=== PATIENT | male | born 1935 | race Caucasian/White ===

== ENCOUNTER 2017-05-03 18:26 | Inpatient (IN) | payer MEDICARE ==
[~2017-05-03] VITALS: Ht 182.9 cm; Wt 109.8 kg
[2017-05-03] MEDS ORDERED: CYAN10002 IJ (18:44)
[2017-05-03] MEDS ORDERED: RISP1TAB3 PO (18:44)
[2017-05-03] MEDS ORDERED: ESCITALOPRAM OX10 MG PO (18:44)
[2017-05-03] MEDS ORDERED: MIRT15TA3 PO (18:44)
[2017-05-03] MEDS ORDERED: DONE10TA7 PO (18:44)
[2017-05-03] MEDS ORDERED: MEMA28CA PO (18:44)
[2017-05-03] MEDS ORDERED: TRAZ50TA15 PO ×2 (18:44)
--- NOTE | 2017-05-03 19:11 | EKG ---
[address] [address] Test Date: 2017-05-03 Test Time: 18:52:23 Pat Name: BRIANNA LOVE Department: Room: Gender: M Ell Teacher: SETH : 1935 Requested By: CYRUS REYNOLDS Order Number: [id number] Reading MD: Daniel Diamond Measurements Intervals [place] Rate: 83 P: 40 NH: 224 QRS: -29 QRSD: 98 T: 62 QT: 394 QTc: 464 Interpretive Statements SINUS RHYTHM COMPLEX(ES) WITH ABERRANT INTRAVENTRICULAR CONDUCTION VENTRICULAR PREMATURE COMPLEX(ES) PROLONGED NH INTERVAL LEFTWARD AXIS ABNORMAL ECG RI6.01 No previous ECG available for comparison Electronically Signed On 05-22-2017 17:09:22 CDT by Daniel Diamond
[2017-05-03] MEDS ORDERED: LORazepam 1 MG TABLET PO ONE (19:15)
[2017-05-03 19:40] LABS: BASO % 1 % (0-3); EOS # 0.2 x10^3/uL (0.0-0.7); EOS % 3 % (0-3); HEMATOCRIT 45.5 % (39.0-53.0); HEMOGLOBIN 15.2 g/dL (13.0-17.5); LYMPH # 1.6 x10^3/uL (1.0-4.8); LYMPH % 23 % (24-48); MEAN CORPUSCULAR HEMOGLOBIN 31 pg (25-35); MEAN CORPUSCULAR HGB CONC 33 g/dL (31-37); MEAN CORPUSCULAR VOLUME 92 fL (79-100); MONO # 0.4 x10^3/uL (0.0-1.1); MONO % 7 % (0-9); NEUT # 4.6 x10^3uL (1.8-7.7); NEUT % 67 % (31-73); PLATELET COUNT 147 x10^3/uL (140-400); RED BLOOD COUNT 4.97 x10^6/uL (4.30-5.70); RED CELL DISTRIBUTION WIDTH 14.3 % (11.5-14.5); WHITE BLOOD COUNT 6.8 x10^3/uL (4.0-11.0)
[2017-05-03 19:48] LABS: ALBUMIN 3.6 g/dL (3.4-5.0); ALBUMIN/GLOBULIN RATIO 0.9 (1.0-1.7); CALCIUM 8.7 mg/dL (8.5-10.1); CREATININE 0.9 mg/dL (0.7-1.3); GFR 81.2; MAGNESIUM 2.2 mg/dL (1.8-2.4); POTASSIUM 3.6 mmol/L (3.5-5.1); TOTAL BILIRUBIN 0.7 mg/dL (0.2-1.0); TOTAL PROTEIN 7.7 g/dL (6.4-8.2)
--- NOTE | 2017-05-03 20:11 | PHYS DOC ---
Past History Past Medical History: Dementia, Depression, Other Past Surgical History: Other Alcohol Use: None Drug Use: None Adult General Chief Complaint Chief Complaint: PSYCH EVALUATION HPI HPI Patient is a male year old male who presents for medical clearance for psychiatric evaluation. The patient is sent from care home in [place] where he has had increased anxiety and depression, attempted to stab himself with a ballpoint pen in the wrist and chest today. He expresses suicidal ideation to staff. Denies any medical concerns at this time. Is on multiple psychiatric medications as noted in his chart. History of Alzheimer's dementia. Review of Systems Review of Systems Constitutional: Denies fever or chills Eyes: Denies change in visual acuity HENT: Denies nasal congestion or sore throat Respiratory: Denies cough or shortness of breath Cardiovascular: Denies chest pain or edema GI: Denies abdominal pain, nausea, vomiting : Denies dysuria or hematuria Musculoskeletal: Denies back pain or joint pain Integument: Denies rash or skin lesions Neurologic: Denies headache, focal weakness or sensory changes Psychiatric: Reports anxiety and depression Current Medications Current Medications Current Medications Medications (Trade) Dose Ordered Sig/Wes Start Time Stop Time Status Last Admin Dose Admin Lorazepam (Ativan) 0.5 mg 1X ONCE 05/03/17 19:15 05/03/17 19:16 DC 05/03/17 19:48 0.5 MG Allergies Allergies Allergies Coded Allergies Type Severity Reaction Last Updated Verified No Known Drug Allergies 05/03/17 No Physical Exam Physical Exam Constitutional: Well developed, well nourished, no acute distress, non-toxic appearance. HENT: Normocephalic, atraumatic, bilateral external ears normal, oropharynx moist, nose normal. Eyes: PERRLA, EOMI, conjunctiva normal, no discharge. Neck: supple, no stridor. No meningismus Cardiovascular: RRR, no murmurs, no edema. Lungs & Thorax: LCTAB, no wheezing, no respiratory distress. Abdomen: soft, nontender, nondistended. Skin: Warm, dry, no erythema, no rash. Back: No tenderness. Extremities: No tenderness, no edema. Neurologic: Alert and oriented to person and date, states he is at a filling station, cranial nerves II through XII grossly intact, symmetric strength and sensation to upper and lower extremities, no focal deficits noted. Psychologic: Flat affect, anxious Current Patient Data Vital Signs Vital Signs Date Time Temp Pulse Resp B/P (MAP) Pulse Ox O2 Delivery O2 Flow Rate FiO2 05/03/17 18:30 97.8 84 20 97 Room Air Lab Results Laboratory Tests Test 05/03/17 19:00 White Blood Count 6.8 x10^3/uL (4.0-11.0) Red Blood Count 4.97 x10^6/uL (4.30-5.70) Hemoglobin 15.2 g/dL (13.0-17.5) Hematocrit 45.5 % (39.0-53.0) Mean Corpuscular Volume 92 fL (79-100) Mean Corpuscular Hemoglobin 31 pg (25-35) Mean Corpuscular Hemoglobin Concent 33 g/dL (31-37) Red Cell Distribution Width 14.3 % (11.5-14.5) Platelet Count 147 x10^3/uL (140-400) Neutrophils (%) (Auto) 67 % (31-73) Lymphocytes (%) (Auto) 23 % (24-48) L Monocytes (%) (Auto) 7 % (0-9) Eosinophils (%) (Auto) 3 % (0-3) Basophils (%) (Auto) 1 % (0-3) Neutrophils # (Auto) 4.6 x10^3uL (1.8-7.7) Lymphocytes # (Auto) 1.6 x10^3/uL (1.0-4.8) Monocytes # (Auto) 0.4 x10^3/uL (0.0-1.1) Eosinophils # (Auto) 0.2 x10^3/uL (0.0-0.7) Basophils # (Auto) 0.0 x10^3/uL (0.0-0.2) Sodium Level 140 mmol/L (136-145) Potassium Level 3.6 mmol/L (3.5-5.1) Chloride Level 104 mmol/L (98-107) Carbon Dioxide Level 31 mmol/L (21-32) Anion Gap 5 (6-14) L Blood Urea Nitrogen 20 mg/dL (8-26) Creatinine 0.9 mg/dL (0.7-1.3) Estimated GFR (Cockcroft-Gault) 81.2 BUN/Creatinine Ratio 22 (6-20) H Glucose Level 96 mg/dL (70-99) Calcium Level 8.7 mg/dL (8.5-10.1) Magnesium Level 2.2 mg/dL (1.8-2.4) Total Bilirubin 0.7 mg/dL (0.2-1.0) Aspartate Amino Transferase (AST) 38 U/L (15-37) H Alanine Aminotransferase (ALT) 34 U/L (16-63) Alkaline Phosphatase 83 U/L (46-116) Total Protein 7.7 g/dL (6.4-8.2) Albumin 3.6 g/dL (3.4-5.0) Albumin/Globulin Ratio 0.9 (1.0-1.7) L EKG EKG Interpreted by me: Normal sinus rhythm rate 83, no acute ST or T wave changes, WI interval prolonged 224 ms, PVCs[] Radiology/Procedures Radiology/Procedures [] Course & Med Decision Making Course & Med Decision Making Pertinent Labs and Imaging studies reviewed. (See chart for details) The patient presents for medical clearance for psychiatric admission. No complaints at this time. Gave Ativan for anxiety. Labs as documented above. Patient medically clear for admission. To be transferred to psychiatric unit by EMS. The patient remains in stable condition. [] Dragon Disclaimer Dragon Disclaimer This chart was dictated in whole or in part using Voice Recognition software in a busy, high-work load, and often noisy Emergency Department environment. It may contain unintended and wholly unrecognized errors or omissions. Departure Departure: Impression: Primary Impression: Anxiety associated with depression Disposition: 65 XFER TO PSYCH HOSP/UNIT Condition: STABLE Referrals: YONAS CREWS MD (PCP) CYRUS REYNOLDS MD May 03, 2017 20:11
[2017-05-03] MEDS: MIRTAZAPINE 15 MG TABLET PO SCH (21:00)
[2017-05-03] MEDS: DONEPEZIL HCL 10 MG TABLET PO SCH (21:00)
[2017-05-03] MEDS: risperiDONE 1 MG TABLET. PO SCH (21:00)
[2017-05-03] MEDS: MEMANTINE 10 MG TABLET. PO SCH (21:00)
[2017-05-03] MEDS ORDERED: MAGNESIUM HYDROXIDE 2,400 MG/30 ML ORAL.SUSP. PO PRN (21:45)
[2017-05-03] MEDS ORDERED: METHYL SALICYLATE/MENTHOL TOPICAL OINTMENT 29GM TUBE. TP PRN (21:45)
[2017-05-03] MEDS ORDERED: MAG HYDROX/AL HYDROX/SIMETH 30 ML ORAL.SUSP PO PRN (21:45)
[2017-05-03] MEDS ORDERED: ACETAMINOPHEN 325 MG TABLET PO PRN (21:45)
[2017-05-03 22:39] VITALS: BP 92/59
--- NOTE | 2017-05-03 22:56 | PDOC ---
Exam Jayy Demential Exam: Jayy Note: Please also refer to the separate dictated note~for this date of service dictated separately.~Patient seen individually. Discussed the patient with Nursing staff reviewed the chart.~Reviewed interim history and current functioning. Reviewed vital signs,~Labs/ Radiology~and current medications noted below. Continue current treatment with the changes noted in the dictated addendum note Assessment: Vital Signs: Vital Signs Date Time Temp Pulse Resp B/P (MAP) Pulse Ox O2 Delivery O2 Flow Rate FiO2 05/03/17 22:39 97.5 83 22 92/59 (70) 93 Room Air Labs: Laboratory Tests Test 05/03/17 19:00 White Blood Count 6.8 x10^3/uL (4.0-11.0) Red Blood Count 4.97 x10^6/uL (4.30-5.70) Hemoglobin 15.2 g/dL (13.0-17.5) Hematocrit 45.5 % (39.0-53.0) Mean Corpuscular Volume 92 fL (79-100) Mean Corpuscular Hemoglobin 31 pg (25-35) Mean Corpuscular Hemoglobin Concent 33 g/dL (31-37) Red Cell Distribution Width 14.3 % (11.5-14.5) Platelet Count 147 x10^3/uL (140-400) Neutrophils (%) (Auto) 67 % (31-73) Lymphocytes (%) (Auto) 23 % (24-48) L Monocytes (%) (Auto) 7 % (0-9) Eosinophils (%) (Auto) 3 % (0-3) Basophils (%) (Auto) 1 % (0-3) Neutrophils # (Auto) 4.6 x10^3uL (1.8-7.7) Lymphocytes # (Auto) 1.6 x10^3/uL (1.0-4.8) Monocytes # (Auto) 0.4 x10^3/uL (0.0-1.1) Eosinophils # (Auto) 0.2 x10^3/uL (0.0-0.7) Basophils # (Auto) 0.0 x10^3/uL (0.0-0.2) Sodium Level 140 mmol/L (136-145) Potassium Level 3.6 mmol/L (3.5-5.1) Chloride Level 104 mmol/L (98-107) Carbon Dioxide Level 31 mmol/L (21-32) Anion Gap 5 (6-14) L Blood Urea Nitrogen 20 mg/dL (8-26) Creatinine 0.9 mg/dL (0.7-1.3) Estimated GFR (Cockcroft-Gault) 81.2 BUN/Creatinine Ratio 22 (6-20) H Glucose Level 96 mg/dL (70-99) Calcium Level 8.7 mg/dL (8.5-10.1) Magnesium Level 2.2 mg/dL (1.8-2.4) Total Bilirubin 0.7 mg/dL (0.2-1.0) Aspartate Amino Transferase (AST) 38 U/L (15-37) H Alanine Aminotransferase (ALT) 34 U/L (16-63) Alkaline Phosphatase 83 U/L (46-116) Total Protein 7.7 g/dL (6.4-8.2) Albumin 3.6 g/dL (3.4-5.0) Albumin/Globulin Ratio 0.9 (1.0-1.7) L Current Medications: Meds: Current Medications Lorazepam (Ativan) 0.5 mg 1X ONCE PO Last administered on 05/03/17t 19:48; Start 05/03/17 at 19:15; Stop 05/03/17 at 19:16; Status DC Cyanocobalamin (Vitamin B-12) 1,000 mcg QMONTH SQ ; Start 05/23/17 at 09:00 Donepezil HCl (Aricept) 10 mg QHS PO ; Start 05/03/17 at 21:00 Mirtazapine (Remeron) 15 mg QHS PO ; Start 05/03/17 at 21:00 Risperidone (RisperDAL) 1 mg BID PO ; Start 05/03/17 at 21:00 Trazodone HCl (Desyrel) 25 mg PRN Q6HRS PRN PO AA; Start 05/03/17 at 20:45 Trazodone HCl (Desyrel) 50 mg PRN QHS PRN PO INSOMNIA; Start 05/03/17 at 20:45 Citalopram Hydrobromide (CeleXA) 30 mg DAILY PO ; Start 05/04/17 at 09:00 Memantine (Namenda) 10 mg BID PO ; Start 05/03/17 at 21:00 Acetaminophen (Tylenol) 650 mg PRN Q6HRS PRN PO PAIN / TEMP; Start 05/03/17 at 21:45; Status UNV Multi-Ingredient Ointment (Analgesic [place]) 1 farrukh PRN QID PRN TP MUSCLE PAIN; Start 05/03/17 at 21:45; Status UNV Al Hydroxide/Mg Hydroxide (Mylanta Plus Xs) 15 ml PRN AFTMEALHC PRN PO DYSPEPSIA; Start 05/03/17 at 21:45; Status UNV Magnesium Hydroxide (Milk Of Magnesia) 2,400 mg PRN QHS PRN PO CONSTIPATION; Start 05/03/17 at 21:45; Status UNV Active Scripts Active Reported Donepezil Hcl 10 Mg Tablet 10 Mg PO QHS Trazodone Hcl 50 Mg Tablet 25 Mg PO PRN Q6HRS PRN Trazodone Hcl 50 Mg Tablet 50 Mg PO PRN QHS PRN Risperidone 1 Mg Tablet 1 Mg PO BID Mirtazapine 15 Mg Tablet 15 Mg PO QHS Namenda Xr (Memantine Hcl) 28 Mg Cap.spr.24 28 Mg PO DAILY Escitalopram Oxalate 10 Mg Tablet 15 Mg PO DAILY Cyanocobalamin Injection (Cyanocobalamin (Vitamin B-12)) 1,000 Mcg/1 Ml Vial 1, 000 Mcg IJ QMONTH Diagnosis: Problems: (1) Anxiety associated with depression MARICARMEN GONCALVES MD May 03, 2017 22:56
[2017-05-04 05:54] VITALS: BP 103/66
[2017-05-04] MEDS: MEMANTINE 10 MG TABLET. PO SCH ×2 (08:01→20:27)
[2017-05-04] MEDS: traZODone 50 MG TABLET. PO PRN ×2 (08:01→14:23)
[2017-05-04] MEDS: CITALOPRAM 20 MG TABLET. PO SCH (08:01)
[2017-05-04] MEDS: risperiDONE 1 MG TABLET. PO SCH ×2 (08:01→20:27)
[2017-05-04 11:58] LABS: THYROID STIM HORMONE (TSH) 1.995 uIU/mL (0.358-3.740)
[2017-05-04 13:07] LABS: T3 TOTAL 81 ng/dL (71-180); THYROXINE 6.2 ug/dL (4.5-12.0)
--- NOTE | 2017-05-04 14:13 | PDOC1 ---
History of Present Illness Reason for Visit: Suicidal History of Present Illness Pt was hospitalized in [place] for 2 months, recently released to [facility] in [place]. Pt sent to [facility] for [facility] evaluation, as he has been making suicidal statements, trying to stab himself with a pen. He has a hx of depression and Alzheimer's. When I spoke to him, he did not answer questions, would only tell me that he wants a private room, that he "worked too long and hard to have to put up with a roommate." He is a poor historian. 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 Allergies: Coded Allergies: No Known Drug Allergies (Unverified , 05/03/17) Medications Current Medications Lorazepam (Ativan) 0.5 mg 1X ONCE PO Last administered on 05/03/17 19:48; Start 05/03/17 at 19:15; Stop 05/03/17 at 19:16; Status DC Cyanocobalamin (Vitamin B-12) 1,000 mcg QMONTH SQ ; Start 05/23/17 at 09:00 Donepezil HCl (Aricept) 10 mg QHS PO ; Start 05/03/17 at 21:00 Mirtazapine (Remeron) 15 mg QHS PO ; Start 05/03/17 at 21:00 Risperidone (RisperDAL) 1 mg BID PO Last administered on 05/04/17 08:01; Start 05/03/17 at 21:00 Trazodone HCl (Desyrel) 25 mg PRN Q6HRS PRN PO AA Last administered on 08:01; Start 05/03/17 at 20:45 Trazodone HCl (Desyrel) 50 mg PRN QHS PRN PO INSOMNIA; Start 05/03/17 at 20:45 Citalopram Hydrobromide (CeleXA) 30 mg DAILY PO Last administered on 05/04/17 08:01; Start 05/04/17 at 09:00 Memantine (Namenda) 10 mg BID PO Last administered on 05/04/17t 08:01; Start 05/03/17 at 21:00 Acetaminophen (Tylenol) 650 mg PRN Q6HRS PRN PO PAIN / TEMP; Start 05/03/17 at 21:45 Multi-Ingredient Ointment (Analgesic [place]) 1 farrukh PRN QID PRN TP MUSCLE PAIN; Start 05/03/17 at 21:45 Al Hydroxide/Mg Hydroxide (Mylanta Plus Xs) 15 ml PRN AFTMEALHC PRN PO DYSPEPSIA; Start 05/03/17 at 21:45 Magnesium Hydroxide (Milk Of Magnesia) 2,400 mg PRN QHS PRN PO CONSTIPATION; Start 05/03/17 at 21:45 Active Scripts Active Reported Donepezil Hcl 10 Mg Tablet 10 Mg PO QHS Trazodone Hcl 50 Mg Tablet 25 Mg PO PRN Q6HRS PRN Trazodone Hcl 50 Mg Tablet 50 Mg PO PRN QHS PRN Risperidone 1 Mg Tablet 1 Mg PO BID Mirtazapine 15 Mg Tablet 15 Mg PO QHS Namenda Xr (Memantine Hcl) 28 Mg Cap.spr.24 28 Mg PO DAILY Escitalopram Oxalate 10 Mg Tablet 15 Mg PO DAILY Cyanocobalamin Injection (Cyanocobalamin (Vitamin B-12)) 1,000 Mcg/1 Ml Vial 1, 000 Mcg IJ QMONTH Exam Vital Signs Vital Signs Date Time Temp Pulse Resp B/P (MAP) Pulse Ox O2 Delivery O2 Flow Rate FiO2 05/04/17 05:54 97.4 70 20 103/66 (78) 90 05/03/17 22:39 Room Air General Appearance: Alert, Cooperative, No acute distress HEENT: Atraumatic, PERRLA, EOMI, Mucous membr. moist/pink, Other (Neck without JVD or LAD) Heart: Regular rate, Normal S1, Normal S2, No murmurs Abdominal: Normal bowel sounds, Soft, No tenderness, No hepatospenomegaly Extremities: No edema, Normal pulses Skin: No rashes Neuro: Other (No focal neuro abnormalities) Psych/Mental Status: Other (Perservates on wanting a private room) Assessment/Plan Assessment/Plan 1. Depression w/ SI: Per Dr. Rodrigez. 2. Alzheimer's Dementia: Per Dr. Rodrigez 3. VIt D deficiency: Treat w/ PO VIt D (level was 14.8) 4. HPL: No indication for statin in asymptomatic person over 80, especially w/ dementia. 5. DVT proph: Pt fully ambulatory, low risk. COURSE Allergies Coded Allergies Type Severity Reaction Last Updated Verified No Known Drug Allergies 05/03/17 No Laboratory Tests Test 05/03/17 19:00 White Blood Count 6.8 x10^3/uL (4.0-11.0) Red Blood Count 4.97 x10^6/uL (4.30-5.70) Hemoglobin 15.2 g/dL (13.0-17.5) Hematocrit 45.5 % (39.0-53.0) Mean Corpuscular Volume 92 fL (79-100) Mean Corpuscular Hemoglobin 31 pg (25-35) Mean Corpuscular Hemoglobin Concent 33 g/dL (31-37) Red Cell Distribution Width 14.3 % (11.5-14.5) Platelet Count 147 x10^3/uL (140-400) Neutrophils (%) (Auto) 67 % (31-73) Lymphocytes (%) (Auto) 23 % (24-48) Monocytes (%) (Auto) 7 % (0-9) Eosinophils (%) (Auto) 3 % (0-3) Basophils (%) (Auto) 1 % (0-3) Neutrophils # (Auto) 4.6 x10^3uL (1.8-7.7) Lymphocytes # (Auto) 1.6 x10^3/uL (1.0-4.8) Monocytes # (Auto) 0.4 x10^3/uL (0.0-1.1) Eosinophils # (Auto) 0.2 x10^3/uL (0.0-0.7) Basophils # (Auto) 0.0 x10^3/uL (0.0-0.2) Sodium Level 140 mmol/L (136-145) Potassium Level 3.6 mmol/L (3.5-5.1) Chloride Level 104 mmol/L (98-107) Carbon Dioxide Level 31 mmol/L (21-32) Anion Gap 5 (6-14) Blood Urea Nitrogen 20 mg/dL (8-26) Creatinine 0.9 mg/dL (0.7-1.3) Estimated GFR (Cockcroft-Gault) 81.2 BUN/Creatinine Ratio 22 (6-20) Glucose Level 96 mg/dL (70-99) Calcium Level 8.7 mg/dL (8.5-10.1) Magnesium Level 2.2 mg/dL (1.8-2.4) Total Bilirubin 0.7 mg/dL (0.2-1.0) Aspartate Amino Transf (AST/SGOT) 38 U/L (15-37) Alanine Aminotransferase (ALT/SGPT) 34 U/L (16-63) Alkaline Phosphatase 83 U/L (46-116) Total Protein 7.7 g/dL (6.4-8.2) Albumin 3.6 g/dL (3.4-5.0) Albumin/Globulin Ratio 0.9 (1.0-1.7) Triglycerides Level 113 mg/dL (0-150) Cholesterol Level 207 mg/dL (0-200) LDL Cholesterol, Calculated 148 mg/dL (0-100) VLDL Cholesterol, Calculated 22 mg/dL (0-40) Non-HDL Cholesterol Calculated 170 mg/dL (0-129) HDL Cholesterol 37 mg/dL (40-60) Cholesterol/HDL Ratio 5.0 Thyroid Stimulating Hormone (TSH) 1.995 uIU/mL (0.358-3.740) Thyroxine (T4) 6.2 ug/dL (4.5-12.0) Total Triiodothyronine 81 ng/dL (71-180) Current Medications Medications (Trade) Dose Ordered Sig/Wes Route PRN Reason Start Time Stop Time Status Last Admin Dose Admin Lorazepam (Ativan) 0.5 mg 1X ONCE PO 05/03/17 19:15 05/03/17 19:16 DC 05/03/17 19:48 Cyanocobalamin (Vitamin B-12) 1,000 mcg QMONTH SQ 05/23/17 09:00 Donepezil HCl (Aricept) 10 mg QHS PO 05/03/17 21:00 Mirtazapine (Remeron) 15 mg QHS PO 05/03/17 21:00 Risperidone (RisperDAL) 1 mg BID PO 05/03/17 21:00 05/04/17 08:01 Trazodone HCl (Desyrel) 25 mg PRN Q6HRS PRN PO AA 05/03/17 20:45 05/04/17 08:01 Trazodone HCl (Desyrel) 50 mg PRN QHS PRN PO INSOMNIA 05/03/17 20:45 Citalopram Hydrobromide (CeleXA) 30 mg DAILY PO 05/04/17 09:00 05/04/17 08:01 Memantine (Namenda) 10 mg BID PO 05/03/17 21:00 05/04/17 08:01 Acetaminophen (Tylenol) 650 mg PRN Q6HRS PRN PO PAIN / TEMP 05/03/17 21:45 Multi-Ingredient Ointment (Analgesic [place]) 1 farrukh PRN QID PRN TP MUSCLE PAIN 05/03/17 21:45 Al Hydroxide/Mg Hydroxide (Mylanta Plus Xs) 15 ml PRN AFTMEALHC PRN PO DYSPEPSIA 05/03/17 21:45 Magnesium Hydroxide (Milk Of Magnesia) 2,400 mg PRN QHS PRN PO CONSTIPATION 05/03/17 21:45 I & O 05/05/17 00:00 Intake Total 600 ml Balance 600 ml Vital Signs Date Time Temp Pulse Resp B/P (MAP) Pulse Ox O2 Delivery O2 Flow Rate FiO2 05/04/17 05:54 97.4 70 20 103/66 (78) 90 05/03/17 22:39 Room Air ANGELINA WALKER MD May 04, 2017 14:13
[2017-05-04 15:50] VITALS: BP 119/83
[2017-05-04 18:11] LABS: HEMOGLOBIN A1C 5.2 % (4.8-5.6)
[2017-05-04] MEDS: MIRTAZAPINE 15 MG TABLET PO SCH (20:27)
[2017-05-04] MEDS: DONEPEZIL HCL 10 MG TABLET PO SCH (20:27)
--- NOTE | 2017-05-04 20:39 | PDOC ---
Exam Jayy Demential Exam: Jayy Note: Please also refer to the separate dictated note~for this date of service dictated separately.~Patient seen individually. Discussed the patient with Nursing staff reviewed the chart.~Reviewed interim history and current functioning. Reviewed vital signs,~Labs/ Radiology~and current medications noted below. Continue current treatment with the changes noted in the dictated addendum note Assessment: Vital Signs: Vital Signs Date Time Temp Pulse Resp B/P (MAP) Pulse Ox O2 Delivery O2 Flow Rate FiO2 05/04/17 15:50 97.9 91 22 119/83 (95) 93 05/03/17 22:39 Room Air I&O Intake and Output 05/05/17 07:00 Intake Total 1080 ml Balance 1080 ml Intake Oral 1080 ml Current Medications: Meds: Current Medications Lorazepam (Ativan) 0.5 mg 1X ONCE PO Last administered on 05/03/17 19:48; Start 05/03/17 at 19:15; Stop 05/03/17 at 19:16; Status DC Cyanocobalamin (Vitamin B-12) 1,000 mcg QMONTH SQ ; Start 05/23/17 at 09:00 Donepezil HCl (Aricept) 10 mg QHS PO Last administered on 05/04/17 20:27; Start 05/03/17 at 21:00 Mirtazapine (Remeron) 15 mg QHS PO Last administered on 05/04/17 20:27; Start 05/03/17 at 21:00 Risperidone (RisperDAL) 1 mg BID PO Last administered on 05/04/17 20:27; Start 05/03/17 at 21:00 Trazodone HCl (Desyrel) 25 mg PRN Q6HRS PRN PO AA Last administered on 14:23; Start 05/03/17 at 20:45 Trazodone HCl (Desyrel) 50 mg PRN QHS PRN PO INSOMNIA; Start 05/03/17 at 20:45 Citalopram Hydrobromide (CeleXA) 30 mg DAILY PO Last administered on 05/04/17 08:01; Start 05/04/17 at 09:00 Memantine (Namenda) 10 mg BID PO Last administered on 05/04/17 20:27; Start 05/03/17 at 21:00 Acetaminophen (Tylenol) 650 mg PRN Q6HRS PRN PO PAIN / TEMP; Start 05/03/17 at 21:45 Multi-Ingredient Ointment (Analgesic [place]) 1 farrukh PRN QID PRN TP MUSCLE PAIN; Start 05/03/17 at 21:45 Al Hydroxide/Mg Hydroxide (Mylanta Plus Xs) 15 ml PRN AFTMEALHC PRN PO DYSPEPSIA; Start 05/03/17 at 21:45 Magnesium Hydroxide (Milk Of Magnesia) 2,400 mg PRN QHS PRN PO CONSTIPATION; Start 05/03/17 at 21:45 Vitamin D (Vitamin D3) 50,000 unit WEEKLY PO ; Start 05/05/17 at 09:00 Lorazepam (Ativan) 0.25 mg PRN Q2HR PRN PO ANXIETY / AGITATION; Start 05/04/17 at 19:30 Active Scripts Active Reported Donepezil Hcl 10 Mg Tablet 10 Mg PO QHS Trazodone Hcl 50 Mg Tablet 25 Mg PO PRN Q6HRS PRN Trazodone Hcl 50 Mg Tablet 50 Mg PO PRN QHS PRN Risperidone 1 Mg Tablet 1 Mg PO BID Mirtazapine 15 Mg Tablet 15 Mg PO QHS Namenda Xr (Memantine Hcl) 28 Mg Cap.spr.24 28 Mg PO DAILY Escitalopram Oxalate 10 Mg Tablet 15 Mg PO DAILY Cyanocobalamin Injection (Cyanocobalamin (Vitamin B-12)) 1,000 Mcg/1 Ml Vial 1, 000 Mcg IJ QMONTH Diagnosis: Problems: (1) Anxiety associated with depression MARICARMEN GONCALVES MD May 04, 2017 20:39
[2017-05-05 06:23] VITALS: BP 115/74
[2017-05-05] MEDS: CITALOPRAM 20 MG TABLET. PO SCH (08:01)
[2017-05-05] MEDS: MEMANTINE 10 MG TABLET. PO SCH ×2 (08:01→19:43)
[2017-05-05] MEDS: risperiDONE 1 MG TABLET. PO SCH ×2 (08:02→19:43)
[2017-05-05] MEDS: CHOLECALCIFEROL (VITAMIN D3) 50,000 UNIT CAPSULE PO SCH (08:03)
--- NOTE | 2017-05-05 09:54 | HP ---
ADMIT DATE: 05/04/2017 This is a late entry for date of service 05/04/2017 covers the elements not covered in my initial note of 05/04/2017. I met with the patient the evening of 05/04/2017. IDENTIFYING DATA: The patient is an 81-year-old male referred to us from [facility] where he was admitted just 2 days previously after about 2 months' inpatient psychiatric stay at [facility] in [place] for depression and suicidal ideation. Shortly after arriving at the detention, the patient was again voicing suicidal ideation with plan of stabbing himself in the chest and the wrist. The patient's behaviors were deemed dangerous, had failed the short stay at the nursing facility, referred back for inpatient psychiatric hospitalization at this time to our unit here. 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 Nothing is working out. I said I would stab myself." HISTORY OF PRESENT ILLNESS: The patient has a history of progressive short term memory deficits, confusion, worsening symptoms of depression. He has had sleep and appetite changes, increased anxiety, voiced suicidal ideation as above. No clear history of bipolar disorder or homicidal ideation. PAST PSYCHIATRIC HISTORY: Positive for progressive dementia and depression. PAST MEDICAL HISTORY: Positive for vitamin B deficiency, dehydration, dyspnea. DRUG ALLERGIES: Negative. Primary care physician is Dr. Luna who referred the patient to us. Code status is full. DRUG ALLERGIES: Negative. DIET: Regular. Takes his medications whole. CURRENT PSYCHOTROPICS: Lexapro 15 mg a day, Namenda XR 28 mg a day, Remeron 15 mg at bedtime, Risperdal 1 mg b.i.d., trazodone 50 mg at bedtime p.r.n. insomnia and 25 mg q.6 hours p.r.n., Aricept 10 mg a day. FAMILY HISTORY: Noncontributory. SOCIAL HISTORY: The patient has past alcohol use, but no clear significant alcohol abuse. 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 No physical, sexual or elder abuse history is noted. Not known to be a perpetrator. REACTION TO HOSPITALIZATION: The patient is accepting of it. ASSETS: Physically reasonably healthy supportive family. MENTAL STATUS EXAMINATION: The patient was seen individually evening of 05/04/2017 in his room. He was aware of the year, name of the president, short term memory, otherwise is impaired. Speech is coherent, at times rapid, anxious, mood is depressed. Affect is mood congruent, somewhat paranoid. No active suicidal or homicidal ideation. He stated he was "L[employer]-Day" and recognizes that ending his life on his own would be against his values, but nevertheless stated he had suicidal ideation, but did not follow through with it. PHYSICAL EXAMINATION: VITAL SIGNS: As mentioned in my initial note. IMPRESSION: Major depressive disorder, recurrent, rule out psychotic features, mild cognitive impairment versus major neurocognitive disorder, Alzheimer, vascular with depression, delusions; anxiety disorder, unspecified; impulse control disorder, unspecified. Rest unchanged. PLAN: Admit to the geropsychiatry unit at [facility]. I will see the patient daily individually from a psychiatric standpoint. Medical followup per Dr. Rushing/Dr. Chester. Continue the patient on his current psychotropics, observe baseline, start Ativan p.r.n., gets past records from [facility] in [place]. Further recommendations and treatment decisions will be made after baseline assessment. MARICARMEN GONCALVES MD DR: DANGELO/bernardo JOB#: [id number] / [id number]
[2017-05-05] MEDS ORDERED: CHOLECALCIFEROL (VITAMIN D3) 50,000 UNIT CAPSULE PO SCH (14:45)
[2017-05-05 16:09] VITALS: BP 115/72
[2017-05-05] MEDS: traZODone 50 MG TABLET. PO PRN (19:43)
[2017-05-05] MEDS: DONEPEZIL HCL 10 MG TABLET PO SCH (19:43)
[2017-05-05] MEDS: MIRTAZAPINE 15 MG TABLET PO SCH (19:43)
--- NOTE | 2017-05-05 20:27 | PDOC ---
Exam Jayy Demential Exam: Jayy Note: Please also refer to the separate dictated note~for this date of service dictated separately.~Patient seen individually. Discussed the patient with Nursing staff reviewed the chart.~Reviewed interim history and current functioning. Reviewed vital signs,~Labs/ Radiology~and current medications noted below. Continue current treatment with the changes noted in the dictated addendum note Assessment: Vital Signs: Vital Signs Date Time Temp Pulse Resp B/P (MAP) Pulse Ox O2 Delivery O2 Flow Rate FiO2 05/05/17 16:09 98.1 113 18 115/72 (86) 93 Room Air I&O Intake and Output 05/06/17 07:00 Intake Total 1020 ml Balance 1020 ml Intake Oral 1020 ml Current Medications: Meds: Current Medications Lorazepam (Ativan) 0.5 mg 1X ONCE PO Last administered on 05/03/17 19:48; Start 05/03/17 at 19:15; Stop 05/03/17 at 19:16; Status DC Cyanocobalamin (Vitamin B-12) 1,000 mcg QMONTH SQ ; Start 05/23/17 at 09:00 Donepezil HCl (Aricept) 10 mg QHS PO Last administered on 05/05/17 19:43; Start 05/03/17 at 21:00 Mirtazapine (Remeron) 15 mg QHS PO Last administered on 05/05/17 19:43; Start 05/03/17 at 21:00 Risperidone (RisperDAL) 1 mg BID PO Last administered on 05/05/17 19:43; Start 05/03/17 at 21:00 Trazodone HCl (Desyrel) 25 mg PRN Q6HRS PRN PO AA Last administered on 14:23; Start 05/03/17 at 20:45 Trazodone HCl (Desyrel) 50 mg PRN QHS PRN PO INSOMNIA Last administered on 05/05 19:43; Start 05/03/17 at 20:45 Citalopram Hydrobromide (CeleXA) 30 mg DAILY PO Last administered on 05/05/17 08:01; Start 05/04/17 at 09:00 Memantine (Namenda) 10 mg BID PO Last administered on 05/05/17 19:43; Start 05/03/17 at 21:00 Acetaminophen (Tylenol) 650 mg PRN Q6HRS PRN PO PAIN / TEMP; Start 05/03/17 at 21:45 Multi-Ingredient Ointment (Analgesic [place]) 1 farrukh PRN QID PRN TP MUSCLE PAIN; Start 05/03/17 at 21:45 Al Hydroxide/Mg Hydroxide (Mylanta Plus Xs) 15 ml PRN AFTMEALHC PRN PO DYSPEPSIA; Start 05/03/17 at 21:45 Magnesium Hydroxide (Milk Of Magnesia) 2,400 mg PRN QHS PRN PO CONSTIPATION; Start 05/03/17 at 21:45 Vitamin D (Vitamin D3) 50,000 unit WEEKLY PO Last administered on 05/05/17t 08: 03; Start 05/05/17 at 09:00 Lorazepam (Ativan) 0.25 mg PRN Q2HR PRN PO ANXIETY / AGITATION; Start 05/04/17 at 19:30 Vitamin D (Vitamin D3) 50,000 unit WEEKLY PO ; Start 05/05/17 at 14:45; Stop at 14:45; Status DC Active Scripts Active Reported Donepezil Hcl 10 Mg Tablet 10 Mg PO QHS Trazodone Hcl 50 Mg Tablet 25 Mg PO PRN Q6HRS PRN Trazodone Hcl 50 Mg Tablet 50 Mg PO PRN QHS PRN Risperidone 1 Mg Tablet 1 Mg PO BID Mirtazapine 15 Mg Tablet 15 Mg PO QHS Namenda Xr (Memantine Hcl) 28 Mg Cap.spr.24 28 Mg PO DAILY Escitalopram Oxalate 10 Mg Tablet 15 Mg PO DAILY Cyanocobalamin Injection (Cyanocobalamin (Vitamin B-12)) 1,000 Mcg/1 Ml Vial 1, 000 Mcg IJ QMONTH Diagnosis: Problems: (1) Anxiety associated with depression MARICARMEN GONCALVES MD May 05, 2017 20:27
[2017-05-06 07:13] VITALS: BP 109/72
[2017-05-06] MEDS: CITALOPRAM 20 MG TABLET. PO SCH (08:39)
[2017-05-06] MEDS: MEMANTINE 10 MG TABLET. PO SCH ×2 (08:39→19:18)
[2017-05-06] MEDS: risperiDONE 1 MG TABLET. PO SCH ×2 (08:39→19:18)
[2017-05-06 15:59] VITALS: BP 112/76
[2017-05-06] MEDS: DONEPEZIL HCL 10 MG TABLET PO SCH (19:18)
[2017-05-06] MEDS: MIRTAZAPINE 15 MG TABLET PO SCH (19:18)
--- NOTE | 2017-05-06 20:47 | PDOC ---
Exam Jayy Demential Exam: Jayy Note: Please also refer to the separate dictated note~for this date of service dictated separately.~Patient seen individually. Discussed the patient with Nursing staff reviewed the chart.~Reviewed interim history and current functioning. Reviewed vital signs,~Labs/ Radiology~and current medications noted below. Continue current treatment with the changes noted in the dictated addendum note Assessment: Vital Signs: Vital Signs Date Time Temp Pulse Resp B/P (MAP) Pulse Ox O2 Delivery O2 Flow Rate FiO2 05/06/17 15:59 97.2 93 19 112/76 (88) 95 05/05/17 16:09 Room Air I&O Intake and Output 05/07/17 07:00 Intake Total 720 ml Balance 720 ml Intake Oral 720 ml Current Medications: Meds: Current Medications Lorazepam (Ativan) 0.5 mg 1X ONCE PO Last administered on 05/03/17 19:48; Start 05/03/17 at 19:15; Stop 05/03/17 at 19:16; Status DC Cyanocobalamin (Vitamin B-12) 1,000 mcg QMONTH SQ ; Start 05/23/17 at 09:00 Donepezil HCl (Aricept) 10 mg QHS PO Last administered on 05/06/17 19:18; Start 05/03/17 at 21:00 Mirtazapine (Remeron) 15 mg QHS PO Last administered on 05/06/17 19:18; Start 05/03/17 at 21:00 Risperidone (RisperDAL) 1 mg BID PO Last administered on 05/06/17 19:18; Start 05/03/17 at 21:00 Trazodone HCl (Desyrel) 25 mg PRN Q6HRS PRN PO AA Last administered on 14:23; Start 05/03/17 at 20:45 Trazodone HCl (Desyrel) 50 mg PRN QHS PRN PO INSOMNIA Last administered on 05/05 19:43; Start 05/03/17 at 20:45 Citalopram Hydrobromide (CeleXA) 30 mg DAILY PO Last administered on 08:39; Start 05/04/17 at 09:00; Stop 05/06/17 at 16:28; Status DC Memantine (Namenda) 10 mg BID PO Last administered on 05/06/17 19:18; Start 05/03/17 at 21:00 Acetaminophen (Tylenol) 650 mg PRN Q6HRS PRN PO PAIN / TEMP; Start 05/03/17 at 21:45 Multi-Ingredient Ointment (Analgesic [place]) 1 farrukh PRN QID PRN TP MUSCLE PAIN; Start 05/03/17 at 21:45 Al Hydroxide/Mg Hydroxide (Mylanta Plus Xs) 15 ml PRN AFTMEALHC PRN PO DYSPEPSIA; Start 05/03/17 at 21:45 Magnesium Hydroxide (Milk Of Magnesia) 2,400 mg PRN QHS PRN PO CONSTIPATION; Start 05/03/17 at 21:45 Vitamin D (Vitamin D3) 50,000 unit WEEKLY PO Last administered on 05/05/17 08: 03; Start 05/05/17 at 09:00 Lorazepam (Ativan) 0.25 mg PRN Q2HR PRN PO ANXIETY / AGITATION; Start 05/04/17 at 19:30 Vitamin D (Vitamin D3) 50,000 unit WEEKLY PO ; Start 05/05/17 at 14:45; Stop at 14:45; Status DC Sertraline HCl (Zoloft) 50 mg DAILY PO ; Start 05/07/17 at 09:00 Active Scripts Active Reported Donepezil Hcl 10 Mg Tablet 10 Mg PO QHS Trazodone Hcl 50 Mg Tablet 25 Mg PO PRN Q6HRS PRN Trazodone Hcl 50 Mg Tablet 50 Mg PO PRN QHS PRN Risperidone 1 Mg Tablet 1 Mg PO BID Mirtazapine 15 Mg Tablet 15 Mg PO QHS Namenda Xr (Memantine Hcl) 28 Mg Cap.spr.24 28 Mg PO DAILY Escitalopram Oxalate 10 Mg Tablet 15 Mg PO DAILY Cyanocobalamin Injection (Cyanocobalamin (Vitamin B-12)) 1,000 Mcg/1 Ml Vial 1, 000 Mcg IJ QMONTH Diagnosis: Problems: (1) Anxiety associated with depression MARICARMEN GONCALVES MD May 06, 2017 20:47
[2017-05-07 06:07] VITALS: BP 101/67
[2017-05-07] MEDS: MEMANTINE 10 MG TABLET. PO SCH ×2 (08:53→19:54)
[2017-05-07] MEDS: risperiDONE 1 MG TABLET. PO SCH ×2 (08:53→19:54)
[2017-05-07] MEDS: SERTRALINE 50 MG TABLET. PO SCH (08:55)
--- NOTE | 2017-05-07 09:16 | PN ---
DATE: 05/05/2017 PSYCHIATRIC PROGRESS NOTE This late entry 05/05/2017 covers elements, not covered in my initial note of 05/05/2017. SUBJECTIVE: I met with the patient afternoon of 05/05/2017. The patient slept 7-1/2 hours previous evening. He has appeared sad, withdrawn. Per nursing report, vitamin D is low at 13.8 and supplemented. REVIEW OF SYSTEMS: Ambulation somewhat impaired. No CV, , pulmonary, eye, ENT system symptoms on review. Reliability poor. MENTAL STATUS EXAM: Oriented to himself. Insight, judgment, recent and remote memory, attention, concentration, fund of knowledge poor, consistent with his diagnosis mentioned in my initial note. PLAN: Continue current psychotropics mentioned in my initial note, Celexa, Namenda, Remeron, Risperdal, trazodone p.r.n., Aricept 10 mg a day, Ativan p.r.n. We will change the Celexa to Zoloft 50 mg a day for his mood and anxiety symptoms given his age and risk/benefit ratio of Celexa and cardiac toxicity. We will make further changes as clinical indicated. MARICARMEN GONCALVES MD DR: DANGELO/bernardo JOB#: [id number] / [id number]
[2017-05-07 16:40] VITALS: BP 122/79
[2017-05-07] MEDS: DONEPEZIL HCL 10 MG TABLET PO SCH (19:53)
[2017-05-07] MEDS: MIRTAZAPINE 15 MG TABLET PO SCH (19:54)
--- NOTE | 2017-05-07 20:29 | PDOC ---
Exam Jayy Demential Exam: Jayy Note: Please also refer to the separate dictated note~for this date of service dictated separately.~Patient seen individually. Discussed the patient with Nursing staff reviewed the chart.~Reviewed interim history and current functioning. Reviewed vital signs,~Labs/ Radiology~and current medications noted below. Continue current treatment with the changes noted in the dictated addendum note Assessment: Vital Signs: Vital Signs Date Time Temp Pulse Resp B/P (MAP) Pulse Ox O2 Delivery O2 Flow Rate FiO2 05/07/17 16:40 98.2 60 20 122/79 (93) 94 05/05/17 16:09 Room Air I&O Intake and Output 05/08/17 07:00 Intake Total 680 ml Balance 680 ml Intake Oral 680 ml Current Medications: Meds: Current Medications Lorazepam (Ativan) 0.5 mg 1X ONCE PO Last administered on 05/03/17 19:48; Start 05/03/17 at 19:15; Stop 05/03/17 at 19:16; Status DC Cyanocobalamin (Vitamin B-12) 1,000 mcg QMONTH SQ ; Start 05/23/17 at 09:00 Donepezil HCl (Aricept) 10 mg QHS PO Last administered on 05/07/17 19:53; Start 05/03/17 at 21:00 Mirtazapine (Remeron) 15 mg QHS PO Last administered on 05/07/17 19:54; Start 05/03/17 at 21:00 Risperidone (RisperDAL) 1 mg BID PO Last administered on 05/07/17 19:54; Start 05/03/17 at 21:00 Trazodone HCl (Desyrel) 25 mg PRN Q6HRS PRN PO AA Last administered on 14:23; Start 05/03/17 at 20:45 Trazodone HCl (Desyrel) 50 mg PRN QHS PRN PO INSOMNIA Last administered on 05/05 19:43; Start 05/03/17 at 20:45 Citalopram Hydrobromide (CeleXA) 30 mg DAILY PO Last administered on 08:39; Start 05/04/17 at 09:00; Stop 05/06/17 at 16:28; Status DC Memantine (Namenda) 10 mg BID PO Last administered on 05/07/17 19:54; Start 05/03/17 at 21:00 Acetaminophen (Tylenol) 650 mg PRN Q6HRS PRN PO PAIN / TEMP Last administered on 05/07/17 18:39; Start 05/03/17 at 21:45 Multi-Ingredient Ointment (Analgesic [place]) 1 farrukh PRN QID PRN TP MUSCLE PAIN; Start 05/03/17 at 21:45 Al Hydroxide/Mg Hydroxide (Mylanta Plus Xs) 15 ml PRN AFTMEALHC PRN PO DYSPEPSIA; Start 05/03/17 at 21:45 Magnesium Hydroxide (Milk Of Magnesia) 2,400 mg PRN QHS PRN PO CONSTIPATION; Start 05/03/17 at 21:45 Vitamin D (Vitamin D3) 50,000 unit WEEKLY PO Last administered on 05/05/17 08: 03; Start 05/05/17 at 09:00 Lorazepam (Ativan) 0.25 mg PRN Q2HR PRN PO ANXIETY / AGITATION; Start 05/04/17 at 19:30 Vitamin D (Vitamin D3) 50,000 unit WEEKLY PO ; Start 05/05/17 at 14:45; Stop at 14:45; Status DC Sertraline HCl (Zoloft) 50 mg DAILY PO Last administered on 05/07/17 08:55; Start 05/07/17 at 09:00 Active Scripts Active Reported Donepezil Hcl 10 Mg Tablet 10 Mg PO QHS Trazodone Hcl 50 Mg Tablet 25 Mg PO PRN Q6HRS PRN Trazodone Hcl 50 Mg Tablet 50 Mg PO PRN QHS PRN Risperidone 1 Mg Tablet 1 Mg PO BID Mirtazapine 15 Mg Tablet 15 Mg PO QHS Namenda Xr (Memantine Hcl) 28 Mg Cap.spr.24 28 Mg PO DAILY Escitalopram Oxalate 10 Mg Tablet 15 Mg PO DAILY Cyanocobalamin Injection (Cyanocobalamin (Vitamin B-12)) 1,000 Mcg/1 Ml Vial 1, 000 Mcg IJ QMONTH Diagnosis: Problems: (1) Anxiety associated with depression MARICARMEN GONCALVES MD May 07, 2017 20:29
--- NOTE | 2017-05-08 04:59 | PN ---
DATE: 05/06/2017 PSYCHIATRIC PROGRESS NOTE SUBJECTIVE: This late entry 05/06/2017 covers elements not covered in my initial note of 05/06/2017. I met with the patient evening of 05/06/2017. The patient still voices vague suicidal ideation, noncommittal as to question him on this, and wants to his longterm. Social service staff discussed how he inherited $53,000, give it away to acquaintances and probably gambled some of it. The patient is not willing to talk about it. REVIEW OF SYSTEMS: No CV, , pulmonary, eye, ENT system symptoms on review. MENTAL STATUS EXAM: Oriented to himself and situation. Speech has some latency, coherent. Abstraction fair, computation impaired, language function intact. Mood and affect still somewhat depressed. LABORATORY DATA: Reviewed. IMPRESSION: Unchanged from initial note. PLAN: Celexa was changed to Zoloft. Maintain Namenda, Remeron, Risperdal, trazodone p.r.n., Aricept and Ativan p.r.n. Review drug. Risk/benefit ratio favors no further change. MAN Charlie GONCALVES MD DR: DANGELO/bernardo JOB#: [id number] / [id number]
[2017-05-08 06:05] VITALS: BP 130/86
[2017-05-08] MEDS: MEMANTINE 10 MG TABLET. PO SCH ×2 (08:02→19:42)
[2017-05-08] MEDS: SERTRALINE 50 MG TABLET. PO SCH (08:02)
[2017-05-08] MEDS: risperiDONE 1 MG TABLET. PO SCH ×2 (08:02→19:42)
[2017-05-08] MEDS: LORazepam 0.5 MG TABLET PO PRN (10:48)
[2017-05-08 16:28] VITALS: BP 104/70
[2017-05-08] MEDS: MIRTAZAPINE 15 MG TABLET PO SCH (19:42)
[2017-05-08] MEDS: DONEPEZIL HCL 10 MG TABLET PO SCH (19:42)
--- NOTE | 2017-05-08 20:36 | PDOC ---
Exam Jayy Demential Exam: Jayy Note: Please also refer to the separate dictated note~for this date of service dictated separately.~Patient seen individually. Discussed the patient with Nursing staff reviewed the chart.~Reviewed interim history and current functioning. Reviewed vital signs,~Labs/ Radiology~and current medications noted below. Continue current treatment with the changes noted in the dictated addendum note Assessment: Vital Signs: Vital Signs Date Time Temp Pulse Resp B/P (MAP) Pulse Ox O2 Delivery O2 Flow Rate FiO2 05/08/17 16:28 97.4 59 20 104/70 (81) 94 05/05/17 16:09 Room Air I&O Intake and Output 05/09/17 07:00 Intake Total 1200 ml Balance 1200 ml Intake Oral 1200 ml Current Medications: Meds: Current Medications Lorazepam (Ativan) 0.5 mg 1X ONCE PO Last administered on 05/03/17 19:48; Start 05/03/17 at 19:15; Stop 05/03/17 at 19:16; Status DC Cyanocobalamin (Vitamin B-12) 1,000 mcg QMONTH SQ ; Start 05/23/17 at 09:00 Donepezil HCl (Aricept) 10 mg QHS PO Last administered on 05/08/17 19:42; Start 05/03/17 at 21:00 Mirtazapine (Remeron) 15 mg QHS PO Last administered on 05/08/17 19:42; Start 05/03/17 at 21:00 Risperidone (RisperDAL) 1 mg BID PO Last administered on 05/08/17 19:42; Start 05/03/17 at 21:00 Trazodone HCl (Desyrel) 25 mg PRN Q6HRS PRN PO AA Last administered on 14:23; Start 05/03/17 at 20:45 Trazodone HCl (Desyrel) 50 mg PRN QHS PRN PO INSOMNIA Last administered on 05/05 19:43; Start 05/03/17 at 20:45 Citalopram Hydrobromide (CeleXA) 30 mg DAILY PO Last administered on 08:39; Start 05/04/17 at 09:00; Stop 05/06/17 at 16:28; Status DC Memantine (Namenda) 10 mg BID PO Last administered on 05/08/17 19:42; Start 05/03/17 at 21:00 Acetaminophen (Tylenol) 650 mg PRN Q6HRS PRN PO PAIN / TEMP Last administered on 05/07/17 18:39; Start 05/03/17 at 21:45 Multi-Ingredient Ointment (Analgesic [place]) 1 farrukh PRN QID PRN TP MUSCLE PAIN; Start 05/03/17 at 21:45 Al Hydroxide/Mg Hydroxide (Mylanta Plus Xs) 15 ml PRN AFTMEALHC PRN PO DYSPEPSIA; Start 05/03/17 at 21:45 Magnesium Hydroxide (Milk Of Magnesia) 2,400 mg PRN QHS PRN PO CONSTIPATION; Start 05/03/17 at 21:45 Vitamin D (Vitamin D3) 50,000 unit WEEKLY PO Last administered on 05/05/17 08: 03; Start 05/05/17 at 09:00 Lorazepam (Ativan) 0.25 mg PRN Q2HR PRN PO ANXIETY / AGITATION Last administered on 05/08/17 10:48; Start 05/04/17 at 19:30 Vitamin D (Vitamin D3) 50,000 unit WEEKLY PO ; Start 05/05/17 at 14:45; Stop at 14:45; Status DC Sertraline HCl (Zoloft) 50 mg DAILY PO Last administered on 05/08/17 08:02; Start 05/07/17 at 09:00; Stop 05/08/17 at 11:04; Status DC Sertraline HCl (Zoloft) 75 mg DAILY PO ; Start 05/09/17 at 09:00 Active Scripts Active Reported Donepezil Hcl 10 Mg Tablet 10 Mg PO QHS Trazodone Hcl 50 Mg Tablet 25 Mg PO PRN Q6HRS PRN Trazodone Hcl 50 Mg Tablet 50 Mg PO PRN QHS PRN Risperidone 1 Mg Tablet 1 Mg PO BID Mirtazapine 15 Mg Tablet 15 Mg PO QHS Namenda Xr (Memantine Hcl) 28 Mg Cap.spr.24 28 Mg PO DAILY Escitalopram Oxalate 10 Mg Tablet 15 Mg PO DAILY Cyanocobalamin Injection (Cyanocobalamin (Vitamin B-12)) 1,000 Mcg/1 Ml Vial 1, 000 Mcg IJ QMONTH Diagnosis: Problems: (1) Anxiety associated with depression MARICARMEN GONCALVES MD May 08, 2017 20:36
--- NOTE | 2017-05-09 03:48 | PN ---
DATE: 05/07/2017 This late entry for 05/07/2017 covers elements not covered in my initial note of 05/07/2017. SUBJECTIVE: Overall, the patient at times has made statements, he wants to , but when I questioned him on it, he denies he would try to hurt himself. He talked with daughter Carley on the telephone and seemed very happy after the telephone call. Daughter will visit this Friday. He has been coming out more to the day room. REVIEW OF SYSTEMS: No CV, , pulmonary, eye, ENT system symptoms on review. MENTAL STATUS EXAM: Oriented to himself and situation. Speech moderate latency, often responses monosyllabic. Abstraction fair, computation impaired, language function intact. Mood and affect depressed. LABORATORY DATA: Reviewed. No active suicidal or homicidal ideation. IMPRESSION: Unchanged from initial note. PLAN: Continue current psychotropics mentioned in my initial note. Reviewed drug interactions. Risk/benefit ratio favors no further change. MARICARMEN GONCALVES MD DR: DANGELO/bernardo JOB#: [id number] / [id number]
[2017-05-09 06:18] VITALS: BP 107/71
[2017-05-09] MEDS: SERTRALINE 50 MG TABLET. PO SCH (07:57)
[2017-05-09] MEDS: LORazepam 0.5 MG TABLET PO PRN (07:57)
[2017-05-09] MEDS: MEMANTINE 10 MG TABLET. PO SCH ×2 (07:57→19:25)
[2017-05-09] MEDS: risperiDONE 1 MG TABLET. PO SCH ×2 (07:57→19:25)
[2017-05-09 16:35] VITALS: BP 125/80
[2017-05-09] MEDS: MIRTAZAPINE 15 MG TABLET PO SCH (19:25)
[2017-05-09] MEDS: DONEPEZIL HCL 10 MG TABLET PO SCH (19:25)
--- NOTE | 2017-05-09 20:43 | PDOC ---
Exam Jayy Demential Exam: Jayy Note: Please also refer to the separate dictated note~for this date of service dictated separately.~Patient seen individually. Discussed the patient with Nursing staff reviewed the chart.~Reviewed interim history and current functioning. Reviewed vital signs,~Labs/ Radiology~and current medications noted below. Continue current treatment with the changes noted in the dictated addendum note Assessment: Vital Signs: Vital Signs Date Time Temp Pulse Resp B/P (MAP) Pulse Ox O2 Delivery O2 Flow Rate FiO2 05/09/17 16:35 98.1 85 26 125/80 (95) 96 05/05/17 16:09 Room Air I&O Intake and Output 05/10/17 07:00 Intake Total 840 ml Balance 840 ml Intake Oral 840 ml Current Medications: Meds: Current Medications Lorazepam (Ativan) 0.5 mg 1X ONCE PO Last administered on 05/03/17 19:48; Start 05/03/17 at 19:15; Stop 05/03/17 at 19:16; Status DC Cyanocobalamin (Vitamin B-12) 1,000 mcg QMONTH SQ ; Start 05/23/17 at 09:00 Donepezil HCl (Aricept) 10 mg QHS PO Last administered on 05/09/17 19:25; Start 05/03/17 at 21:00 Mirtazapine (Remeron) 15 mg QHS PO Last administered on 05/09/17 19:25; Start 05/03/17 at 21:00 Risperidone (RisperDAL) 1 mg BID PO Last administered on 05/09/17 19:25; Start 05/03/17 at 21:00 Trazodone HCl (Desyrel) 25 mg PRN Q6HRS PRN PO AA Last administered on 14:23; Start 05/03/17 at 20:45 Trazodone HCl (Desyrel) 50 mg PRN QHS PRN PO INSOMNIA Last administered on 05/05 19:43; Start 05/03/17 at 20:45 Citalopram Hydrobromide (CeleXA) 30 mg DAILY PO Last administered on 08:39; Start 05/04/17 at 09:00; Stop 05/06/17 at 16:28; Status DC Memantine (Namenda) 10 mg BID PO Last administered on 05/09/17 19:25; Start 05/03/17 at 21:00 Acetaminophen (Tylenol) 650 mg PRN Q6HRS PRN PO PAIN / TEMP Last administered on 05/07/17 18:39; Start 05/03/17 at 21:45 Multi-Ingredient Ointment (Analgesic [place]) 1 farrukh PRN QID PRN TP MUSCLE PAIN; Start 05/03/17 at 21:45 Al Hydroxide/Mg Hydroxide (Mylanta Plus Xs) 15 ml PRN AFTMEALHC PRN PO DYSPEPSIA; Start 05/03/17 at 21:45 Magnesium Hydroxide (Milk Of Magnesia) 2,400 mg PRN QHS PRN PO CONSTIPATION; Start 05/03/17 at 21:45 Vitamin D (Vitamin D3) 50,000 unit WEEKLY PO Last administered on 05/05/17 08: 03; Start 05/05/17 at 09:00 Lorazepam (Ativan) 0.25 mg PRN Q2HR PRN PO ANXIETY / AGITATION Last administered on 05/09/17 07:57; Start 05/04/17 at 19:30 Vitamin D (Vitamin D3) 50,000 unit WEEKLY PO ; Start 05/05/17 at 14:45; Stop at 14:45; Status DC Sertraline HCl (Zoloft) 50 mg DAILY PO Last administered on 05/08/17 08:02; Start 05/07/17 at 09:00; Stop 05/08/17 at 11:04; Status DC Sertraline HCl (Zoloft) 75 mg DAILY PO Last administered on 05/09/17 07:57; Start 05/09/17 at 09:00 Active Scripts Active Reported Donepezil Hcl 10 Mg Tablet 10 Mg PO QHS Trazodone Hcl 50 Mg Tablet 25 Mg PO PRN Q6HRS PRN Trazodone Hcl 50 Mg Tablet 50 Mg PO PRN QHS PRN Risperidone 1 Mg Tablet 1 Mg PO BID Mirtazapine 15 Mg Tablet 15 Mg PO QHS Namenda Xr (Memantine Hcl) 28 Mg Cap.spr.24 28 Mg PO DAILY Escitalopram Oxalate 10 Mg Tablet 15 Mg PO DAILY Cyanocobalamin Injection (Cyanocobalamin (Vitamin B-12)) 1,000 Mcg/1 Ml Vial 1, 000 Mcg IJ QMONTH Diagnosis: Problems: (1) Anxiety associated with depression MARICARMEN GONCALVES MD May 09, 2017 20:43
[2017-05-10 06:27] VITALS: BP 102/59
[2017-05-10] MEDS: SERTRALINE 50 MG TABLET. PO SCH (07:55)
[2017-05-10] MEDS: MEMANTINE 10 MG TABLET. PO SCH ×2 (07:55→20:17)
[2017-05-10] MEDS: risperiDONE 1 MG TABLET. PO SCH ×2 (07:55→20:17)
[2017-05-10 08:18] LABS: BASO % 1 % (0-3); EOS # 0.2 x10^3/uL (0.0-0.7); EOS % 3 % (0-3); HEMATOCRIT 40.8 % (39.0-53.0); HEMOGLOBIN 13.7 g/dL (13.0-17.5); LYMPH # 1.8 x10^3/uL (1.0-4.8); LYMPH % 24 % (24-48); MEAN CORPUSCULAR HEMOGLOBIN 31 pg (25-35); MEAN CORPUSCULAR HGB CONC 34 g/dL (31-37); MEAN CORPUSCULAR VOLUME 92 fL (79-100); MONO # 0.4 x10^3/uL (0.0-1.1); MONO % 5 % (0-9); NEUT # 4.9 x10^3uL (1.8-7.7); NEUT % 67 % (31-73); PLATELET COUNT 141 x10^3/uL (140-400); RED BLOOD COUNT 4.42 x10^6/uL (4.30-5.70); RED CELL DISTRIBUTION WIDTH 14.3 % (11.5-14.5); WHITE BLOOD COUNT 7.3 x10^3/uL (4.0-11.0)
[2017-05-10 08:37] LABS: ALBUMIN 3.1 g/dL (3.4-5.0); ALBUMIN/GLOBULIN RATIO 0.9 (1.0-1.7); CALCIUM 8.5 mg/dL (8.5-10.1); CREATININE 0.9 mg/dL (0.7-1.3); GFR 81.2; POTASSIUM 3.6 mmol/L (3.5-5.1); TOTAL BILIRUBIN 0.7 mg/dL (0.2-1.0); TOTAL PROTEIN 6.7 g/dL (6.4-8.2)
[2017-05-10 16:11] VITALS: BP 119/73
[2017-05-10] MEDS: DONEPEZIL HCL 10 MG TABLET PO SCH (20:16)
[2017-05-10] MEDS: MIRTAZAPINE 15 MG TABLET PO SCH (20:17)
[2017-05-10] MEDS: traZODone 50 MG TABLET. PO PRN (20:18)
--- NOTE | 2017-05-10 21:43 | PDOC ---
Exam Jayy Demential Exam: Jayy Note: Please also refer to the separate dictated note~for this date of service dictated separately.~Patient seen individually. Discussed the patient with Nursing staff reviewed the chart.~Reviewed interim history and current functioning. Reviewed vital signs,~Labs/ Radiology~and current medications noted below. Continue current treatment with the changes noted in the dictated addendum note Assessment: Vital Signs: Vital Signs Date Time Temp Pulse Resp B/P (MAP) Pulse Ox O2 Delivery O2 Flow Rate FiO2 05/10/17 16:11 97.4 86 18 119/73 (88) 94 Room Air I&O Intake and Output 05/11/17 07:00 Intake Total 900 ml Balance 900 ml Intake Oral 900 ml Labs: Laboratory Tests Test 05/10/17 07:35 White Blood Count 7.3 x10^3/uL (4.0-11.0) Red Blood Count 4.42 x10^6/uL (4.30-5.70) Hemoglobin 13.7 g/dL (13.0-17.5) Hematocrit 40.8 % (39.0-53.0) Mean Corpuscular Volume 92 fL (79-100) Mean Corpuscular Hemoglobin 31 pg (25-35) Mean Corpuscular Hemoglobin Concent 34 g/dL (31-37) Red Cell Distribution Width 14.3 % (11.5-14.5) Platelet Count 141 x10^3/uL (140-400) Neutrophils (%) (Auto) 67 % (31-73) Lymphocytes (%) (Auto) 24 % (24-48) Monocytes (%) (Auto) 5 % (0-9) Eosinophils (%) (Auto) 3 % (0-3) Basophils (%) (Auto) 1 % (0-3) Neutrophils # (Auto) 4.9 x10^3uL (1.8-7.7) Lymphocytes # (Auto) 1.8 x10^3/uL (1.0-4.8) Monocytes # (Auto) 0.4 x10^3/uL (0.0-1.1) Eosinophils # (Auto) 0.2 x10^3/uL (0.0-0.7) Basophils # (Auto) 0.0 x10^3/uL (0.0-0.2) Sodium Level 141 mmol/L (136-145) Potassium Level 3.6 mmol/L (3.5-5.1) Chloride Level 103 mmol/L (98-107) Carbon Dioxide Level 33 mmol/L (21-32) H Anion Gap 5 (6-14) L Blood Urea Nitrogen 16 mg/dL (8-26) Creatinine 0.9 mg/dL (0.7-1.3) Estimated GFR (Cockcroft-Gault) 81.2 BUN/Creatinine Ratio 18 (6-20) Glucose Level 93 mg/dL (70-99) Calcium Level 8.5 mg/dL (8.5-10.1) Total Bilirubin 0.7 mg/dL (0.2-1.0) Aspartate Amino Transferase (AST) 23 U/L (15-37) Alanine Aminotransferase (ALT) 29 U/L (16-63) Alkaline Phosphatase 76 U/L (46-116) Total Protein 6.7 g/dL (6.4-8.2) Albumin 3.1 g/dL (3.4-5.0) L Albumin/Globulin Ratio 0.9 (1.0-1.7) L Current Medications: Meds: Current Medications Lorazepam (Ativan) 0.5 mg 1X ONCE PO Last administered on 05/03/17 19:48; Start 05/03/17 at 19:15; Stop 05/03/17 at 19:16; Status DC Cyanocobalamin (Vitamin B-12) 1,000 mcg QMONTH SQ ; Start 05/23/17 at 09:00 Donepezil HCl (Aricept) 10 mg QHS PO Last administered on 05/10/17 20:16; Start 05/03/17 at 21:00 Mirtazapine (Remeron) 15 mg QHS PO Last administered on 05/10/17 20:17; Start 05/03/17 at 21:00 Risperidone (RisperDAL) 1 mg BID PO Last administered on 05/10/17 20:17; Start 05/03/17 at 21:00 Trazodone HCl (Desyrel) 25 mg PRN Q6HRS PRN PO AA Last administered on 14:23; Start 05/03/17 at 20:45 Trazodone HCl (Desyrel) 50 mg PRN QHS PRN PO INSOMNIA Last administered on 20:18; Start 05/03/17 at 20:45 Citalopram Hydrobromide (CeleXA) 30 mg DAILY PO Last administered on 08:39; Start 05/04/17 at 09:00; Stop 05/06/17 at 16:28; Status DC Memantine (Namenda) 10 mg BID PO Last administered on 05/10/17 20:17; Start 05/03/17 at 21:00 Acetaminophen (Tylenol) 650 mg PRN Q6HRS PRN PO PAIN / TEMP Last administered on 05/07/17 18:39; Start 05/03/17 at 21:45 Multi-Ingredient Ointment (Analgesic [place]) 1 farrukh PRN QID PRN TP MUSCLE PAIN; Start 05/03/17 at 21:45 Al Hydroxide/Mg Hydroxide (Mylanta Plus Xs) 15 ml PRN AFTMEALHC PRN PO DYSPEPSIA; Start 05/03/17 at 21:45 Magnesium Hydroxide (Milk Of Magnesia) 2,400 mg PRN QHS PRN PO CONSTIPATION; Start 05/03/17 at 21:45 Vitamin D (Vitamin D3) 50,000 unit WEEKLY PO Last administered on 05/05/17 08: 03; Start 05/05/17 at 09:00 Lorazepam (Ativan) 0.25 mg PRN Q2HR PRN PO ANXIETY / AGITATION Last administered on 05/09/17 07:57; Start 05/04/17 at 19:30 Vitamin D (Vitamin D3) 50,000 unit WEEKLY PO ; Start 05/05/17 at 14:45; Stop at 14:45; Status DC Sertraline HCl (Zoloft) 50 mg DAILY PO Last administered on 05/08/17 08:02; Start 05/07/17 at 09:00; Stop 05/08/17 at 11:04; Status DC Sertraline HCl (Zoloft) 75 mg DAILY PO Last administered on 05/10/17 07:55; Start 05/09/17 at 09:00 Active Scripts Active Reported Donepezil Hcl 10 Mg Tablet 10 Mg PO QHS Trazodone Hcl 50 Mg Tablet 25 Mg PO PRN Q6HRS PRN Trazodone Hcl 50 Mg Tablet 50 Mg PO PRN QHS PRN Risperidone 1 Mg Tablet 1 Mg PO BID Mirtazapine 15 Mg Tablet 15 Mg PO QHS Namenda Xr (Memantine Hcl) 28 Mg Cap.spr.24 28 Mg PO DAILY Escitalopram Oxalate 10 Mg Tablet 15 Mg PO DAILY Cyanocobalamin Injection (Cyanocobalamin (Vitamin B-12)) 1,000 Mcg/1 Ml Vial 1, 000 Mcg IJ QMONTH Diagnosis: Problems: (1) Anxiety associated with depression MARICARMEN GONCALVES MD May 10, 2017 21:42
[2017-05-11 06:15] VITALS: BP 108/63
[2017-05-11] MEDS: SERTRALINE 50 MG TABLET. PO SCH (08:01)
[2017-05-11] MEDS: MEMANTINE 10 MG TABLET. PO SCH ×2 (08:01→19:21)
[2017-05-11] MEDS: risperiDONE 1 MG TABLET. PO SCH (08:01)
[2017-05-11] MEDS: ARIPiprazole 5 MG TABLET PO SCH (09:00)
--- NOTE | 2017-05-11 09:39 | PN ---
DATE: 05/10/2017 PSYCHIATRIC PROGRESS NOTE This is a late entry for date of service 05/10/2017, covers elements not covered in my initial note. Met with the patient evening of 05/10/2017. The patient remains confused, wandering, depressed, somewhat helpless. Denies active suicidal ideation. REVIEW OF SYSTEMS: No CV, , pulmonary, eye, ENT system symptoms on review. MENTAL STATUS EXAM: Oriented to himself and situation. Speech moderate latency, often responses monosyllabic. Abstraction fair, computation impaired, language function intact. Mood and affect still depressed, withdrawn. During the individual visit, he talked at length about living arrangements post-hospitalization. We discussed options and he will discuss it further with his social service staff. Again, no active suicidal ideation. LABORATORY DATA: Reviewed. IMPRESSION: Unchanged from initial note. PLAN: Continue current psychotropics mentioned in my initial note. The patient is on a fairly high dosage of Risperdal 1 mg b.i.d. We will change this to Abilify 5 mg a day. Continue Zoloft 75 mg daily, Namenda 10 mg b.i.d., Remeron 15 mg at bedtime, trazodone at bedtime p.r.n., Aricept 10 mg a day, Ativan p.r.n. Make further adjustments as clinically indicated. Reviewed drug interactions and risk and benefit ratio, favors no further change. MAN Charlie GONCALVES MD DR: DANGELO/bernardo JOB#: [id number] / [id number]
[2017-05-11 16:14] VITALS: BP 120/79
[2017-05-11] MEDS: MIRTAZAPINE 15 MG TABLET PO SCH (19:21)
[2017-05-11] MEDS: DONEPEZIL HCL 10 MG TABLET PO SCH (19:21)
--- NOTE | 2017-05-11 20:48 | PDOC ---
Exam Jayy Demential Exam: Jayy Note: Please also refer to the separate dictated note~for this date of service dictated separately.~Patient seen individually. Discussed the patient with Nursing staff reviewed the chart.~Reviewed interim history and current functioning. Reviewed vital signs,~Labs/ Radiology~and current medications noted below. Continue current treatment with the changes noted in the dictated addendum note Assessment: Vital Signs: Vital Signs Date Time Temp Pulse Resp B/P (MAP) Pulse Ox O2 Delivery O2 Flow Rate FiO2 05/11/17 16:14 97.9 82 20 120/79 (93) 95 Room Air I&O Intake and Output 05/12/17 07:00 Intake Total 1440 ml Balance 1440 ml Intake Oral 1440 ml Current Medications: Meds: Current Medications Lorazepam (Ativan) 0.5 mg 1X ONCE PO Last administered on 05/03/17 19:48; Start 05/03/17 at 19:15; Stop 05/03/17 at 19:16; Status DC Cyanocobalamin (Vitamin B-12) 1,000 mcg QMONTH SQ ; Start 05/23/17 at 09:00 Donepezil HCl (Aricept) 10 mg QHS PO Last administered on 05/11/17 19:21; Start 05/03/17 at 21:00 Mirtazapine (Remeron) 15 mg QHS PO Last administered on 05/11/17 19:21; Start 05/03/17 at 21:00 Risperidone (RisperDAL) 1 mg BID PO Last administered on 05/11/17 08:01; Start 05/03/17 at 21:00; Stop 05/11/17 at 09:01; Status DC Trazodone HCl (Desyrel) 25 mg PRN Q6HRS PRN PO AA Last administered on 14:23; Start 05/03/17 at 20:45 Trazodone HCl (Desyrel) 50 mg PRN QHS PRN PO INSOMNIA Last administered on 20:18; Start 05/03/17 at 20:45 Citalopram Hydrobromide (CeleXA) 30 mg DAILY PO Last administered on 08:39; Start 05/04/17 at 09:00; Stop 05/06/17 at 16:28; Status DC Memantine (Namenda) 10 mg BID PO Last administered on 05/11/17 19:21; Start 05/03/17 at 21:00 Acetaminophen (Tylenol) 650 mg PRN Q6HRS PRN PO PAIN / TEMP Last administered on 05/07/17 18:39; Start 05/03/17 at 21:45 Multi-Ingredient Ointment (Analgesic [place]) 1 farrukh PRN QID PRN TP MUSCLE PAIN; Start 05/03/17 at 21:45 Al Hydroxide/Mg Hydroxide (Mylanta Plus Xs) 15 ml PRN AFTMEALHC PRN PO DYSPEPSIA; Start 05/03/17 at 21:45 Magnesium Hydroxide (Milk Of Magnesia) 2,400 mg PRN QHS PRN PO CONSTIPATION; Start 05/03/17 at 21:45 Vitamin D (Vitamin D3) 50,000 unit WEEKLY PO Last administered on 05/05/17 08: 03; Start 05/05/17 at 09:00 Lorazepam (Ativan) 0.25 mg PRN Q2HR PRN PO ANXIETY / AGITATION Last administered on 05/09/17 07:57; Start 05/04/17 at 19:30 Vitamin D (Vitamin D3) 50,000 unit WEEKLY PO ; Start 05/05/17 at 14:45; Stop at 14:45; Status DC Sertraline HCl (Zoloft) 50 mg DAILY PO Last administered on 05/08/17 08:02; Start 05/07/17 at 09:00; Stop 05/08/17 at 11:04; Status DC Sertraline HCl (Zoloft) 75 mg DAILY PO Last administered on 05/11/17 08:01; Start 05/09/17 at 09:00 Aripiprazole (Abilify) 5 mg DAILY PO Last administered on 05/11/17 09:00; Start 05/11/17 at 09:00 Active Scripts Active Reported Donepezil Hcl 10 Mg Tablet 10 Mg PO QHS Trazodone Hcl 50 Mg Tablet 25 Mg PO PRN Q6HRS PRN Trazodone Hcl 50 Mg Tablet 50 Mg PO PRN QHS PRN Risperidone 1 Mg Tablet 1 Mg PO BID Mirtazapine 15 Mg Tablet 15 Mg PO QHS Namenda Xr (Memantine Hcl) 28 Mg Cap.spr.24 28 Mg PO DAILY Escitalopram Oxalate 10 Mg Tablet 15 Mg PO DAILY Cyanocobalamin Injection (Cyanocobalamin (Vitamin B-12)) 1,000 Mcg/1 Ml Vial 1, 000 Mcg IJ QMONTH Diagnosis: Problems: (1) Anxiety associated with depression MARICARMEN GONCALVES MD May 11, 2017 20:48
[2017-05-12] MEDS: LORazepam 0.5 MG TABLET PO PRN (06:11)
[2017-05-12 07:22] VITALS: BP 103/70
[2017-05-12] MEDS: MEMANTINE 10 MG TABLET. PO SCH ×2 (08:07→19:22)
[2017-05-12] MEDS: CHOLECALCIFEROL (VITAMIN D3) 50,000 UNIT CAPSULE PO SCH (08:07)
[2017-05-12] MEDS: SERTRALINE 50 MG TABLET. PO SCH (08:08)
[2017-05-12] MEDS: ARIPiprazole 5 MG TABLET PO SCH (08:08)
--- NOTE | 2017-05-12 09:42 | PN ---
DATE: 05/09/2017 This late entry 05/09/2017 covers elements not covered in my initial note. SUBJECTIVE: The patient was seen individually evening of 05/09/2017. Per nursing report, the patient remains confused, somewhat withdrawn, forgot that his daughter Carley visited him when I questioned him on this. He has been anxious and wanting his room changed because his roommate has been keeping him up at night. Short-term memory is impaired. REVIEW OF SYSTEMS: No CV, , pulmonary, eye system symptoms on review. MENTAL STATUS EXAM: Oriented to himself and situation. Speech moderate latency, often responses monosyllabic. Mood and affect depressed. Abstraction fair, computation impaired, language function intact. Memory is impaired. No active suicidal or homicidal ideation. LABORATORY DATA: Reviewed. IMPRESSION: Unchanged from initial note. PLAN: Continue current psychotropics, reviewed drug interactions and risk, benefit ratio favors no further change. MARICARMEN GONCALVES MD DR: DANGELO/bernardo JOB#: [id number] / [id number]
--- NOTE | 2017-05-12 09:44 | PN ---
DATE: 05/08/2017 PSYCHIATRIC PROGRESS NOTE This is a late entry for 05/08/2017, covers the elements not covered in my initial note of 05/08/2017. SUBJECTIVE: The patient was also staffed at a treatment team meeting the morning of 05/08/2017. Reviewed the patient's history, diagnosis, placement in the past and reasons of failure including a suicidal ideation and hospitalization at [facility] in the past. Discussed discharge aftercare plans. He denies active suicidal ideation. States he wants to stay here till he dies. He did talk to his daughter on the telephone, states he felt better after this. 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 REVIEW OF SYSTEMS: No CV, , pulmonary, eye, ENT system symptoms on review. Reliability varies. MENTAL STATUS EXAM: Oriented to himself and situation. Speech moderate latency, often responses monosyllabic. Abstraction fair, computation impaired, language function intact. Mood and affect still somewhat depressed. LABORATORIES: Reviewed. IMPRESSION: Unchanged from initial note. PLAN: Increase Zoloft to 75 mg a day starting on the . Continue rest of the psychotropics. Review drug interactions, risk/benefit ratio favors no further change. MAN Charlie GONCALVES MD DR: DANGELO/bernardo JOB#: [id number] / [id number]
[2017-05-12 16:12] VITALS: BP 119/78
[2017-05-12] MEDS: MIRTAZAPINE 15 MG TABLET PO SCH (19:22)
[2017-05-12] MEDS: DONEPEZIL HCL 10 MG TABLET PO SCH (19:22)
--- NOTE | 2017-05-12 21:25 | PDOC ---
Exam Jayy Demential Exam: Jayy Note: Please also refer to the separate dictated note~for this date of service dictated separately.~Patient seen individually. Discussed the patient with Nursing staff reviewed the chart.~Reviewed interim history and current functioning. Reviewed vital signs,~Labs/ Radiology~and current medications noted below. Continue current treatment with the changes noted in the dictated addendum note Assessment: Vital Signs: Vital Signs Date Time Temp Pulse Resp B/P (MAP) Pulse Ox O2 Delivery O2 Flow Rate FiO2 05/12/17 16:12 97.6 78 16 119/78 (92) 96 Room Air I&O Intake and Output 05/13/17 07:00 Intake Total 480 ml Balance 480 ml Intake Oral 480 ml Current Medications: Meds: Current Medications Lorazepam (Ativan) 0.5 mg 1X ONCE PO Last administered on 05/03/17 19:48; Start 05/03/17 at 19:15; Stop 05/03/17 at 19:16; Status DC Cyanocobalamin (Vitamin B-12) 1,000 mcg QMONTH SQ ; Start 05/23/17 at 09:00 Donepezil HCl (Aricept) 10 mg QHS PO Last administered on 05/12/17 19:22; Start 05/03/17 at 21:00 Mirtazapine (Remeron) 15 mg QHS PO Last administered on 05/12/17 19:22; Start 05/03/17 at 21:00 Risperidone (RisperDAL) 1 mg BID PO Last administered on 05/11/17 08:01; Start 05/03/17 at 21:00; Stop 05/11/17 at 09:01; Status DC Trazodone HCl (Desyrel) 25 mg PRN Q6HRS PRN PO AA Last administered on 14:23; Start 05/03/17 at 20:45 Trazodone HCl (Desyrel) 50 mg PRN QHS PRN PO INSOMNIA Last administered on 20:18; Start 05/03/17 at 20:45 Citalopram Hydrobromide (CeleXA) 30 mg DAILY PO Last administered on 08:39; Start 05/04/17 at 09:00; Stop 05/06/17 at 16:28; Status DC Memantine (Namenda) 10 mg BID PO Last administered on 05/12/17 19:22; Start 05/03/17 at 21:00 Acetaminophen (Tylenol) 650 mg PRN Q6HRS PRN PO PAIN / TEMP Last administered on 05/07/17 18:39; Start 05/03/17 at 21:45 Multi-Ingredient Ointment (Analgesic [place]) 1 farrukh PRN QID PRN TP MUSCLE PAIN; Start 05/03/17 at 21:45 Al Hydroxide/Mg Hydroxide (Mylanta Plus Xs) 15 ml PRN AFTMEALHC PRN PO DYSPEPSIA; Start 05/03/17 at 21:45 Magnesium Hydroxide (Milk Of Magnesia) 2,400 mg PRN QHS PRN PO CONSTIPATION; Start 05/03/17 at 21:45 Vitamin D (Vitamin D3) 50,000 unit WEEKLY PO Last administered on 05/12/17 08 :07; Start 05/05/17 at 09:00 Lorazepam (Ativan) 0.25 mg PRN Q2HR PRN PO ANXIETY / AGITATION Last administered on 05/12/17 06:11; Start 05/04/17 at 19:30 Vitamin D (Vitamin D3) 50,000 unit WEEKLY PO ; Start 05/05/17 at 14:45; Stop at 14:45; Status DC Sertraline HCl (Zoloft) 50 mg DAILY PO Last administered on 05/08/17 08:02; Start 05/07/17 at 09:00; Stop 05/08/17 at 11:04; Status DC Sertraline HCl (Zoloft) 75 mg DAILY PO Last administered on 05/12/17 08:08; Start 05/09/17 at 09:00 Aripiprazole (Abilify) 5 mg DAILY PO Last administered on 05/12/17 08:08; Start 05/11/17 at 09:00 Active Scripts Active Reported Donepezil Hcl 10 Mg Tablet 10 Mg PO QHS Trazodone Hcl 50 Mg Tablet 25 Mg PO PRN Q6HRS PRN Trazodone Hcl 50 Mg Tablet 50 Mg PO PRN QHS PRN Risperidone 1 Mg Tablet 1 Mg PO BID Mirtazapine 15 Mg Tablet 15 Mg PO QHS Namenda Xr (Memantine Hcl) 28 Mg Cap.spr.24 28 Mg PO DAILY Escitalopram Oxalate 10 Mg Tablet 15 Mg PO DAILY Cyanocobalamin Injection (Cyanocobalamin (Vitamin B-12)) 1,000 Mcg/1 Ml Vial 1, 000 Mcg IJ QMONTH Diagnosis: Problems: (1) Anxiety associated with depression MARICARMEN GONCALVES MD May 12, 2017 21:25
[2017-05-13 06:15] VITALS: BP 102/67
[2017-05-13] MEDS: SERTRALINE 50 MG TABLET. PO SCH (08:35)
[2017-05-13] MEDS: ARIPiprazole 5 MG TABLET PO SCH (08:36)
[2017-05-13] MEDS: MEMANTINE 10 MG TABLET. PO SCH ×2 (08:38→20:42)
--- NOTE | 2017-05-13 09:29 | PN ---
DATE: 05/11/2017 This late entry for 05/11/2017 covers elements not covered in my initial note of 05/11/2017. SUBJECTIVE: The patient has been somewhat anxious, restless, irritable at times, confused, attempting to lie down on the floor, pulled a pillow out from under himself. REVIEW OF SYSTEMS: No CV, , pulmonary, eye, ENT system symptoms on review. He is fixated on discharge plans. We discussed this at some length. MENTAL STATUS EXAMINATION: Oriented to himself. Insight, judgment, recent memory is impaired. Language function intact. Attention span short. He has a slight parkinsonian facial expression, remains on Risperdal 1 mg b.i.d. No clear psychotic symptoms noted. No suicidal or homicidal ideation at this time. LABORATORY DATA: Reviewed. IMPRESSION: Major depressive disorder with psychotic features; major neurocognitive disorder; Alzheimer, vascular with depression, delusion and behavioral disturbance; anxiety disorder, unspecified; impulse control disorder, unspecified. PLAN: Change Risperdal 1 mg b.i.d. to Abilify 10 mg a day, ____ should augment the Zoloft 75 mg a day. Maintain Namenda 10 b.i.d., Remeron 15 mg at bedtime, trazodone at bedtime p.r.n., Aricept 10 mg a day, Zyprexa p.r.n. Reviewed drug interactions and risk/benefit ratio, favors no further change. MARICARMEN GONCALVES MD DR: DANGELO/bernardo JOB#: [id number] / [id number]
[2017-05-13] MEDS: LORazepam 0.5 MG TABLET PO PRN (09:40)
[2017-05-13 16:04] VITALS: BP 118/69
--- NOTE | 2017-05-13 20:21 | PDOC ---
Exam Jayy Demential Exam: Jayy Note: Please also refer to the separate dictated note~for this date of service dictated separately.~Patient seen individually. Discussed the patient with Nursing staff reviewed the chart.~Reviewed interim history and current functioning. Reviewed vital signs,~Labs/ Radiology~and current medications noted below. Continue current treatment with the changes noted in the dictated addendum note Assessment: Vital Signs: Vital Signs Date Time Temp Pulse Resp B/P (MAP) Pulse Ox O2 Delivery O2 Flow Rate FiO2 05/13/17 16:04 97.8 73 16 118/69 (85) 95 05/12/17 16:12 Room Air I&O Intake and Output 05/14/17 07:00 Intake Total 1080 ml Balance 1080 ml Intake Oral 1080 ml Current Medications: Meds: Current Medications Lorazepam (Ativan) 0.5 mg 1X ONCE PO Last administered on 05/03/17 19:48; Start 05/03/17 at 19:15; Stop 05/03/17 at 19:16; Status DC Cyanocobalamin (Vitamin B-12) 1,000 mcg QMONTH SQ ; Start 05/23/17 at 09:00 Donepezil HCl (Aricept) 10 mg QHS PO Last administered on 05/12/17 19:22; Start 05/03/17 at 21:00 Mirtazapine (Remeron) 15 mg QHS PO Last administered on 05/12/17 19:22; Start 05/03/17 at 21:00 Risperidone (RisperDAL) 1 mg BID PO Last administered on 05/11/17 08:01; Start 05/03/17 at 21:00; Stop 05/11/17 at 09:01; Status DC Trazodone HCl (Desyrel) 25 mg PRN Q6HRS PRN PO AA Last administered on 14:23; Start 05/03/17 at 20:45 Trazodone HCl (Desyrel) 50 mg PRN QHS PRN PO INSOMNIA Last administered on 20:18; Start 05/03/17 at 20:45 Citalopram Hydrobromide (CeleXA) 30 mg DAILY PO Last administered on 08:39; Start 05/04/17 at 09:00; Stop 05/06/17 at 16:28; Status DC Memantine (Namenda) 10 mg BID PO Last administered on 05/13/17 08:38; Start 05/03/17 at 21:00 Acetaminophen (Tylenol) 650 mg PRN Q6HRS PRN PO PAIN / TEMP Last administered on 05/07/17 18:39; Start 05/03/17 at 21:45 Multi-Ingredient Ointment (Analgesic [place]) 1 farrukh PRN QID PRN TP MUSCLE PAIN; Start 05/03/17 at 21:45 Al Hydroxide/Mg Hydroxide (Mylanta Plus Xs) 15 ml PRN AFTMEALHC PRN PO DYSPEPSIA; Start 05/03/17 at 21:45 Magnesium Hydroxide (Milk Of Magnesia) 2,400 mg PRN QHS PRN PO CONSTIPATION; Start 05/03/17 at 21:45 Vitamin D (Vitamin D3) 50,000 unit WEEKLY PO Last administered on 05/12/17 08 :07; Start 05/05/17 at 09:00 Lorazepam (Ativan) 0.25 mg PRN Q2HR PRN PO ANXIETY / AGITATION Last administered on 05/13/17 09:40; Start 05/04/17 at 19:30 Vitamin D (Vitamin D3) 50,000 unit WEEKLY PO ; Start 05/05/17 at 14:45; Stop at 14:45; Status DC Sertraline HCl (Zoloft) 50 mg DAILY PO Last administered on 05/08/17 08:02; Start 05/07/17 at 09:00; Stop 05/08/17 at 11:04; Status DC Sertraline HCl (Zoloft) 75 mg DAILY PO Last administered on 05/13/17 08:35; Start 05/09/17 at 09:00 Aripiprazole (Abilify) 5 mg DAILY PO Last administered on 05/13/17 08:36; Start 05/11/17 at 09:00 Active Scripts Active Reported Donepezil Hcl 10 Mg Tablet 10 Mg PO QHS Trazodone Hcl 50 Mg Tablet 25 Mg PO PRN Q6HRS PRN Trazodone Hcl 50 Mg Tablet 50 Mg PO PRN QHS PRN Risperidone 1 Mg Tablet 1 Mg PO BID Mirtazapine 15 Mg Tablet 15 Mg PO QHS Namenda Xr (Memantine Hcl) 28 Mg Cap.spr.24 28 Mg PO DAILY Escitalopram Oxalate 10 Mg Tablet 15 Mg PO DAILY Cyanocobalamin Injection (Cyanocobalamin (Vitamin B-12)) 1,000 Mcg/1 Ml Vial 1, 000 Mcg IJ QMONTH Diagnosis: Problems: (1) Anxiety associated with depression MARICARMEN GONCALVES MD May 13, 2017 20:20
[2017-05-13] MEDS: MIRTAZAPINE 15 MG TABLET PO SCH (20:42)
[2017-05-13] MEDS: DONEPEZIL HCL 10 MG TABLET PO SCH (20:42)
[2017-05-14 05:57] VITALS: BP 113/72
[2017-05-14] MEDS: ARIPiprazole 5 MG TABLET PO SCH (08:52)
[2017-05-14] MEDS: SERTRALINE 50 MG TABLET. PO SCH (08:52)
[2017-05-14] MEDS: MEMANTINE 10 MG TABLET. PO SCH ×2 (08:53→19:36)
--- NOTE | 2017-05-14 09:23 | PN ---
DATE: 05/12/2017 PSYCHIATRIC PROGRESS NOTE This is a late entry for date of service 05/12/2017, covers the elements not covered in my initial note of 05/12/2017. SUBJECTIVE: I met with the patient in the evening of 05/12/2017. The patient remains somewhat withdrawn, anxious in the morning, received Ativan. He has been wandering on the unit. Denies active suicidal. No CV, , pulmonary, eye, ENT system symptoms on review. He has some mouth movements since we stopped the Risperdal, reflective of some possible withdrawal dyskinesia and we will monitor this. He was on 2 mg Risperdal daily with no clear psychotic symptoms at the current time even though he ____ appeared to have had these at that time Risperdal was initially started and we therefore stopped the Risperdal, started him on Abilify to augment the Zoloft. REVIEW OF SYSTEMS: No CV, , eye, ENT system symptoms on review. MENTAL STATUS EXAM: Oriented to himself and situation. Speech moderate latency, often responses monosyllabic. Abstraction fair, computation impaired, language function intact. Mood and affect is improved, still anxious, withdrawn. No active suicidal ideation. LABORATORY DATA: Reviewed. IMPRESSION: Unchanged from initial note. PLAN: Continue current psychotropics, reviewed drug interactions, risk/benefit ratio favors no further change, monitor for the mouth dyskinesia. MAN Charlie GONCALVES MD DR: DANGELO/bernardo JOB#: [id number] / [id number]
[2017-05-14 16:17] VITALS: BP 112/67
[2017-05-14] MEDS: DONEPEZIL HCL 10 MG TABLET PO SCH (19:36)
[2017-05-14] MEDS: MIRTAZAPINE 15 MG TABLET PO SCH (19:36)
--- NOTE | 2017-05-14 20:49 | PDOC ---
Exam Jayy Demential Exam: Jayy Note: Please also refer to the separate dictated note~for this date of service dictated separately.~Patient seen individually. Discussed the patient with Nursing staff reviewed the chart.~Reviewed interim history and current functioning. Reviewed vital signs,~Labs/ Radiology~and current medications noted below. Continue current treatment with the changes noted in the dictated addendum note Assessment: Vital Signs: Vital Signs Date Time Temp Pulse Resp B/P (MAP) Pulse Ox O2 Delivery O2 Flow Rate FiO2 05/14/17 16:17 97.1 77 20 112/67 (82) 93 05/12/17 16:12 Room Air I&O Intake and Output 05/15/17 06:59 Intake Total 600 ml Balance 600 ml Intake Oral 600 ml Current Medications: Meds: Current Medications Lorazepam (Ativan) 0.5 mg 1X ONCE PO Last administered on 05/03/17 19:48; Start 05/03/17 at 19:15; Stop 05/03/17 at 19:16; Status DC Cyanocobalamin (Vitamin B-12) 1,000 mcg QMONTH SQ ; Start 05/23/17 at 09:00 Donepezil HCl (Aricept) 10 mg QHS PO Last administered on 05/14/17 19:36; Start 05/03/17 at 21:00 Mirtazapine (Remeron) 15 mg QHS PO Last administered on 05/14/17 19:36; Start 05/03/17 at 21:00 Risperidone (RisperDAL) 1 mg BID PO Last administered on 05/11/17 08:01; Start 05/03/17 at 21:00; Stop 05/11/17 at 09:01; Status DC Trazodone HCl (Desyrel) 25 mg PRN Q6HRS PRN PO AA Last administered on 14:23; Start 05/03/17 at 20:45 Trazodone HCl (Desyrel) 50 mg PRN QHS PRN PO INSOMNIA Last administered on 20:18; Start 05/03/17 at 20:45 Citalopram Hydrobromide (CeleXA) 30 mg DAILY PO Last administered on 08:39; Start 05/04/17 at 09:00; Stop 05/06/17 at 16:28; Status DC Memantine (Namenda) 10 mg BID PO Last administered on 05/14/17 19:36; Start 05/03/17 at 21:00 Acetaminophen (Tylenol) 650 mg PRN Q6HRS PRN PO PAIN / TEMP Last administered on 05/07/17 18:39; Start 05/03/17 at 21:45 Multi-Ingredient Ointment (Analgesic [place]) 1 farrukh PRN QID PRN TP MUSCLE PAIN; Start 05/03/17 at 21:45 Al Hydroxide/Mg Hydroxide (Mylanta Plus Xs) 15 ml PRN AFTMEALHC PRN PO DYSPEPSIA; Start 05/03/17 at 21:45 Magnesium Hydroxide (Milk Of Magnesia) 2,400 mg PRN QHS PRN PO CONSTIPATION; Start 05/03/17 at 21:45 Vitamin D (Vitamin D3) 50,000 unit WEEKLY PO Last administered on 05/12/17 08 :07; Start 05/05/17 at 09:00 Lorazepam (Ativan) 0.25 mg PRN Q2HR PRN PO ANXIETY / AGITATION Last administered on 05/13/17 09:40; Start 05/04/17 at 19:30 Vitamin D (Vitamin D3) 50,000 unit WEEKLY PO ; Start 05/05/17 at 14:45; Stop at 14:45; Status DC Sertraline HCl (Zoloft) 50 mg DAILY PO Last administered on 05/08/17 08:02; Start 05/07/17 at 09:00; Stop 05/08/17 at 11:04; Status DC Sertraline HCl (Zoloft) 75 mg DAILY PO Last administered on 05/14/17 08:52; Start 05/09/17 at 09:00 Aripiprazole (Abilify) 5 mg DAILY PO Last administered on 05/14/17 08:52; Start 05/11/17 at 09:00 Active Scripts Active Reported Donepezil Hcl 10 Mg Tablet 10 Mg PO QHS Trazodone Hcl 50 Mg Tablet 25 Mg PO PRN Q6HRS PRN Trazodone Hcl 50 Mg Tablet 50 Mg PO PRN QHS PRN Risperidone 1 Mg Tablet 1 Mg PO BID Mirtazapine 15 Mg Tablet 15 Mg PO QHS Namenda Xr (Memantine Hcl) 28 Mg Cap.spr.24 28 Mg PO DAILY Escitalopram Oxalate 10 Mg Tablet 15 Mg PO DAILY Cyanocobalamin Injection (Cyanocobalamin (Vitamin B-12)) 1,000 Mcg/1 Ml Vial 1, 000 Mcg IJ QMONTH Diagnosis: Problems: (1) Anxiety associated with depression MARICARMEN GONCALVES MD May 14, 2017 20:49
--- NOTE | 2017-05-15 00:05 | PN ---
DATE: 05/13/2017 PSYCHIATRIC PROGRESS NOTE This is a late entry for 05/13/2017, covers elements not covered in my initial note of 05/13/2017. SUBJECTIVE: I met with the patient the evening of 05/13/2017. The patient slept 8 hours previous evening. He is aware of his date of , unaware of the year. Social service staff are looking for new care home. He has been more anxious, received Ativan, has been wandering the unit, more confused in the morning, and made suggestions that sometimes he cannot differentiate between dreams and the real world. REVIEW OF SYSTEMS: No CV, , pulmonary, eye, ENT system symptoms on review. Reliability poor. MENTAL STATUS EXAM: Oriented to himself. Insight, judgment, recent memory is impaired. Language function intact, attention span short. Mood and affect still depressed. No suicidal ideation. LABORATORY DATA: Reviewed. IMPRESSION: Unchanged from initial note. PLAN: Continue current psychotropics. Reviewed drug interactions. Risk/benefit ratio favors no further change. MAN Charlie GONCALVES MD DR: DANGELO/bernardo JOB#: [id number] / [id number]
[2017-05-15 06:31] VITALS: BP 110/67
[2017-05-15] MEDS: MEMANTINE 10 MG TABLET. PO SCH ×2 (08:38→19:15)
[2017-05-15] MEDS: ARIPiprazole 5 MG TABLET PO SCH (08:38)
[2017-05-15] MEDS: SERTRALINE 50 MG TABLET. PO SCH (08:39)
[2017-05-15 16:19] VITALS: BP 110/71
[2017-05-15] MEDS: MIRTAZAPINE 15 MG TABLET PO SCH (19:15)
[2017-05-15] MEDS: DONEPEZIL HCL 10 MG TABLET PO SCH (19:15)
--- NOTE | 2017-05-15 20:53 | PDOC ---
Exam Jayy Demential Exam: Jayy Note: Please also refer to the separate dictated note~for this date of service dictated separately.~Patient seen individually. Discussed the patient with Nursing staff reviewed the chart.~Reviewed interim history and current functioning. Reviewed vital signs,~Labs/ Radiology~and current medications noted below. Continue current treatment with the changes noted in the dictated addendum note Assessment: Vital Signs: Vital Signs Date Time Temp Pulse Resp B/P (MAP) Pulse Ox O2 Delivery O2 Flow Rate FiO2 05/15/17 16:19 97.7 85 20 110/71 (84) 93 05/12/17 16:12 Room Air I&O Intake and Output 05/16/17 07:00 Intake Total 850 ml Balance 850 ml Intake Oral 850 ml Current Medications: Meds: Current Medications Lorazepam (Ativan) 0.5 mg 1X ONCE PO Last administered on 05/03/17 19:48; Start 05/03/17 at 19:15; Stop 05/03/17 at 19:16; Status DC Cyanocobalamin (Vitamin B-12) 1,000 mcg QMONTH SQ ; Start 05/23/17 at 09:00 Donepezil HCl (Aricept) 10 mg QHS PO Last administered on 05/15/17 19:15; Start 05/03/17 at 21:00 Mirtazapine (Remeron) 15 mg QHS PO Last administered on 05/15/17 19:15; Start 05/03/17 at 21:00 Risperidone (RisperDAL) 1 mg BID PO Last administered on 05/11/17 08:01; Start 05/03/17 at 21:00; Stop 05/11/17 at 09:01; Status DC Trazodone HCl (Desyrel) 25 mg PRN Q6HRS PRN PO AA Last administered on 14:23; Start 05/03/17 at 20:45 Trazodone HCl (Desyrel) 50 mg PRN QHS PRN PO INSOMNIA Last administered on 20:18; Start 05/03/17 at 20:45 Citalopram Hydrobromide (CeleXA) 30 mg DAILY PO Last administered on 08:39; Start 05/04/17 at 09:00; Stop 05/06/17 at 16:28; Status DC Memantine (Namenda) 10 mg BID PO Last administered on 05/15/17 19:15; Start 05/03/17 at 21:00 Acetaminophen (Tylenol) 650 mg PRN Q6HRS PRN PO PAIN / TEMP Last administered on 05/07/17 18:39; Start 05/03/17 at 21:45 Multi-Ingredient Ointment (Analgesic [place]) 1 farrukh PRN QID PRN TP MUSCLE PAIN; Start 05/03/17 at 21:45 Al Hydroxide/Mg Hydroxide (Mylanta Plus Xs) 15 ml PRN AFTMEALHC PRN PO DYSPEPSIA; Start 05/03/17 at 21:45 Magnesium Hydroxide (Milk Of Magnesia) 2,400 mg PRN QHS PRN PO CONSTIPATION; Start 05/03/17 at 21:45 Vitamin D (Vitamin D3) 50,000 unit WEEKLY PO Last administered on 05/12/17 08 :07; Start 05/05/17 at 09:00 Lorazepam (Ativan) 0.25 mg PRN Q2HR PRN PO ANXIETY / AGITATION Last administered on 05/13/17 09:40; Start 05/04/17 at 19:30 Vitamin D (Vitamin D3) 50,000 unit WEEKLY PO ; Start 05/05/17 at 14:45; Stop at 14:45; Status DC Sertraline HCl (Zoloft) 50 mg DAILY PO Last administered on 05/08/17 08:02; Start 05/07/17 at 09:00; Stop 05/08/17 at 11:04; Status DC Sertraline HCl (Zoloft) 75 mg DAILY PO Last administered on 05/15/17 08:39; Start 05/09/17 at 09:00; Stop 05/15/17 at 10:59; Status DC Aripiprazole (Abilify) 5 mg DAILY PO Last administered on 05/15/17 08:38; Start 05/11/17 at 09:00 Sertraline HCl (Zoloft) 100 mg DAILY PO ; Start 05/16/17 at 09:00 Active Scripts Active Reported Donepezil Hcl 10 Mg Tablet 10 Mg PO QHS Trazodone Hcl 50 Mg Tablet 25 Mg PO PRN Q6HRS PRN Trazodone Hcl 50 Mg Tablet 50 Mg PO PRN QHS PRN Risperidone 1 Mg Tablet 1 Mg PO BID Mirtazapine 15 Mg Tablet 15 Mg PO QHS Namenda Xr (Memantine Hcl) 28 Mg Cap.spr.24 28 Mg PO DAILY Escitalopram Oxalate 10 Mg Tablet 15 Mg PO DAILY Cyanocobalamin Injection (Cyanocobalamin (Vitamin B-12)) 1,000 Mcg/1 Ml Vial 1, 000 Mcg IJ QMONTH Diagnosis: Problems: (1) Anxiety associated with depression MARICARMEN GONCALVES MD May 15, 2017 20:53
[2017-05-16 05:48] VITALS: BP 115/74
[2017-05-16] MEDS: ARIPiprazole 5 MG TABLET PO SCH (07:17)
[2017-05-16] MEDS: MEMANTINE 10 MG TABLET. PO SCH ×2 (07:17→19:35)
[2017-05-16] MEDS: SERTRALINE 100 MG TABLET. PO SCH (07:45)
--- NOTE | 2017-05-16 09:28 | PN ---
DATE: 05/14/2017 PSYCHIATRIC PROGESS NOTE This late entry 05/14/2017 covers elements not covered in my initial note of 05/14/2017. SUBJECTIVE: I met with the patient the evening of 05/14/2017. The patient remains somewhat withdrawn, anxious, compliant with medications, has been working on the garden in the patio and really enjoys doing this and states he wants to do some work rather than just sit around. No suicidal ideation. REVIEW OF SYSTEMS: No CV, , pulmonary, eye, ENT system symptoms on review. This note covers elements not covered in my initial note of 05/14/2017. MENTAL STATUS EXAM: Oriented to himself. Insight, judgment, recent and remote memory, attention, concentration, fund of knowledge poor, consistent with his diagnosis mentioned in my initial note. PLAN: Continue current psychotropics mentioned in my initial note. Review drug interactions, risk/benefit ratio favors no further change. MAN Charlie GONCALVES MD DR: DANGELO/bernardo JOB#: [id number] / [id number]
[2017-05-16 16:30] VITALS: BP 93/64
[2017-05-16] MEDS: MIRTAZAPINE 15 MG TABLET PO SCH (19:35)
[2017-05-16] MEDS: DONEPEZIL HCL 10 MG TABLET PO SCH (19:35)
--- NOTE | 2017-05-16 20:52 | PDOC ---
Exam Jayy Demential Exam: Jayy Note: Please also refer to the separate dictated note~for this date of service dictated separately.~Patient seen individually. Discussed the patient with Nursing staff reviewed the chart.~Reviewed interim history and current functioning. Reviewed vital signs,~Labs/ Radiology~and current medications noted below. Continue current treatment with the changes noted in the dictated addendum note Assessment: Vital Signs: Vital Signs Date Time Temp Pulse Resp B/P (MAP) Pulse Ox O2 Delivery O2 Flow Rate FiO2 05/16/17 16:30 97.6 60 20 93/64 (74) 94 05/12/17 16:12 Room Air I&O Intake and Output 05/17/17 07:00 Intake Total 600 ml Balance 600 ml Intake Oral 600 ml Current Medications: Meds: Current Medications Lorazepam (Ativan) 0.5 mg 1X ONCE PO Last administered on 05/03/17 19:48; Start 05/03/17 at 19:15; Stop 05/03/17 at 19:16; Status DC Cyanocobalamin (Vitamin B-12) 1,000 mcg QMONTH SQ ; Start 05/23/17 at 09:00 Donepezil HCl (Aricept) 10 mg QHS PO Last administered on 05/16/17 19:35; Start 05/03/17 at 21:00 Mirtazapine (Remeron) 15 mg QHS PO Last administered on 05/16/17 19:35; Start 05/03/17 at 21:00 Risperidone (RisperDAL) 1 mg BID PO Last administered on 05/11/17 08:01; Start 05/03/17 at 21:00; Stop 05/11/17 at 09:01; Status DC Trazodone HCl (Desyrel) 25 mg PRN Q6HRS PRN PO AA Last administered on 14:23; Start 05/03/17 at 20:45 Trazodone HCl (Desyrel) 50 mg PRN QHS PRN PO INSOMNIA Last administered on 20:18; Start 05/03/17 at 20:45 Citalopram Hydrobromide (CeleXA) 30 mg DAILY PO Last administered on 08:39; Start 05/04/17 at 09:00; Stop 05/06/17 at 16:28; Status DC Memantine (Namenda) 10 mg BID PO Last administered on 05/16/17 19:35; Start 05/03/17 at 21:00 Acetaminophen (Tylenol) 650 mg PRN Q6HRS PRN PO PAIN / TEMP Last administered on 05/07/17 18:39; Start 05/03/17 at 21:45 Multi-Ingredient Ointment (Analgesic [place]) 1 farrukh PRN QID PRN TP MUSCLE PAIN; Start 05/03/17 at 21:45 Al Hydroxide/Mg Hydroxide (Mylanta Plus Xs) 15 ml PRN AFTMEALHC PRN PO DYSPEPSIA; Start 05/03/17 at 21:45 Magnesium Hydroxide (Milk Of Magnesia) 2,400 mg PRN QHS PRN PO CONSTIPATION; Start 05/03/17 at 21:45 Vitamin D (Vitamin D3) 50,000 unit WEEKLY PO Last administered on 05/12/17 08 :07; Start 05/05/17 at 09:00 Lorazepam (Ativan) 0.25 mg PRN Q2HR PRN PO ANXIETY / AGITATION Last administered on 05/13/17 09:40; Start 05/04/17 at 19:30 Vitamin D (Vitamin D3) 50,000 unit WEEKLY PO ; Start 05/05/17 at 14:45; Stop at 14:45; Status DC Sertraline HCl (Zoloft) 50 mg DAILY PO Last administered on 05/08/17 08:02; Start 05/07/17 at 09:00; Stop 05/08/17 at 11:04; Status DC Sertraline HCl (Zoloft) 75 mg DAILY PO Last administered on 05/15/17 08:39; Start 05/09/17 at 09:00; Stop 05/15/17 at 10:59; Status DC Aripiprazole (Abilify) 5 mg DAILY PO Last administered on 05/16/17 07:17; Start 05/11/17 at 09:00 Sertraline HCl (Zoloft) 100 mg DAILY PO Last administered on 05/16/17 07:45; Start 05/16/17 at 09:00 Active Scripts Active Reported Donepezil Hcl 10 Mg Tablet 10 Mg PO QHS Trazodone Hcl 50 Mg Tablet 25 Mg PO PRN Q6HRS PRN Trazodone Hcl 50 Mg Tablet 50 Mg PO PRN QHS PRN Risperidone 1 Mg Tablet 1 Mg PO BID Mirtazapine 15 Mg Tablet 15 Mg PO QHS Namenda Xr (Memantine Hcl) 28 Mg Cap.spr.24 28 Mg PO DAILY Escitalopram Oxalate 10 Mg Tablet 15 Mg PO DAILY Cyanocobalamin Injection (Cyanocobalamin (Vitamin B-12)) 1,000 Mcg/1 Ml Vial 1, 000 Mcg IJ QMONTH Diagnosis: Problems: (1) Anxiety associated with depression MARICARMEN GONCALVES MD May 16, 2017 20:52
[2017-05-17 05:55] VITALS: BP 105/64
[2017-05-17] MEDS: MEMANTINE 10 MG TABLET. PO SCH ×2 (08:07→19:23)
[2017-05-17] MEDS: ARIPiprazole 5 MG TABLET PO SCH (08:07)
[2017-05-17] MEDS: SERTRALINE 100 MG TABLET. PO SCH (08:08)
[2017-05-17] MEDS: LORazepam 0.5 MG TABLET PO PRN (13:55)
--- NOTE | 2017-05-17 15:12 | PN ---
DATE: 05/16/2017 This is a late entry for 05/16/2017 and covers elements not covered in my initial note of 05/16/2017. I met with the patient the evening of 05/16/2017. Overall, the patient remains somewhat confused, anxious, but appropriate on the unit. No suicidal ideation noted. He did not get up for breakfast, had breakfast later around 10:30 a.m., wanders the hallways, likes to do gardening. During the individual visit, we talked about discharge plans. REVIEW OF SYSTEMS: No CV, , pulmonary, eye, ENT system symptoms on review. Reliability poor. MENTAL STATUS EXAM: Oriented to himself and situation. Speech coherent, has some latency, abstraction fair, computation impaired, language function intact. Mood and affect still somewhat anxious, suspicious, but improved. LABORATORY DATA: Reviewed. IMPRESSION: Unchanged from initial note. PLAN: Continue current psychotropics, may need to increase Abilify if psychotic symptoms persist or increase the Zoloft for depressive symptoms; if needed, change to an SNRI agent. Reviewed drug interactions, risk/benefit ratio favors no further change. MAN Charlie GONCALVES MD DR: DANGELO/bernardo JOB#: [id number] / [id number]
[2017-05-17 16:15] VITALS: BP 95/66
[2017-05-17] MEDS: DONEPEZIL HCL 10 MG TABLET PO SCH (19:23)
[2017-05-17] MEDS: MIRTAZAPINE 15 MG TABLET PO SCH (19:23)
--- NOTE | 2017-05-17 21:54 | PDOC ---
Exam Jayy Demential Exam: Jayy Note: Please also refer to the separate dictated note~for this date of service dictated separately.~Patient seen individually. Discussed the patient with Nursing staff reviewed the chart.~Reviewed interim history and current functioning. Reviewed vital signs,~Labs/ Radiology~and current medications noted below. Continue current treatment with the changes noted in the dictated addendum note Assessment: Vital Signs: Vital Signs Date Time Temp Pulse Resp B/P (MAP) Pulse Ox O2 Delivery O2 Flow Rate FiO2 05/17/17 16:15 97.5 64 20 95/66 (76) 92 05/17/17 05:55 Room Air I&O Intake and Output 05/18/17 07:00 Intake Total 1200 ml Balance 1200 ml Intake Oral 1200 ml Current Medications: Meds: Current Medications Lorazepam (Ativan) 0.5 mg 1X ONCE PO Last administered on 05/03/17 19:48; Start 05/03/17 at 19:15; Stop 05/03/17 at 19:16; Status DC Cyanocobalamin (Vitamin B-12) 1,000 mcg QMONTH SQ ; Start 05/23/17 at 09:00 Donepezil HCl (Aricept) 10 mg QHS PO Last administered on 05/17/17 19:23; Start 05/03/17 at 21:00 Mirtazapine (Remeron) 15 mg QHS PO Last administered on 05/17/17 19:23; Start 05/03/17 at 21:00 Risperidone (RisperDAL) 1 mg BID PO Last administered on 05/11/17 08:01; Start 05/03/17 at 21:00; Stop 05/11/17 at 09:01; Status DC Trazodone HCl (Desyrel) 25 mg PRN Q6HRS PRN PO AA Last administered on 14:23; Start 05/03/17 at 20:45 Trazodone HCl (Desyrel) 50 mg PRN QHS PRN PO INSOMNIA Last administered on 20:18; Start 05/03/17 at 20:45 Citalopram Hydrobromide (CeleXA) 30 mg DAILY PO Last administered on 08:39; Start 05/04/17 at 09:00; Stop 05/06/17 at 16:28; Status DC Memantine (Namenda) 10 mg BID PO Last administered on 05/17/17 19:23; Start 05/03/17 at 21:00 Acetaminophen (Tylenol) 650 mg PRN Q6HRS PRN PO PAIN / TEMP Last administered on 05/07/17 18:39; Start 05/03/17 at 21:45 Multi-Ingredient Ointment (Analgesic [place]) 1 farrukh PRN QID PRN TP MUSCLE PAIN; Start 05/03/17 at 21:45 Al Hydroxide/Mg Hydroxide (Mylanta Plus Xs) 15 ml PRN AFTMEALHC PRN PO DYSPEPSIA; Start 05/03/17 at 21:45 Magnesium Hydroxide (Milk Of Magnesia) 2,400 mg PRN QHS PRN PO CONSTIPATION; Start 05/03/17 at 21:45 Vitamin D (Vitamin D3) 50,000 unit WEEKLY PO Last administered on 05/12/17 08 :07; Start 05/05/17 at 09:00 Lorazepam (Ativan) 0.25 mg PRN Q2HR PRN PO ANXIETY / AGITATION Last administered on 05/17/17 13:55; Start 05/04/17 at 19:30 Vitamin D (Vitamin D3) 50,000 unit WEEKLY PO ; Start 05/05/17 at 14:45; Stop at 14:45; Status DC Sertraline HCl (Zoloft) 50 mg DAILY PO Last administered on 05/08/17 08:02; Start 05/07/17 at 09:00; Stop 05/08/17 at 11:04; Status DC Sertraline HCl (Zoloft) 75 mg DAILY PO Last administered on 05/15/17 08:39; Start 05/09/17 at 09:00; Stop 05/15/17 at 10:59; Status DC Aripiprazole (Abilify) 5 mg DAILY PO Last administered on 05/17/17 08:07; Start 05/11/17 at 09:00 Sertraline HCl (Zoloft) 100 mg DAILY PO Last administered on 05/17/17 08:08; Start 05/16/17 at 09:00 Buspirone HCl (Buspar) 5 mg BID92 PO ; Start 05/18/17 at 14:00 Active Scripts Active Reported Donepezil Hcl 10 Mg Tablet 10 Mg PO QHS Trazodone Hcl 50 Mg Tablet 25 Mg PO PRN Q6HRS PRN Trazodone Hcl 50 Mg Tablet 50 Mg PO PRN QHS PRN Risperidone 1 Mg Tablet 1 Mg PO BID Mirtazapine 15 Mg Tablet 15 Mg PO QHS Namenda Xr (Memantine Hcl) 28 Mg Cap.spr.24 28 Mg PO DAILY Escitalopram Oxalate 10 Mg Tablet 15 Mg PO DAILY Cyanocobalamin Injection (Cyanocobalamin (Vitamin B-12)) 1,000 Mcg/1 Ml Vial 1, 000 Mcg IJ QMONTH Diagnosis: Problems: (1) Anxiety associated with depression MARICARMEN GONCALVES MD May 17, 2017 21:54
--- NOTE | 2017-05-18 00:52 | PN ---
DATE: 05/17/2017 This note covers elements not covered in my initial note of 05/17/2017. SUBJECTIVE: I met with the patient morning 05/17/2017. Overall, the patient has been somewhat anxious, repetitive, asking about discharge plans. We addressed this with him. REVIEW OF SYSTEMS: No CV, , pulmonary, eye, ENT system symptoms on review. Reliability poor. MENTAL STATUS EXAM: Oriented to himself and situation. Speech is coherent, abstraction fair, computation impaired, language function intact. Mood and affect showing improvement. No suicidal ideation noted. LABORATORY DATA: Reviewed. IMPRESSION: Unchanged from initial note. PLAN: Continue current psychotropics as mentioned in my initial note. Reviewed drug interactions, risk/benefit ratio favors no further change. He is tolerating the augmentation of Zoloft 100 mg a day with Abilify 5 mg a day, may need to increase Zoloft if needed. MAN Charlie GONCALVES MD DR: DANGELO/bernardo JOB#: [id number] / [id number]
[2017-05-18 06:01] VITALS: BP 115/78
[2017-05-18] MEDS: ARIPiprazole 5 MG TABLET PO SCH (07:37)
[2017-05-18] MEDS: SERTRALINE 100 MG TABLET. PO SCH (07:37)
[2017-05-18] MEDS: MEMANTINE 10 MG TABLET. PO SCH ×2 (07:37→19:22)
[2017-05-18] MEDS: busPIRone 5 MG TABLET. PO SCH ×2 (07:38→13:28)
[2017-05-18 16:07] VITALS: BP 126/71
[2017-05-18] MEDS: MIRTAZAPINE 15 MG TABLET PO SCH (19:22)
[2017-05-18] MEDS: DONEPEZIL HCL 10 MG TABLET PO SCH (19:22)
--- NOTE | 2017-05-19 02:25 | PN ---
DATE: SUBJECTIVE: The patient denies any new medical or neurological complaints. The patient eats, drinks, and sleeps well. On occasions, he becomes more anxious and sometimes confused with slight psychotic features. OBJECTIVE: GENERAL: Moderately obese male, not in acute distress. VITAL SIGNS: Blood pressure 150/78, respiratory rate 22, pulse is 78, oxygen saturation 90% on room air, and temperature is 97.1. HEENT: Normocephalic, atraumatic, otherwise unremarkable. NECK: Supple. Negative for carotid bruit, lymphadenopathy or thyromegaly. LUNGS: Clear to A and P. CARDIOVASCULAR: Regular rate and rhythm, normal S1, S2. ABDOMEN: Soft. Bowel sounds positive. EXTREMITIES: Negative for cyanosis, clubbing or pitting edema. NEUROLOGIC: The patient is alert and oriented to himself and place. Speech is clear and there is no language dysfunction. Memory, judgment, and abstract thinking are fair. The patient denies hallucination or delusion. Cranial nerves are intact. Motor Examination: No focal muscle bulk was seen. The tone is normal. The strength is 5/5 throughout. Sensory examination revealed normal pinprick and light touch senses. Deep tendon reflexes are symmetric and hypoactive without pathology responses. Gait and coordination are normal. IMPRESSION: 1. Dementia. 2. Depressions and anxiety. 3. Vitamin D deficiency. 4. Hyperlipidemia. RECOMMENDATIONS: Continue with current psychiatric care initiated by Dr. Rodrigez and continue with current home medications. M Emiliana MCCOLLUM MD DR: KIRAN/bernardo JOB#: [id number] / [id number]
[2017-05-19 06:07] VITALS: BP 118/76
[2017-05-19] MEDS: MEMANTINE 10 MG TABLET. PO SCH ×2 (09:09→19:35)
[2017-05-19] MEDS: SERTRALINE 100 MG TABLET. PO SCH (09:09)
[2017-05-19] MEDS: busPIRone 5 MG TABLET. PO SCH ×2 (09:09→15:32)
[2017-05-19] MEDS: ARIPiprazole 5 MG TABLET PO SCH (09:09)
[2017-05-19] MEDS: CHOLECALCIFEROL (VITAMIN D3) 50,000 UNIT CAPSULE PO SCH (09:10)
[2017-05-19 09:55] LABS: BASO % 1 % (0-3); EOS # 0.2 x10^3/uL (0.0-0.7); EOS % 3 % (0-3); HEMATOCRIT 45.2 % (39.0-53.0); HEMOGLOBIN 15.3 g/dL (13.0-17.5); LYMPH # 2.1 x10^3/uL (1.0-4.8); LYMPH % 31 % (24-48); MEAN CORPUSCULAR HEMOGLOBIN 31 pg (25-35); MEAN CORPUSCULAR HGB CONC 34 g/dL (31-37); MEAN CORPUSCULAR VOLUME 93 fL (79-100); MONO # 0.4 x10^3/uL (0.0-1.1); MONO % 6 % (0-9); NEUT % 60 % (31-73); PLATELET COUNT 146 x10^3/uL (140-400); RED BLOOD COUNT 4.87 x10^6/uL (4.30-5.70); RED CELL DISTRIBUTION WIDTH 14.6 % (11.5-14.5); WHITE BLOOD COUNT 6.8 x10^3/uL (4.0-11.0)
[2017-05-19 10:11] LABS: ALBUMIN 3.5 g/dL (3.4-5.0); ALBUMIN/GLOBULIN RATIO 0.9 (1.0-1.7); CREATININE 0.9 mg/dL (0.7-1.3); GFR 81.2; MAGNESIUM 2.3 mg/dL (1.8-2.4); TOTAL BILIRUBIN 0.9 mg/dL (0.2-1.0); TOTAL PROTEIN 7.6 g/dL (6.4-8.2)
--- NOTE | 2017-05-19 11:19 | PN ---
DATE: 05/15/2017 PSYCHIATRIC PROGRESS NOTE This late entry 05/15/2017 covers elements not covered in my initial note of 05/15/2017. SUBJECTIVE: The patient was staffed at a treatment team meeting with the entire team morning of 05/15/2017, seen individually evening of 05/15/2017. The patient is doing better on the unit, still somewhat depressed. He wants to work and do things and has been gardening quite actively. Past history reveals that whenever in his younger days he would get stressed, he would go to the bar. It is not entirely clear if he was drinking excessively or would just go there for company. REVIEW OF SYSTEMS: No CV, , pulmonary, eye, ENT system symptoms on review. MENTAL STATUS EXAM: Oriented to himself and situation. Speech has some latency, coherent. Abstraction fair, computation impaired, language function intact. No clear psychotic symptoms noted and this is very good since he was on 2 mg of Risperdal before I stopped that and added Abilify to augment the Zoloft. Intellect average, insight good, judgment intact. He does have short term memory deficits. LABORATORIES: Reviewed. IMPRESSION: Unchanged from initial note. PLAN: Increase Zoloft from 75 mg a day to 100 mg a day. Maintain the rest of the psychotropics. Review drug interactions, risk/benefit ratio favors no further change. MAN Charlie GONCALVES MD DR: DANGELO/bernardo JOB#: [id number] / [id number]
[2017-05-19 16:10] VITALS: BP 119/68
[2017-05-19] MEDS: MIRTAZAPINE 15 MG TABLET PO SCH (19:35)
[2017-05-19] MEDS: DONEPEZIL HCL 10 MG TABLET PO SCH (19:35)
[2017-05-20 06:34] VITALS: BP 107/60
[2017-05-20] MEDS: SERTRALINE 100 MG TABLET. PO SCH (08:49)
[2017-05-20] MEDS: ARIPiprazole 5 MG TABLET PO SCH (08:49)
[2017-05-20] MEDS: busPIRone 5 MG TABLET. PO SCH ×2 (08:49→14:00)
[2017-05-20] MEDS: MEMANTINE 10 MG TABLET. PO SCH ×2 (08:49→20:16)
--- NOTE | 2017-05-20 10:17 | PN ---
DATE: 05/19/2017 SUBJECTIVE: The patient was seen today, met with the staff, chart reviewed. The patient is still depressed, increased anxiety, withdrawn. The patient also feels hopeless and helpless. The patient also has some negative thoughts and also admits to having suicidal thoughts for the past 5 months, but did not have a plan. OBSERVATION: VITAL SIGNS: Temperature 98, blood pressure 118/76, pulse 72, respirations 16, O2 sat 91, slept about 8 hours last night. CURRENT MEDICATIONS: The patient's current medications include: 1. BuSpar 5 mg twice a day. 2. Zoloft 100 mg daily. 3. Abilify 5 mg daily. 4. Namenda 10 mg b.i.d. 5. ____ mg at night. 6. Aricept 10 mg at night. 7. Trazodone 50 mg at night p.r.n. for sleep. The patient is not having any side effects to the medications. The patient denies of any physical problems. The patient is oriented to surroundings. He has some difficulty with short-term memory. The patient is mainly focused on his depression, inability to deal with the changes that he is going through and he used to be a platform software engineer. ASSETS: 1. Major depression, single episode, severe. 2. 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 PLAN: To continue with the treatment. SKYLER VALENTIN MD DR: JERRY/bernardo JOB#: [id number] / [id number]
[2017-05-20 15:29] VITALS: BP 104/69
[2017-05-20] MEDS: DONEPEZIL HCL 10 MG TABLET PO SCH (20:16)
[2017-05-20] MEDS: MIRTAZAPINE 15 MG TABLET PO SCH (20:16)
--- NOTE | 2017-05-21 03:20 | PN ---
DATE: 05/20/2017 SUBJECTIVE: The patient was seen today, met with the staff, chart reviewed. The patient's behaviors improved slightly, still appears depressed, tearful at times. The patient is able to walk, no falls. Staff reports no major problems. The patient continues to have increased anxiety. OBSERVATION: VITAL SIGNS: Temperature 97.3, blood pressure 107/60, pulse 77, respirations 20, O2 sat 90%. Slept about 7 hours last night. CURRENT MEDICATIONS: The patient's current medications include BuSpar 5 mg b.i.d., Zoloft 100 mg daily, Abilify 5 mg daily, Namenda 10 mg b.i.d., Aricept 10 mg at night, trazodone 50 mg at night, Remeron 15 mg at night. The patient is not having any side effects to the medications. ASSESSMENT: 1. Major depression, single episode, severe. 2. Dementia, most likely Alzheimer's type, mild with depression. PLAN: The patient will be considered for discharge in the next couple of days if he continues to show improvement. SKYLER VALENTIN MD DR: JERRY/bernardo JOB#: [id number] / [id number]
[2017-05-21 06:03] VITALS: BP 114/80
[2017-05-21] MEDS: busPIRone 5 MG TABLET. PO SCH ×2 (08:44→15:43)
[2017-05-21] MEDS: MEMANTINE 10 MG TABLET. PO SCH ×2 (08:44→20:31)
[2017-05-21] MEDS: SERTRALINE 100 MG TABLET. PO SCH (08:44)
[2017-05-21] MEDS: ARIPiprazole 5 MG TABLET PO SCH (08:45)
[2017-05-21 16:12] VITALS: BP 123/74
[2017-05-21] MEDS: DONEPEZIL HCL 10 MG TABLET PO SCH (20:31)
[2017-05-21] MEDS: MIRTAZAPINE 15 MG TABLET PO SCH (20:31)
[2017-05-22] MEDS ORDERED: ACET325T9 PO (03:30)
[2017-05-22] MEDS ORDERED: ARIP5TAB13 PO (03:31)
[2017-05-22] MEDS ORDERED: CHOL500050 PO (03:32)
[2017-05-22] MEDS ORDERED: LORA0.5T PO (03:33)
[2017-05-22] MEDS ORDERED: MAG30ORA2 PO (03:35)
[2017-05-22] MEDS ORDERED: MAGN400O7 PO (03:36)
[2017-05-22] MEDS ORDERED: MEMA10TA PO (03:37)
[2017-05-22] MEDS ORDERED: MIRT15TA3 PO (03:38)
[2017-05-22] MEDS ORDERED: METH29OI TP (03:38)
[2017-05-22] MEDS ORDERED: SERT100T PO (03:39)
[2017-05-22] MEDS ORDERED: BUSP5TAB PO (03:40)
[2017-05-22] MEDS ORDERED: TRAZ50TA15 PO (03:41)
[2017-05-22 05:54] VITALS: BP 129/88
[2017-05-22] MEDS: SERTRALINE 100 MG TABLET. PO SCH (07:28)
[2017-05-22] MEDS: busPIRone 5 MG TABLET. PO SCH ×2 (07:28→13:14)
[2017-05-22] MEDS: MEMANTINE 10 MG TABLET. PO SCH (07:28)
[2017-05-22] MEDS: ARIPiprazole 5 MG TABLET PO SCH (07:28)
--- NOTE | 2017-05-22 09:59 | DS ---
DATE OF DISCHARGE: 05/22/2017 FINAL DIAGNOSES: AXIS I: 1. Major depressive disorder, recurrent. 2. Mild cognitive disorder. 3. Rule out major neurocognitive disorder, Alzheimer's, vascular with depression, delusions. 4. Anxiety disorder, unspecified. 5. Impulse control disorder, unspecified. REASON FOR ADMISSION: This 81-year-old male was admitted from [facility], where he was resting only for 2 days and apparently he was hospitalized at [facility] for almost 2 months as an inpatient. The patient apparently is expressing suicidal thoughts and plans, stabbing himself in the chest and wrist. HISTORY OF PRESENT ILLNESS: The patient mainly focused on depression and also admits to having lot of cognitive deficits, ____ confusion and not sleeping well, increased anxiety. The patient also is having problems with concentration and thinking. The patient was withdrawn and tearful at times, talked about having financially problems, not having any money. The patient is also having increased anxiety. HOSPITAL COURSE: The patient had a physical exam, routine lab work including CBC, chem profile, and urinalysis. The patient's lab data is within normal range except for elevated cholesterol of 207, LDL was 148 and HDL cholesterol was 37. The patient was involved in the treatment including individual therapy, group therapy and activity therapy. The patient was continued on his B12 of 1000 mcg subcutaneous monthly, BuSpar 5 mg b.i.d., Zoloft 100 mg daily, Abilify 5 mg daily, vitamin D 50,000 units weekly, lorazepam 0.25 mg q.2 hours p.r.n. The patient was also on Namenda 10 mg b.i.d., mirtazapine 15 mg at night, Aricept 10 mg at night, trazodone 50 mg at night p.r.n. The patient did show improvement. He was less anxious and tense, still has episodic confusion. The patient is able to hold a conversation. The patient did not have any side effects to the medications. AFTERCARE PLAN: The patient at the time of discharge was not expressing any suicidal or homicidal thoughts. His condition improved, medically stable. The patient will be [facility] to [facility] and will continue with the medications listed above and also will continue to see the primary care doctor to monitor the medications. SKYLER VALENTIN MD DR: Thong JOB#: [id number] / [id number]
[2017-05-23] MEDS ORDERED: CYANOCOBALAMIN (VITAMIN B-12) 1,000 MCG/ML VIAL SQ SCH (09:00)
== END 2017-05-22 14:00 | disposition home or self-care (01) | DRG 884 ==
LOC: ER 18:26 → GEROPSY 20:05
PROVIDERS: ADMIT Psychiatry & Neurology Psychiatry; ATTEND Psychiatry & Neurology Psychiatry
DX: F01.51 Vascular dementia, unspecified severity, with behavioral disturbance (principal); F32.3 Major depressive disorder, single episode, severe with psychotic features; G30.9 Alzheimer's disease, unspecified; F02.81 Dementia in other diseases classified elsewhere, unspecified severity, with behavioral disturbance; E55.9 Vitamin D deficiency, unspecified; E78.5 Hyperlipidemia, unspecified; F41.8 Other specified anxiety disorders; F63.9 Impulse disorder, unspecified; Z79.899 Other long term (current) drug therapy; Z91.83 Wandering in diseases classified elsewhere
CPT/HCPCS: 36415; 80053; 80061; 82306; 83036; 83735; 84436; 84443; 84480; 85025; 86592; 86593; 93005; 97530; 99285-25

== ENCOUNTER 2017-11-12 16:26 | Inpatient (IN) | payer MEDICARE ==
[~2017-11-12] VITALS: Ht 185.4 cm; Wt 104.1 kg
[~2017-11-12 16:26] MED LIST: ACET325T9 PO; ARIP5TAB13 PO; BUSP5TAB PO; CHOL500050 PO; CYAN10002 IJ; CYAN10005 PO; DONE10TA7 PO; ESCITALOPRAM OX10 MG PO; LORA0.5T PO; MAG30ORA2 PO; MAGN400O7 PO; MEMA10TA PO; MEMA28CA PO; METH29OI TP; MIRT15TA3 PO; RISP1TAB3 PO; SERT100T PO; TRAZ50TA15 PO
[2017-11-12 18:50] VITALS: BP 110/66
--- NOTE | 2017-11-12 21:15 | PDOC ---
Exam Note: Jayy Note: Please also refer to the separate dictated note~for this date of service dictated separately.~Patient seen individually. Discussed the patient with Nursing staff reviewed the chart.~Reviewed interim history and current functioning. Reviewed vital signs,~Labs/ Radiology~and current medications noted below. Continue current treatment with the changes noted in the dictated addendum note Assessment: Vital Signs: Vital Signs Date Time Temp Pulse Resp B/P (MAP) Pulse Ox O2 Delivery O2 Flow Rate FiO2 11/12/17 18:50 97.9 101 18 110/66 (81) 97 Labs: Laboratory Tests Test 11/12/17 06:23 Magnesium Level 2.1 mg/dL (1.8-2.4) Current Medications: Meds: Active Scripts Active Reported Vitamin B-12 (Cyanocobalamin (Vitamin B-12)) 1,000 Mcg Tablet 1,000 Mcg PO DAILY LAST DOSE GIVEN: DATE: TIME: NEXT DOSE DUE: DATE: TIME: Namenda (Memantine Hcl) 10 Mg Tablet 10 Mg PO BID LAST DOSE GIVEN: DATE: TIME: NEXT DOSE DUE: DATE: TIME: Buspirone Hcl 5 Mg Tablet 10 Mg PO BID LAST DOSE GIVEN: DATE: TIME: NEXT DOSE DUE: DATE: TIME: Zoloft (Sertraline Hcl) 100 Mg Tablet 100 Mg PO DAILY LAST DOSE GIVEN: DATE: TIME: NEXT DOSE DUE: DATE: TIME: Analgesic [place] (Methyl Salicylate/Menthol) 28 Gm Oint...g. 1 Sagar TP PRN QID PRN LAST DOSE GIVEN: DATE: TIME: NEXT DOSE DUE: DATE: TIME: Milk Of Magnesia (Magnesium Hydroxide) 400 Mg/5 Ml Oral.susp 2,400 Mg PO PRN DAILY PRN LAST DOSE GIVEN: DATE: TIME: NEXT DOSE DUE: DATE: TIME: Mag-Al Plus Xs Suspension (Mag Hydrox/Al Hydrox/Simeth) 30 Ml Oral.susp 15 Ml PO PRN AFTMEALHC PRN LAST DOSE GIVEN: DATE: TIME: NEXT DOSE DUE: DATE: TIME: Vitamin D3 (Cholecalciferol (Vitamin D3)) 50,000 Unit Capsule 50,000 Unit PO QTH LAST DOSE GIVEN: DATE: TIME: NEXT DOSE DUE: DATE: TIME: Abilify (Aripiprazole) 5 Mg Tablet 5 Mg PO DAILY LAST DOSE GIVEN: DATE: TIME: NEXT DOSE DUE: DATE: TIME: Tylenol (Acetaminophen) 325 Mg Tablet 650 Mg PO PRN Q6HRS PRN LAST DOSE GIVEN: DATE: TIME: NEXT DOSE DUE: DATE: TIME: Donepezil Hcl 10 Mg Tablet 10 Mg PO QHS LAST DOSE GIVEN: DATE: TIME: NEXT DOSE DUE: DATE: TIME: Mirtazapine 15 Mg Tablet 15 Mg PO QHS LAST DOSE GIVEN: DATE: TIME: NEXT DOSE DUE: DATE: TIME: I have reviewed the current psychotropics carefully including drug interactions. Risk benefit ratio favors no change other than as noted in my dictated progress note. Diagnosis: Problems: (1) Altered mental status MARICARMEN GONCALVES MD Nov 12, 2017 21:15
[2017-11-12] MEDS ORDERED: LACT1CAP21 PO (21:41)
[2017-11-12] MEDS ORDERED: ACETAMINOPHEN 325 MG TABLET PO PRN (21:45)
[2017-11-12] MEDS ORDERED: METHYL SALICYLATE/MENTHOL TOPICAL OINTMENT 29GM TUBE. TP PRN (21:45)
[2017-11-12] MEDS ORDERED: MAG HYDROX/AL HYDROX/SIMETH 30 ML ORAL.SUSP PO PRN (21:45)
[2017-11-12] MEDS ORDERED: MAGNESIUM HYDROXIDE 2,400 MG/30 ML ORAL.SUSP. PO PRN (21:45)
[2017-11-12] MEDS: busPIRone 5 MG TABLET. PO SCH (22:41)
[2017-11-12] MEDS: LACTOBACILLUS RHAMNOSUS GG 1 CAPSULE. PO SCH (22:41)
[2017-11-12] MEDS: DONEPEZIL HCL 10 MG TABLET PO SCH (22:41)
[2017-11-12] MEDS: MEMANTINE 10 MG TABLET. PO SCH (22:41)
[2017-11-12] MEDS: MIRTAZAPINE 15 MG TABLET PO SCH (22:41)
[2017-11-13 05:47] VITALS: BP 97/64
[2017-11-13] MEDS: LACTOBACILLUS RHAMNOSUS GG 1 CAPSULE. PO SCH ×2 (08:32→20:34)
[2017-11-13] MEDS: MEMANTINE 10 MG TABLET. PO SCH ×2 (08:32→20:34)
[2017-11-13] MEDS: busPIRone 5 MG TABLET. PO SCH (08:32)
[2017-11-13] MEDS: CYANOCOBALAMIN (VITAMIN B-12) 1,000 MCG TABLET. PO SCH (08:34)
[2017-11-13] MEDS: ARIPiprazole 5 MG TABLET PO SCH (08:34)
[2017-11-13] MEDS ORDERED: SERTRALINE 100 MG TABLET. PO SCH (09:00)
[2017-11-13 16:15] VITALS: BP 88/50
[2017-11-13] MEDS: CHOLECALCIFEROL (VITAMIN D3) 50,000 UNIT CAPSULE PO SCH (16:59)
--- NOTE | 2017-11-13 18:23 | PDOC ---
Exam Note: Jayy Note: Please also refer to the separate dictated note~for this date of service dictated separately.~Patient seen individually. Discussed the patient with Nursing staff reviewed the chart.~Reviewed interim history and current functioning. Reviewed vital signs,~Labs/ Radiology~and current medications noted below. Continue current treatment with the changes noted in the dictated addendum note Assessment: Vital Signs: Vital Signs Date Time Temp Pulse Resp B/P (MAP) Pulse Ox O2 Delivery O2 Flow Rate FiO2 11/13/17 16:15 98.6 88 21 88/50 (63) 94 Room Air I&O Intake and Output 11/13/17 07:00 Intake Total 120 ml Balance 120 ml Intake Oral 120 ml Labs: Laboratory Tests Test 11/12/17 20:13 Triglycerides Level 71 mg/dL (0-150) Cholesterol Level 150 mg/dL (0-200) LDL Cholesterol, Calculated 101 mg/dL (0-100) H VLDL Cholesterol, Calculated 14 mg/dL (0-40) Non-HDL Cholesterol Calculated 115 mg/dL (0-129) HDL Cholesterol 35 mg/dL (40-60) L Cholesterol/HDL Ratio 4.0 Current Medications: Meds: Current Medications Acetaminophen (Tylenol) 650 mg PRN Q6HRS PRN PO PAIN / TEMP; Start 11/12/17 at 21:45 Aripiprazole (Abilify) 5 mg DAILY PO Last administered on 11/13/17at 08:34; Start 11/13/17 at 09:00 Buspirone HCl (Buspar) 10 mg BID PO Last administered on 11/13/17at 08:32; Start 11/12/17 at 22:00; Stop 11/13/17 at 12:58; Status DC Donepezil HCl (Aricept) 10 mg QHS PO Last administered on 11/12/17at 22:41; Start 11/12/17 at 22:00 Memantine (Namenda) 10 mg BID PO Last administered on 11/13/17at 08:32; Start at 22:00 Mirtazapine (Remeron) 15 mg QHS PO Last administered on 11/12/17at 22:41; Start 11/12/17 at 22:00 Sertraline HCl (Zoloft) 100 mg DAILY PO Last administered on 11/13/17at 08:34; Start 11/13/17 at 09:00; Stop 11/13/17 at 10:58; Status DC Vitamin D (Vitamin D3) 50,000 unit QTH PO Last administered on 11/13/17at 16:59 ; Start 11/13/17 at 16:00 Cyanocobalamin (Vitamin B-12) 1,000 mcg DAILY PO Last administered on at 08:34; Start 11/13/17 at 09:00 Al Hydroxide/Mg Hydroxide (Mylanta Plus Xs) 15 ml PRN AFTMEALHC PRN PO DYSPEPSIA; Start 11/12/17 at 21:45 Magnesium Hydroxide (Milk Of Magnesia) 2,400 mg PRN DAILY PRN PO CONSTIPATION; Start 11/12/17 at 21:45 Multi-Ingredient Ointment (Analgesic [place]) 1 sagar PRN QID PRN TP MUSCLE PAIN; Start 11/12/17 at 21:45 Lactobacillus Rhamnosus (Culturelle) 1 cap BID PO Last administered on at 08:32; Start 11/12/17 at 22:00 Duloxetine HCl (Cymbalta) 30 mg DAILY PO ; Start 11/14/17 at 09:00 Buspirone HCl (Buspar) 10 mg BID PO ; Start 11/13/17 at 21:00 Active Scripts Active Reported Culturelle (Lactobacillus Rhamnosus Gg) 1 Each Capsule 1 Each PO BID Vitamin B-12 (Cyanocobalamin (Vitamin B-12)) 1,000 Mcg Tablet 1,000 Mcg PO DAILY LAST DOSE GIVEN: DATE: TIME: NEXT DOSE DUE: DATE: TIME: Namenda (Memantine Hcl) 10 Mg Tablet 10 Mg PO BID LAST DOSE GIVEN: DATE: TIME: NEXT DOSE DUE: DATE: TIME: Buspirone Hcl 5 Mg Tablet 10 Mg PO BID LAST DOSE GIVEN: DATE: TIME: NEXT DOSE DUE: DATE: TIME: Zoloft (Sertraline Hcl) 100 Mg Tablet 100 Mg PO DAILY LAST DOSE GIVEN: DATE: TIME: NEXT DOSE DUE: DATE: TIME: Analgesic [place] (Methyl Salicylate/Menthol) 28 Gm Oint...g. 1 Sagar TP PRN QID PRN LAST DOSE GIVEN: DATE: TIME: NEXT DOSE DUE: DATE: TIME: Milk Of Magnesia (Magnesium Hydroxide) 400 Mg/5 Ml Oral.susp 2,400 Mg PO PRN DAILY PRN LAST DOSE GIVEN: DATE: TIME: NEXT DOSE DUE: DATE: TIME: Mag-Al Plus Xs Suspension (Mag Hydrox/Al Hydrox/Simeth) 30 Ml Oral.susp 15 Ml PO PRN AFTMEALHC PRN LAST DOSE GIVEN: DATE: TIME: NEXT DOSE DUE: DATE: TIME: Vitamin D3 (Cholecalciferol (Vitamin D3)) 50,000 Unit Capsule 50,000 Unit PO QTH LAST DOSE GIVEN: DATE: TIME: NEXT DOSE DUE: DATE: TIME: Abilify (Aripiprazole) 5 Mg Tablet 5 Mg PO DAILY LAST DOSE GIVEN: DATE: TIME: NEXT DOSE DUE: DATE: TIME: Tylenol (Acetaminophen) 325 Mg Tablet 650 Mg PO PRN Q6HRS PRN LAST DOSE GIVEN: DATE: TIME: NEXT DOSE DUE: DATE: TIME: Donepezil Hcl 10 Mg Tablet 10 Mg PO QHS LAST DOSE GIVEN: DATE: TIME: NEXT DOSE DUE: DATE: TIME: Mirtazapine 15 Mg Tablet 15 Mg PO QHS LAST DOSE GIVEN: DATE: TIME: NEXT DOSE DUE: DATE: TIME: I have reviewed the current psychotropics carefully including drug interactions. Risk benefit ratio favors no change other than as noted in my dictated progress note. Diagnosis: Problems: (1) Anxiety disorder (2) Dementia in Alzheimer's disease with delusions (3) Dementia in Alzheimer's disease with depression (4) Dementia, vascular, with delusions (5) Dementia, vascular, with depression (6) Impulse control disorder MARICARMEN GONCALVES MD Nov 13, 2017 18:23
--- NOTE | 2017-11-13 19:10 | HP ---
ADMIT DATE: 11/12/2017 This is a late entry, 11/12/2017, covers the elements not covered in my initial note of 11/12/2017. SUBJECTIVE: I met with the patient evening of 11/12/2017. Discussed with nursing staff, reviewed the chart. I previously discussed the patient with the nursing staff on several occasions surrounding referral from [facility] on an account of his worsening confusion and suicidal statements with worsening symptoms of depression. He presented to the ER, was found to be medically unstable and admitted to [address] [place] [address] Medical/Surgical floor and overnight, he is found to be medically stable that he has continued to voice suicidal ideation on [address] [place] [address], stating that if he had to go back to [facility], he then dislikes. He is depressed, anxious, somewhat paranoid, confused, referred for inpatient psychiatric stabilization. CHIEF COMPLAINT: "Yes, I get depressed. I said I will end my life. I don't want to go back there." HISTORY OF PRESENT ILLNESS: The patient has a history of dementia, Alzheimer's vascular. He has been here before, but has been back at the [facility] for some time. More recently, he has been depressed, withdrawn, paranoid, and suspicious. He has voiced the suicidal ideation, prompting the initial referral to us. He has also had some sleep and appetite changes. PAST PSYCHIATRIC HISTORY: As above. MEDICAL HISTORY: Positive for hypertension, hyperlipidemia, vitamin deficiency, impulse control disorder. DIET: Regular, takes his medications whole. Ambulates, Ad Connie. He did have a positive UA for UTI in the ER. Culture is pending. He is a full code. DRUG ALLERGIES: Negative. CURRENT PSYCHOTROPICS: Abilify 5 mg a day, Remeron 15 mg at bedtime, Namenda 10 mg b.i.d., Aricept 10 mg a day, BuSpar 10 mg b.i.d., Zoloft was changed to Cymbalta 30 mg a day at the time of his admission on 11/12/2017. FAMILY HISTORY: Noncontributory. SOCIAL HISTORY: No history of alcohol, drug abuse, physical, sexual or elder abuse. He is not known to be a perpetrator. MENTAL STATUS EXAMINATION: The patient is oriented to himself. Insight, judgment, recent and remote memory, attention, concentration, fund of knowledge poor, consistent with his diagnosis. He is quite depressed, withdrawn, paranoid, suspicious. Denies active suicidal ideation while he is here. ASSETS: Stable living at the senior care. Reaction to hospitalization, the patient accepting of it. IMPRESSION: Major neurocognitive disorder, Alzheimer, vascular with depression, delusion, behavioral disturbance; anxiety disorder, unspecified; impulse control disorder, unspecified. Rest as above. PLAN: Continue the patient on his current psychotropics other than the change of Zoloft to Cymbalta. Continue rest of the psychotropics and make adjustments as clinically indicated. MAN Charlie GONCALVES MD DR: DANGELO/bernardo JOB#: [id number] / [id number]
[2017-11-13 19:15] LABS: THYROXINE 4.9 ug/dL (4.5-12.0)
[2017-11-13] MEDS: MIRTAZAPINE 15 MG TABLET PO SCH (20:34)
[2017-11-13] MEDS: DONEPEZIL HCL 10 MG TABLET PO SCH (20:34)
[2017-11-13] MEDS: busPIRone 10 MG TABLET. PO SCH (20:35)
--- NOTE | 2017-11-13 20:59 | PDOC ---
Exam Note: Jayy Note: Please also refer to the separate dictated note~for this date of service dictated separately.~Patient seen individually. Discussed the patient with Nursing staff reviewed the chart.~Reviewed interim history and current functioning. Reviewed vital signs,~Labs/ Radiology~and current medications noted below. Continue current treatment with the changes noted in the dictated addendum note Assessment: Vital Signs: Vital Signs Date Time Temp Pulse Resp B/P (MAP) Pulse Ox O2 Delivery O2 Flow Rate FiO2 11/13/17 16:15 98.6 88 21 88/50 (63) 94 Room Air I&O Intake and Output 11/13/17 07:00 Intake Total 120 ml Balance 120 ml Intake Oral 120 ml Current Medications: Meds: Current Medications Acetaminophen (Tylenol) 650 mg PRN Q6HRS PRN PO PAIN / TEMP; Start 11/12/17 at 21:45 Aripiprazole (Abilify) 5 mg DAILY PO Last administered on 11/13/17 08:34; Start 11/13/17 at 09:00 Buspirone HCl (Buspar) 10 mg BID PO Last administered on 11/13/17at 08:32; Start 11/12/17 at 22:00; Stop 11/13/17 at 12:58; Status DC Donepezil HCl (Aricept) 10 mg QHS PO Last administered on 11/13/17 20:34; Start 11/12/17 at 22:00 Memantine (Namenda) 10 mg BID PO Last administered on 11/13/17at 20:34; Start at 22:00 Mirtazapine (Remeron) 15 mg QHS PO Last administered on 11/13/17 20:34; Start 11/12/17 at 22:00 Sertraline HCl (Zoloft) 100 mg DAILY PO Last administered on 11/13/17 08:34; Start 11/13/17 at 09:00; Stop 11/13/17 at 10:58; Status DC Vitamin D (Vitamin D3) 50,000 unit QTH PO Last administered on 11/13/17at 16:59 ; Start 11/13/17 at 16:00 Cyanocobalamin (Vitamin B-12) 1,000 mcg DAILY PO Last administered on at 08:34; Start 11/13/17 at 09:00 Al Hydroxide/Mg Hydroxide (Mylanta Plus Xs) 15 ml PRN AFTMEALHC PRN PO DYSPEPSIA; Start 11/12/17 at 21:45 Magnesium Hydroxide (Milk Of Magnesia) 2,400 mg PRN DAILY PRN PO CONSTIPATION; Start 11/12/17 at 21:45 Multi-Ingredient Ointment (Analgesic [place]) 1 sagar PRN QID PRN TP MUSCLE PAIN; Start 11/12/17 at 21:45 Lactobacillus Rhamnosus (Culturelle) 1 cap BID PO Last administered on at 20:34; Start 11/12/17 at 22:00 Duloxetine HCl (Cymbalta) 30 mg DAILY PO ; Start 11/14/17 at 09:00 Buspirone HCl (Buspar) 10 mg BID PO Last administered on 11/13/17at 20:35; Start 11/13/17 at 21:00 Active Scripts Active Reported Culturelle (Lactobacillus Rhamnosus Gg) 1 Each Capsule 1 Each PO BID Vitamin B-12 (Cyanocobalamin (Vitamin B-12)) 1,000 Mcg Tablet 1,000 Mcg PO DAILY LAST DOSE GIVEN: DATE: TIME: NEXT DOSE DUE: DATE: TIME: Namenda (Memantine Hcl) 10 Mg Tablet 10 Mg PO BID LAST DOSE GIVEN: DATE: TIME: NEXT DOSE DUE: DATE: TIME: Buspirone Hcl 5 Mg Tablet 10 Mg PO BID LAST DOSE GIVEN: DATE: TIME: NEXT DOSE DUE: DATE: TIME: Zoloft (Sertraline Hcl) 100 Mg Tablet 100 Mg PO DAILY LAST DOSE GIVEN: DATE: TIME: NEXT DOSE DUE: DATE: TIME: Analgesic [place] (Methyl Salicylate/Menthol) 28 Gm Oint...g. 1 Sagar TP PRN QID PRN LAST DOSE GIVEN: DATE: TIME: NEXT DOSE DUE: DATE: TIME: Milk Of Magnesia (Magnesium Hydroxide) 400 Mg/5 Ml Oral.susp 2,400 Mg PO PRN DAILY PRN LAST DOSE GIVEN: DATE: TIME: NEXT DOSE DUE: DATE: TIME: Mag-Al Plus Xs Suspension (Mag Hydrox/Al Hydrox/Simeth) 30 Ml Oral.susp 15 Ml PO PRN AFTMEALHC PRN LAST DOSE GIVEN: DATE: TIME: NEXT DOSE DUE: DATE: TIME: Vitamin D3 (Cholecalciferol (Vitamin D3)) 50,000 Unit Capsule 50,000 Unit PO QTH LAST DOSE GIVEN: DATE: TIME: NEXT DOSE DUE: DATE: TIME: Abilify (Aripiprazole) 5 Mg Tablet 5 Mg PO DAILY LAST DOSE GIVEN: DATE: TIME: NEXT DOSE DUE: DATE: TIME: Tylenol (Acetaminophen) 325 Mg Tablet 650 Mg PO PRN Q6HRS PRN LAST DOSE GIVEN: DATE: TIME: NEXT DOSE DUE: DATE: TIME: Donepezil Hcl 10 Mg Tablet 10 Mg PO QHS LAST DOSE GIVEN: DATE: TIME: NEXT DOSE DUE: DATE: TIME: Mirtazapine 15 Mg Tablet 15 Mg PO QHS LAST DOSE GIVEN: DATE: TIME: NEXT DOSE DUE: DATE: TIME: I have reviewed the current psychotropics carefully including drug interactions. Risk benefit ratio favors no change other than as noted in my dictated progress note. Diagnosis: Problems: (1) Altered mental status (2) Anxiety disorder (3) Impulse control disorder (4) Dementia, vascular, with depression (5) Dementia, vascular, with delusions (6) Dementia in Alzheimer's disease with depression (7) Dementia in Alzheimer's disease with delusions MARICARMEN GONCALVES MD Nov 13, 2017 20:59
--- NOTE | 2017-11-14 01:12 | PN ---
DATE: 11/13/2017 This note covers elements not covered in my initial note 11/13/2017. SUBJECTIVE: I met with the patient in the evening of 11/13/2017. The patient remains confused, wandering up and down the hallway. Still quite depressed, paranoid, forgetful. Denies active suicidal ideation. REVIEW OF SYSTEMS: No CV, , pulmonary, eye, ENT system symptoms on review. Met with the patient individually evening of 11/13/2017 and staffed at a treatment team meeting with the entire team morning of 11/13/2017. No CV, , pulmonary, eye, ENT system symptoms on review. MENTAL STATUS EXAM: Oriented to himself. Insight, judgment, recent and remote memory, attention, concentration, fund of knowledge poor, consistent with his diagnosis mentioned in my initial note. IMPRESSION: Major neurocognitive disorder, Alzheimer, vascular with delusion, depression, behavioral disturbance. PLAN: Continue psychotropics mentioned in my initial note. MARICARMEN GONCALVES MD DR: DANGELO/bernardo JOB#: [id number] / [id number]
--- NOTE | 2017-11-14 01:23 | CONS ---
DATE OF CONSULTATION: 11/13/2017 REASON FOR CONSULTATION: Medical management. HISTORY OF PRESENT ILLNESS: The patient is an 82-year-old male patient, resident of [facility], who apparently made suicidal ideation statements, increased depression, continues suicidal ideation statements in [facility], who was originally seen in the Emergency Room and it was felt that he has UTI and congestive heart failure. Further evaluation showed that his urinalysis was unremarkable and no evidence of any urinary tract infection and in fact his urine culture showed mixed urogenital jake 10,000-25,000 colony forming unit and although his chest x-ray was suggestive of heart failure, he was clinically well compensated. He denied any chest pain, shortness of breath, orthopnea or paroxysmal nocturnal dyspnea. He was ambulatory, maintaining his oxygen saturation was 96% on room air, and therefore, we discharged him from [facility] to [facility] for inpatient psychiatric stabilization as he continued with his suicidal statements with increased depression on a background of major depressive disorder, anxiety and impulse control as well as Alzheimer disease. PAST MEDICAL HISTORY: Significant for hypertension, hyperlipidemia, vitamin D deficiency. PAST PSYCHIATRIC HISTORY: Significant for major depressive disorder, impulse control disorder, generalized anxiety disorder as well as insomnia. ALLERGIES: He has no known drug allergies. He was on following medications: Aricept 10 mg once a day, analgesic balm applied topically 4 times a day, Tylenol 650 mg every 6 hours, mirtazapine 15 mg at bedtime, sertraline for Zoloft 100 mg daily, aripiprazole for Abilify 5 mg daily, anxiolytic, he is on buspirone 10 mg twice a day, Namenda 10 mg twice a day, Mylanta 15 mL after meals and as needed, magnesium hydroxide for milk of magnesia 30 mL p.o. daily p.r.n. for constipation, lactobacillus rhamnosus 1 capsule twice a day, vitamin B complex once a day, cyanocobalamin 1000 mcg orally. He is also on vitamin D 50,000 international units once a day. FAMILY HISTORY: Unremarkable. SOCIAL HISTORY: He is a resident at [facility]. He does not smoke, drink alcohol or use any recreational drugs. PHYSICAL EXAMINATION: GENERAL: When I examined him, he looked well and was clearly in no apparent respiratory distress, he was somewhat pale, but no jaundice or cyanosis. No lymphadenopathy, no thyromegaly. No jugular venous distension. No lower limb edema. VITAL SIGNS: His heart rate was 88, blood pressure was 90/50, temperature was 98.6, respiratory rate was 21 and oxygen saturation was 94% on room air. HEAD, EYES, EARS, NOSE AND THROAT: Showed normocephalic, atraumatic. NECK: Supple. HEART: Showed normal first and second heart sounds. No gallop, rub or murmur. CHEST: Clear to auscultation. No crepitation or rhonchi. ABDOMEN: Distended, soft, nontender. No guarding or rigidity. No organomegaly. Hernial orifice intact. Bowel sounds normal. NEUROLOGIC: He is awake, alert, responding appropriately at times. All his cranial nerves were intact. EXTREMITIES: He moves extremities without difficulty, ambulates without assistance or assistive devices. LABORATORY DATA: Showed his white cell count was 5700, hemoglobin 13, hematocrit 38, MCV 95 and platelet count of 121,000. His chemistry showed his serum sodium 141, potassium 4.2, chloride 104, bicarbonate 32, anion gap of 5, BUN 21, creatinine 1.1. Estimated GFR was 64 mL per minute. His glucose was 87. Calcium was 9. His magnesium was 2.1. Serum iron was 50, TIBC was 246 and percent saturation was 20. His vitamin B12 was 507. A 25-hydroxy vitamin D was 54. TSH was 3.92. Urinalysis is unremarkable. Toxic screen was then negative. His chest x-ray did show that findings suggestive of congestive heart failure, cardiomegaly, pulmonary edema and small bilateral pleural effusion; however, the patient is really asymptomatic. He is up and about walking, talking. He is not huffing or puffing. He is lying flat in bed without any shortness of breath. IMPRESSION: In summary, this is an 82-year-old male patient, resident at [facility], who was admitted on account of suicidal ideation statements with increased depression. He apparently states he will kill himself, [facility] and all this in the background of major depressive disorder, anxiety and impulse control disorder, Alzheimer disease. He is here for inpatient psychiatric stabilization. Medically, he is known to have hypertension, hyperlipidemia, vitamin D deficiency. Radiologically, he seemed to be in heart failure, but clinically he seemed to be very compensated. PLAN: My plan is to continue with the current medication management and I will review all his other labs that are still pending and make necessary recommendation. Thank you, Dr. Rodrigez, for allowing me to participate in the care of this patient. VIRGINIA BORGES MD DR: SUJATHA/bernardo JOB#: [id number] / [id number]
--- NOTE | 2017-11-14 01:50 | CONS ---
DATE OF CONSULTATION: 11/13/2017 REASON FOR CONSULTATION: Medical management. HISTORY OF PRESENT ILLNESS: The patient is an 82-year-old male patient... DICTATION ENDS HERE VIRGINIA BORGES MD DR: SUJATHA/bernardo JOB#: [id number] / [id number]
[2017-11-14 05:11] LABS: HEMOGLOBIN A1C 5.4 % (4.8-5.6)
[2017-11-14 05:54] VITALS: BP 106/78
[2017-11-14] MEDS: MEMANTINE 10 MG TABLET. PO SCH ×2 (08:50→19:53)
[2017-11-14] MEDS: busPIRone 10 MG TABLET. PO SCH ×2 (08:50→19:53)
[2017-11-14] MEDS: CYANOCOBALAMIN (VITAMIN B-12) 1,000 MCG TABLET. PO SCH (08:50)
[2017-11-14] MEDS: LACTOBACILLUS RHAMNOSUS GG 1 CAPSULE. PO SCH ×2 (08:50→19:53)
[2017-11-14] MEDS: ARIPiprazole 5 MG TABLET PO SCH (08:50)
[2017-11-14] MEDS: DULoxetine HCL 30 MG CAPSULE.DR PO SCH (08:51)
[2017-11-14 16:09] VITALS: BP 98/69
[2017-11-14] MEDS: DONEPEZIL HCL 10 MG TABLET PO SCH (19:53)
[2017-11-14] MEDS: MIRTAZAPINE 15 MG TABLET PO SCH (19:53)
--- NOTE | 2017-11-14 20:51 | PDOC ---
Exam Note: Jayy Note: Please also refer to the separate dictated note~for this date of service dictated separately.~Patient seen individually. Discussed the patient with Nursing staff reviewed the chart.~Reviewed interim history and current functioning. Reviewed vital signs,~Labs/ Radiology~and current medications noted below. Continue current treatment with the changes noted in the dictated addendum note Assessment: Vital Signs: Vital Signs Date Time Temp Pulse Resp B/P (MAP) Pulse Ox O2 Delivery O2 Flow Rate FiO2 11/14/17 16:09 97.0 60 18 98/69 (79) 97 Room Air I&O Intake and Output 11/14/17 07:00 Intake Total 840 ml Balance 840 ml Intake Oral 840 ml Current Medications: Meds: Current Medications Acetaminophen (Tylenol) 650 mg PRN Q6HRS PRN PO PAIN / TEMP; Start 11/12/17 at 21:45 Aripiprazole (Abilify) 5 mg DAILY PO Last administered on 11/14/17at 08:50; Start 11/13/17 at 09:00 Buspirone HCl (Buspar) 10 mg BID PO Last administered on 11/13/17at 08:32; Start 11/12/17 at 22:00; Stop 11/13/17 at 12:58; Status DC Donepezil HCl (Aricept) 10 mg QHS PO Last administered on 11/14/17 19:53; Start 11/12/17 at 22:00 Memantine (Namenda) 10 mg BID PO Last administered on 11/14/17at 19:53; Start at 22:00 Mirtazapine (Remeron) 15 mg QHS PO Last administered on 11/14/17at 19:53; Start 11/12/17 at 22:00 Sertraline HCl (Zoloft) 100 mg DAILY PO Last administered on 11/13/17at 08:34; Start 11/13/17 at 09:00; Stop 11/13/17 at 10:58; Status DC Vitamin D (Vitamin D3) 50,000 unit QTH PO Last administered on 11/13/17at 16:59 ; Start 11/13/17 at 16:00 Cyanocobalamin (Vitamin B-12) 1,000 mcg DAILY PO Last administered on at 08:50; Start 11/13/17 at 09:00 Al Hydroxide/Mg Hydroxide (Mylanta Plus Xs) 15 ml PRN AFTMEALHC PRN PO DYSPEPSIA; Start 11/12/17 at 21:45 Magnesium Hydroxide (Milk Of Magnesia) 2,400 mg PRN DAILY PRN PO CONSTIPATION; Start 11/12/17 at 21:45 Multi-Ingredient Ointment (Analgesic [place]) 1 sagar PRN QID PRN TP MUSCLE PAIN; Start 11/12/17 at 21:45 Lactobacillus Rhamnosus (Culturelle) 1 cap BID PO Last administered on at 19:53; Start 11/12/17 at 22:00 Duloxetine HCl (Cymbalta) 30 mg DAILY PO Last administered on 11/14/17at 08:51; Start 11/14/17 at 09:00 Buspirone HCl (Buspar) 10 mg BID PO Last administered on 11/14/17at 19:53; Start 11/13/17 at 21:00 Active Scripts Active Reported Culturelle (Lactobacillus Rhamnosus Gg) 1 Each Capsule 1 Each PO BID Vitamin B-12 (Cyanocobalamin (Vitamin B-12)) 1,000 Mcg Tablet 1,000 Mcg PO DAILY LAST DOSE GIVEN: DATE: TIME: NEXT DOSE DUE: DATE: TIME: Namenda (Memantine Hcl) 10 Mg Tablet 10 Mg PO BID LAST DOSE GIVEN: DATE: TIME: NEXT DOSE DUE: DATE: TIME: Buspirone Hcl 5 Mg Tablet 10 Mg PO BID LAST DOSE GIVEN: DATE: TIME: NEXT DOSE DUE: DATE: TIME: Zoloft (Sertraline Hcl) 100 Mg Tablet 100 Mg PO DAILY LAST DOSE GIVEN: DATE: TIME: NEXT DOSE DUE: DATE: TIME: Analgesic [place] (Methyl Salicylate/Menthol) 28 Gm Oint...g. 1 Sagar TP PRN QID PRN LAST DOSE GIVEN: DATE: TIME: NEXT DOSE DUE: DATE: TIME: Milk Of Magnesia (Magnesium Hydroxide) 400 Mg/5 Ml Oral.susp 2,400 Mg PO PRN DAILY PRN LAST DOSE GIVEN: DATE: TIME: NEXT DOSE DUE: DATE: TIME: Mag-Al Plus Xs Suspension (Mag Hydrox/Al Hydrox/Simeth) 30 Ml Oral.susp 15 Ml PO PRN AFTMEALHC PRN LAST DOSE GIVEN: DATE: TIME: NEXT DOSE DUE: DATE: TIME: Vitamin D3 (Cholecalciferol (Vitamin D3)) 50,000 Unit Capsule 50,000 Unit PO QTH LAST DOSE GIVEN: DATE: TIME: NEXT DOSE DUE: DATE: TIME: Abilify (Aripiprazole) 5 Mg Tablet 5 Mg PO DAILY LAST DOSE GIVEN: DATE: TIME: NEXT DOSE DUE: DATE: TIME: Tylenol (Acetaminophen) 325 Mg Tablet 650 Mg PO PRN Q6HRS PRN LAST DOSE GIVEN: DATE: TIME: NEXT DOSE DUE: DATE: TIME: Donepezil Hcl 10 Mg Tablet 10 Mg PO QHS LAST DOSE GIVEN: DATE: TIME: NEXT DOSE DUE: DATE: TIME: Mirtazapine 15 Mg Tablet 15 Mg PO QHS LAST DOSE GIVEN: DATE: TIME: NEXT DOSE DUE: DATE: TIME: I have reviewed the current psychotropics carefully including drug interactions. Risk benefit ratio favors no change other than as noted in my dictated progress note. Diagnosis: Problems: (1) Altered mental status (2) Anxiety disorder (3) Impulse control disorder (4) Dementia, vascular, with depression (5) Dementia, vascular, with delusions (6) Dementia in Alzheimer's disease with depression (7) Dementia in Alzheimer's disease with delusions MAIRCARMEN GONCALVES MD Nov 14, 2017 20:50
[2017-11-15 05:52] VITALS: BP 119/58
[2017-11-15] MEDS: busPIRone 10 MG TABLET. PO SCH ×2 (08:06→20:04)
[2017-11-15] MEDS: CYANOCOBALAMIN (VITAMIN B-12) 1,000 MCG TABLET. PO SCH (08:06)
[2017-11-15] MEDS: MEMANTINE 10 MG TABLET. PO SCH ×2 (08:06→20:04)
[2017-11-15] MEDS: LACTOBACILLUS RHAMNOSUS GG 1 CAPSULE. PO SCH ×2 (08:06→20:04)
[2017-11-15] MEDS: DULoxetine HCL 30 MG CAPSULE.DR PO SCH (08:06)
[2017-11-15] MEDS: ARIPiprazole 5 MG TABLET PO SCH (08:06)
[2017-11-15 16:11] VITALS: BP 89/56
[2017-11-15] MEDS: MIRTAZAPINE 15 MG TABLET PO SCH (20:04)
[2017-11-15] MEDS: DONEPEZIL HCL 10 MG TABLET PO SCH (20:04)
--- NOTE | 2017-11-15 22:32 | PDOC ---
Exam Note: Jayy Note: Please also refer to the separate dictated note~for this date of service dictated separately.~Patient seen individually. Discussed the patient with Nursing staff reviewed the chart.~Reviewed interim history and current functioning. Reviewed vital signs,~Labs/ Radiology~and current medications noted below. Continue current treatment with the changes noted in the dictated addendum note Assessment: Vital Signs: Vital Signs Date Time Temp Pulse Resp B/P (MAP) Pulse Ox O2 Delivery O2 Flow Rate FiO2 11/15/17 16:11 97.2 63 16 89/56 (67) 95 Room Air I&O Intake and Output 11/15/17 07:00 Intake Total 1080 ml Balance 1080 ml Intake Oral 1080 ml Current Medications: Meds: Current Medications Acetaminophen (Tylenol) 650 mg PRN Q6HRS PRN PO PAIN / TEMP; Start 11/12/17 at 21:45 Aripiprazole (Abilify) 5 mg DAILY PO Last administered on 11/15/17 08:06; Start 11/13/17 at 09:00 Buspirone HCl (Buspar) 10 mg BID PO Last administered on 11/13/17at 08:32; Start 11/12/17 at 22:00; Stop 11/13/17 at 12:58; Status DC Donepezil HCl (Aricept) 10 mg QHS PO Last administered on 11/15/17at 20:04; Start 11/12/17 at 22:00 Memantine (Namenda) 10 mg BID PO Last administered on 11/15/17at 20:04; Start at 22:00 Mirtazapine (Remeron) 15 mg QHS PO Last administered on 11/15/17at 20:04; Start 11/12/17 at 22:00 Sertraline HCl (Zoloft) 100 mg DAILY PO Last administered on 11/13/17at 08:34; Start 11/13/17 at 09:00; Stop 11/13/17 at 10:58; Status DC Vitamin D (Vitamin D3) 50,000 unit QTH PO Last administered on 11/13/17at 16:59 ; Start 11/13/17 at 16:00 Cyanocobalamin (Vitamin B-12) 1,000 mcg DAILY PO Last administered on at 08:06; Start 11/13/17 at 09:00 Al Hydroxide/Mg Hydroxide (Mylanta Plus Xs) 15 ml PRN AFTMEALHC PRN PO DYSPEPSIA; Start 11/12/17 at 21:45 Magnesium Hydroxide (Milk Of Magnesia) 2,400 mg PRN DAILY PRN PO CONSTIPATION; Start 11/12/17 at 21:45 Multi-Ingredient Ointment (Analgesic [place]) 1 sagar PRN QID PRN TP MUSCLE PAIN; Start 11/12/17 at 21:45 Lactobacillus Rhamnosus (Culturelle) 1 cap BID PO Last administered on at 20:04; Start 11/12/17 at 22:00 Duloxetine HCl (Cymbalta) 30 mg DAILY PO Last administered on 11/15/17at 08:06; Start 11/14/17 at 09:00 Buspirone HCl (Buspar) 10 mg BID PO Last administered on 11/15/17at 20:04; Start 11/13/17 at 21:00 Active Scripts Active Reported Culturelle (Lactobacillus Rhamnosus Gg) 1 Each Capsule 1 Each PO BID Vitamin B-12 (Cyanocobalamin (Vitamin B-12)) 1,000 Mcg Tablet 1,000 Mcg PO DAILY LAST DOSE GIVEN: DATE: TIME: NEXT DOSE DUE: DATE: TIME: Namenda (Memantine Hcl) 10 Mg Tablet 10 Mg PO BID LAST DOSE GIVEN: DATE: TIME: NEXT DOSE DUE: DATE: TIME: Buspirone Hcl 5 Mg Tablet 10 Mg PO BID LAST DOSE GIVEN: DATE: TIME: NEXT DOSE DUE: DATE: TIME: Zoloft (Sertraline Hcl) 100 Mg Tablet 100 Mg PO DAILY LAST DOSE GIVEN: DATE: TIME: NEXT DOSE DUE: DATE: TIME: Analgesic [place] (Methyl Salicylate/Menthol) 28 Gm Oint...g. 1 Sagar TP PRN QID PRN LAST DOSE GIVEN: DATE: TIME: NEXT DOSE DUE: DATE: TIME: Milk Of Magnesia (Magnesium Hydroxide) 400 Mg/5 Ml Oral.susp 2,400 Mg PO PRN DAILY PRN LAST DOSE GIVEN: DATE: TIME: NEXT DOSE DUE: DATE: TIME: Mag-Al Plus Xs Suspension (Mag Hydrox/Al Hydrox/Simeth) 30 Ml Oral.susp 15 Ml PO PRN AFTMEALHC PRN LAST DOSE GIVEN: DATE: TIME: NEXT DOSE DUE: DATE: TIME: Vitamin D3 (Cholecalciferol (Vitamin D3)) 50,000 Unit Capsule 50,000 Unit PO QTH LAST DOSE GIVEN: DATE: TIME: NEXT DOSE DUE: DATE: TIME: Abilify (Aripiprazole) 5 Mg Tablet 5 Mg PO DAILY LAST DOSE GIVEN: DATE: TIME: NEXT DOSE DUE: DATE: TIME: Tylenol (Acetaminophen) 325 Mg Tablet 650 Mg PO PRN Q6HRS PRN LAST DOSE GIVEN: DATE: TIME: NEXT DOSE DUE: DATE: TIME: Donepezil Hcl 10 Mg Tablet 10 Mg PO QHS LAST DOSE GIVEN: DATE: TIME: NEXT DOSE DUE: DATE: TIME: Mirtazapine 15 Mg Tablet 15 Mg PO QHS LAST DOSE GIVEN: DATE: TIME: NEXT DOSE DUE: DATE: TIME: I have reviewed the current psychotropics carefully including drug interactions. Risk benefit ratio favors no change other than as noted in my dictated progress note. Diagnosis: Problems: (1) Altered mental status (2) Anxiety disorder (3) Impulse control disorder (4) Dementia, vascular, with depression (5) Dementia, vascular, with delusions (6) Dementia in Alzheimer's disease with depression (7) Dementia in Alzheimer's disease with delusions MARICARMEN GONCALVES MD Nov 15, 2017 22:32
[2017-11-16 06:16] VITALS: BP 104/72
[2017-11-16] MEDS: MEMANTINE 10 MG TABLET. PO SCH ×2 (08:59→21:27)
[2017-11-16] MEDS: ARIPiprazole 5 MG TABLET PO SCH (08:59)
[2017-11-16] MEDS: DULoxetine HCL 30 MG CAPSULE.DR PO SCH (08:59)
[2017-11-16] MEDS: busPIRone 10 MG TABLET. PO SCH ×2 (08:59→21:27)
[2017-11-16] MEDS: CYANOCOBALAMIN (VITAMIN B-12) 1,000 MCG TABLET. PO SCH (08:59)
[2017-11-16] MEDS: LACTOBACILLUS RHAMNOSUS GG 1 CAPSULE. PO SCH ×2 (08:59→21:27)
--- NOTE | 2017-11-16 10:12 | PN ---
DATE: 11/14/2017 This late entry 11/14/2016, covers elements not covered in my initial note 11/14/2017. Met with the patient in the evening of 11/14/2017. The patient slept 8-1/2 hours previous evening, remains confused. He is fixated on wanting to change this to usp. I talked to him at some length about this. Alert and oriented x 2. Denies active suicidal ideation, wandering around the unit. REVIEW OF SYSTEMS: No CV, , pulmonary, eye, ENT system symptoms on review. Reliability poor. MENTAL STATUS EXAM: Oriented to himself and situations. Speech coherent, abstraction fair, computation impaired, language function intact. Mood and affect less labile. LABORATORY DATA: Reviewed. IMPRESSION: Major neurocognitive disorder, Alzheimer, vascular with delusion, depression, behavioral disturbance, major depressive disorder, recurrent, in partial remission. Rest unchanged. PLAN: Continue current psychotropics. May increase the Cymbalta and taper the Abilify gradually. MAN Charlie GONCALVES MD DR: DANGELO/bernardo JOB#: [id number] / [id number]
[2017-11-16 15:41] VITALS: BP 113/72
--- NOTE | 2017-11-16 20:52 | PDOC ---
Exam Note: Jayy Note: Please also refer to the separate dictated note~for this date of service dictated separately.~Patient seen individually. Discussed the patient with Nursing staff reviewed the chart.~Reviewed interim history and current functioning. Reviewed vital signs,~Labs/ Radiology~and current medications noted below. Continue current treatment with the changes noted in the dictated addendum note Assessment: Vital Signs: Vital Signs Date Time Temp Pulse Resp B/P (MAP) Pulse Ox O2 Delivery O2 Flow Rate FiO2 11/16/17 15:41 98.2 95 18 113/72 (86) 99 11/16/17 06:16 Room Air I&O Intake and Output 11/16/17 07:00 Intake Total 1076 ml Balance 1076 ml Intake Oral 1076 ml Current Medications: Meds: Current Medications Acetaminophen (Tylenol) 650 mg PRN Q6HRS PRN PO PAIN / TEMP; Start 11/12/17 at 21:45 Aripiprazole (Abilify) 5 mg DAILY PO Last administered on 11/16/17at 08:59; Start 11/13/17 at 09:00 Buspirone HCl (Buspar) 10 mg BID PO Last administered on 11/13/17at 08:32; Start 11/12/17 at 22:00; Stop 11/13/17 at 12:58; Status DC Donepezil HCl (Aricept) 10 mg QHS PO Last administered on 11/15/17at 20:04; Start 11/12/17 at 22:00 Memantine (Namenda) 10 mg BID PO Last administered on 11/16/17at 08:59; Start at 22:00 Mirtazapine (Remeron) 15 mg QHS PO Last administered on 11/15/17at 20:04; Start 11/12/17 at 22:00 Sertraline HCl (Zoloft) 100 mg DAILY PO Last administered on 11/13/17at 08:34; Start 11/13/17 at 09:00; Stop 11/13/17 at 10:58; Status DC Vitamin D (Vitamin D3) 50,000 unit QTH PO Last administered on 11/13/17at 16:59 ; Start 11/13/17 at 16:00 Cyanocobalamin (Vitamin B-12) 1,000 mcg DAILY PO Last administered on at 08:59; Start 11/13/17 at 09:00 Al Hydroxide/Mg Hydroxide (Mylanta Plus Xs) 15 ml PRN AFTMEALHC PRN PO DYSPEPSIA; Start 11/12/17 at 21:45 Magnesium Hydroxide (Milk Of Magnesia) 2,400 mg PRN DAILY PRN PO CONSTIPATION; Start 11/12/17 at 21:45 Multi-Ingredient Ointment (Analgesic [place]) 1 sagar PRN QID PRN TP MUSCLE PAIN; Start 11/12/17 at 21:45 Lactobacillus Rhamnosus (Culturelle) 1 cap BID PO Last administered on 08:59; Start 11/12/17 at 22:00 Duloxetine HCl (Cymbalta) 30 mg DAILY PO Last administered on 11/16/17 08:59; Start 11/14/17 at 09:00 Buspirone HCl (Buspar) 10 mg BID PO Last administered on 11/16/17 08:59; Start 11/13/17 at 21:00 Active Scripts Active Reported Culturelle (Lactobacillus Rhamnosus Gg) 1 Each Capsule 1 Each PO BID Vitamin B-12 (Cyanocobalamin (Vitamin B-12)) 1,000 Mcg Tablet 1,000 Mcg PO DAILY LAST DOSE GIVEN: DATE: TIME: NEXT DOSE DUE: DATE: TIME: Namenda (Memantine Hcl) 10 Mg Tablet 10 Mg PO BID LAST DOSE GIVEN: DATE: TIME: NEXT DOSE DUE: DATE: TIME: Buspirone Hcl 5 Mg Tablet 10 Mg PO BID LAST DOSE GIVEN: DATE: TIME: NEXT DOSE DUE: DATE: TIME: Zoloft (Sertraline Hcl) 100 Mg Tablet 100 Mg PO DAILY LAST DOSE GIVEN: DATE: TIME: NEXT DOSE DUE: DATE: TIME: Analgesic [place] (Methyl Salicylate/Menthol) 28 Gm Oint...g. 1 Sagar TP PRN QID PRN LAST DOSE GIVEN: DATE: TIME: NEXT DOSE DUE: DATE: TIME: Milk Of Magnesia (Magnesium Hydroxide) 400 Mg/5 Ml Oral.susp 2,400 Mg PO PRN DAILY PRN LAST DOSE GIVEN: DATE: TIME: NEXT DOSE DUE: DATE: TIME: Mag-Al Plus Xs Suspension (Mag Hydrox/Al Hydrox/Simeth) 30 Ml Oral.susp 15 Ml PO PRN AFTMEALHC PRN LAST DOSE GIVEN: DATE: TIME: NEXT DOSE DUE: DATE: TIME: Vitamin D3 (Cholecalciferol (Vitamin D3)) 50,000 Unit Capsule 50,000 Unit PO QTH LAST DOSE GIVEN: DATE: TIME: NEXT DOSE DUE: DATE: TIME: Abilify (Aripiprazole) 5 Mg Tablet 5 Mg PO DAILY LAST DOSE GIVEN: DATE: TIME: NEXT DOSE DUE: DATE: TIME: Tylenol (Acetaminophen) 325 Mg Tablet 650 Mg PO PRN Q6HRS PRN LAST DOSE GIVEN: DATE: TIME: NEXT DOSE DUE: DATE: TIME: Donepezil Hcl 10 Mg Tablet 10 Mg PO QHS LAST DOSE GIVEN: DATE: TIME: NEXT DOSE DUE: DATE: TIME: Mirtazapine 15 Mg Tablet 15 Mg PO QHS LAST DOSE GIVEN: DATE: TIME: NEXT DOSE DUE: DATE: TIME: I have reviewed the current psychotropics carefully including drug interactions. Risk benefit ratio favors no change other than as noted in my dictated progress note. Diagnosis: Problems: (1) Altered mental status (2) Anxiety disorder (3) Impulse control disorder (4) Dementia, vascular, with depression (5) Dementia, vascular, with delusions (6) Dementia in Alzheimer's disease with depression (7) Dementia in Alzheimer's disease with delusions MARICARMEN GONCALVES MD Nov 16, 2017 20:52
[2017-11-16] MEDS: DONEPEZIL HCL 10 MG TABLET PO SCH (21:27)
[2017-11-16] MEDS: MIRTAZAPINE 15 MG TABLET PO SCH (21:27)
--- NOTE | 2017-11-17 01:58 | PN ---
DATE: 11/15/2017 This is a late entry, 11/15/2017, covers the elements not covered in my initial note, 11/15/2017. SUBJECTIVE: I met with the patient in the evening of 11/15/2017. Per nursing report, the patient remains confused . No suicidal ideation, compliant with medications. Short-term memory is impaired. REVIEW OF SYSTEMS: No CV, , pulmonary, eye, ENT system symptoms on review. MENTAL STATUS EXAM: Oriented to himself and situation. Speech coherent, has some latency. Abstraction fair, computation impaired, language function intact, attention span short. Mood and affect dysphoric, but showing improvement. Memory is impaired. LABORATORY DATA: Reviewed. IMPRESSION: Major depressive disorder with psychotic features. Major neurocognitive disorder, Alzheimer, vascular with depression, delusion. PLAN: Continue psychotropics as mentioned. The patient will start Abilify, , Cymbalta. The latter will need to be increased gradually. MARICARMEN GONCALVES MD DR: DANGELO/bernardo JOB#: [id number] / [id number]
[2017-11-17 06:31] VITALS: BP 96/60
[2017-11-17] MEDS: DULoxetine HCL 30 MG CAPSULE.DR PO SCH (09:12)
[2017-11-17] MEDS: busPIRone 10 MG TABLET. PO SCH ×2 (09:12→19:52)
[2017-11-17] MEDS: MEMANTINE 10 MG TABLET. PO SCH ×2 (09:12→19:52)
[2017-11-17] MEDS: ARIPiprazole 5 MG TABLET PO SCH (09:12)
[2017-11-17] MEDS: CYANOCOBALAMIN (VITAMIN B-12) 1,000 MCG TABLET. PO SCH (09:12)
[2017-11-17] MEDS: LACTOBACILLUS RHAMNOSUS GG 1 CAPSULE. PO SCH ×2 (09:12→19:52)
[2017-11-17 09:48] LABS: BASO % 1 % (0-3); EOS # 0.3 x10^3/uL (0.0-0.7); EOS % 5 % (0-3); HEMATOCRIT 37.5 % (39.0-53.0); HEMOGLOBIN 12.3 g/dL (13.0-17.5); LYMPH # 1.3 x10^3/uL (1.0-4.8); LYMPH % 26 % (24-48); MEAN CORPUSCULAR HEMOGLOBIN 32 pg (25-35); MEAN CORPUSCULAR HGB CONC 33 g/dL (31-37); MEAN CORPUSCULAR VOLUME 96 fL (79-100); MONO # 0.3 x10^3/uL (0.0-1.1); MONO % 6 % (0-9); NEUT # 3.2 x10^3uL (1.8-7.7); NEUT % 62 % (31-73); PLATELET COUNT 117 x10^3/uL (140-400); RED BLOOD COUNT 3.89 x10^6/uL (4.30-5.70); RED CELL DISTRIBUTION WIDTH 15.9 % (11.5-14.5); WHITE BLOOD COUNT 5.1 x10^3/uL (4.0-11.0)
[2017-11-17 10:09] LABS: ALBUMIN 3.2 g/dL (3.4-5.0); ALBUMIN/GLOBULIN RATIO 0.9 (1.0-1.7); CALCIUM 8.5 mg/dL (8.5-10.1); GFR 71.7; MAGNESIUM 2.1 mg/dL (1.8-2.4); POTASSIUM 4.1 mmol/L (3.5-5.1); TOTAL BILIRUBIN 0.8 mg/dL (0.2-1.0); TOTAL PROTEIN 6.8 g/dL (6.4-8.2)
[2017-11-17 16:17] VITALS: BP 106/55
[2017-11-17] MEDS: MIRTAZAPINE 15 MG TABLET PO SCH (19:52)
[2017-11-17] MEDS: DONEPEZIL HCL 10 MG TABLET PO SCH (19:52)
[2017-11-17] MEDS: MINERAL OIL/PETROLATUM TOPICAL CREAM 113GM JAR. TP SCH (19:53)
--- NOTE | 2017-11-17 20:47 | PDOC ---
Exam Note: Jayy Note: Please also refer to the separate dictated note~for this date of service dictated separately.~Patient seen individually. Discussed the patient with Nursing staff reviewed the chart.~Reviewed interim history and current functioning. Reviewed vital signs,~Labs/ Radiology~and current medications noted below. Continue current treatment with the changes noted in the dictated addendum note Assessment: Vital Signs: Vital Signs Date Time Temp Pulse Resp B/P (MAP) Pulse Ox O2 Delivery O2 Flow Rate FiO2 11/17/17 16:17 97.3 91 18 106/55 (72) 92 11/17/17 06:31 Room Air I&O Intake and Output 11/17/17 07:00 Intake Total 560 ml Balance 560 ml Intake Oral 560 ml Labs: Laboratory Tests Test 11/17/17 09:15 White Blood Count 5.1 x10^3/uL (4.0-11.0) Red Blood Count 3.89 x10^6/uL (4.30-5.70) L Hemoglobin 12.3 g/dL (13.0-17.5) L Hematocrit 37.5 % (39.0-53.0) L Mean Corpuscular Volume 96 fL (79-100) Mean Corpuscular Hemoglobin 32 pg (25-35) Mean Corpuscular Hemoglobin Concent 33 g/dL (31-37) Red Cell Distribution Width 15.9 % (11.5-14.5) H Platelet Count 117 x10^3/uL (140-400) L Neutrophils (%) (Auto) 62 % (31-73) Lymphocytes (%) (Auto) 26 % (24-48) Monocytes (%) (Auto) 6 % (0-9) Eosinophils (%) (Auto) 5 % (0-3) H Basophils (%) (Auto) 1 % (0-3) Neutrophils # (Auto) 3.2 x10^3uL (1.8-7.7) Lymphocytes # (Auto) 1.3 x10^3/uL (1.0-4.8) Monocytes # (Auto) 0.3 x10^3/uL (0.0-1.1) Eosinophils # (Auto) 0.3 x10^3/uL (0.0-0.7) Basophils # (Auto) 0.0 x10^3/uL (0.0-0.2) Sodium Level 139 mmol/L (136-145) Potassium Level 4.1 mmol/L (3.5-5.1) Chloride Level 106 mmol/L (98-107) Carbon Dioxide Level 31 mmol/L (21-32) Anion Gap 2 (6-14) L Blood Urea Nitrogen 33 mg/dL (8-26) H Creatinine 1.0 mg/dL (0.7-1.3) Estimated GFR (Cockcroft-Gault) 71.7 BUN/Creatinine Ratio 33 (6-20) H Glucose Level 115 mg/dL (70-99) H Calcium Level 8.5 mg/dL (8.5-10.1) Magnesium Level 2.1 mg/dL (1.8-2.4) Total Bilirubin 0.8 mg/dL (0.2-1.0) Aspartate Amino Transferase (AST) 20 U/L (15-37) Alanine Aminotransferase (ALT) 26 U/L (16-63) Alkaline Phosphatase 82 U/L (46-116) Total Protein 6.8 g/dL (6.4-8.2) Albumin 3.2 g/dL (3.4-5.0) L Albumin/Globulin Ratio 0.9 (1.0-1.7) L Current Medications: Meds: Current Medications Acetaminophen (Tylenol) 650 mg PRN Q6HRS PRN PO PAIN / TEMP; Start 11/12/17 at 21:45 Aripiprazole (Abilify) 5 mg DAILY PO Last administered on 11/17/17at 09:12; Start 11/13/17 at 09:00 Buspirone HCl (Buspar) 10 mg BID PO Last administered on 11/13/17at 08:32; Start 11/12/17 at 22:00; Stop 11/13/17 at 12:58; Status DC Donepezil HCl (Aricept) 10 mg QHS PO Last administered on 11/17/17 19:52; Start 11/12/17 at 22:00 Memantine (Namenda) 10 mg BID PO Last administered on 11/17/17 19:52; Start at 22:00 Mirtazapine (Remeron) 15 mg QHS PO Last administered on 11/17/17 19:52; Start 11/12/17 at 22:00 Sertraline HCl (Zoloft) 100 mg DAILY PO Last administered on 11/13/17at 08:34; Start 11/13/17 at 09:00; Stop 11/13/17 at 10:58; Status DC Vitamin D (Vitamin D3) 50,000 unit QTH PO Last administered on 11/13/17at 16:59 ; Start 11/13/17 at 16:00 Cyanocobalamin (Vitamin B-12) 1,000 mcg DAILY PO Last administered on at 09:12; Start 11/13/17 at 09:00 Al Hydroxide/Mg Hydroxide (Mylanta Plus Xs) 15 ml PRN AFTMEALHC PRN PO DYSPEPSIA; Start 11/12/17 at 21:45 Magnesium Hydroxide (Milk Of Magnesia) 2,400 mg PRN DAILY PRN PO CONSTIPATION; Start 11/12/17 at 21:45 Multi-Ingredient Ointment (Analgesic [place]) 1 sagar PRN QID PRN TP MUSCLE PAIN; Start 11/12/17 at 21:45 Lactobacillus Rhamnosus (Culturelle) 1 cap BID PO Last administered on 19:52; Start 11/12/17 at 22:00 Duloxetine HCl (Cymbalta) 30 mg DAILY PO Last administered on 11/17/17 09:12; Start 11/14/17 at 09:00 Buspirone HCl (Buspar) 10 mg BID PO Last administered on 11/17/17 19:52; Start 11/13/17 at 21:00 Multi-Ingred Cream/Lotion/Oil/ Oint (Hydrocerin) 1 sagar BID TP Last administered on 11/17/17 19:53; Start 11/17/17 at 21:00 Active Scripts Active Reported Culturelle (Lactobacillus Rhamnosus Gg) 1 Each Capsule 1 Each PO BID Vitamin B-12 (Cyanocobalamin (Vitamin B-12)) 1,000 Mcg Tablet 1,000 Mcg PO DAILY LAST DOSE GIVEN: DATE: TIME: NEXT DOSE DUE: DATE: TIME: Namenda (Memantine Hcl) 10 Mg Tablet 10 Mg PO BID LAST DOSE GIVEN: DATE: TIME: NEXT DOSE DUE: DATE: TIME: Buspirone Hcl 5 Mg Tablet 10 Mg PO BID LAST DOSE GIVEN: DATE: TIME: NEXT DOSE DUE: DATE: TIME: Zoloft (Sertraline Hcl) 100 Mg Tablet 100 Mg PO DAILY LAST DOSE GIVEN: DATE: TIME: NEXT DOSE DUE: DATE: TIME: Analgesic [place] (Methyl Salicylate/Menthol) 28 Gm Oint...g. 1 [place] TP PRN QID PRN LAST DOSE GIVEN: DATE: TIME: NEXT DOSE DUE: DATE: TIME: Milk Of Magnesia (Magnesium Hydroxide) 400 Mg/5 Ml Oral.susp 2,400 Mg PO PRN DAILY PRN LAST DOSE GIVEN: DATE: TIME: NEXT DOSE DUE: DATE: TIME: Mag-Al Plus Xs Suspension (Mag Hydrox/Al Hydrox/Simeth) 30 Ml Oral.susp 15 Ml PO PRN AFTMEALHC PRN LAST DOSE GIVEN: DATE: TIME: NEXT DOSE DUE: DATE: TIME: Vitamin D3 (Cholecalciferol (Vitamin D3)) 50,000 Unit Capsule 50,000 Unit PO QTH LAST DOSE GIVEN: DATE: TIME: NEXT DOSE DUE: DATE: TIME: Abilify (Aripiprazole) 5 Mg Tablet 5 Mg PO DAILY LAST DOSE GIVEN: DATE: TIME: NEXT DOSE DUE: DATE: TIME: Tylenol (Acetaminophen) 325 Mg Tablet 650 Mg PO PRN Q6HRS PRN LAST DOSE GIVEN: DATE: TIME: NEXT DOSE DUE: DATE: TIME: Donepezil Hcl 10 Mg Tablet 10 Mg PO QHS LAST DOSE GIVEN: DATE: TIME: NEXT DOSE DUE: DATE: TIME: Mirtazapine 15 Mg Tablet 15 Mg PO QHS LAST DOSE GIVEN: DATE: TIME: NEXT DOSE DUE: DATE: TIME: I have reviewed the current psychotropics carefully including drug interactions. Risk benefit ratio favors no change other than as noted in my dictated progress note. Diagnosis: Problems: (1) Altered mental status (2) Anxiety disorder (3) Impulse control disorder (4) Dementia, vascular, with depression (5) Dementia, vascular, with delusions (6) Dementia in Alzheimer's disease with depression (7) Dementia in Alzheimer's disease with delusions MARICARMEN GONCALVES MD Nov 17, 2017 20:47
--- NOTE | 2017-11-18 01:18 | PN ---
DATE: 11/15/2017 This is a late entry for 11/15/2017 covers elements not covered in my initial note of 11/15/2017. SUBJECTIVE: I met with the patient in the evening. This note is being redirected as requested by medical records. The patient remains confused, had a good day, cooperative. No suicidal ideation, compliant with medications. I met with him at some length individually. REVIEW OF SYSTEMS: No CV, , pulmonary, eye system symptoms on review. MENTAL STATUS EXAM: Oriented to himself and situation. Speech has some latency, coherent, pleasant, verbal. Abstraction fair, computation impaired, language function intact. Mood and affect showing improvement, still has memory deficits. LABORATORY DATA: Reviewed. IMPRESSION: Unchanged from initial note. PLAN: Continue psychotropics mentioned in my initial note. MAN Charlie GONCALVES MD DR: DANGELO/bernardo JOB#: [id number] / [id number]
--- NOTE | 2017-11-18 01:19 | PN ---
DATE: 11/16/2017 This is a late entry for 11/16/2017 and covers elements not covered in my initial note of 11/16/2017. SUBJECTIVE: I met with the patient in the afternoon and this note is being redictated as requested by medical records. Overall, the patient remains somewhat forgetful. Mood is better and he was very happy to get a chocolate ice cream as a snack as I met with him. No CV, , pulmonary, eye system symptoms on review. MENTAL STATUS EXAM: Oriented to himself and situation. Speech has some latency, coherent. Abstraction fair, computation impaired, language function intact. Mood and affect still somewhat dysphoric, but improved. No suicidal or homicidal ideation. IMPRESSION: Unchanged from initial note. PLAN: Continue current psychotropics. MAN Charlie GONCALVES MD DR: DANGELO/bernardo JOB#: [id number] / [id number]
[2017-11-18 06:29] VITALS: BP 93/59
[2017-11-18] MEDS: busPIRone 10 MG TABLET. PO SCH (09:40)
[2017-11-18] MEDS: MEMANTINE 10 MG TABLET. PO SCH ×2 (09:40→21:05)
[2017-11-18] MEDS: DULoxetine HCL 30 MG CAPSULE.DR PO SCH (09:40)
[2017-11-18] MEDS: CYANOCOBALAMIN (VITAMIN B-12) 1,000 MCG TABLET. PO SCH (09:40)
[2017-11-18] MEDS: ARIPiprazole 5 MG TABLET PO SCH (09:40)
[2017-11-18] MEDS: LACTOBACILLUS RHAMNOSUS GG 1 CAPSULE. PO SCH ×2 (09:40→21:05)
[2017-11-18] MEDS: MINERAL OIL/PETROLATUM TOPICAL CREAM 113GM JAR. TP SCH ×2 (09:41→21:07)
--- NOTE | 2017-11-18 20:46 | PDOC ---
Exam Note: Jayy Note: Please also refer to the separate dictated note~for this date of service dictated separately.~Patient seen individually. Discussed the patient with Nursing staff reviewed the chart.~Reviewed interim history and current functioning. Reviewed vital signs,~Labs/ Radiology~and current medications noted below. Continue current treatment with the changes noted in the dictated addendum note Assessment: Vital Signs: Vital Signs Date Time Temp Pulse Resp B/P (MAP) Pulse Ox O2 Delivery O2 Flow Rate FiO2 11/18/17 06:29 97.3 75 20 93/59 (70) 93 11/17/17 06:31 Room Air I&O Intake and Output 11/18/17 07:00 Intake Total 840 ml Balance 840 ml Intake Oral 840 ml Current Medications: Meds: Current Medications Acetaminophen (Tylenol) 650 mg PRN Q6HRS PRN PO PAIN / TEMP; Start 11/12/17 at 21:45 Aripiprazole (Abilify) 5 mg DAILY PO Last administered on 11/18/17 09:40; Start 11/13/17 at 09:00 Buspirone HCl (Buspar) 10 mg BID PO Last administered on 11/13/17at 08:32; Start 11/12/17 at 22:00; Stop 11/13/17 at 12:58; Status DC Donepezil HCl (Aricept) 10 mg QHS PO Last administered on 11/17/17 19:52; Start 11/12/17 at 22:00 Memantine (Namenda) 10 mg BID PO Last administered on 11/18/17 09:40; Start at 22:00 Mirtazapine (Remeron) 15 mg QHS PO Last administered on 11/17/17 19:52; Start 11/12/17 at 22:00 Sertraline HCl (Zoloft) 100 mg DAILY PO Last administered on 11/13/17at 08:34; Start 11/13/17 at 09:00; Stop 11/13/17 at 10:58; Status DC Vitamin D (Vitamin D3) 50,000 unit QTH PO Last administered on 11/13/17at 16:59 ; Start 11/13/17 at 16:00 Cyanocobalamin (Vitamin B-12) 1,000 mcg DAILY PO Last administered on at 09:40; Start 11/13/17 at 09:00 Al Hydroxide/Mg Hydroxide (Mylanta Plus Xs) 15 ml PRN AFTMEALHC PRN PO DYSPEPSIA; Start 11/12/17 at 21:45 Magnesium Hydroxide (Milk Of Magnesia) 2,400 mg PRN DAILY PRN PO CONSTIPATION; Start 11/12/17 at 21:45 Multi-Ingredient Ointment (Analgesic [place]) 1 sagar PRN QID PRN TP MUSCLE PAIN; Start 11/12/17 at 21:45 Lactobacillus Rhamnosus (Culturelle) 1 cap BID PO Last administered on at 09:40; Start 11/12/17 at 22:00 Duloxetine HCl (Cymbalta) 30 mg DAILY PO Last administered on 11/18/17at 09:40; Start 11/14/17 at 09:00; Stop 11/18/17 at 16:47; Status DC Buspirone HCl (Buspar) 10 mg BID PO Last administered on 11/18/17at 09:40; Start 11/13/17 at 21:00; Stop 11/18/17 at 19:25; Status DC Multi-Ingred Cream/Lotion/Oil/ Oint (Hydrocerin) 1 sagar BID TP Last administered on 11/18/17at 09:41; Start 11/17/17 at 21:00 Duloxetine HCl (Cymbalta) 60 mg DAILY PO ; Start 11/19/17 at 09:00 Buspirone HCl (Buspar) 10 mg TID@0900,1300,1700 PO ; Start 11/19/17 at 09:00 Active Scripts Active Reported Culturelle (Lactobacillus Rhamnosus Gg) 1 Each Capsule 1 Each PO BID Vitamin B-12 (Cyanocobalamin (Vitamin B-12)) 1,000 Mcg Tablet 1,000 Mcg PO DAILY LAST DOSE GIVEN: DATE: TIME: NEXT DOSE DUE: DATE: TIME: Namenda (Memantine Hcl) 10 Mg Tablet 10 Mg PO BID LAST DOSE GIVEN: DATE: TIME: NEXT DOSE DUE: DATE: TIME: Buspirone Hcl 5 Mg Tablet 10 Mg PO BID LAST DOSE GIVEN: DATE: TIME: NEXT DOSE DUE: DATE: TIME: Zoloft (Sertraline Hcl) 100 Mg Tablet 100 Mg PO DAILY LAST DOSE GIVEN: DATE: TIME: NEXT DOSE DUE: DATE: TIME: Analgesic [place] (Methyl Salicylate/Menthol) 28 Gm Oint...g. 1 Sagar TP PRN QID PRN LAST DOSE GIVEN: DATE: TIME: NEXT DOSE DUE: DATE: TIME: Milk Of Magnesia (Magnesium Hydroxide) 400 Mg/5 Ml Oral.susp 2,400 Mg PO PRN DAILY PRN LAST DOSE GIVEN: DATE: TIME: NEXT DOSE DUE: DATE: TIME: Mag-Al Plus Xs Suspension (Mag Hydrox/Al Hydrox/Simeth) 30 Ml Oral.susp 15 Ml PO PRN AFTMEALHC PRN LAST DOSE GIVEN: DATE: TIME: NEXT DOSE DUE: DATE: TIME: Vitamin D3 (Cholecalciferol (Vitamin D3)) 50,000 Unit Capsule 50,000 Unit PO QTH LAST DOSE GIVEN: DATE: TIME: NEXT DOSE DUE: DATE: TIME: Abilify (Aripiprazole) 5 Mg Tablet 5 Mg PO DAILY LAST DOSE GIVEN: DATE: TIME: NEXT DOSE DUE: DATE: TIME: Tylenol (Acetaminophen) 325 Mg Tablet 650 Mg PO PRN Q6HRS PRN LAST DOSE GIVEN: DATE: TIME: NEXT DOSE DUE: DATE: TIME: Donepezil Hcl 10 Mg Tablet 10 Mg PO QHS LAST DOSE GIVEN: DATE: TIME: NEXT DOSE DUE: DATE: TIME: Mirtazapine 15 Mg Tablet 15 Mg PO QHS LAST DOSE GIVEN: DATE: TIME: NEXT DOSE DUE: DATE: TIME: I have reviewed the current psychotropics carefully including drug interactions. Risk benefit ratio favors no change other than as noted in my dictated progress note. Diagnosis: Problems: (1) Altered mental status (2) Anxiety disorder (3) Impulse control disorder (4) Dementia, vascular, with depression (5) Dementia, vascular, with delusions (6) Dementia in Alzheimer's disease with depression (7) Dementia in Alzheimer's disease with delusions MARICARMEN GONCALVES MD Nov 18, 2017 20:46
[2017-11-18] MEDS: MIRTAZAPINE 15 MG TABLET PO SCH (21:05)
[2017-11-18] MEDS: DONEPEZIL HCL 10 MG TABLET PO SCH (21:05)
--- NOTE | 2017-11-18 22:39 | PN ---
DATE: 11/17/2017 This is a late entry for 11/17/2017 covers elements not covered in my initial note of 11/17/2017. SUBJECTIVE: I met with the patient in the evening of 11/17/2017. The patient slept 7-1/4 hours previous evening, somewhat anxious, restless, wandering, wanting to change his shelter. His daughter and son-in-law visited in the afternoon and he remembered to tell me about this. Information from social service staff from the family indicates he has frequently wanted to change nursing homes wherever he was and he is wanting to change away from [facility], it is nothing different than in the past and little to do with the shelter than his own perception and anxiety surrounding placement. Addressed this with him at some length. REVIEW OF SYSTEMS: No CV, , pulmonary, eye system symptoms on review. MENTAL STATUS EXAM: Oriented to himself and situation. Speech moderate latency, often responses monosyllabic. Abstraction fair, computation impaired, language function intact, attention span short. Mood and affect still somewhat anxious, at times labile, improved. LABORATORY DATA: Reviewed. IMPRESSION: Major depressive disorder with psychotic features; anxiety disorder, unspecified. PLAN: Continue current psychotropics and starting n 11/18/2017, we will increase the Cymbalta to 60 mg a day. MAN Charlie GONCALVES MD DR: DANGELO/bernardo JOB#: [id number] / [id number]
[2017-11-19 06:31] VITALS: BP 110/74
[2017-11-19] MEDS: LACTOBACILLUS RHAMNOSUS GG 1 CAPSULE. PO SCH ×2 (09:34→19:16)
[2017-11-19] MEDS: ARIPiprazole 5 MG TABLET PO SCH (09:34)
[2017-11-19] MEDS: CYANOCOBALAMIN (VITAMIN B-12) 1,000 MCG TABLET. PO SCH (09:34)
[2017-11-19] MEDS: MEMANTINE 10 MG TABLET. PO SCH ×2 (09:35→19:16)
[2017-11-19] MEDS: DULoxetine HCL 60 MG CAPSULE.DR PO SCH (09:36)
[2017-11-19] MEDS: busPIRone 10 MG TABLET. PO SCH ×3 (09:36→18:10)
[2017-11-19] MEDS: MINERAL OIL/PETROLATUM TOPICAL CREAM 113GM JAR. TP SCH ×2 (09:36→21:00)
[2017-11-19 15:45] VITALS: BP 106/70
[2017-11-19] MEDS: MIRTAZAPINE 15 MG TABLET PO SCH (19:16)
[2017-11-19] MEDS: DONEPEZIL HCL 10 MG TABLET PO SCH (19:16)
--- NOTE | 2017-11-19 20:23 | PDOC ---
Exam Note: Jayy Note: Please also refer to the separate dictated note~for this date of service dictated separately.~Patient seen individually. Discussed the patient with Nursing staff reviewed the chart.~Reviewed interim history and current functioning. Reviewed vital signs,~Labs/ Radiology~and current medications noted below. Continue current treatment with the changes noted in the dictated addendum note Assessment: Vital Signs: Vital Signs Date Time Temp Pulse Resp B/P (MAP) Pulse Ox O2 Delivery O2 Flow Rate FiO2 11/19/17 15:45 97.4 103 20 106/70 (82) 97 11/19/17 06:31 Room Air I&O Intake and Output 11/19/17 07:00 Intake Total 1080 ml Balance 1080 ml Intake Oral 1080 ml Current Medications: Meds: Current Medications Acetaminophen (Tylenol) 650 mg PRN Q6HRS PRN PO PAIN / TEMP; Start 11/12/17 at 21:45 Aripiprazole (Abilify) 5 mg DAILY PO Last administered on 11/19/17 09:34; Start 11/13/17 at 09:00 Buspirone HCl (Buspar) 10 mg BID PO Last administered on 11/13/17at 08:32; Start 11/12/17 at 22:00; Stop 11/13/17 at 12:58; Status DC Donepezil HCl (Aricept) 10 mg QHS PO Last administered on 11/19/17 19:16; Start 11/12/17 at 22:00 Memantine (Namenda) 10 mg BID PO Last administered on 11/19/17 19:16; Start at 22:00 Mirtazapine (Remeron) 15 mg QHS PO Last administered on 11/19/17 19:16; Start 11/12/17 at 22:00 Sertraline HCl (Zoloft) 100 mg DAILY PO Last administered on 11/13/17 08:34; Start 11/13/17 at 09:00; Stop 11/13/17 at 10:58; Status DC Vitamin D (Vitamin D3) 50,000 unit QTH PO Last administered on 11/13/17at 16:59 ; Start 11/13/17 at 16:00 Cyanocobalamin (Vitamin B-12) 1,000 mcg DAILY PO Last administered on 4/25/ 18at 09:34; Start 11/13/17 at 09:00 Al Hydroxide/Mg Hydroxide (Mylanta Plus Xs) 15 ml PRN AFTMEALHC PRN PO DYSPEPSIA; Start 11/12/17 at 21:45 Magnesium Hydroxide (Milk Of Magnesia) 2,400 mg PRN DAILY PRN PO CONSTIPATION; Start 11/12/17 at 21:45 Multi-Ingredient Ointment (Analgesic [place]) 1 sagar PRN QID PRN TP MUSCLE PAIN; Start 11/12/17 at 21:45 Lactobacillus Rhamnosus (Culturelle) 1 cap BID PO Last administered on at 19:16; Start 11/12/17 at 22:00 Duloxetine HCl (Cymbalta) 30 mg DAILY PO Last administered on 11/18/17at 09:40; Start 11/14/17 at 09:00; Stop 11/18/17 at 16:47; Status DC Buspirone HCl (Buspar) 10 mg BID PO Last administered on 11/18/17at 09:40; Start 11/13/17 at 21:00; Stop 11/18/17 at 19:25; Status DC Multi-Ingred Cream/Lotion/Oil/ Oint (Hydrocerin) 1 sagar BID TP Last administered on 11/19/17 09:36; Start 11/17/17 at 21:00 Duloxetine HCl (Cymbalta) 60 mg DAILY PO Last administered on 11/19/17at 09:36; Start 11/19/17 at 09:00 Buspirone HCl (Buspar) 10 mg TID@0900,1300,1700 PO Last administered on at 18:10; Start 11/19/17 at 09:00 Active Scripts Active Reported Culturelle (Lactobacillus Rhamnosus Gg) 1 Each Capsule 1 Each PO BID Vitamin B-12 (Cyanocobalamin (Vitamin B-12)) 1,000 Mcg Tablet 1,000 Mcg PO DAILY LAST DOSE GIVEN: DATE: TIME: NEXT DOSE DUE: DATE: TIME: Namenda (Memantine Hcl) 10 Mg Tablet 10 Mg PO BID LAST DOSE GIVEN: DATE: TIME: NEXT DOSE DUE: DATE: TIME: Buspirone Hcl 5 Mg Tablet 10 Mg PO BID LAST DOSE GIVEN: DATE: TIME: NEXT DOSE DUE: DATE: TIME: Zoloft (Sertraline Hcl) 100 Mg Tablet 100 Mg PO DAILY LAST DOSE GIVEN: DATE: TIME: NEXT DOSE DUE: DATE: TIME: Analgesic [place] (Methyl Salicylate/Menthol) 28 Gm Oint...g. 1 Sagar TP PRN QID PRN LAST DOSE GIVEN: DATE: TIME: NEXT DOSE DUE: DATE: TIME: Milk Of Magnesia (Magnesium Hydroxide) 400 Mg/5 Ml Oral.susp 2,400 Mg PO PRN DAILY PRN LAST DOSE GIVEN: DATE: TIME: NEXT DOSE DUE: DATE: TIME: Mag-Al Plus Xs Suspension (Mag Hydrox/Al Hydrox/Simeth) 30 Ml Oral.susp 15 Ml PO PRN AFTMEALHC PRN LAST DOSE GIVEN: DATE: TIME: NEXT DOSE DUE: DATE: TIME: Vitamin D3 (Cholecalciferol (Vitamin D3)) 50,000 Unit Capsule 50,000 Unit PO QTH LAST DOSE GIVEN: DATE: TIME: NEXT DOSE DUE: DATE: TIME: Abilify (Aripiprazole) 5 Mg Tablet 5 Mg PO DAILY LAST DOSE GIVEN: DATE: TIME: NEXT DOSE DUE: DATE: TIME: Tylenol (Acetaminophen) 325 Mg Tablet 650 Mg PO PRN Q6HRS PRN LAST DOSE GIVEN: DATE: TIME: NEXT DOSE DUE: DATE: TIME: Donepezil Hcl 10 Mg Tablet 10 Mg PO QHS LAST DOSE GIVEN: DATE: TIME: NEXT DOSE DUE: DATE: TIME: Mirtazapine 15 Mg Tablet 15 Mg PO QHS LAST DOSE GIVEN: DATE: TIME: NEXT DOSE DUE: DATE: TIME: I have reviewed the current psychotropics carefully including drug interactions. Risk benefit ratio favors no change other than as noted in my dictated progress note. Diagnosis: Problems: (1) Altered mental status (2) Anxiety disorder (3) Impulse control disorder (4) Dementia, vascular, with depression (5) Dementia, vascular, with delusions (6) Dementia in Alzheimer's disease with depression (7) Dementia in Alzheimer's disease with delusions MARICARMEN GONCALVES MD Nov 19, 2017 20:23
--- NOTE | 2017-11-19 22:22 | PN ---
DATE: 11/18/2017 This late entry 11/18/2017 covers elements not covered in my initial note 11/18/2017. SUBJECTIVE: Met with the patient in the evening. The patient slept 7 hours previous evening, remains somewhat anxious, picking on his face. He has been raised in an orphanage and report historically indicates high level of anxiety, restlessness. REVIEW OF SYSTEMS: No CV, , pulmonary, eye system symptoms on review. MENTAL STATUS EXAM: Oriented to himself and situation. Speech is coherent, has some latency. Abstraction fair, computation impaired, language function intact, attention span short. Mood and affect remain somewhat anxious, labile. LABORATORY DATA: Reviewed. IMPRESSION: Major depressive disorder with possible psychotic features. PLAN: Increase BuSpar from 10 mg b.i.d. to 10 mg 3 times a day. Continue rest unchanged. MAN Charlie GONCALVES MD DR: DANGELO/bernardo JOB#: [id number] / [id number]
[2017-11-20 06:13] VITALS: BP 107/71
[2017-11-20] MEDS: busPIRone 10 MG TABLET. PO SCH ×3 (08:12→16:17)
[2017-11-20] MEDS: LACTOBACILLUS RHAMNOSUS GG 1 CAPSULE. PO SCH ×2 (08:12→20:43)
[2017-11-20] MEDS: CYANOCOBALAMIN (VITAMIN B-12) 1,000 MCG TABLET. PO SCH (08:12)
[2017-11-20] MEDS: ARIPiprazole 5 MG TABLET PO SCH (08:12)
[2017-11-20] MEDS: MINERAL OIL/PETROLATUM TOPICAL CREAM 113GM JAR. TP SCH ×2 (08:13→21:00)
[2017-11-20] MEDS: MEMANTINE 10 MG TABLET. PO SCH ×2 (08:13→20:44)
[2017-11-20] MEDS: DULoxetine HCL 60 MG CAPSULE.DR PO SCH (08:14)
[2017-11-20] MEDS: CHOLECALCIFEROL (VITAMIN D3) 50,000 UNIT CAPSULE PO SCH (16:17)
[2017-11-20 16:19] VITALS: BP_SYST 118; BP_SYST 142; BP_DIAS 64; BP_DIAS 70
[2017-11-20] MEDS: DONEPEZIL HCL 10 MG TABLET PO SCH (20:44)
[2017-11-20] MEDS: MIRTAZAPINE 15 MG TABLET PO SCH (20:44)
--- NOTE | 2017-11-20 21:08 | PDOC ---
Exam Note: Jayy Note: Please also refer to the separate dictated note~for this date of service dictated separately.~Patient seen individually. Discussed the patient with Nursing staff reviewed the chart.~Reviewed interim history and current functioning. Reviewed vital signs,~Labs/ Radiology~and current medications noted below. Continue current treatment with the changes noted in the dictated addendum note Assessment: Vital Signs: Vital Signs Date Time Temp Pulse Resp B/P (MAP) Pulse Ox O2 Delivery O2 Flow Rate FiO2 11/20/17 16:19 96.7 98 19 118/70 (86) 97 11/19/17 06:31 Room Air I&O Intake and Output 11/20/17 07:00 Intake Total 600 ml Balance 600 ml Intake Oral 600 ml # Voids 1 Current Medications: Meds: Current Medications Acetaminophen (Tylenol) 650 mg PRN Q6HRS PRN PO PAIN / TEMP; Start 11/12/17 at 21:45 Aripiprazole (Abilify) 5 mg DAILY PO Last administered on 11/20/17 08:12; Start 11/13/17 at 09:00 Buspirone HCl (Buspar) 10 mg BID PO Last administered on 11/13/17at 08:32; Start 11/12/17 at 22:00; Stop 11/13/17 at 12:58; Status DC Donepezil HCl (Aricept) 10 mg QHS PO Last administered on 11/20/17at 20:44; Start 11/12/17 at 22:00 Memantine (Namenda) 10 mg BID PO Last administered on 11/20/17 20:44; Start at 22:00 Mirtazapine (Remeron) 15 mg QHS PO Last administered on 11/20/17at 20:44; Start 11/12/17 at 22:00 Sertraline HCl (Zoloft) 100 mg DAILY PO Last administered on 11/13/17at 08:34; Start 11/13/17 at 09:00; Stop 11/13/17 at 10:58; Status DC Vitamin D (Vitamin D3) 50,000 unit QTH PO Last administered on 11/20/17at 16:17 ; Start 11/13/17 at 16:00 Cyanocobalamin (Vitamin B-12) 1,000 mcg DAILY PO Last administered on at 08:12; Start 11/13/17 at 09:00 Al Hydroxide/Mg Hydroxide (Mylanta Plus Xs) 15 ml PRN AFTMEALHC PRN PO DYSPEPSIA; Start 11/12/17 at 21:45 Magnesium Hydroxide (Milk Of Magnesia) 2,400 mg PRN DAILY PRN PO CONSTIPATION; Start 11/12/17 at 21:45 Multi-Ingredient Ointment (Analgesic [place]) 1 sagar PRN QID PRN TP MUSCLE PAIN; Start 11/12/17 at 21:45 Lactobacillus Rhamnosus (Culturelle) 1 cap BID PO Last administered on at 20:43; Start 11/12/17 at 22:00 Duloxetine HCl (Cymbalta) 30 mg DAILY PO Last administered on 11/18/17at 09:40; Start 11/14/17 at 09:00; Stop 11/18/17 at 16:47; Status DC Buspirone HCl (Buspar) 10 mg BID PO Last administered on 11/18/17at 09:40; Start 11/13/17 at 21:00; Stop 11/18/17 at 19:25; Status DC Multi-Ingred Cream/Lotion/Oil/ Oint (Hydrocerin) 1 sagar BID TP Last administered on 11/20/17 08:13; Start 11/17/17 at 21:00 Duloxetine HCl (Cymbalta) 60 mg DAILY PO Last administered on 11/20/17at 08:14; Start 11/19/17 at 09:00 Buspirone HCl (Buspar) 10 mg TID@0900,1300,1700 PO Last administered on at 16:17; Start 11/19/17 at 09:00 Active Scripts Active Reported Culturelle (Lactobacillus Rhamnosus Gg) 1 Each Capsule 1 Each PO BID Vitamin B-12 (Cyanocobalamin (Vitamin B-12)) 1,000 Mcg Tablet 1,000 Mcg PO DAILY LAST DOSE GIVEN: DATE: TIME: NEXT DOSE DUE: DATE: TIME: Namenda (Memantine Hcl) 10 Mg Tablet 10 Mg PO BID LAST DOSE GIVEN: DATE: TIME: NEXT DOSE DUE: DATE: TIME: Buspirone Hcl 5 Mg Tablet 10 Mg PO BID LAST DOSE GIVEN: DATE: TIME: NEXT DOSE DUE: DATE: TIME: Zoloft (Sertraline Hcl) 100 Mg Tablet 100 Mg PO DAILY LAST DOSE GIVEN: DATE: TIME: NEXT DOSE DUE: DATE: TIME: Analgesic [place] (Methyl Salicylate/Menthol) 28 Gm Oint...g. 1 Sagar TP PRN QID PRN LAST DOSE GIVEN: DATE: TIME: NEXT DOSE DUE: DATE: TIME: Milk Of Magnesia (Magnesium Hydroxide) 400 Mg/5 Ml Oral.susp 2,400 Mg PO PRN DAILY PRN LAST DOSE GIVEN: DATE: TIME: NEXT DOSE DUE: DATE: TIME: Mag-Al Plus Xs Suspension (Mag Hydrox/Al Hydrox/Simeth) 30 Ml Oral.susp 15 Ml PO PRN AFTMEALHC PRN LAST DOSE GIVEN: DATE: TIME: NEXT DOSE DUE: DATE: TIME: Vitamin D3 (Cholecalciferol (Vitamin D3)) 50,000 Unit Capsule 50,000 Unit PO QTH LAST DOSE GIVEN: DATE: TIME: NEXT DOSE DUE: DATE: TIME: Abilify (Aripiprazole) 5 Mg Tablet 5 Mg PO DAILY LAST DOSE GIVEN: DATE: TIME: NEXT DOSE DUE: DATE: TIME: Tylenol (Acetaminophen) 325 Mg Tablet 650 Mg PO PRN Q6HRS PRN LAST DOSE GIVEN: DATE: TIME: NEXT DOSE DUE: DATE: TIME: Donepezil Hcl 10 Mg Tablet 10 Mg PO QHS LAST DOSE GIVEN: DATE: TIME: NEXT DOSE DUE: DATE: TIME: Mirtazapine 15 Mg Tablet 15 Mg PO QHS LAST DOSE GIVEN: DATE: TIME: NEXT DOSE DUE: DATE: TIME: I have reviewed the current psychotropics carefully including drug interactions. Risk benefit ratio favors no change other than as noted in my dictated progress note. Diagnosis: Problems: (1) Altered mental status (2) Anxiety disorder (3) Impulse control disorder (4) Dementia, vascular, with depression (5) Dementia, vascular, with delusions (6) Dementia in Alzheimer's disease with depression (7) Dementia in Alzheimer's disease with delusions MARICARMEN GONCALVES MD Nov 20, 2017 21:08
[2017-11-21 05:52] VITALS: BP 91/45
[2017-11-21] MEDS: busPIRone 10 MG TABLET. PO SCH ×3 (09:19→17:41)
[2017-11-21] MEDS: CYANOCOBALAMIN (VITAMIN B-12) 1,000 MCG TABLET. PO SCH (09:19)
[2017-11-21] MEDS: MEMANTINE 10 MG TABLET. PO SCH ×2 (09:19→19:53)
[2017-11-21] MEDS: LACTOBACILLUS RHAMNOSUS GG 1 CAPSULE. PO SCH ×2 (09:19→19:53)
[2017-11-21] MEDS: DULoxetine HCL 60 MG CAPSULE.DR PO SCH (09:20)
[2017-11-21] MEDS: MINERAL OIL/PETROLATUM TOPICAL CREAM 113GM JAR. TP SCH ×2 (09:20→19:53)
[2017-11-21] MEDS: ARIPiprazole 5 MG TABLET PO SCH (09:20)
[2017-11-21 13:39] VITALS: BP 103/72
[2017-11-21 16:22] VITALS: BP 87/66
[2017-11-21] MEDS: DONEPEZIL HCL 10 MG TABLET PO SCH (19:53)
[2017-11-21] MEDS: MIRTAZAPINE 15 MG TABLET PO SCH (19:53)
--- NOTE | 2017-11-21 22:55 | PDOC ---
Exam Note: Jayy Note: Please also refer to the separate dictated note~for this date of service dictated separately.~Patient seen individually. Discussed the patient with Nursing staff reviewed the chart.~Reviewed interim history and current functioning. Reviewed vital signs,~Labs/ Radiology~and current medications noted below. Continue current treatment with the changes noted in the dictated addendum note Assessment: Vital Signs: Vital Signs Date Time Temp Pulse Resp B/P (MAP) Pulse Ox O2 Delivery O2 Flow Rate FiO2 11/21/17 16:22 97.8 84 22 87/66 (73) 93 11/21/17 13:39 Room Air I&O Intake and Output 11/21/17 07:00 Intake Total 1020 ml Balance 1020 ml Intake Oral 1020 ml Current Medications: Meds: Current Medications Acetaminophen (Tylenol) 650 mg PRN Q6HRS PRN PO PAIN / TEMP; Start 11/12/17 at 21:45 Aripiprazole (Abilify) 5 mg DAILY PO Last administered on 11/21/17 09:20; Start 11/13/17 at 09:00 Buspirone HCl (Buspar) 10 mg BID PO Last administered on 11/13/17at 08:32; Start 11/12/17 at 22:00; Stop 11/13/17 at 12:58; Status DC Donepezil HCl (Aricept) 10 mg QHS PO Last administered on 11/21/17at 19:53; Start 11/12/17 at 22:00 Memantine (Namenda) 10 mg BID PO Last administered on 11/21/17 19:53; Start at 22:00 Mirtazapine (Remeron) 15 mg QHS PO Last administered on 11/21/17 19:53; Start 11/12/17 at 22:00 Sertraline HCl (Zoloft) 100 mg DAILY PO Last administered on 11/13/17at 08:34; Start 11/13/17 at 09:00; Stop 11/13/17 at 10:58; Status DC Vitamin D (Vitamin D3) 50,000 unit QTH PO Last administered on 11/20/17at 16:17 ; Start 11/13/17 at 16:00 Cyanocobalamin (Vitamin B-12) 1,000 mcg DAILY PO Last administered on at 09:19; Start 11/13/17 at 09:00 Al Hydroxide/Mg Hydroxide (Mylanta Plus Xs) 15 ml PRN AFTMEALHC PRN PO DYSPEPSIA; Start 11/12/17 at 21:45 Magnesium Hydroxide (Milk Of Magnesia) 2,400 mg PRN DAILY PRN PO CONSTIPATION; Start 11/12/17 at 21:45 Multi-Ingredient Ointment (Analgesic [place]) 1 sagar PRN QID PRN TP MUSCLE PAIN; Start 11/12/17 at 21:45 Lactobacillus Rhamnosus (Culturelle) 1 cap BID PO Last administered on 19:53; Start 11/12/17 at 22:00 Duloxetine HCl (Cymbalta) 30 mg DAILY PO Last administered on 11/18/17 09:40; Start 11/14/17 at 09:00; Stop 11/18/17 at 16:47; Status DC Buspirone HCl (Buspar) 10 mg BID PO Last administered on 11/18/17 09:40; Start 11/13/17 at 21:00; Stop 11/18/17 at 19:25; Status DC Multi-Ingred Cream/Lotion/Oil/ Oint (Hydrocerin) 1 sagar BID TP Last administered on 11/21/17 09:20; Start 11/17/17 at 21:00 Duloxetine HCl (Cymbalta) 60 mg DAILY PO Last administered on 11/21/17 09:20; Start 11/19/17 at 09:00 Buspirone HCl (Buspar) 10 mg TID@0900,1300,1700 PO Last administered on at 17:41; Start 11/19/17 at 09:00 Active Scripts Active Reported Culturelle (Lactobacillus Rhamnosus Gg) 1 Each Capsule 1 Each PO BID Vitamin B-12 (Cyanocobalamin (Vitamin B-12)) 1,000 Mcg Tablet 1,000 Mcg PO DAILY LAST DOSE GIVEN: DATE: TIME: NEXT DOSE DUE: DATE: TIME: Namenda (Memantine Hcl) 10 Mg Tablet 10 Mg PO BID LAST DOSE GIVEN: DATE: TIME: NEXT DOSE DUE: DATE: TIME: Buspirone Hcl 5 Mg Tablet 10 Mg PO BID LAST DOSE GIVEN: DATE: TIME: NEXT DOSE DUE: DATE: TIME: Zoloft (Sertraline Hcl) 100 Mg Tablet 100 Mg PO DAILY LAST DOSE GIVEN: DATE: TIME: NEXT DOSE DUE: DATE: TIME: Analgesic [place] (Methyl Salicylate/Menthol) 28 Gm Oint...g. 1 Sagar TP PRN QID PRN LAST DOSE GIVEN: DATE: TIME: NEXT DOSE DUE: DATE: TIME: Milk Of Magnesia (Magnesium Hydroxide) 400 Mg/5 Ml Oral.susp 2,400 Mg PO PRN DAILY PRN LAST DOSE GIVEN: DATE: TIME: NEXT DOSE DUE: DATE: TIME: Mag-Al Plus Xs Suspension (Mag Hydrox/Al Hydrox/Simeth) 30 Ml Oral.susp 15 Ml PO PRN AFTMEALHC PRN LAST DOSE GIVEN: DATE: TIME: NEXT DOSE DUE: DATE: TIME: Vitamin D3 (Cholecalciferol (Vitamin D3)) 50,000 Unit Capsule 50,000 Unit PO QTH LAST DOSE GIVEN: DATE: TIME: NEXT DOSE DUE: DATE: TIME: Abilify (Aripiprazole) 5 Mg Tablet 5 Mg PO DAILY LAST DOSE GIVEN: DATE: TIME: NEXT DOSE DUE: DATE: TIME: Tylenol (Acetaminophen) 325 Mg Tablet 650 Mg PO PRN Q6HRS PRN LAST DOSE GIVEN: DATE: TIME: NEXT DOSE DUE: DATE: TIME: Donepezil Hcl 10 Mg Tablet 10 Mg PO QHS LAST DOSE GIVEN: DATE: TIME: NEXT DOSE DUE: DATE: TIME: Mirtazapine 15 Mg Tablet 15 Mg PO QHS LAST DOSE GIVEN: DATE: TIME: NEXT DOSE DUE: DATE: TIME: I have reviewed the current psychotropics carefully including drug interactions. Risk benefit ratio favors no change other than as noted in my dictated progress note. Diagnosis: Problems: (1) Altered mental status (2) Anxiety disorder (3) Impulse control disorder (4) Dementia, vascular, with depression (5) Dementia, vascular, with delusions (6) Dementia in Alzheimer's disease with depression (7) Dementia in Alzheimer's disease with delusions MARICARMEN GONCALVES MD Nov 21, 2017 22:55
[2017-11-22 06:24] VITALS: BP 143/65
[2017-11-22] MEDS: ARIPiprazole 5 MG TABLET PO SCH (08:29)
[2017-11-22] MEDS: CYANOCOBALAMIN (VITAMIN B-12) 1,000 MCG TABLET. PO SCH (08:29)
[2017-11-22] MEDS: busPIRone 10 MG TABLET. PO SCH ×3 (08:29→17:08)
[2017-11-22] MEDS: LACTOBACILLUS RHAMNOSUS GG 1 CAPSULE. PO SCH ×2 (08:29→20:32)
[2017-11-22] MEDS: MEMANTINE 10 MG TABLET. PO SCH ×2 (08:29→20:32)
[2017-11-22] MEDS: DULoxetine HCL 60 MG CAPSULE.DR PO SCH (08:29)
[2017-11-22] MEDS: MINERAL OIL/PETROLATUM TOPICAL CREAM 113GM JAR. TP SCH ×2 (08:30→20:33)
--- NOTE | 2017-11-22 11:27 | PN ---
DATE: 11/19/2017 This late entry 11/19/2017 covers elements not covered in my initial note 11/19/2017. Met with the patient in the evening. The patient slept 8-1/4 hours. He has been somewhat anxious, picking on his face per nursing report. Otherwise, pleasant. Does have some short-term memory deficits. REVIEW OF SYSTEMS: No CV, , pulmonary, eye, ENT system symptoms on review. MENTAL STATUS EXAM: Oriented to himself and situation. Speech has some latency, coherent. Abstraction fair, computation impaired, language function intact, attention span short. Mood and affect still somewhat dysphoric, anxious, but better. We talked at length about his desire not to go back to [facility]. I have obtained information from the family via social service staff that he has always been anxious about placements, has multiple changes in the past, never satisfied with any placement and per family [facility] is quite an appropriate placement for him and thus he will return for now. I addressed this with him. No suicidal or homicidal ideation. LABORATORY DATA: Reviewed. IMPRESSION: Major depressive disorder, in partial remission; anxiety disorder, unspecified. PLAN: Continue psychotropics mentioned in my initial note. MARICARMEN GONCALVES MD DR: DANGELO/bernardo JOB#: [id number] / [id number]
[2017-11-22 17:18] VITALS: BP 104/67
[2017-11-22] MEDS: DONEPEZIL HCL 10 MG TABLET PO SCH (20:32)
[2017-11-22] MEDS: MIRTAZAPINE 15 MG TABLET PO SCH (20:32)
--- NOTE | 2017-11-22 21:28 | PN ---
DATE: 11/20/2017 PSYCHIATRIC PROGRESS NOTE This is a late entry for 11/20/2017, covers elements not covered in my initial note of 11/20/2017. SUBJECTIVE: The patient was staffed at a treatment team meeting with the entire team in morning and seen individually in the evening. He remains somewhat anxious, picking on his face. Sleep and appetite are fair. REVIEW OF SYSTEMS: No CV, , pulmonary, eye, ENT system symptoms on review. Reliability fair. MENTAL STATUS EXAM: Oriented to himself and situation. Speech coherent, has some latency. Abstraction fair, computation impaired, language function intact. Mood and affect somewhat dysphoric, anxious, improved. LABORATORY DATA: Reviewed. IMPRESSION: Unchanged from initial note. PLAN: Continue current medications. MAN Charlie GONCALVES MD DR: DANGELO/bernardo JOB#: [id number] / [id number]
--- NOTE | 2017-11-22 22:25 | PDOC ---
Exam Note: Jayy Note: Please also refer to the separate dictated note~for this date of service dictated separately.~Patient seen individually. Discussed the patient with Nursing staff reviewed the chart.~Reviewed interim history and current functioning. Reviewed vital signs,~Labs/ Radiology~and current medications noted below. Continue current treatment with the changes noted in the dictated addendum note Assessment: Vital Signs: Vital Signs Date Time Temp Pulse Resp B/P (MAP) Pulse Ox O2 Delivery O2 Flow Rate FiO2 11/22/17 17:18 98.1 96 20 104/67 (79) 94 Room Air I&O Intake and Output 11/22/17 07:00 Intake Total 480 ml Balance 480 ml Intake Oral 480 ml Current Medications: Meds: Current Medications Acetaminophen (Tylenol) 650 mg PRN Q6HRS PRN PO PAIN / TEMP; Start 11/12/17 at 21:45 Aripiprazole (Abilify) 5 mg DAILY PO Last administered on 11/22/17 08:29; Start 11/13/17 at 09:00 Buspirone HCl (Buspar) 10 mg BID PO Last administered on 11/13/17at 08:32; Start 11/12/17 at 22:00; Stop 11/13/17 at 12:58; Status DC Donepezil HCl (Aricept) 10 mg QHS PO Last administered on 11/22/17 20:32; Start 11/12/17 at 22:00 Memantine (Namenda) 10 mg BID PO Last administered on 11/22/17 20:32; Start at 22:00 Mirtazapine (Remeron) 15 mg QHS PO Last administered on 11/22/17 20:32; Start 11/12/17 at 22:00 Sertraline HCl (Zoloft) 100 mg DAILY PO Last administered on 11/13/17 08:34; Start 11/13/17 at 09:00; Stop 11/13/17 at 10:58; Status DC Vitamin D (Vitamin D3) 50,000 unit QTH PO Last administered on 11/20/17 16:17 ; Start 11/13/17 at 16:00 Cyanocobalamin (Vitamin B-12) 1,000 mcg DAILY PO Last administered on 08:29; Start 11/13/17 at 09:00 Al Hydroxide/Mg Hydroxide (Mylanta Plus Xs) 15 ml PRN AFTMEALHC PRN PO DYSPEPSIA; Start 11/12/17 at 21:45 Magnesium Hydroxide (Milk Of Magnesia) 2,400 mg PRN DAILY PRN PO CONSTIPATION; Start 11/12/17 at 21:45 Multi-Ingredient Ointment (Analgesic [place]) 1 sagar PRN QID PRN TP MUSCLE PAIN; Start 11/12/17 at 21:45 Lactobacillus Rhamnosus (Culturelle) 1 cap BID PO Last administered on at 20:32; Start 11/12/17 at 22:00 Duloxetine HCl (Cymbalta) 30 mg DAILY PO Last administered on 11/18/17at 09:40; Start 11/14/17 at 09:00; Stop 11/18/17 at 16:47; Status DC Buspirone HCl (Buspar) 10 mg BID PO Last administered on 11/18/17at 09:40; Start 11/13/17 at 21:00; Stop 11/18/17 at 19:25; Status DC Multi-Ingred Cream/Lotion/Oil/ Oint (Hydrocerin) 1 sagar BID TP Last administered on 11/22/17at 20:33; Start 11/17/17 at 21:00 Duloxetine HCl (Cymbalta) 60 mg DAILY PO Last administered on 11/22/17at 08:29; Start 11/19/17 at 09:00 Buspirone HCl (Buspar) 10 mg TID@0900,1300,1700 PO Last administered on at 17:08; Start 11/19/17 at 09:00 Active Scripts Active Reported Culturelle (Lactobacillus Rhamnosus Gg) 1 Each Capsule 1 Each PO BID Vitamin B-12 (Cyanocobalamin (Vitamin B-12)) 1,000 Mcg Tablet 1,000 Mcg PO DAILY LAST DOSE GIVEN: DATE: TIME: NEXT DOSE DUE: DATE: TIME: Namenda (Memantine Hcl) 10 Mg Tablet 10 Mg PO BID LAST DOSE GIVEN: DATE: TIME: NEXT DOSE DUE: DATE: TIME: Buspirone Hcl 5 Mg Tablet 10 Mg PO BID LAST DOSE GIVEN: DATE: TIME: NEXT DOSE DUE: DATE: TIME: Zoloft (Sertraline Hcl) 100 Mg Tablet 100 Mg PO DAILY LAST DOSE GIVEN: DATE: TIME: NEXT DOSE DUE: DATE: TIME: Analgesic [place] (Methyl Salicylate/Menthol) 28 Gm Oint...g. 1 Sagar TP PRN QID PRN LAST DOSE GIVEN: DATE: TIME: NEXT DOSE DUE: DATE: TIME: Milk Of Magnesia (Magnesium Hydroxide) 400 Mg/5 Ml Oral.susp 2,400 Mg PO PRN DAILY PRN LAST DOSE GIVEN: DATE: TIME: NEXT DOSE DUE: DATE: TIME: Mag-Al Plus Xs Suspension (Mag Hydrox/Al Hydrox/Simeth) 30 Ml Oral.susp 15 Ml PO PRN AFTMEALHC PRN LAST DOSE GIVEN: DATE: TIME: NEXT DOSE DUE: DATE: TIME: Vitamin D3 (Cholecalciferol (Vitamin D3)) 50,000 Unit Capsule 50,000 Unit PO QTH LAST DOSE GIVEN: DATE: TIME: NEXT DOSE DUE: DATE: TIME: Abilify (Aripiprazole) 5 Mg Tablet 5 Mg PO DAILY LAST DOSE GIVEN: DATE: TIME: NEXT DOSE DUE: DATE: TIME: Tylenol (Acetaminophen) 325 Mg Tablet 650 Mg PO PRN Q6HRS PRN LAST DOSE GIVEN: DATE: TIME: NEXT DOSE DUE: DATE: TIME: Donepezil Hcl 10 Mg Tablet 10 Mg PO QHS LAST DOSE GIVEN: DATE: TIME: NEXT DOSE DUE: DATE: TIME: Mirtazapine 15 Mg Tablet 15 Mg PO QHS LAST DOSE GIVEN: DATE: TIME: NEXT DOSE DUE: DATE: TIME: I have reviewed the current psychotropics carefully including drug interactions. Risk benefit ratio favors no change other than as noted in my dictated progress note. Diagnosis: Problems: (1) Altered mental status (2) Anxiety disorder (3) Impulse control disorder (4) Dementia, vascular, with depression (5) Dementia, vascular, with delusions (6) Dementia in Alzheimer's disease with depression (7) Dementia in Alzheimer's disease with delusions MARICARMEN GONCALVES MD Nov 22, 2017 22:25
[2017-11-23 06:17] VITALS: BP 111/56
[2017-11-23] MEDS: ARIPiprazole 5 MG TABLET PO SCH (08:09)
[2017-11-23] MEDS: busPIRone 10 MG TABLET. PO SCH ×3 (08:09→17:06)
[2017-11-23] MEDS: LACTOBACILLUS RHAMNOSUS GG 1 CAPSULE. PO SCH ×2 (08:09→20:19)
[2017-11-23] MEDS: CYANOCOBALAMIN (VITAMIN B-12) 1,000 MCG TABLET. PO SCH (08:10)
[2017-11-23] MEDS: MEMANTINE 10 MG TABLET. PO SCH ×2 (08:10→20:19)
[2017-11-23] MEDS: DULoxetine HCL 60 MG CAPSULE.DR PO SCH (08:10)
[2017-11-23] MEDS: MINERAL OIL/PETROLATUM TOPICAL CREAM 113GM JAR. TP SCH ×2 (08:11→20:19)
[2017-11-23 08:22] LABS: HEMATOCRIT 41.4 % (39.0-53.0); HEMOGLOBIN 13.8 g/dL (13.0-17.5); RED BLOOD COUNT 4.34 x10^6/uL (4.30-5.70); RED CELL DISTRIBUTION WIDTH 15.6 % (11.5-14.5); WHITE BLOOD COUNT 6.1 x10^3/uL (4.0-11.0)
[2017-11-23 08:45] LABS: ALBUMIN 3.8 g/dL (3.4-5.0); ALBUMIN/GLOBULIN RATIO 0.9 (1.0-1.7); CALCIUM 9.1 mg/dL (8.5-10.1); CREATININE 1.1 mg/dL (0.7-1.3); GFR 64.2; POTASSIUM 4.1 mmol/L (3.5-5.1); TOTAL BILIRUBIN 1.1 mg/dL (0.2-1.0); TOTAL PROTEIN 7.9 g/dL (6.4-8.2)
[2017-11-23 16:10] VITALS: BP 114/80
[2017-11-23] MEDS: DONEPEZIL HCL 10 MG TABLET PO SCH (20:19)
[2017-11-23] MEDS: MIRTAZAPINE 15 MG TABLET PO SCH (20:19)
--- NOTE | 2017-11-23 20:20 | PDOC ---
Exam Note: Jayy Note: Please also refer to the separate dictated note~for this date of service dictated separately.~Patient seen individually. Discussed the patient with Nursing staff reviewed the chart.~Reviewed interim history and current functioning. Reviewed vital signs,~Labs/ Radiology~and current medications noted below. Continue current treatment with the changes noted in the dictated addendum note Assessment: Vital Signs: Vital Signs Date Time Temp Pulse Resp B/P (MAP) Pulse Ox O2 Delivery O2 Flow Rate FiO2 11/23/17 16:10 97.7 99 19 114/80 (91) 94 11/22/17 17:18 Room Air I&O Intake and Output 11/23/17 07:00 Intake Total 960 ml Balance 960 ml Intake Oral 960 ml # Bowel Movements 1 Labs: Laboratory Tests Test 11/23/17 08:04 White Blood Count 6.1 x10^3/uL (4.0-11.0) Red Blood Count 4.34 x10^6/uL (4.30-5.70) Hemoglobin 13.8 g/dL (13.0-17.5) Hematocrit 41.4 % (39.0-53.0) Mean Corpuscular Volume 95 fL (79-100) Mean Corpuscular Hemoglobin 32 pg (25-35) Mean Corpuscular Hemoglobin Concent 33 g/dL (31-37) Red Cell Distribution Width 15.6 % (11.5-14.5) H Platelet Count 149 x10^3/uL (140-400) Sodium Level 140 mmol/L (136-145) Potassium Level 4.1 mmol/L (3.5-5.1) Chloride Level 104 mmol/L (98-107) Carbon Dioxide Level 30 mmol/L (21-32) Anion Gap 6 (6-14) Blood Urea Nitrogen 30 mg/dL (8-26) H Creatinine 1.1 mg/dL (0.7-1.3) Estimated GFR (Cockcroft-Gault) 64.2 BUN/Creatinine Ratio 27 (6-20) H Glucose Level 104 mg/dL (70-99) H Calcium Level 9.1 mg/dL (8.5-10.1) Total Bilirubin 1.1 mg/dL (0.2-1.0) H Aspartate Amino Transferase (AST) 21 U/L (15-37) Alanine Aminotransferase (ALT) 35 U/L (16-63) Alkaline Phosphatase 105 U/L (46-116) Total Protein 7.9 g/dL (6.4-8.2) Albumin 3.8 g/dL (3.4-5.0) Albumin/Globulin Ratio 0.9 (1.0-1.7) L Current Medications: Meds: Current Medications Acetaminophen (Tylenol) 650 mg PRN Q6HRS PRN PO PAIN / TEMP; Start 11/12/17 at 21:45 Aripiprazole (Abilify) 5 mg DAILY PO Last administered on 11/23/17 08:09; Start 11/13/17 at 09:00 Buspirone HCl (Buspar) 10 mg BID PO Last administered on 11/13/17at 08:32; Start 11/12/17 at 22:00; Stop 11/13/17 at 12:58; Status DC Donepezil HCl (Aricept) 10 mg QHS PO Last administered on 11/23/17 20:19; Start 11/12/17 at 22:00 Memantine (Namenda) 10 mg BID PO Last administered on 11/23/17 20:19; Start at 22:00 Mirtazapine (Remeron) 15 mg QHS PO Last administered on 11/23/17 20:19; Start 11/12/17 at 22:00 Sertraline HCl (Zoloft) 100 mg DAILY PO Last administered on 11/13/17at 08:34; Start 11/13/17 at 09:00; Stop 11/13/17 at 10:58; Status DC Vitamin D (Vitamin D3) 50,000 unit QTH PO Last administered on 11/20/17at 16:17 ; Start 11/13/17 at 16:00 Cyanocobalamin (Vitamin B-12) 1,000 mcg DAILY PO Last administered on at 08:10; Start 11/13/17 at 09:00 Al Hydroxide/Mg Hydroxide (Mylanta Plus Xs) 15 ml PRN AFTMEALHC PRN PO DYSPEPSIA; Start 11/12/17 at 21:45 Magnesium Hydroxide (Milk Of Magnesia) 2,400 mg PRN DAILY PRN PO CONSTIPATION; Start 11/12/17 at 21:45 Multi-Ingredient Ointment (Analgesic [place]) 1 sagar PRN QID PRN TP MUSCLE PAIN; Start 11/12/17 at 21:45 Lactobacillus Rhamnosus (Culturelle) 1 cap BID PO Last administered on at 20:19; Start 11/12/17 at 22:00 Duloxetine HCl (Cymbalta) 30 mg DAILY PO Last administered on 11/18/17at 09:40; Start 11/14/17 at 09:00; Stop 11/18/17 at 16:47; Status DC Buspirone HCl (Buspar) 10 mg BID PO Last administered on 11/18/17at 09:40; Start 11/13/17 at 21:00; Stop 11/18/17 at 19:25; Status DC Multi-Ingred Cream/Lotion/Oil/ Oint (Hydrocerin) 1 sagar BID TP Last administered on 11/23/17at 20:19; Start 11/17/17 at 21:00 Duloxetine HCl (Cymbalta) 60 mg DAILY PO Last administered on 11/23/17at 08:10; Start 11/19/17 at 09:00 Buspirone HCl (Buspar) 10 mg TID@0900,1300,1700 PO Last administered on at 17:06; Start 11/19/17 at 09:00 Active Scripts Active Reported Culturelle (Lactobacillus Rhamnosus Gg) 1 Each Capsule 1 Each PO BID Vitamin B-12 (Cyanocobalamin (Vitamin B-12)) 1,000 Mcg Tablet 1,000 Mcg PO DAILY LAST DOSE GIVEN: DATE: TIME: NEXT DOSE DUE: DATE: TIME: Namenda (Memantine Hcl) 10 Mg Tablet 10 Mg PO BID LAST DOSE GIVEN: DATE: TIME: NEXT DOSE DUE: DATE: TIME: Buspirone Hcl 5 Mg Tablet 10 Mg PO BID LAST DOSE GIVEN: DATE: TIME: NEXT DOSE DUE: DATE: TIME: Zoloft (Sertraline Hcl) 100 Mg Tablet 100 Mg PO DAILY LAST DOSE GIVEN: DATE: TIME: NEXT DOSE DUE: DATE: TIME: Analgesic [place] (Methyl Salicylate/Menthol) 28 Gm Oint...g. 1 [place] TP PRN QID PRN LAST DOSE GIVEN: DATE: TIME: NEXT DOSE DUE: DATE: TIME: Milk Of Magnesia (Magnesium Hydroxide) 400 Mg/5 Ml Oral.susp 2,400 Mg PO PRN DAILY PRN LAST DOSE GIVEN: DATE: TIME: NEXT DOSE DUE: DATE: TIME: Mag-Al Plus Xs Suspension (Mag Hydrox/Al Hydrox/Simeth) 30 Ml Oral.susp 15 Ml PO PRN AFTMEALHC PRN LAST DOSE GIVEN: DATE: TIME: NEXT DOSE DUE: DATE: TIME: Vitamin D3 (Cholecalciferol (Vitamin D3)) 50,000 Unit Capsule 50,000 Unit PO QTH LAST DOSE GIVEN: DATE: TIME: NEXT DOSE DUE: DATE: TIME: Abilify (Aripiprazole) 5 Mg Tablet 5 Mg PO DAILY LAST DOSE GIVEN: DATE: TIME: NEXT DOSE DUE: DATE: TIME: Tylenol (Acetaminophen) 325 Mg Tablet 650 Mg PO PRN Q6HRS PRN LAST DOSE GIVEN: DATE: TIME: NEXT DOSE DUE: DATE: TIME: Donepezil Hcl 10 Mg Tablet 10 Mg PO QHS LAST DOSE GIVEN: DATE: TIME: NEXT DOSE DUE: DATE: TIME: Mirtazapine 15 Mg Tablet 15 Mg PO QHS LAST DOSE GIVEN: DATE: TIME: NEXT DOSE DUE: DATE: TIME: I have reviewed the current psychotropics carefully including drug interactions. Risk benefit ratio favors no change other than as noted in my dictated progress note. Diagnosis: Problems: (1) Altered mental status (2) Anxiety disorder (3) Impulse control disorder (4) Dementia, vascular, with depression (5) Dementia, vascular, with delusions (6) Dementia in Alzheimer's disease with depression (7) Dementia in Alzheimer's disease with delusions MARICARMEN GONCALVES MD Nov 23, 2017 20:20
--- NOTE | 2017-11-23 23:25 | PN ---
DATE: 11/21/2017 This is a late entry of 11/21/2017 covers elements not covered in my initial note of 11/21/2017. SUBJECTIVE: I met with the patient in the evening. The patient slept 7 hours, somewhat anxious in the evening. Blood pressure low at 87/66. We will monitor this. REVIEW OF SYSTEMS: No CV, , pulmonary, eye, ENT system symptoms on review. MENTAL STATUS EXAM: Oriented to himself and situation. Speech has some latency, coherent, often responses monosyllabic. Abstraction fair, computation impaired, language function intact, attention span short. Mood and affect still anxious, but improved. LABORATORY DATA: Reviewed. IMPRESSION: Unchanged from initial note. PLAN: Continue current psychotropics. MAN Charlie GONCALVES MD DR: DANGELO/bernardo JOB#: [id number] / [id number]
[2017-11-24] MEDS ORDERED: DULO60CA6 PO (01:54)
[2017-11-24] MEDS ORDERED: BUSP10TA PO (01:58)
[2017-11-24 06:10] VITALS: BP 135/96
[2017-11-24] MEDS: ARIPiprazole 5 MG TABLET PO SCH (08:54)
[2017-11-24] MEDS: MEMANTINE 10 MG TABLET. PO SCH (08:54)
[2017-11-24] MEDS: busPIRone 10 MG TABLET. PO SCH (08:54)
[2017-11-24] MEDS: LACTOBACILLUS RHAMNOSUS GG 1 CAPSULE. PO SCH (08:55)
[2017-11-24] MEDS: DULoxetine HCL 60 MG CAPSULE.DR PO SCH (08:55)
[2017-11-24] MEDS: CYANOCOBALAMIN (VITAMIN B-12) 1,000 MCG TABLET. PO SCH (08:55)
[2017-11-24] MEDS: MINERAL OIL/PETROLATUM TOPICAL CREAM 113GM JAR. TP SCH (08:56)
--- NOTE | 2017-11-24 21:26 | PDOC ---
Exam Note: Jayy Note: Please also refer to the separate dictated note~for this date of service dictated separately.~Patient seen individually. Discussed the patient with Nursing staff reviewed the chart.~Reviewed interim history and current functioning. Reviewed vital signs,~Labs/ Radiology~and current medications noted below. Continue current treatment with the changes noted in the dictated addendum note Assessment: Vital Signs: Vital Signs Date Time Temp Pulse Resp B/P (MAP) Pulse Ox O2 Delivery O2 Flow Rate FiO2 11/24/17 06:10 97.2 103 20 135/96 (109) 94 11/22/17 17:18 Room Air I&O Intake and Output 11/24/17 07:00 Intake Total 560 ml Balance 560 ml Intake Oral 560 ml # Voids 1 Current Medications: Meds: Current Medications Acetaminophen (Tylenol) 650 mg PRN Q6HRS PRN PO PAIN / TEMP; Start 11/12/17 at 21:45; Stop 11/24/17 at 12:51; Status DC Aripiprazole (Abilify) 5 mg DAILY PO Last administered on 11/24/17 08:54; Start 11/13/17 at 09:00; Stop 11/24/17 at 12:51; Status DC Buspirone HCl (Buspar) 10 mg BID PO Last administered on 11/13/17at 08:32; Start 11/12/17 at 22:00; Stop 11/13/17 at 12:58; Status DC Donepezil HCl (Aricept) 10 mg QHS PO Last administered on 11/23/17 20:19; Start 11/12/17 at 22:00; Stop 11/24/17 at 12:51; Status DC Memantine (Namenda) 10 mg BID PO Last administered on 11/24/17 08:54; Start at 22:00; Stop 11/24/17 at 12:51; Status DC Mirtazapine (Remeron) 15 mg QHS PO Last administered on 11/23/17 20:19; Start 11/12/17 at 22:00; Stop 11/24/17 at 12:51; Status DC Sertraline HCl (Zoloft) 100 mg DAILY PO Last administered on 11/13/17at 08:34; Start 11/13/17 at 09:00; Stop 11/13/17 at 10:58; Status DC Vitamin D (Vitamin D3) 50,000 unit QTH PO Last administered on 11/20/17at 16:17 ; Start 11/13/17 at 16:00; Stop 11/24/17 at 12:51; Status DC Cyanocobalamin (Vitamin B-12) 1,000 mcg DAILY PO Last administered on at 08:55; Start 11/13/17 at 09:00; Stop 11/24/17 at 12:51; Status DC Al Hydroxide/Mg Hydroxide (Mylanta Plus Xs) 15 ml PRN AFTMEALHC PRN PO DYSPEPSIA; Start 11/12/17 at 21:45; Stop 11/24/17 at 12:51; Status DC Magnesium Hydroxide (Milk Of Magnesia) 2,400 mg PRN DAILY PRN PO CONSTIPATION; Start 11/12/17 at 21:45; Stop 11/24/17 at 12:51; Status DC Multi-Ingredient Ointment (Analgesic [place]) 1 sagar PRN QID PRN TP MUSCLE PAIN; Start 11/12/17 at 21:45; Stop 11/24/17 at 12:51; Status DC Lactobacillus Rhamnosus (Culturelle) 1 cap BID PO Last administered on at 08:55; Start 11/12/17 at 22:00; Stop 11/24/17 at 12:51; Status DC Duloxetine HCl (Cymbalta) 30 mg DAILY PO Last administered on 11/18/17at 09:40; Start 11/14/17 at 09:00; Stop 11/18/17 at 16:47; Status DC Buspirone HCl (Buspar) 10 mg BID PO Last administered on 11/18/17at 09:40; Start 11/13/17 at 21:00; Stop 11/18/17 at 19:25; Status DC Multi-Ingred Cream/Lotion/Oil/ Oint (Hydrocerin) 1 sagar BID TP Last administered on 11/24/17at 08:56; Start 11/17/17 at 21:00; Stop 11/24/17 at 12:51 ; Status DC Duloxetine HCl (Cymbalta) 60 mg DAILY PO Last administered on 11/24/17at 08:55; Start 11/19/17 at 09:00; Stop 11/24/17 at 12:51; Status DC Buspirone HCl (Buspar) 10 mg TID@0900,1300,1700 PO Last administered on at 08:54; Start 11/19/17 at 09:00; Stop 11/24/17 at 12:51; Status DC Active Scripts Active Reported Buspirone Hcl 10 Mg Tablet 10 Mg PO TID@0900,1300,1700 Cymbalta (Duloxetine Hcl) 60 Mg Capsule.dr 60 Mg PO DAILY Vitamin B-12 (Cyanocobalamin (Vitamin B-12)) 1,000 Mcg Tablet 1,000 Mcg PO DAILY LAST DOSE GIVEN: DATE: TIME: NEXT DOSE DUE: DATE: TIME: Namenda (Memantine Hcl) 10 Mg Tablet 10 Mg PO BID LAST DOSE GIVEN: DATE: TIME: NEXT DOSE DUE: DATE: TIME: Analgesic [place] (Methyl Salicylate/Menthol) 28 Gm Oint...g. 1 [place] TP PRN QID PRN LAST DOSE GIVEN: DATE: TIME: NEXT DOSE DUE: DATE: TIME: Milk Of Magnesia (Magnesium Hydroxide) 400 Mg/5 Ml Oral.susp 2,400 Mg PO PRN DAILY PRN LAST DOSE GIVEN: DATE: TIME: NEXT DOSE DUE: DATE: TIME: Mag-Al Plus Xs Suspension (Mag Hydrox/Al Hydrox/Simeth) 30 Ml Oral.susp 15 Ml PO PRN AFTMEALHC PRN LAST DOSE GIVEN: DATE: TIME: NEXT DOSE DUE: DATE: TIME: Vitamin D3 (Cholecalciferol (Vitamin D3)) 50,000 Unit Capsule 50,000 Unit PO QTH LAST DOSE GIVEN: DATE: TIME: NEXT DOSE DUE: DATE: TIME: Abilify (Aripiprazole) 5 Mg Tablet 5 Mg PO DAILY LAST DOSE GIVEN: DATE: TIME: NEXT DOSE DUE: DATE: TIME: Tylenol (Acetaminophen) 325 Mg Tablet 650 Mg PO PRN Q6HRS PRN LAST DOSE GIVEN: DATE: TIME: NEXT DOSE DUE: DATE: TIME: Donepezil Hcl 10 Mg Tablet 10 Mg PO QHS LAST DOSE GIVEN: DATE: TIME: NEXT DOSE DUE: DATE: TIME: Mirtazapine 15 Mg Tablet 15 Mg PO QHS LAST DOSE GIVEN: DATE: TIME: NEXT DOSE DUE: DATE: TIME: I have reviewed the current psychotropics carefully including drug interactions. Risk benefit ratio favors no change other than as noted in my dictated progress note. Diagnosis: Problems: (1) Altered mental status (2) Anxiety disorder (3) Impulse control disorder (4) Dementia, vascular, with depression (5) Dementia, vascular, with delusions (6) Dementia in Alzheimer's disease with depression (7) Dementia in Alzheimer's disease with delusions MARICARMEN GONCALVES MD Nov 24, 2017 21:26
--- NOTE | 2017-11-25 02:51 | PN ---
DATE: 11/22/2017 This is a late entry 11/22/2017, covers the elements not covered in my initial note, 11/22/2017. SUBJECTIVE: I met with the patient in the evening. The patient slept 7-3/4 hours previous evening, still remains anxious, restless, but cognitively reasonably intact. Mood is better. No CV, , pulmonary, eye system symptoms on review. MENTAL STATUS EXAM: Oriented to himself and situation. Speech moderate latency, often response is monosyllabic. Abstraction fair, computation impaired, language function intact. Mood and affect still anxious, somewhat dysphoric, but improved. No suicidal or homicidal ideation. IMPRESSION: Unchanged from initial note. PLAN: Continue current psychotropics. MAN Charlie GONCALVES MD DR: DANGELO/bernardo JOB#: [id number] / [id number]
--- NOTE | 2017-11-25 03:56 | PN ---
DATE: 11/22/2017 This late entry 11/22/2017 covers elements not covered in my initial note 11/22/2017. SUBJECTIVE: I met with the patient in the evening. The patient slept 6-3/4 hours, anxious regarding discharge processed with him. REVIEW OF SYSTEMS: No CV, , pulmonary, eye, ENT system symptoms on review. MENTAL STATUS EXAM: Reasonably oriented. Speech coherent, abstraction fair, computation impaired, language function intact. Mood and affect somewhat anxious, labile. LABORATORY DATA: Reviewed. IMPRESSION: Unchanged from initial note. PLAN: Continue current psychotropic. MAN Charlie GONCALVES MD DR: DANGELO/bernardo JOB#: [id number] / [id number]
--- NOTE | 2017-11-25 20:03 | DS ---
DATE OF DISCHARGE: 11/24/2017 This is a late entry for date of service 11/24/2017 and covers the elements not covered in my initial note of 11/24/2017. REASON FOR ADMISSION: Please refer to the admission history for details. Briefly, the patient is an 82-year-old male who was initially referred from [facility] on account of worsening anxiety, depression, making suicidal statements. He presented to the ER at [facility], admitted to the medical-surgical floor, medically stabilized, continued to be depressed, suicidal; referred for inpatient psychiatric stabilization. SIGNIFICANT FINDINGS AND CLINICAL COURSE: Following admission, the patient was seen daily individually by myself, followed medically per Dr. Chester/Dr. Clark. The patient remained extremely anxious, apprehensive, depressed. Adjustments were made in his psychotropics. He seemed to respond to a combination of Cymbalta 60 mg a day, augmented by Abilify 5 mg a day, Remeron 15 mg at bedtime for insomnia, Namenda 10 mg b.i.d., Aricept 10 mg a day, BuSpar 10 mg 3 times a day. Gradually, mood appeared to improve. He denied suicidal ideation, anxiety was better as well. REVIEW OF SYSTEMS: Prior to discharge on 11/24/2017, no CV, , pulmonary, eye, ENT system symptoms on review. MENTAL STATUS EXAM: Oriented to himself and situation. Speech has some latency, coherent. Abstraction fair, computation impaired, language function intact. Mood and affect was improved, still anxious. No suicidal ideation at discharge. LABORATORY DATA: Reviewed. FINAL DIAGNOSES: Major depressive disorder with psychotic features, in partial remission; anxiety disorder, unspecified; cognitive disorder, unspecified. Rest unchanged from admission. DISCHARGE MEDICATIONS: Please refer to the EMRAD. DISCHARGE INSTRUCTIONS: Outpatient psychiatric and medical followup at the [facility]. MAN Charlie GONCALVES MD DR: DANGELO/bernardo JOB#: [id number] / [id number]
== END 2017-11-24 11:20 | disposition home or self-care (01) | DRG 885 ==
LOC: GEROPSY 18:46
PROVIDERS: ADMIT Psychiatry & Neurology Psychiatry; ATTEND Psychiatry & Neurology Psychiatry
DX: F33.3 Major depressive disorder, recurrent, severe with psychotic symptoms (principal); G30.9 Alzheimer's disease, unspecified; F01.51 Vascular dementia, unspecified severity, with behavioral disturbance; R45.851 Suicidal ideations; F02.81 Dementia in other diseases classified elsewhere, unspecified severity, with behavioral disturbance; E55.9 Vitamin D deficiency, unspecified; E78.5 Hyperlipidemia, unspecified; F63.9 Impulse disorder, unspecified; G47.00 Insomnia, unspecified; I10 Essential (primary) hypertension; Z79.899 Other long term (current) drug therapy; F41.1 Generalized anxiety disorder
CPT/HCPCS: 36415; 80053; 80061; 82306; 82607; 83036; 83540; 83550; 83735; 84436; 84480; 85025; 85027

== ENCOUNTER 2018-01-06 02:14 | Inpatient (IN) | payer MEDICARE, OTHER ==
[~2018-01-06] VITALS: Ht 188 cm; Wt 102.1 kg
[~2018-01-06 02:14] MED LIST changes: +BUSP10TA PO; +DULO60CA6 PO; +LACT1CAP21 PO
--- NOTE | 2018-01-06 02:25 | ED.ADGEN ---
Past History Past Medical History: CAD, CHF, Dementia, Depression, Hypertension, Other Past Surgical History: Other Alcohol Use: None Drug Use: None Adult General Chief Complaint Chief Complaint '"..I ... here...to ... get....checked out...." HPI HPI Patient is a 82 year old retired [employer] male who presents with above hx and complaints of mental status change. Pt. a resident of [place] Pt. reportedly more depressed, reports he is being punished. Expressing increase suicidal ideation. Pt. making attempts to escape the memory care unit. Pt. reportedly impossible to redirect and refusing meds. Pt. recently moved to the Memory unit on 01/02/18. Pt. has hx of Alzheimer's, vascular dementia,HLD, MDD, HTN, Anxiety, Poor Impulse control, Depression, Suicidal Ideations, and Anxiety. Review of Systems Review of Systems Pt. poor historian- no specific complaints Constitutional: Denies fever or chills [] Eyes: Denies change in visual acuity, redness, or eye pain [] HENT: Denies nasal congestion or sore throat [] Respiratory: Denies cough . Some complaints of shortness of breath [] Cardiovascular: No additional information not addressed in HPI [] GI: Denies abdominal pain, nausea, vomiting, bloody stools or diarrhea [] : Denies dysuria or hematuria [] Musculoskeletal: Denies back pain or joint pain [] Integument: Denies rash or skin lesions [] Neurologic: Denies headache, focal weakness or sensory changes [] Endocrine: Denies polyuria or polydipsia [] All other systems were reviewed and found to be within normal limits, except as documented in this note. Family History Family History Not currently available Current Medications Current Medications See nursing for home medications Allergies Allergies Allergies Coded Allergies Type Severity Reaction Last Updated Verified No Known Drug Allergies 05/03/17 No Physical Exam Physical Exam Constitutional: no acute distress, non-toxic appearance. [] HENT: Normocephalic, atraumatic, bilateral external ears normal, oropharynx moist, no oral exudates, nose normal. [] Eyes: PERRLA, EOMI, conjunctiva normal, no discharge. [] Neck: Normal range of motion, no tenderness, supple, no stridor. [] Kyphosis. JVD in Sitting position. Cardiovascular:Heart rate regular rhythm, no murmur []PMI to the left Lungs & Thorax: Bilateral breath sounds equal at apexes with a few scattered wheezes and bilateral crackles at bases on auscultation [] Abdomen: Bowel sounds normal, soft, no tenderness, no masses, no pulsatile masses. [] Skin: Warm, dry, no rash. [Poor turgor. Erythema like area left anterior thigh. Red groin and umbilicus. Back: No tenderness, no CVA tenderness. Kyphosis. Extremities: No tenderness, no cyanosis, no clubbing, ROM intact, ankle edema. [ ] Arthritic changes. Neurologic: Alert and oriented X 3, no gross motor function deficits, normal gross sensory function deficits, no gross focal deficits noted from baseline. Walks with a shuffled gait. Psychologic: Affect depressed, judgement poor insight, mood depressed. Obvious short-term memory problems. Current Patient Data Lab Results Laboratory Tests Test 01/06/18 02:58 White Blood Count 5.0 x10^3/uL (4.0-11.0) Red Blood Count 4.36 x10^6/uL (4.30-5.70) Hemoglobin 13.7 g/dL (13.0-17.5) Hematocrit 41.9 % (39.0-53.0) Mean Corpuscular Volume 96 fL (79-100) Mean Corpuscular Hemoglobin 31 pg (25-35) Mean Corpuscular Hemoglobin Concent 33 g/dL (31-37) Red Cell Distribution Width 16.0 % (11.5-14.5) H Platelet Count 129 x10^3/uL (140-400) L Neutrophils (%) (Auto) 67 % (31-73) Lymphocytes (%) (Auto) 25 % (24-48) Monocytes (%) (Auto) 5 % (0-9) Eosinophils (%) (Auto) 2 % (0-3) Basophils (%) (Auto) 1 % (0-3) Neutrophils # (Auto) 3.4 x10^3uL (1.8-7.7) Lymphocytes # (Auto) 1.3 x10^3/uL (1.0-4.8) Monocytes # (Auto) 0.3 x10^3/uL (0.0-1.1) Eosinophils # (Auto) 0.1 x10^3/uL (0.0-0.7) Basophils # (Auto) 0.0 x10^3/uL (0.0-0.2) Erythrocyte Sedimentation Rate Pending Sodium Level 141 mmol/L (136-145) Potassium Level 3.6 mmol/L (3.5-5.1) Chloride Level 103 mmol/L (98-107) Carbon Dioxide Level 33 mmol/L (21-32) H Anion Gap 5 (6-14) L Blood Urea Nitrogen 26 mg/dL (8-26) Creatinine 1.1 mg/dL (0.7-1.3) Estimated GFR (Cockcroft-Gault) 64.2 Glucose Level 90 mg/dL (70-99) Calcium Level 8.8 mg/dL (8.5-10.1) Magnesium Level 2.0 mg/dL (1.8-2.4) Total Bilirubin 1.1 mg/dL (0.2-1.0) H Direct Bilirubin 0.4 mg/dL (0.0-0.2) H Aspartate Amino Transferase (AST) 31 U/L (15-37) Alanine Aminotransferase (ALT) 26 U/L (16-63) Alkaline Phosphatase 115 U/L (46-116) Creatine Kinase 122 U/L (39-308) Creatine Kinase MB (Mass) 1.5 ng/mL (0.0-3.6) Creatine Kinase MB Relative Index 1.2 % (0-4) Troponin I Quantitative 0.043 ng/mL (0-0.055) LB-Gnr-L-Type Natriuretic Peptide 79657 pg/mL (0-449) H Total Protein 7.7 g/dL (6.4-8.2) Albumin 3.3 g/dL (3.4-5.0) L EKG EKG My interpretation of EKG shows a sinus rhythm at 80 bpm. There is a slightly prolonged VT interval first-degree block. There is nonspecific left axis changes. And contour abnormalities. in anterior lateral leads. No findings acute STEMI with contralateral changes.[] Radiology/Procedures Radiology/Procedures My interpretation of[]CXR show cardiomegaly, increased cephalization, and pleural fluid bases- change from prior on file- consistent with CHF exacerbation Course & Med Decision Making Course & Med Decision Making Pertinent Labs and Imaging studies reviewed. (See chart for details) Pt. to be Admitted to Dr. Rodrigez - [facility]. Discussed presentation,testing and tx. plan with Dr. Chester.- will follow CHF of pt. on [facility]. [] Final Impression Final Impression 1. Mental status change[] 2. Depression- Suicidal Ideation 3. Dementia- Alzheimer's and Vascular 4. HTN Hx. 5. Anxiety 6. Hx. Poor Impulse Control. 7. CHF - BNP 11,758 8. Thrombocytopenia 9. Elevated Creat. 10.Groin and Umbilicus skin is excoriated Dragon Disclaimer Dragon Disclaimer This electronic medical record was generated, in whole or in part, using a voice recognition dictation system. KORI MARIEE MD Jan 06, 2018 02:25
[2018-01-06] MEDS ORDERED: HALO100A2 IM (02:54)
[2018-01-06] MEDS ORDERED: OLAN5TAB3 PO ×2 (02:54)
[2018-01-06] MEDS ORDERED: DIGO125T PO (02:54)
[2018-01-06] MEDS ORDERED: CLON0.5T PO ×2 (02:54)
[2018-01-06] MEDS ORDERED: DULO60CA6 PO (02:54)
[2018-01-06] MEDS ORDERED: DULO30CA2 PO (02:54)
[2018-01-06 03:22] LABS: BASO % 1 % (0-3); EOS # 0.1 x10^3/uL (0.0-0.7); EOS % 2 % (0-3); HEMATOCRIT 41.9 % (39.0-53.0); HEMOGLOBIN 13.7 g/dL (13.0-17.5); LYMPH # 1.3 x10^3/uL (1.0-4.8); LYMPH % 25 % (24-48); MEAN CORPUSCULAR HEMOGLOBIN 31 pg (25-35); MEAN CORPUSCULAR HGB CONC 33 g/dL (31-37); MEAN CORPUSCULAR VOLUME 96 fL (79-100); MONO # 0.3 x10^3/uL (0.0-1.1); MONO % 5 % (0-9); NEUT # 3.4 x10^3uL (1.8-7.7); NEUT % 67 % (31-73); PLATELET COUNT 129 x10^3/uL (140-400); RED BLOOD COUNT 4.36 x10^6/uL (4.30-5.70)
[2018-01-06 03:50] LABS: ALBUMIN 3.3 g/dL (3.4-5.0); CALCIUM 8.8 mg/dL (8.5-10.1); CREATININE 1.1 mg/dL (0.7-1.3); DIRECT BILIRUBIN 0.4 mg/dL (0.0-0.2); GFR 64.2; POTASSIUM 3.6 mmol/L (3.5-5.1); TOTAL BILIRUBIN 1.1 mg/dL (0.2-1.0); TOTAL PROTEIN 7.7 g/dL (6.4-8.2)
--- NOTE | 2018-01-06 04:14 | RAD ---
INDICATION: INCREASED CONFUSION, MENTAL STATUS CHANGES COMPARISON: November 11, 2017 TECHNIQUE: Axial CT images obtained through the head without intravenous contrast. One or more of the following individualized dose reduction techniques were utilized for this examination: 1. Automated exposure control; 2. Adjustment of the mA and/or kV according to patient size; 3. Use of iterative reconstruction technique. FINDINGS: No intracranial hemorrhage. No midline shift. Basal cisterns patents. Ventricles and sulci are globally prominent. No acute osseous abnormality. Orbits and paranasal sinuses unremarkable. Scattered foci of low attenuation within the white matter. Repeat demonstration of low-attenuation in the right hemisphere posteriorly which could be from prior infarct. May be slightly increased from prior IMPRESSION: 1. No acute intracranial hemorrhage. 2. Scattered regions of low attenuation within the white matter. Non-specific in nature but frequently secondary to chronic small vessel ischemic disease. This includes a region of low attenuation within the right occipital region which may be slightly increased from prior. This slight difference could be secondary to slightly different slice selection but if there is high clinical concern for ischemia MRI could better assess to ensure that there are not any acute foci. 3. Prominence of ventricles and sulci which is frequently secondary to age related volume loss. Electronically signed by: Nate Hayes MD (01/06/2018 4:10 AM) [facility]
[2018-01-06 04:20] LABS: SEDIMENTATION RATE 30 (0-15)
[2018-01-06] MEDS ORDERED: FUROSEMIDE 40 MG/4 ML VIAL IVP ONE (05:00)
[2018-01-06 06:18] VITALS: BP 112/66
[2018-01-06 06:30] LABS: DIG 0.8 ng/dL (0.9-2.0)
[2018-01-06] MEDS ORDERED: ACETAMINOPHEN 325 MG TABLET PO PRN (06:30)
[2018-01-06] MEDS ORDERED: MAGNESIUM HYDROXIDE 2,400 MG/30 ML ORAL.SUSP. PO PRN (06:30)
[2018-01-06] MEDS ORDERED: MAG HYDROX/AL HYDROX/SIMETH 30 ML ORAL.SUSP PO PRN (06:30)
[2018-01-06] MEDS ORDERED: METHYL SALICYLATE/MENTHOL TOPICAL OINTMENT 29GM TUBE. TP PRN (06:30)
--- NOTE | 2018-01-06 06:35 | EKG ---
[address] [address] Test Date: 2018-01-06 Test Time: 03:06:14 Pat Name: BRIANNA LOVE Department: Room: [facility] 1 Gender: M Director Of Rehabilitation: MANUELA : 1935 Requested By: KORI MARIEE Order Number: [id number] Reading MD: Nj Bob MD Measurements Intervals Wallace Rate: 88 P: 90 MA: 270 QRS: -43 QRSD: 102 T: 80 QT: 346 QTc: 422 Interpretive Statements SINUS RHYTHM PROLONGED MA INTERVAL ABNORMAL LEFT AXIS DEVIATION LOW LIMB LEAD VOLTAGE LEFT ANTERIOR FASCICULAR BLOCK QRS(T) CONTOUR ABNORMALITY CONSIDER ANTEROSEPTAL MYOCARDIAL DAMAGE T ABNORMALITY IN ANTEROLATERAL LEADS ABNORMAL ECG Electronically Signed On 01-12-2018 13:25:57 CDT by Nj Bob MD
[2018-01-06 07:24] LABS: AMPHETAMINE/METHAMPHETAMINE NEG (NEG); BARBITURATES NEG (NEG); BENZODIAZEPINES NEG (NEG); CANNABINOIDS NEG (NEG); COCAINE NEG (NEG); METHADONE NEG (NEG); OPIATES NEG (NEG); PHENCYCLIDINE NEG (NEG)
[2018-01-06 07:28] LABS: BILIRUBIN,URINE NEG (NEG); CLARITY,URINE HAZY; COLOR,URINE BROWN; GLUCOSE,URINE NEG (NEG)
[2018-01-06 07:29] LABS: BACTERIA,URINE 0 /HPF (0-FEW); NITRITE,URINE NEG (NEG); SQUAMOUS EPITHELIAL CELL,UR OCC /LPF; UROBILINOGEN,URINE 1 mg/dL (0.2 mg/dL); WBC,URINE 0 /HPF (0-4)
[2018-01-06] MEDS: MEMANTINE 10 MG TABLET. PO SCH ×2 (08:50→19:50)
[2018-01-06] MEDS: DULoxetine HCL 30 MG CAPSULE.DR PO SCH (08:50)
[2018-01-06] MEDS: DIGOXIN 125 MCG TABLET PO SCH (08:50)
[2018-01-06] MEDS: CYANOCOBALAMIN (VITAMIN B-12) 1,000 MCG TABLET. PO SCH (08:50)
[2018-01-06] MEDS: OLANZapine 5 MG TABLET PO SCH (08:50)
[2018-01-06] MEDS: LACTOBACILLUS RHAMNOSUS GG 1 CAPSULE. PO SCH ×2 (08:50→19:50)
[2018-01-06] MEDS: NYSTATIN TOPICAL POWDER 15GM BOTTLE. TP SCH ×2 (08:50→19:51)
[2018-01-06] MEDS: busPIRone 10 MG TABLET. PO SCH ×3 (08:50→18:20)
[2018-01-06] MEDS: clonazePAM 0.5 MG TABLET PO SCH ×2 (08:51→19:50)
[2018-01-06] MEDS: ARIPiprazole 5 MG TABLET PO SCH (08:51)
[2018-01-06] MEDS: FUROSEMIDE 40 MG TABLET PO SCH (08:51)
[2018-01-06] MEDS ORDERED: clonazePAM 0.5 MG TABLET PO SCH (09:00)
[2018-01-06] MEDS ORDERED: DULOXETINE HCL 30 MG PO SCH (09:00)
[2018-01-06] MEDS ORDERED: OLANZapine 5 MG TABLET PO PRN (09:00)
--- NOTE | 2018-01-06 09:47 | RAD ---
Chest AP portable 01/06/2018. Reason for exam: Shortness of breath. Comparison is made with a study of 11/11/2017. No new consolidation is seen. There is greater haziness at the right lung base. This probably relates to presence of a pleural effusion and adjacent atelectasis. There could be a small amount of pleural fluid on the left as well. The heart remains enlarged. IMPRESSION: Probable bilateral pleural effusions and cardiomegaly. Electronically signed by: Daniel Zuniga Jr., MD (01/06/2018 9:44 AM) [facility]
[2018-01-06 16:42] VITALS: BP 94/63
[2018-01-06] MEDS: DONEPEZIL HCL 10 MG TABLET PO SCH (19:50)
[2018-01-06] MEDS: MIRTAZAPINE 15 MG TABLET PO SCH (19:51)
--- NOTE | 2018-01-06 20:05 | PDOC ---
Exam Note: Jayy Note: Please also refer to the separate dictated note~for this date of service dictated separately.~Patient seen individually. Discussed the patient with Nursing staff reviewed the chart.~Reviewed interim history and current functioning. Reviewed vital signs,~Labs/ Radiology~and current medications noted below. Continue current treatment with the changes noted in the dictated addendum note Assessment: Vital Signs: Vital Signs Date Time Temp Pulse Resp B/P (MAP) Pulse Ox O2 Delivery O2 Flow Rate FiO2 01/06/18 16:42 97.3 86 16 94/63 (73) 97 Room Air Labs: Laboratory Tests Test 01/06/18 02:58 01/06/18 06:50 White Blood Count 5.0 x10^3/uL (4.0-11.0) Red Blood Count 4.36 x10^6/uL (4.30-5.70) Hemoglobin 13.7 g/dL (13.0-17.5) Hematocrit 41.9 % (39.0-53.0) Mean Corpuscular Volume 96 fL (79-100) Mean Corpuscular Hemoglobin 31 pg (25-35) Mean Corpuscular Hemoglobin Concent 33 g/dL (31-37) Red Cell Distribution Width 16.0 % (11.5-14.5) H Platelet Count 129 x10^3/uL (140-400) L Neutrophils (%) (Auto) 67 % (31-73) Lymphocytes (%) (Auto) 25 % (24-48) Monocytes (%) (Auto) 5 % (0-9) Eosinophils (%) (Auto) 2 % (0-3) Basophils (%) (Auto) 1 % (0-3) Neutrophils # (Auto) 3.4 x10^3uL (1.8-7.7) Lymphocytes # (Auto) 1.3 x10^3/uL (1.0-4.8) Monocytes # (Auto) 0.3 x10^3/uL (0.0-1.1) Eosinophils # (Auto) 0.1 x10^3/uL (0.0-0.7) Basophils # (Auto) 0.0 x10^3/uL (0.0-0.2) Erythrocyte Sedimentation Rate 30 (0-15) H Sodium Level 141 mmol/L (136-145) Potassium Level 3.6 mmol/L (3.5-5.1) Chloride Level 103 mmol/L (98-107) Carbon Dioxide Level 33 mmol/L (21-32) H Anion Gap 5 (6-14) L Blood Urea Nitrogen 26 mg/dL (8-26) Creatinine 1.1 mg/dL (0.7-1.3) Estimated GFR (Cockcroft-Gault) 64.2 Glucose Level 90 mg/dL (70-99) Calcium Level 8.8 mg/dL (8.5-10.1) Magnesium Level 2.0 mg/dL (1.8-2.4) Iron Level 41 ug/dL (65-175) L Total Iron Binding Capacity 258 ug/dL (250-450) Iron Saturation 16 % (15-34) Total Bilirubin 1.1 mg/dL (0.2-1.0) H Direct Bilirubin 0.4 mg/dL (0.0-0.2) H Aspartate Amino Transferase (AST) 31 U/L (15-37) Alanine Aminotransferase (ALT) 26 U/L (16-63) Alkaline Phosphatase 115 U/L (46-116) Creatine Kinase 122 U/L (39-308) Creatine Kinase MB (Mass) 1.5 ng/mL (0.0-3.6) Creatine Kinase MB Relative Index 1.2 % (0-4) Troponin I Quantitative 0.043 ng/mL (0-0.055) UR-Mgg-D-Type Natriuretic Peptide 70241 pg/mL (0-449) H Total Protein 7.7 g/dL (6.4-8.2) Albumin 3.3 g/dL (3.4-5.0) L Triglycerides Level 62 mg/dL (0-150) Cholesterol Level 135 mg/dL (0-200) LDL Cholesterol, Calculated 80 mg/dL (0-100) VLDL Cholesterol, Calculated 12 mg/dL (0-40) Non-HDL Cholesterol Calculated 92 mg/dL (0-129) HDL Cholesterol 43 mg/dL (40-60) Cholesterol/HDL Ratio 3.0 Vitamin B12 Level 668 pg/mL (247-911) 25-Hydroxy Vitamin D Total 51.8 ng/mL (30-100) Thyroid Stimulating Hormone (TSH) 5.242 uIU/mL (0.358-3.740) Digoxin Level 0.8 ng/dL (0.9-2.0) L Digoxin Last Dose Date 01/05/2018 Digoxin Last Dose Time 0900 Treponema pallidum Antibody Nonreactive (Nonreactive) Urine Collection Type Unknown Urine Color Brown Urine Clarity Hazy Urine pH 5.0 Urine Specific [place] 1.020 Urine Protein Neg (NEG-TRACE) Urine Glucose (UA) Neg mg/dL (NEG) Urine Ketones (Stick) Trace mg/dL (NEG) Urine Blood Neg (NEG) Urine Nitrite Neg (NEG) Urine Bilirubin Neg (NEG) Urine Urobilinogen Dipstick 1 mg/dL (0.2 mg/dL) Urine Leukocyte Esterase Neg (NEG) Urine RBC 1-2 /HPF (0-2) Urine WBC 0 /HPF (0-4) Urine Squamous Epithelial Cells Occ /LPF Urine Bacteria 0 /HPF (0-FEW) Urine Opiates Screen Neg (NEG) Urine Methadone Screen Neg (NEG) Urine Barbiturates Neg (NEG) Urine Phencyclidine Screen Neg (NEG) Urine Amphetamine/Methamphetamine Neg (NEG) Urine Benzodiazepines Screen Neg (NEG) Urine Cocaine Screen Neg (NEG) Urine Cannabinoids Screen Neg (NEG) Urine Ethyl Alcohol Neg (NEG) Current Medications: Meds: Current Medications Furosemide (Lasix) 40 mg 1X ONCE IVP Last administered on 01/06/18 04:52; Start 01/06/18 at 05:00; Stop 01/06/18 at 05:01; Status DC Furosemide (Lasix) 40 mg DAILY06 PO Last administered on 01/06/18at 08:51; Start 01/06/18 at 06:00 Clonazepam (KlonoPIN) 0.5 mg BID PO Last administered on 01/06/18at 19:50; Start 01/06/18 at 09:00 Clonazepam (KlonoPIN) 0.5 mg Q12HR PO ; Start 01/06/18 at 09:00; Status UNV Aripiprazole (Abilify) 5 mg DAILY PO Last administered on 01/06/18 08:51; Start 01/06/18 at 09:00 Buspirone HCl (Buspar) 10 mg TIDPC PO Last administered on 01/06/18 18:20; Start 01/06/18 at 08:30 Donepezil HCl (Aricept) 10 mg QHS PO Last administered on 6/12/18at 19:50; Start 01/06/18 at 21:00 Non-Formulary Medication (Duloxetine Hcl (Cymbalta)) 30 mg DAILY PO ; Start 07/14 at 09:00; Status UNV Duloxetine HCl (Cymbalta) 90 mg DAILY PO Last administered on 01/06/18at 08:50; Start 01/06/18 at 09:00 Non-Formulary Medication (Haloperidol Decanoate (Haldol Decanoate 100)) 1 mg PRN DAILY PRN IM AGITATION; Start 01/06/18 at 06:15; Status UNV Memantine (Namenda) 10 mg BID PO Last administered on 01/06/18at 19:50; Start at 09:00 Mirtazapine (Remeron) 15 mg QHS PO Last administered on 01/06/18at 19:51; Start 01/06/18 at 21:00 Olanzapine (ZyPREXA) 5 mg DAILY PO Last administered on 01/06/18at 08:50; Start 01/06/18 at 09:00 Olanzapine (ZyPREXA) 5 mg PRN Q24HRS PRN PO AGITATION; Start 01/06/18 at 09:00 Acetaminophen (Tylenol) 650 mg PRN Q6HRS PRN PO PAIN / TEMP; Start 01/06/18 at 06:30 Vitamin D (Vitamin D3) 50,000 unit QTH PO ; Start 01/08/18 at 16:00 Cyanocobalamin (Vitamin B-12) 1,000 mcg DAILY PO Last administered on at 08:50; Start 01/06/18 at 09:00 Al Hydroxide/Mg Hydroxide (Mylanta Plus Xs) 15 ml PRN AFTMEALHC PRN PO DYSPEPSIA; Start 01/06/18 at 06:30 Magnesium Hydroxide (Milk Of Magnesia) 2,400 mg PRN DAILY PRN PO CONSTIPATION; Start 01/06/18 at 06:30 Multi-Ingredient Ointment (Analgesic Gilbert) 1 sagar PRN QID PRN TP MUSCLE PAIN; Start 01/06/18 at 06:30 Digoxin (Lanoxin) 125 mcg DAILY PO Last administered on 01/06/18at 08:50; Start 01/06/18 at 09:00 Lactobacillus Rhamnosus (Culturelle) 1 cap BID PO Last administered on at 19:50; Start 01/06/18 at 09:00 Nystatin (Nystop) 1 sagar BID TP Last administered on 01/06/18at 19:51; Start 07/14 at 09:00 Active Scripts Active Reported Zyprexa (Olanzapine) 5 Mg Tablet 5 Mg PO PRN Q24HRS PRN Zyprexa (Olanzapine) 5 Mg Tablet 5 Mg PO DAILY Klonopin (Clonazepam) 0.5 Mg Tablet 0.5 Mg PO Q12HR Klonopin (Clonazepam) 0.5 Mg Tablet 0.5 Mg PO BID Digoxin 125 Mcg Tablet 125 Mcg PO DAILY Haldol Decanoate 100 (Haloperidol Decanoate) 100 Mg/1 Ml Ampul 1 Mg IM PRN DAILY PRN Cymbalta (Duloxetine Hcl) 60 Mg Capsule.dr 60 Mg PO DAILY Cymbalta (Duloxetine Hcl) 30 Mg Capsule.dr 30 Mg PO DAILY Buspirone Hcl 10 Mg Tablet 10 Mg PO TID@0900,1300,1700 Culturelle (Lactobacillus Rhamnosus Gg) 1 Each Capsule 1 Cap PO BID Vitamin B-12 (Cyanocobalamin (Vitamin B-12)) 1,000 Mcg Tablet 1,000 Mcg PO DAILY LAST DOSE GIVEN: DATE: TIME: NEXT DOSE DUE: DATE: TIME: Namenda (Memantine Hcl) 10 Mg Tablet 10 Mg PO BID LAST DOSE GIVEN: DATE: TIME: NEXT DOSE DUE: DATE: TIME: Analgesic Gilbert (Methyl Salicylate/Menthol) 28 Gm Oint...g. 1 Sagar TP PRN QID PRN LAST DOSE GIVEN: DATE: TIME: NEXT DOSE DUE: DATE: TIME: Milk Of Magnesia (Magnesium Hydroxide) 400 Mg/5 Ml Oral.susp 2,400 Mg PO PRN DAILY PRN LAST DOSE GIVEN: DATE: TIME: NEXT DOSE DUE: DATE: TIME: Mag-Al Plus Xs Suspension (Mag Hydrox/Al Hydrox/Simeth) 30 Ml Oral.susp 15 Ml PO PRN AFTMEALHC PRN LAST DOSE GIVEN: DATE: TIME: NEXT DOSE DUE: DATE: TIME: Vitamin D3 (Cholecalciferol (Vitamin D3)) 50,000 Unit Capsule 50,000 Unit PO QTH LAST DOSE GIVEN: DATE: TIME: NEXT DOSE DUE: DATE: TIME: Abilify (Aripiprazole) 5 Mg Tablet 5 Mg PO DAILY LAST DOSE GIVEN: DATE: TIME: NEXT DOSE DUE: DATE: TIME: Tylenol (Acetaminophen) 325 Mg Tablet 650 Mg PO PRN Q6HRS PRN LAST DOSE GIVEN: DATE: TIME: NEXT DOSE DUE: DATE: TIME: Donepezil Hcl 10 Mg Tablet 10 Mg PO QHS LAST DOSE GIVEN: DATE: TIME: NEXT DOSE DUE: DATE: TIME: Mirtazapine 15 Mg Tablet 15 Mg PO QHS LAST DOSE GIVEN: DATE: TIME: NEXT DOSE DUE: DATE: TIME: I have reviewed the current psychotropics carefully including drug interactions. Risk benefit ratio favors no change other than as noted in my dictated progress note. Diagnosis: Problems: (1) Altered mental status (2) Anxiety disorder (3) Impulse control disorder (4) Dementia, vascular, with delusions (5) Dementia in Alzheimer's disease with depression (6) Dementia in Alzheimer's disease with delusions (7) Dementia, vascular, with depression MARICARMEN GONCALVES MD Jan 06, 2018 20:05
[2018-01-06 21:11] LABS: THYROXINE 5.7 ug/dL (4.5-12.0)
[2018-01-07 05:15] LABS: HEMOGLOBIN A1C 5.5 % (4.8-5.6)
[2018-01-07] MEDS ORDERED: ALBUTEROL SULFATE 2.5 MG/3 ML NEBU. NEB ONE (06:00)
[2018-01-07 06:10] VITALS: BP 92/57
[2018-01-07 06:13] VITALS: BP 104/60
[2018-01-07] MEDS: FUROSEMIDE 40 MG TABLET PO SCH (06:19)
[2018-01-07 07:03] LABS: BASO % 1 % (0-3); EOS # 0.2 x10^3/uL (0.0-0.7); EOS % 5 % (0-3); HEMATOCRIT 41.7 % (39.0-53.0); HEMOGLOBIN 13.7 g/dL (13.0-17.5); LYMPH % 23 % (24-48); MEAN CORPUSCULAR HEMOGLOBIN 32 pg (25-35); MEAN CORPUSCULAR HGB CONC 33 g/dL (31-37); MEAN CORPUSCULAR VOLUME 96 fL (79-100); MONO # 0.2 x10^3/uL (0.0-1.1); MONO % 5 % (0-9); NEUT # 2.8 x10^3uL (1.8-7.7); NEUT % 66 % (31-73); PLATELET COUNT 111 x10^3/uL (140-400); RED BLOOD COUNT 4.33 x10^6/uL (4.30-5.70); RED CELL DISTRIBUTION WIDTH 16.4 % (11.5-14.5); WHITE BLOOD COUNT 4.2 x10^3/uL (4.0-11.0)
[2018-01-07 07:14] LABS: ALBUMIN 3.1 g/dL (3.4-5.0); ALBUMIN/GLOBULIN RATIO 0.8 (1.0-1.7); CALCIUM 8.6 mg/dL (8.5-10.1); GFR 71.7; POTASSIUM 3.2 mmol/L (3.5-5.1); TOTAL PROTEIN 7.1 g/dL (6.4-8.2)
[2018-01-07] MEDS: LACTOBACILLUS RHAMNOSUS GG 1 CAPSULE. PO SCH ×2 (08:40→19:32)
[2018-01-07] MEDS: DIGOXIN 125 MCG TABLET PO SCH (08:41)
[2018-01-07] MEDS: ARIPiprazole 5 MG TABLET PO SCH (08:41)
[2018-01-07] MEDS: MEMANTINE 10 MG TABLET. PO SCH ×2 (08:41→19:32)
[2018-01-07] MEDS: busPIRone 10 MG TABLET. PO SCH ×3 (08:41→17:14)
[2018-01-07] MEDS: OLANZapine 5 MG TABLET PO SCH (08:41)
[2018-01-07] MEDS: DULoxetine HCL 30 MG CAPSULE.DR PO SCH (08:41)
[2018-01-07] MEDS: CYANOCOBALAMIN (VITAMIN B-12) 1,000 MCG TABLET. PO SCH (08:41)
[2018-01-07] MEDS: NYSTATIN TOPICAL POWDER 15GM BOTTLE. TP SCH ×2 (08:43→19:35)
[2018-01-07] MEDS: clonazePAM 0.5 MG TABLET PO SCH ×2 (08:43→19:35)
--- NOTE | 2018-01-07 10:11 | HP ---
ADMIT DATE: 01/06/2018 PSYCHIATRIC ADMISSION HISTORY/EVALUATION This late entry 01/06/2018 covers elements not covered in my initial note 01/06/2018. I met with the patient evening of 01/06/2018 for this evaluation, previously discussed with nursing staff on several occasions including prior to the patient's admission to review the referral information from [facility] and his primary care physician, Dr. Caren Luna, referring the patient for this hospitalization. IDENTIFYING DATA: The patient is an 82-year-old male who has been an inpatient with us in the past and referred back by his primary care physician on account of worsening symptoms of depression, paranoia, agitation, making statements of "I want to ." He was moved to the memory care unit on 01/02/2018 due to 3 attempts to elope from the facility. He believes he is being picked on, has been increasingly paranoid, depressed, made the suicidal statements. Behaviors were deemed dangerous and he was referred for inpatient psychiatric stabilization. CHIEF COMPLAINT: "I don't know." The patient responded after I questioned him on the circumstances prompting admission. In addition to above, while at the facility, the patient had been banging his head on the oneill, refusing medications and meals. HISTORY OF PRESENT ILLNESS: The patient has a history of dementia, Alzheimer's vascular type. He had been stabilized during his last hospitalization with us and did reasonably well until he was transferred to the memory care unit a few days back because he was eloping from the assisted. Since being on that contained unit, he had all of the above behaviors and behaviors have deep been deemed dangerous to himself, out of control, unmanageable, having failed outpatient psychiatric interventions. He is referred for inpatient stabilization. He has had marked insomnia as well with poor oral intake. No clear history of bipolar disorder. PAST PSYCHIATRIC HISTORY: As above. MEDICAL HISTORY: Positive for hyperlipidemia, hypertension, vitamin D deficiency. ACCU-CHEKS: None. CODE STATUS: DNR. ALLERGIES: Negative. DIET: Regular, ambulates ad lima. CURRENT PSYCHOTROPICS: BuSpar 10 mg 3 times a day, Cymbalta 90 mg a day, Abilify 5 mg a day, Aricept 10 mg a day, Haldol 1 mg IM p.r.n. daily, Klonopin 0.5 mg q. 12 hours, Namenda 10 mg b.i.d., Zyprexa p.r.n. FAMILY HISTORY: Noncontributory. SOCIAL HISTORY: No history of alcohol, drug abuse, physical, sexual or elder abuse history is noted. Not known to be a perpetrator. MENTAL STATUS EXAMINATION: The patient was seen individually evening of 01/06/2018. He is alert, oriented to himself, did not seem to remember me even though during his most recent inpatient psychiatric hospitalization. He seemed to be cognitively much more intact. Speech has some latency, coherent. Abstraction fair, computation impaired, language function intact, attention span short. Mood and affect remains depressed, withdrawn. Memory is impaired. ASSETS: Stable living at the above facility. REACTION TO HOSPITALIZATION: The patient accepting of this. IMPRESSION: Major depressive disorder, recurrent. Suicidal ideation; major neurocognitive disorder, early vascular with depression, rule out delusion; anxiety disorder, unspecified; impulse control disorder, unspecified. Rest as above. PLAN: Admit to Geropsychiatry Unit at [facility]. I will see the patient daily individually from a psychiatric standpoint, medical followup per Dr. Chester/Dr Clark. Continue the patient on his current psychotropics, observe baseline, then adjust as clinically indicated. MARICARMEN GONCALVES MD DR: DANGELO/bernardo JOB#: [id number] / [id number]
[2018-01-07 16:23] VITALS: BP 95/60
[2018-01-07 19:31] VITALS: BP 102/69
[2018-01-07] MEDS: MIRTAZAPINE 15 MG TABLET PO SCH (19:32)
[2018-01-07] MEDS: DONEPEZIL HCL 10 MG TABLET PO SCH (19:32)
[2018-01-07] MEDS ORDERED: POTASSIUM CHLORIDE 20 MEQ TABLET.ER. PO ONE (20:00)
--- NOTE | 2018-01-07 20:51 | PDOC ---
Exam Note: Jayy Note: Please also refer to the separate dictated note~for this date of service dictated separately.~Patient seen individually. Discussed the patient with Nursing staff reviewed the chart.~Reviewed interim history and current functioning. Reviewed vital signs,~Labs/ Radiology~and current medications noted below. Continue current treatment with the changes noted in the dictated addendum note Assessment: Vital Signs: Vital Signs Date Time Temp Pulse Resp B/P (MAP) Pulse Ox O2 Delivery O2 Flow Rate FiO2 01/07/18 19:31 97.6 91 18 102/69 (80) 98 01/07/18 06:13 Nasal Cannula 1.5 I&O Intake and Output 01/07/18 07:00 Intake Total 560 ml Balance 560 ml Intake Oral 560 ml # Bowel Movements 3 Labs: Laboratory Tests Test 01/07/18 06:52 White Blood Count 4.2 x10^3/uL (4.0-11.0) Red Blood Count 4.33 x10^6/uL (4.30-5.70) Hemoglobin 13.7 g/dL (13.0-17.5) Hematocrit 41.7 % (39.0-53.0) Mean Corpuscular Volume 96 fL (79-100) Mean Corpuscular Hemoglobin 32 pg (25-35) Mean Corpuscular Hemoglobin Concent 33 g/dL (31-37) Red Cell Distribution Width 16.4 % (11.5-14.5) H Platelet Count 111 x10^3/uL (140-400) L Neutrophils (%) (Auto) 66 % (31-73) Lymphocytes (%) (Auto) 23 % (24-48) L Monocytes (%) (Auto) 5 % (0-9) Eosinophils (%) (Auto) 5 % (0-3) H Basophils (%) (Auto) 1 % (0-3) Neutrophils # (Auto) 2.8 x10^3uL (1.8-7.7) Lymphocytes # (Auto) 1.0 x10^3/uL (1.0-4.8) Monocytes # (Auto) 0.2 x10^3/uL (0.0-1.1) Eosinophils # (Auto) 0.2 x10^3/uL (0.0-0.7) Basophils # (Auto) 0.0 x10^3/uL (0.0-0.2) Prothrombin Time 12.1 SEC (9.4-11.4) H Prothrombin Time INR 1.2 (0.9-1.1) H Sodium Level 145 mmol/L (136-145) Potassium Level 3.2 mmol/L (3.5-5.1) L Chloride Level 103 mmol/L (98-107) Carbon Dioxide Level 37 mmol/L (21-32) H Anion Gap 5 (6-14) L Blood Urea Nitrogen 23 mg/dL (8-26) Creatinine 1.0 mg/dL (0.7-1.3) Estimated GFR (Cockcroft-Gault) 71.7 BUN/Creatinine Ratio 23 (6-20) H Glucose Level 77 mg/dL (70-99) Calcium Level 8.6 mg/dL (8.5-10.1) Total Bilirubin 1.0 mg/dL (0.2-1.0) Aspartate Amino Transferase (AST) 25 U/L (15-37) Alanine Aminotransferase (ALT) 22 U/L (16-63) Alkaline Phosphatase 106 U/L (46-116) Total Protein 7.1 g/dL (6.4-8.2) Albumin 3.1 g/dL (3.4-5.0) L Albumin/Globulin Ratio 0.8 (1.0-1.7) L Current Medications: Meds: Current Medications Furosemide (Lasix) 40 mg 1X ONCE IVP Last administered on 01/06/18at 04:52; Start 01/06/18 at 05:00; Stop 01/06/18 at 05:01; Status DC Furosemide (Lasix) 40 mg DAILY06 PO Last administered on 01/07/18at 06:19; Start 01/06/18 at 06:00 Clonazepam (KlonoPIN) 0.5 mg BID PO Last administered on 01/07/18at 08:43; Start 01/06/18 at 09:00; Stop 01/07/18 at 18:29; Status DC Clonazepam (KlonoPIN) 0.5 mg Q12HR PO ; Start 01/06/18 at 09:00; Status UNV Aripiprazole (Abilify) 5 mg DAILY PO Last administered on 01/07/18at 08:41; Start 01/06/18 at 09:00 Buspirone HCl (Buspar) 10 mg TIDPC PO Last administered on 01/07/18 17:14; Start 01/06/18 at 08:30 Donepezil HCl (Aricept) 10 mg QHS PO Last administered on 01/07/18at 19:32; Start 01/06/18 at 21:00 Non-Formulary Medication (Duloxetine Hcl (Cymbalta)) 30 mg DAILY PO ; Start 07/14 at 09:00; Status UNV Duloxetine HCl (Cymbalta) 90 mg DAILY PO Last administered on 01/07/18at 08:41; Start 01/06/18 at 09:00 Non-Formulary Medication (Haloperidol Decanoate (Haldol Decanoate 100)) 1 mg PRN DAILY PRN IM AGITATION; Start 01/06/18 at 06:15; Status UNV Memantine (Namenda) 10 mg BID PO Last administered on 01/07/18at 19:32; Start at 09:00 Mirtazapine (Remeron) 15 mg QHS PO Last administered on 01/07/18at 19:32; Start 01/06/18 at 21:00 Olanzapine (ZyPREXA) 5 mg DAILY PO Last administered on 01/07/18at 08:41; Start 01/06/18 at 09:00 Olanzapine (ZyPREXA) 5 mg PRN Q24HRS PRN PO AGITATION; Start 01/06/18 at 09:00 Acetaminophen (Tylenol) 650 mg PRN Q6HRS PRN PO PAIN / TEMP; Start 01/06/18 at 06:30 Vitamin D (Vitamin D3) 50,000 unit QTH PO ; Start 01/08/18 at 16:00 Cyanocobalamin (Vitamin B-12) 1,000 mcg DAILY PO Last administered on at 08:41; Start 01/06/18 at 09:00 Al Hydroxide/Mg Hydroxide (Mylanta Plus Xs) 15 ml PRN AFTMEALHC PRN PO DYSPEPSIA; Start 01/06/18 at 06:30 Magnesium Hydroxide (Milk Of Magnesia) 2,400 mg PRN DAILY PRN PO CONSTIPATION; Start 01/06/18 at 06:30 Multi-Ingredient Ointment (Analgesic [place]) 1 sagar PRN QID PRN TP MUSCLE PAIN; Start 01/06/18 at 06:30 Digoxin (Lanoxin) 125 mcg DAILY PO Last administered on 01/07/18at 08:41; Start 01/06/18 at 09:00 Lactobacillus Rhamnosus (Culturelle) 1 cap BID PO Last administered on at 19:32; Start 01/06/18 at 09:00 Nystatin (Nystop) 1 sagar BID TP Last administered on 01/07/18 19:35; Start 07/14 at 09:00 Albuterol Sulfate (Ventolin) 2.5 mg 1X ONCE NEB Last administered on 06:06; Start 01/07/18 at 06:00; Stop 01/07/18 at 06:01; Status DC Clonazepam (KlonoPIN) 0.5 mg HS PO Last administered on 01/07/18at 19:35; Start 01/07/18 at 21:00; Stop 01/10/18 at 23:00 Potassium Chloride (Klor-Con) 40 meq 1X ONCE PO Last administered on at 19:32; Start 01/07/18 at 20:00; Stop 01/07/18 at 20:01; Status DC Active Scripts Active Reported Zyprexa (Olanzapine) 5 Mg Tablet 5 Mg PO PRN Q24HRS PRN Zyprexa (Olanzapine) 5 Mg Tablet 5 Mg PO DAILY Klonopin (Clonazepam) 0.5 Mg Tablet 0.5 Mg PO Q12HR Klonopin (Clonazepam) 0.5 Mg Tablet 0.5 Mg PO BID Digoxin 125 Mcg Tablet 125 Mcg PO DAILY Haldol Decanoate 100 (Haloperidol Decanoate) 100 Mg/1 Ml Ampul 1 Mg IM PRN DAILY PRN Cymbalta (Duloxetine Hcl) 60 Mg Capsule.dr 60 Mg PO DAILY Cymbalta (Duloxetine Hcl) 30 Mg Capsule.dr 30 Mg PO DAILY Buspirone Hcl 10 Mg Tablet 10 Mg PO TID@0900,1300,1700 Culturelle (Lactobacillus Rhamnosus Gg) 1 Each Capsule 1 Cap PO BID Vitamin B-12 (Cyanocobalamin (Vitamin B-12)) 1,000 Mcg Tablet 1,000 Mcg PO DAILY LAST DOSE GIVEN: DATE: TIME: NEXT DOSE DUE: DATE: TIME: Namenda (Memantine Hcl) 10 Mg Tablet 10 Mg PO BID LAST DOSE GIVEN: DATE: TIME: NEXT DOSE DUE: DATE: TIME: Analgesic [place] (Methyl Salicylate/Menthol) 28 Gm Oint...g. 1 Sagar TP PRN QID PRN LAST DOSE GIVEN: DATE: TIME: NEXT DOSE DUE: DATE: TIME: Milk Of Magnesia (Magnesium Hydroxide) 400 Mg/5 Ml Oral.susp 2,400 Mg PO PRN DAILY PRN LAST DOSE GIVEN: DATE: TIME: NEXT DOSE DUE: DATE: TIME: Mag-Al Plus Xs Suspension (Mag Hydrox/Al Hydrox/Simeth) 30 Ml Oral.susp 15 Ml PO PRN AFTMEALHC PRN LAST DOSE GIVEN: DATE: TIME: NEXT DOSE DUE: DATE: TIME: Vitamin D3 (Cholecalciferol (Vitamin D3)) 50,000 Unit Capsule 50,000 Unit PO QTH LAST DOSE GIVEN: DATE: TIME: NEXT DOSE DUE: DATE: TIME: Abilify (Aripiprazole) 5 Mg Tablet 5 Mg PO DAILY LAST DOSE GIVEN: DATE: TIME: NEXT DOSE DUE: DATE: TIME: Tylenol (Acetaminophen) 325 Mg Tablet 650 Mg PO PRN Q6HRS PRN LAST DOSE GIVEN: DATE: TIME: NEXT DOSE DUE: DATE: TIME: Donepezil Hcl 10 Mg Tablet 10 Mg PO QHS LAST DOSE GIVEN: DATE: TIME: NEXT DOSE DUE: DATE: TIME: Mirtazapine 15 Mg Tablet 15 Mg PO QHS LAST DOSE GIVEN: DATE: TIME: NEXT DOSE DUE: DATE: TIME: I have reviewed the current psychotropics carefully including drug interactions. Risk benefit ratio favors no change other than as noted in my dictated progress note. Diagnosis: Problems: (1) Altered mental status (2) Anxiety disorder (3) Impulse control disorder (4) Dementia, vascular, with delusions (5) Dementia in Alzheimer's disease with depression (6) Dementia in Alzheimer's disease with delusions (7) Dementia, vascular, with depression MARICARMEN GONCALVES MD Jan 07, 2018 20:51
[2018-01-08 00:22] VITALS: BP 104/62
[2018-01-08 05:49] VITALS: BP 114/81
[2018-01-08] MEDS: FUROSEMIDE 40 MG TABLET PO SCH (05:52)
[2018-01-08] MEDS ORDERED: HALOPERIDOL DECANOATE IM ER 50 MG/ML VIAL. IM PRN (07:30)
[2018-01-08] MEDS: MEMANTINE 10 MG TABLET. PO SCH ×2 (08:18→20:17)
[2018-01-08] MEDS: ARIPiprazole 5 MG TABLET PO SCH (08:19)
[2018-01-08] MEDS: DULoxetine HCL 30 MG CAPSULE.DR PO SCH (08:19)
[2018-01-08] MEDS: CYANOCOBALAMIN (VITAMIN B-12) 1,000 MCG TABLET. PO SCH (08:19)
[2018-01-08] MEDS: busPIRone 10 MG TABLET. PO SCH ×3 (08:19→18:27)
[2018-01-08] MEDS: OLANZapine 5 MG TABLET PO SCH (08:20)
[2018-01-08] MEDS: DIGOXIN 125 MCG TABLET PO SCH (08:20)
[2018-01-08] MEDS: LACTOBACILLUS RHAMNOSUS GG 1 CAPSULE. PO SCH ×2 (08:20→20:16)
[2018-01-08 08:31] LABS: CALCIUM 8.8 mg/dL (8.5-10.1); CREATININE 0.9 mg/dL (0.7-1.3); POTASSIUM 3.7 mmol/L (3.5-5.1)
[2018-01-08] MEDS: NYSTATIN TOPICAL POWDER 15GM BOTTLE. TP SCH ×2 (10:12→20:19)
[2018-01-08] MEDS ORDERED: CHOLECALCIFEROL (VITAMIN D3) 50,000 UNIT CAPSULE PO SCH (16:00)
[2018-01-08 16:42] VITALS: BP 115/70
[2018-01-08] MEDS ORDERED: HALOPERIDOL LACT 5 MG/ML VIAL. IM PRN (16:45)
[2018-01-08] MEDS: clonazePAM 0.5 MG TABLET PO SCH (20:16)
[2018-01-08] MEDS: MIRTAZAPINE 15 MG TABLET PO SCH (20:16)
[2018-01-08] MEDS: DONEPEZIL HCL 10 MG TABLET PO SCH (20:19)
--- NOTE | 2018-01-08 22:23 | PDOC ---
Exam Note: Jayy Note: Please also refer to the separate dictated note~for this date of service dictated separately.~Patient seen individually. Discussed the patient with Nursing staff reviewed the chart.~Reviewed interim history and current functioning. Reviewed vital signs,~Labs/ Radiology~and current medications noted below. Continue current treatment with the changes noted in the dictated addendum note Assessment: Vital Signs: Vital Signs Date Time Temp Pulse Resp B/P (MAP) Pulse Ox O2 Delivery O2 Flow Rate FiO2 01/08/18 16:42 96.8 110 22 115/70 (85) 94 Room Air 01/08/18 05:58 2.5 I&O Intake and Output 01/08/18 07:00 Intake Total 480 ml Balance 480 ml Intake Oral 480 ml Labs: Laboratory Tests Test 01/08/18 08:08 Sodium Level 146 mmol/L (136-145) H Potassium Level 3.7 mmol/L (3.5-5.1) Chloride Level 103 mmol/L (98-107) Carbon Dioxide Level 36 mmol/L (21-32) H Anion Gap 7 (6-14) Blood Urea Nitrogen 22 mg/dL (8-26) Creatinine 0.9 mg/dL (0.7-1.3) Estimated GFR (Cockcroft-Gault) 81.0 Glucose Level 79 mg/dL (70-99) Calcium Level 8.8 mg/dL (8.5-10.1) Current Medications: Meds: Current Medications Furosemide (Lasix) 40 mg 1X ONCE IVP Last administered on 01/06/18at 04:52; Start 01/06/18 at 05:00; Stop 01/06/18 at 05:01; Status DC Furosemide (Lasix) 40 mg DAILY06 PO Last administered on 01/08/18at 05:52; Start 01/06/18 at 06:00 Clonazepam (KlonoPIN) 0.5 mg BID PO Last administered on 01/07/18at 08:43; Start 01/06/18 at 09:00; Stop 01/07/18 at 18:29; Status DC Clonazepam (KlonoPIN) 0.5 mg Q12HR PO ; Start 01/06/18 at 09:00; Status UNV Aripiprazole (Abilify) 5 mg DAILY PO Last administered on 01/08/18at 08:19; Start 01/06/18 at 09:00; Stop 01/08/18 at 10:45; Status DC Buspirone HCl (Buspar) 10 mg TIDPC PO Last administered on 01/08/18at 18:27; Start 01/06/18 at 08:30 Donepezil HCl (Aricept) 10 mg QHS PO Last administered on 01/08/18at 20:19; Start 01/06/18 at 21:00 Non-Formulary Medication (Duloxetine Hcl (Cymbalta)) 30 mg DAILY PO ; Start 07/14 at 09:00; Status UNV Duloxetine HCl (Cymbalta) 90 mg DAILY PO Last administered on 01/08/18at 08:19; Start 01/06/18 at 09:00; Stop 01/08/18 at 10:45; Status DC Haloperidol Decanoate (Haldol Decanoate Im Extended Release) 1 mg PRN DAILY PRN IM AGITATION; Start 01/08/18 at 07:30; Stop 01/08/18 at 16:35; Status DC Memantine (Namenda) 10 mg BID PO Last administered on 01/08/18at 20:17; Start at 09:00 Mirtazapine (Remeron) 15 mg QHS PO Last administered on 01/08/18at 20:16; Start 01/06/18 at 21:00 Olanzapine (ZyPREXA) 5 mg DAILY PO Last administered on 01/08/18at 08:20; Start 01/06/18 at 09:00 Olanzapine (ZyPREXA) 5 mg PRN Q24HRS PRN PO AGITATION; Start 01/06/18 at 09:00 Acetaminophen (Tylenol) 650 mg PRN Q6HRS PRN PO PAIN / TEMP; Start 01/06/18 at 06:30 Vitamin D (Vitamin D3) 50,000 unit QTH PO Last administered on 01/08/18at 18:14 ; Start 01/08/18 at 16:00 Cyanocobalamin (Vitamin B-12) 1,000 mcg DAILY PO Last administered on at 08:19; Start 01/06/18 at 09:00 Al Hydroxide/Mg Hydroxide (Mylanta Plus Xs) 15 ml PRN AFTMEALHC PRN PO DYSPEPSIA; Start 01/06/18 at 06:30 Magnesium Hydroxide (Milk Of Magnesia) 2,400 mg PRN DAILY PRN PO CONSTIPATION; Start 01/06/18 at 06:30 Multi-Ingredient Ointment (Analgesic [place]) 1 sagar PRN QID PRN TP MUSCLE PAIN; Start 01/06/18 at 06:30 Digoxin (Lanoxin) 125 mcg DAILY PO Last administered on 01/08/18at 08:20; Start 01/06/18 at 09:00 Lactobacillus Rhamnosus (Culturelle) 1 cap BID PO Last administered on at 20:16; Start 01/06/18 at 09:00 Nystatin (Nystop) 1 sagar BID TP Last administered on 01/08/18at 20:19; Start 07/14 at 09:00 Albuterol Sulfate (Ventolin) 2.5 mg 1X ONCE NEB Last administered on at 06:06; Start 01/07/18 at 06:00; Stop 01/07/18 at 06:01; Status DC Clonazepam (KlonoPIN) 0.5 mg HS PO Last administered on 01/08/18at 20:16; Start 01/07/18 at 21:00; Stop 01/10/18 at 23:00 Potassium Chloride (Klor-Con) 40 meq 1X ONCE PO Last administered on at 19:32; Start 01/07/18 at 20:00; Stop 01/07/18 at 20:01; Status DC Duloxetine HCl (Cymbalta) 60 mg DAILY PO ; Start 01/09/18 at 09:00 Bupropion HCl (Wellbutrin Xl) 150 mg DAILY PO ; Start 01/09/18 at 09:00 Haloperidol Lactate (Haldol) 1 mg PRN DAILY PRN IM AGITATION; Start 01/08/18 at 16:45 Active Scripts Active Reported Zyprexa (Olanzapine) 5 Mg Tablet 5 Mg PO PRN Q24HRS PRN Zyprexa (Olanzapine) 5 Mg Tablet 5 Mg PO DAILY Klonopin (Clonazepam) 0.5 Mg Tablet 0.5 Mg PO Q12HR Klonopin (Clonazepam) 0.5 Mg Tablet 0.5 Mg PO BID Digoxin 125 Mcg Tablet 125 Mcg PO DAILY Haldol Decanoate 100 (Haloperidol Decanoate) 100 Mg/1 Ml Ampul 1 Mg IM PRN DAILY PRN Cymbalta (Duloxetine Hcl) 60 Mg Capsule.dr 60 Mg PO DAILY Cymbalta (Duloxetine Hcl) 30 Mg Capsule.dr 30 Mg PO DAILY Buspirone Hcl 10 Mg Tablet 10 Mg PO TID@0900,1300,1700 Culturelle (Lactobacillus Rhamnosus Gg) 1 Each Capsule 1 Cap PO BID Vitamin B-12 (Cyanocobalamin (Vitamin B-12)) 1,000 Mcg Tablet 1,000 Mcg PO DAILY LAST DOSE GIVEN: DATE: TIME: NEXT DOSE DUE: DATE: TIME: Namenda (Memantine Hcl) 10 Mg Tablet 10 Mg PO BID LAST DOSE GIVEN: DATE: TIME: NEXT DOSE DUE: DATE: TIME: Analgesic [place] (Methyl Salicylate/Menthol) 28 Gm Oint...g. 1 Sagar TP PRN QID PRN LAST DOSE GIVEN: DATE: TIME: NEXT DOSE DUE: DATE: TIME: Milk Of Magnesia (Magnesium Hydroxide) 400 Mg/5 Ml Oral.susp 2,400 Mg PO PRN DAILY PRN LAST DOSE GIVEN: DATE: TIME: NEXT DOSE DUE: DATE: TIME: Mag-Al Plus Xs Suspension (Mag Hydrox/Al Hydrox/Simeth) 30 Ml Oral.susp 15 Ml PO PRN AFTMEALHC PRN LAST DOSE GIVEN: DATE: TIME: NEXT DOSE DUE: DATE: TIME: Vitamin D3 (Cholecalciferol (Vitamin D3)) 50,000 Unit Capsule 50,000 Unit PO QTH LAST DOSE GIVEN: DATE: TIME: NEXT DOSE DUE: DATE: TIME: Abilify (Aripiprazole) 5 Mg Tablet 5 Mg PO DAILY LAST DOSE GIVEN: DATE: TIME: NEXT DOSE DUE: DATE: TIME: Tylenol (Acetaminophen) 325 Mg Tablet 650 Mg PO PRN Q6HRS PRN LAST DOSE GIVEN: DATE: TIME: NEXT DOSE DUE: DATE: TIME: Donepezil Hcl 10 Mg Tablet 10 Mg PO QHS LAST DOSE GIVEN: DATE: TIME: NEXT DOSE DUE: DATE: TIME: Mirtazapine 15 Mg Tablet 15 Mg PO QHS LAST DOSE GIVEN: DATE: TIME: NEXT DOSE DUE: DATE: TIME: I have reviewed the current psychotropics carefully including drug interactions. Risk benefit ratio favors no change other than as noted in my dictated progress note. Diagnosis: Problems: (1) Altered mental status (2) Anxiety disorder (3) Impulse control disorder (4) Dementia, vascular, with delusions (5) Dementia in Alzheimer's disease with depression (6) Dementia in Alzheimer's disease with delusions (7) Dementia, vascular, with depression MARICARMEN GONCALVES MD Jan 08, 2018 22:23
[2018-01-09] MEDS: FUROSEMIDE 40 MG TABLET PO SCH ×2 (05:56→06:33)
[2018-01-09 06:36] VITALS: BP 102/76
[2018-01-09] MEDS: CYANOCOBALAMIN (VITAMIN B-12) 1,000 MCG TABLET. PO SCH (08:05)
[2018-01-09] MEDS: LACTOBACILLUS RHAMNOSUS GG 1 CAPSULE. PO SCH ×2 (08:05→21:50)
[2018-01-09] MEDS: MEMANTINE 10 MG TABLET. PO SCH ×2 (08:05→21:00)
[2018-01-09] MEDS: OLANZapine 5 MG TABLET PO SCH (08:06)
[2018-01-09] MEDS: DIGOXIN 125 MCG TABLET PO SCH (08:06)
[2018-01-09] MEDS: DULoxetine HCL 30 MG CAPSULE.DR PO SCH (08:09)
[2018-01-09] MEDS: busPIRone 10 MG TABLET. PO SCH ×3 (08:09→17:30)
[2018-01-09] MEDS: buPROPion XL 150 MG TAB.ER.24H PO SCH (08:10)
[2018-01-09] MEDS: NYSTATIN TOPICAL POWDER 15GM BOTTLE. TP SCH ×2 (08:11→21:50)
--- NOTE | 2018-01-09 09:48 | CONS ---
DATE OF CONSULTATION: 01/08/2018 REASON FOR CONSULTATION: Medical management. HISTORY OF PRESENT ILLNESS: The patient is an 82-year-old male patient, a resident at [facility], who was referred to this unit by his primary care physician on account of the worsening symptoms of depression, paranoia, agitation, making statement I want to . He was moved to the Memory Care Unit on 01/02/2018 due to 3 attempts to elope from the facility. He believes he is being picked on, has been increasingly paranoid, depressed, made a suicidal statements, behaviors were deemed dangerous and he was referred for inpatient psychiatric stabilization. PAST MEDICAL HISTORY: Positive for hyperlipidemia, hypertension, vitamin D deficiency. PAST PSYCHIATRIC HISTORY: Significant for dementia of Alzheimer, vascular type. ALLERGIES: He has no known drug allergies. MEDICATIONS: He is currently on following medications: Aricept 10 mg at bedtime, digoxin 125 mcg daily. He is on Tylenol 650 mg every 6 hours, clonazepam 0.5 mg p.o. b.i.d., clonazepam 0.5 mg q. 12 hourly, duloxetine (Cymbalta) 30 mg p.o. daily, duloxetine 60 mg daily, mirtazapine 15 mg at bedtime, aripiprazole (Abilify) 5 mg daily, haloperidol decanoate 1 mg intramuscularly daily as needed. He is also on olanzapine 5 mg p.o. daily, olanzapine 5 mg every 2 hours as needed, buspirone 10 mg 3 times a day, Namenda 10 mg twice a day, magnesium hydroxide (milk of magnesia) 30 mL p.o. daily p.r.n. for constipation, lactobacillus rhamnosus (Culturelle) 1 capsule twice a day, cyanocobalamin, vitamin B12 1000 mcg p.o. daily and cholecalciferol 50,000 units p.o. every . REVIEW OF SYSTEMS: The patient does not really give much useful information. PHYSICAL EXAMINATION: GENERAL: When I examined him, he looked pale, no jaundice, cyanosis or thyromegaly. No jugular venous distension. No lower limb edema. VITAL SIGNS: His heart rate was 87, blood pressure was 114/81, temperature was 98.1, respiratory rate was 20 and oxygen saturation was 97% on room air. HEAD, EYES, EARS, NOSE AND THROAT: Showed normocephalic, atraumatic. NECK: Supple. HEART: Showed normal first and second sounds. No gallop, rub or murmur. CHEST: Clear to auscultation. No crepitation or rhonchi. ABDOMEN: Distended, soft, nontender. No guarding or rigidity. No organomegaly. Hernial orifice intact. Bowel sounds are normal. NEUROLOGIC: He was awake, alert, but demented. All his cranial nerves are intact. EXTREMITIES: He moves extremities without difficulty, ambulates without assistance or assistive devices. LABORATORY DATA: Showed serum sodium of 145, potassium 3.2, chloride 103, bicarbonate 37, anion gap of 5, BUN 23, creatinine 1. Estimated GFR was 71 mL per minute. His glucose was 77, calcium was 8.6. Serum iron was 41, TIBC was 258 and percent saturation was 16%. His total bilirubin, AST, ALT, alkaline phosphatase are normal. His total protein 7.1. Albumin 3.1. Vitamin B12 was 668 pg/mL and 25-hydroxy vitamin D was 51.8 mcg. His free T4 was 5.4. Total T3 was 67. TSH was slightly high at 5.242. His serum triglycerides were 62. Total cholesterol 135, LDL was 80, VLDL was 12, and HDL was 43 and ratio was 3. His prothrombin time was 12.1. INR of 1.2. Urinalysis was unremarkable. Toxic screen was also unremarkable. His CT scan of the head showed no acute intracranial hemorrhage, scattered regions of low attenuation within the white matter, nonspecific in nature, but frequently secondary to chronic small vessel ischemic disease, there is prominence of ventricles and sulci, which is frequently secondary to age-related volume loss. His chest x-ray showed that he has probable bilateral pleural effusion and cardiomegaly. ASSESSMENT AND PLAN: In summary, this is an 82-year-old male patient, who was admitted on account of increasing worsening symptoms of depression, paranoia, agitation, making statement of why I wanted to . He was moved today in Memory Care Unit on 01/02/2018, 2-3 attempts to elope from the facility. He believes that he is being picked on, has been increasingly paranoid, depressed and made this statement. Therefore, he was admitted for inpatient psychiatric stabilization. The nursing staff stated he has been desaturating, although most of the measurements that I have seen are on room air and varies from 92-98%. Chest x-ray showed probably cardiomegaly and bilateral pleural effusion. He is already on furosemide 40 mg. I will obviously continue with that. We will have to arrange for an echocardiogram to evaluate his left ventricular systolic function and perhaps also arrange for Cardiology consult to maximize his medical treatment. VIR[place] BORGES MD DR: [email or web address] JOB#: [id number] / [id number]
--- NOTE | 2018-01-09 10:00 | PDOC2 ---
CONSULT Date of Admission DATE: 01/09/18 TIME: 09:39 Reason for Consult: CHF Problem List Problems Medical Problems: (1) CHF (congestive heart failure) Status: Acute History of Present Illness Mr Martínez is an 82-year-old male who normally resides at [facility]. He was initially admitted to [facility] secondary to suicidal ideation statements, increased depression, paranoia, agitation, 3 attempts to elope from the memory care facility. He was admitted previously in October for similar symptoms and at that time after evaluation in the Emergency Room, it was felt that he has UTI and congestive heart failure. He was admitted to [address] [place] [address] but his urine culture was unremarkable and although his CXR was suggestive of CHf, he was felt to be clinically stable and transferred to [facility]. During the October admission his BNP was 6080. On the 12th of this month [place] [address]. He was also noted to have intermittent desaturations to 88% on room air and with 2 liters oxygen per nasal cannula his Sao2 increases to 94% . He appears to be short of breath with minimal activity though he denies any dyspnea. Consult was called for heart failure. He denies any chest pain, shortness of breath, orthopnea or paroxysmal nocturnal dyspnea. He underwent a bedside swallow eval yesterday and was determined to be aspirating. He is scheduled for a video swallow eval today. He is a poor historian and denies any medical problems so history is obtained from the chart. Past Medical History Significant for hypertension, hyperlipidemia, vitamin D deficiency, CHF, depression, anxiety, Suicidal ideation, impulse control disorder, Alzheimer's disease and vascular dementia. Past Surgical History unknown Family History non contributory due to age Social History He is a resident at [facility]. He does not smoke, drink alcohol or use any recreational drugs. Current Medications Current Medications Furosemide (Lasix) 40 mg 1X ONCE IVP Last administered on 01/06/18at 04:52; Start 01/06/18 at 05:00; Stop 01/06/18 at 05:01; Status DC Furosemide (Lasix) 40 mg DAILY06 PO Last administered on 01/09/18at 06:33; Start 01/06/18 at 06:00 Clonazepam (KlonoPIN) 0.5 mg BID PO Last administered on 01/07/18at 08:43; Start 01/06/18 at 09:00; Stop 01/07/18 at 18:29; Status DC Clonazepam (KlonoPIN) 0.5 mg Q12HR PO ; Start 01/06/18 at 09:00; Status UNV Aripiprazole (Abilify) 5 mg DAILY PO Last administered on 01/08/18at 08:19; Start 01/06/18 at 09:00; Stop 01/08/18 at 10:45; Status DC Buspirone HCl (Buspar) 10 mg TIDPC PO Last administered on 01/09/18at 08:09; Start 01/06/18 at 08:30 Donepezil HCl (Aricept) 10 mg QHS PO Last administered on 01/08/18at 20:19; Start 01/06/18 at 21:00 Non-Formulary Medication (Duloxetine Hcl (Cymbalta)) 30 mg DAILY PO ; Start 07/14 at 09:00; Status UNV Duloxetine HCl (Cymbalta) 90 mg DAILY PO Last administered on 01/08/18at 08:19; Start 01/06/18 at 09:00; Stop 01/08/18 at 10:45; Status DC Haloperidol Decanoate (Haldol Decanoate Im Extended Release) 1 mg PRN DAILY PRN IM AGITATION; Start 01/08/18 at 07:30; Stop 01/08/18 at 16:35; Status DC Memantine (Namenda) 10 mg BID PO Last administered on 01/09/18at 08:05; Start at 09:00 Mirtazapine (Remeron) 15 mg QHS PO Last administered on 01/08/18at 20:16; Start 01/06/18 at 21:00 Olanzapine (ZyPREXA) 5 mg DAILY PO Last administered on 01/09/18at 08:06; Start 01/06/18 at 09:00 Olanzapine (ZyPREXA) 5 mg PRN Q24HRS PRN PO AGITATION; Start 01/06/18 at 09:00 Acetaminophen (Tylenol) 650 mg PRN Q6HRS PRN PO PAIN / TEMP; Start 01/06/18 at 06:30 Vitamin D (Vitamin D3) 50,000 unit QTH PO Last administered on 01/08/18at 18:14 ; Start 01/08/18 at 16:00 Cyanocobalamin (Vitamin B-12) 1,000 mcg DAILY PO Last administered on at 08:05; Start 01/06/18 at 09:00 Al Hydroxide/Mg Hydroxide (Mylanta Plus Xs) 15 ml PRN AFTMEALHC PRN PO DYSPEPSIA; Start 01/06/18 at 06:30 Magnesium Hydroxide (Milk Of Magnesia) 2,400 mg PRN DAILY PRN PO CONSTIPATION; Start 01/06/18 at 06:30 Multi-Ingredient Ointment (Analgesic [place]) 1 sagar PRN QID PRN TP MUSCLE PAIN; Start 01/06/18 at 06:30 Digoxin (Lanoxin) 125 mcg DAILY PO Last administered on 01/09/18at 08:06; Start 01/06/18 at 09:00 Lactobacillus Rhamnosus (Culturelle) 1 cap BID PO Last administered on at 08:05; Start 01/06/18 at 09:00 Nystatin (Nystop) 1 sagar BID TP Last administered on 01/09/18at 08:11; Start 07/14 at 09:00 Albuterol Sulfate (Ventolin) 2.5 mg 1X ONCE NEB Last administered on at 06:06; Start 01/07/18 at 06:00; Stop 01/07/18 at 06:01; Status DC Clonazepam (KlonoPIN) 0.5 mg HS PO Last administered on 01/08/18at 20:16; Start 01/07/18 at 21:00; Stop 01/10/18 at 23:00 Potassium Chloride (Klor-Con) 40 meq 1X ONCE PO Last administered on at 19:32; Start 01/07/18 at 20:00; Stop 01/07/18 at 20:01; Status DC Duloxetine HCl (Cymbalta) 60 mg DAILY PO Last administered on 01/09/18at 08:09; Start 01/09/18 at 09:00 Bupropion HCl (Wellbutrin Xl) 150 mg DAILY PO Last administered on 01/09/18at 08 :10; Start 01/09/18 at 09:00 Haloperidol Lactate (Haldol) 1 mg PRN DAILY PRN IM AGITATION; Start 01/08/18 at 16:45 Active Scripts Active Reported Zyprexa (Olanzapine) 5 Mg Tablet 5 Mg PO PRN Q24HRS PRN Zyprexa (Olanzapine) 5 Mg Tablet 5 Mg PO DAILY Klonopin (Clonazepam) 0.5 Mg Tablet 0.5 Mg PO Q12HR Klonopin (Clonazepam) 0.5 Mg Tablet 0.5 Mg PO BID Digoxin 125 Mcg Tablet 125 Mcg PO DAILY Haldol Decanoate 100 (Haloperidol Decanoate) 100 Mg/1 Ml Ampul 1 Mg IM PRN DAILY PRN Cymbalta (Duloxetine Hcl) 60 Mg Capsule.dr 60 Mg PO DAILY Cymbalta (Duloxetine Hcl) 30 Mg Capsule.dr 30 Mg PO DAILY Buspirone Hcl 10 Mg Tablet 10 Mg PO TID@0900,1300,1700 Culturelle (Lactobacillus Rhamnosus Gg) 1 Each Capsule 1 Cap PO BID Vitamin B-12 (Cyanocobalamin (Vitamin B-12)) 1,000 Mcg Tablet 1,000 Mcg PO DAILY LAST DOSE GIVEN: DATE: TIME: NEXT DOSE DUE: DATE: TIME: Namenda (Memantine Hcl) 10 Mg Tablet 10 Mg PO BID LAST DOSE GIVEN: DATE: TIME: NEXT DOSE DUE: DATE: TIME: Analgesic [place] (Methyl Salicylate/Menthol) 28 Gm Oint...g. 1 Sagar TP PRN QID PRN LAST DOSE GIVEN: DATE: TIME: NEXT DOSE DUE: DATE: TIME: Milk Of Magnesia (Magnesium Hydroxide) 400 Mg/5 Ml Oral.susp 2,400 Mg PO PRN DAILY PRN LAST DOSE GIVEN: DATE: TIME: NEXT DOSE DUE: DATE: TIME: Mag-Al Plus Xs Suspension (Mag Hydrox/Al Hydrox/Simeth) 30 Ml Oral.susp 15 Ml PO PRN AFTMEALHC PRN LAST DOSE GIVEN: DATE: TIME: NEXT DOSE DUE: DATE: TIME: Vitamin D3 (Cholecalciferol (Vitamin D3)) 50,000 Unit Capsule 50,000 Unit PO QTH LAST DOSE GIVEN: DATE: TIME: NEXT DOSE DUE: DATE: TIME: Abilify (Aripiprazole) 5 Mg Tablet 5 Mg PO DAILY LAST DOSE GIVEN: DATE: TIME: NEXT DOSE DUE: DATE: TIME: Tylenol (Acetaminophen) 325 Mg Tablet 650 Mg PO PRN Q6HRS PRN LAST DOSE GIVEN: DATE: TIME: NEXT DOSE DUE: DATE: TIME: Donepezil Hcl 10 Mg Tablet 10 Mg PO QHS LAST DOSE GIVEN: DATE: TIME: NEXT DOSE DUE: DATE: TIME: Mirtazapine 15 Mg Tablet 15 Mg PO QHS LAST DOSE GIVEN: DATE: TIME: NEXT DOSE DUE: DATE: TIME: Allergies: Coded Allergies: No Known Drug Allergies (Unverified , 05/03/17) Review of System as per HPI otherwise unobtainable due to patient mental status General: Cooperative, No acute distress, Other (lethargic but wakens easily) HEENT: Atraumatic, Mucous membr. moist/pink, Other (+JVD, +HJR) Lungs: Clear to auscultation, Normal air movement Heart: Regular rate, Normal S1, Normal S2 Abdomen: Normal bowel sounds, Soft, No tenderness Extremities: No cyanosis, Other (2+ lower extremity edema) Neuro: Normal speech, Strength at 5/5 X4 ext Psych/Mental Status: Mood NL VITALS Vital Signs Date Time Temp Pulse Resp B/P (MAP) Pulse Ox O2 Delivery O2 Flow Rate FiO2 01/09/18 08:06 62 102/76 01/09/18 06:36 96.6 14 86 01/08/18 23:40 Nasal Cannula 2.0 Labs Laboratory Tests Test 01/08/18 08:08 Sodium Level 146 mmol/L (136-145) Potassium Level 3.7 mmol/L (3.5-5.1) Chloride Level 103 mmol/L (98-107) Carbon Dioxide Level 36 mmol/L (21-32) Anion Gap 7 (6-14) Blood Urea Nitrogen 22 mg/dL (8-26) Creatinine 0.9 mg/dL (0.7-1.3) Estimated GFR (Cockcroft-Gault) 81.0 Glucose Level 79 mg/dL (70-99) Calcium Level 8.8 mg/dL (8.5-10.1) Images CXR - IMPRESSION: Probable bilateral pleural effusions and cardiomegaly. EKG - sinus rhythm with 1st degree AVB, LAFB, IVCD, non specific st/t abn. Assessment/Plan 1. mild acute on chronic heart failure - possible component of RHF. Increase lasix and add potassium supplement. Continue on Nasal cannula oxygen. Low sodium diet. Monitor daily weights. Await echo for LVEF and PAS and further recommendations after review. If no improvement with increased oral lasix could consider transfer to medical for IV lasix. 2. abnormal EKG - no acute ischemic changes. 3. HTN - well controlled 4. dementia, depression, SI - per Psych GRACE LEONE J SENIOR GEOLOGIST Jan 09, 2018 10:00
[2018-01-09 16:31] VITALS: BP 96/66
--- NOTE | 2018-01-09 17:54 | RAD ---
Video swallow 01/09/2018 Clinical History: Dysphagia. Coughing and choking while eating. Technique: A video swallow study was performed in conjunction with the department of speech pathology. The patient was given a series of swallowing trials using varying consistencies of barium under fluoroscopic control. The total fluoroscopic time for this study was 4.1 seconds. A single fluoroscopic captured lateral digital radiograph of the neck was obtained. Findings: The patient demonstrates deep penetration with puree and solid consistencies. The patient demonstrates aspiration with thin and honey thickened consistencies. Impression: Aspiration with thin and honey thickened liquids. Electronically signed by: Tobin Begrer MD (01/09/2018 5:50 PM) [facility]
--- NOTE | 2018-01-09 17:54 | CARD ---
MR#: [id number] Date of Study: 01/09/2018 Ordering Physician: VIRGINIA BORGES, Referring Physician: Annie TOMPKINS: ARGENIS Diamond APPROVED REPORT EXAM: Two-dimensional and M-mode echocardiogram with Doppler and color Doppler. Other Information Quality : GoodHR: 93bpm INDICATION LV Function:Systolic 2D DIMENSIONS RVDd4.5 (2.9-3.5cm)Left Atrium(2D)4.7 (1.6-4.0cm) IVSd1.1 (0.7-1.1cm)Aortic Root(2D)3.2 (2.0-3.7cm) LVDd6.0 (3.9-5.9cm)LVOT Diameter2.5 (1.8-2.4cm) PWd1.1 (0.7-1.1cm)LVDs5.4 (2.5-4.0cm) FS (%) 10.1 %SV38.7 ml LVEF(%)21.7 (>50%) Aortic Valve AoV Peak Ean.263.3cm/sAoV VTI45.3cm AO Peak GR.27.7mmHgLVOT Peak Ean.51.9cm/s LVOT VTI 9.17cmAO Mean GR.17mmHg SILVESTRE (VMAX)0.57zy1SAQ (VTI)0.96cm2 AI P 1/2 [id number] Mitral Valve MV E Yjazvxxk132.1cm/sMV E Peak Gr.57mmHg MV DECEL [id number] A Xhwtndzh36.7cm/s E/A Ratio4.1 Pulmonary Valve PV Peak Jukkbmoc19.6cm/sPV Peak Grad.3mmHg Tricuspid Valve TR P. Hgouzmju818mh/sRAP [id number] TR Peak Gr.62ueOgJMRB86kjQj Pulmonary Vein S1 Iqyqxjyq28.6cm/sD2 Nomegvic00.7cm/s LEFT VENTRICLE The Left Ventricle is mildly dilated. There is normal left ventricular wall thickness. The ejection f raction is severely impaired. EF 15% There is severe global hypokinesis of the left ventricle. Transm itral Doppler flow pattern is Grade IV-fixed restrictive diastolic dysfunction. RIGHT VENTRICLE The right ventricle is mildly to moderately dilated. There is normal right ventricular wall thickness . The right ventricular systolic function is mildly decreased. ATRIA The left atrium is mildly dilated. The right atrium is mildly dilated. The interatrial septum is inta ct with no evidence for an atrial septal defect or patent foramen ovale as noted on 2-D or Doppler im aging. AORTIC VALVE The aortic valve is moderately calcified. Doppler and Color Flow revealed mild aortic regurgitation. Mild with a maximum pressure gradient of 27.74 mmHg and mean pressure gradient of 16.83 mmHg. Ther e is no aortic valvular vegetation. MITRAL VALVE The mitral valve is mildly thickened. Mitral annular calcification is mild. The reduced mitral leafle t separation suggests decreased flow through the mitral valve and poor cardiac output. There is no ev idence of mitral valve prolapse. There is no mitral valve stenosis. Doppler and Color-flow revealed m ild mitral regurgitation. TRICUSPID VALVE The tricuspid valve leaflets are thickened or calcified, but open well. Doppler and Color Flow reveal ed mild tricuspid regurgitation. There is mild-moderate pulmonary hypertension. The PA pressure was e stimated at 42 mmHg. There is no tricuspid valve prolapse or vegetation. There is no tricuspid valve stenosis. PULMONIC VALVE The pulmonic valve is not well visualized. Doppler and Color Flow revealed mild pulmonic valvular reg urgitation. There is no pulmonic valvular stenosis. GREAT VESSELS The aortic root is normal size. The aortic root displays mild sclerocalcific changes of the aortic an nulus and root. The IVC is dilated. The IVC collapses <50% with inspiration. PERICARDIAL EFFUSION There is no pleural effusion. There is no evidence of significant pericardial effusion. Critical Notification Critical Value: No <Conclusion> The ejection fraction is severely impaired. EF 15% There is severe global hypokinesis of the left ventricle. Transmitral Doppler flow pattern is Grade IV-fixed restrictive diastolic dysfunction. Mild with a maximum pressure gradient of 27.74 mmHg and mean pressure gradient of 16.83 mmHg. Doppler and Color-flow revealed mild mitral regurgitation. Doppler and Color Flow revealed mild aortic regurgitation. Doppler and Color Flow revealed mild tricuspid regurgitation. There is mild-moderate pulmonary hypert ension. The PA pressure was estimated at 42 mmHg. Signed by : Nj Bob, Electronically Approved : 01/09/2018 17:53:47
[2018-01-09] MEDS: MIRTAZAPINE 15 MG TABLET PO SCH (21:00)
[2018-01-09] MEDS: DONEPEZIL HCL 10 MG TABLET PO SCH (21:00)
--- NOTE | 2018-01-09 21:42 | RAD ---
CT HEAD WO CONTRAST History: Fall tonight, laceration to the back of head Comparison: January 06, 2018. Technique: Noncontrast CT imaging was performed of the head. Exposure: One or more of the following individualized dose reduction techniques were utilized for this examination: 1. Automated exposure control 2. Adjustment of the mA and/or kV according to patient size 3. Use of iterative reconstruction technique. Findings: No acute extra-axial or parenchymal hemorrhage is identified. There is no significant intra-axial mass effect, midline shift, or extra-axial fluid collection. The christie-white differentiation of the major vascular territories is preserved. Ventricular size is stable, proportionate to the sulcal spaces. There is again generalized supratentorial atrophy. There is again some scattered overall mild ill-defined low-density of the supratentorial parenchyma bilaterally. The mastoid air cells and the visualized paranasal sinuses are aerated. No acute calvarial abnormality is identified. There is atherosclerotic calcification carotid siphons. Impression: 1. No acute intracranial abnormality is identified. Some scattered ill-defined low-density of the supratentorial parenchyma is probably due to chronic microvascular ischemic disease. There is again generalized supratentorial atrophy. Electronically signed by: Edison Fabian MD (01/09/2018 9:38 PM) [facility]
--- NOTE | 2018-01-09 22:25 | PDOC ---
Exam Note: Jayy Note: Please also refer to the separate dictated note~for this date of service dictated separately.~Patient seen individually. Discussed the patient with Nursing staff reviewed the chart.~Reviewed interim history and current functioning. Reviewed vital signs,~Labs/ Radiology~and current medications noted below. Continue current treatment with the changes noted in the dictated addendum note Assessment: Vital Signs: Vital Signs Date Time Temp Pulse Resp B/P (MAP) Pulse Ox O2 Delivery O2 Flow Rate FiO2 01/09/18 16:31 97.3 52 20 96/66 (76) 97 Room Air 01/08/18 23:40 2.0 I&O Intake and Output 01/09/18 07:00 Intake Total 720 ml Balance 720 ml Intake Oral 720 ml # Bowel Movements 1 Current Medications: Meds: Current Medications Furosemide (Lasix) 40 mg 1X ONCE IVP Last administered on 01/06/18at 04:52; Start 01/06/18 at 05:00; Stop 01/06/18 at 05:01; Status DC Furosemide (Lasix) 40 mg DAILY06 PO Last administered on 01/09/18at 06:33; Start 01/06/18 at 06:00; Stop 01/09/18 at 10:29; Status DC Clonazepam (KlonoPIN) 0.5 mg BID PO Last administered on 01/07/18at 08:43; Start 01/06/18 at 09:00; Stop 01/07/18 at 18:29; Status DC Clonazepam (KlonoPIN) 0.5 mg Q12HR PO ; Start 01/06/18 at 09:00; Status UNV Aripiprazole (Abilify) 5 mg DAILY PO Last administered on 01/08/18at 08:19; Start 01/06/18 at 09:00; Stop 01/08/18 at 10:45; Status DC Buspirone HCl (Buspar) 10 mg TIDPC PO Last administered on 01/09/18at 17:30; Start 01/06/18 at 08:30 Donepezil HCl (Aricept) 10 mg QHS PO Last administered on 01/08/18at 20:19; Start 01/06/18 at 21:00 Non-Formulary Medication (Duloxetine Hcl (Cymbalta)) 30 mg DAILY PO ; Start 07/14 at 09:00; Status UNV Duloxetine HCl (Cymbalta) 90 mg DAILY PO Last administered on 01/08/18at 08:19; Start 01/06/18 at 09:00; Stop 01/08/18 at 10:45; Status DC Haloperidol Decanoate (Haldol Decanoate Im Extended Release) 1 mg PRN DAILY PRN IM AGITATION; Start 01/08/18 at 07:30; Stop 01/08/18 at 16:35; Status DC Memantine (Namenda) 10 mg BID PO Last administered on 01/09/18at 08:05; Start at 09:00 Mirtazapine (Remeron) 15 mg QHS PO Last administered on 01/08/18at 20:16; Start 01/06/18 at 21:00 Olanzapine (ZyPREXA) 5 mg DAILY PO Last administered on 01/09/18at 08:06; Start 01/06/18 at 09:00; Stop 01/09/18 at 19:21; Status DC Olanzapine (ZyPREXA) 5 mg PRN Q24HRS PRN PO AGITATION; Start 01/06/18 at 09:00 Acetaminophen (Tylenol) 650 mg PRN Q6HRS PRN PO PAIN / TEMP Last administered on 01/09/18at 21:51; Start 01/06/18 at 06:30 Vitamin D (Vitamin D3) 50,000 unit QTH PO Last administered on 01/08/18at 18:14 ; Start 01/08/18 at 16:00 Cyanocobalamin (Vitamin B-12) 1,000 mcg DAILY PO Last administered on at 08:05; Start 01/06/18 at 09:00 Al Hydroxide/Mg Hydroxide (Mylanta Plus Xs) 15 ml PRN AFTMEALHC PRN PO DYSPEPSIA; Start 01/06/18 at 06:30 Magnesium Hydroxide (Milk Of Magnesia) 2,400 mg PRN DAILY PRN PO CONSTIPATION; Start 01/06/18 at 06:30 Multi-Ingredient Ointment (Analgesic [place]) 1 sagar PRN QID PRN TP MUSCLE PAIN; Start 01/06/18 at 06:30 Digoxin (Lanoxin) 125 mcg DAILY PO Last administered on 01/09/18at 08:06; Start 01/06/18 at 09:00 Lactobacillus Rhamnosus (Culturelle) 1 cap BID PO Last administered on at 21:50; Start 01/06/18 at 09:00 Nystatin (Nystop) 1 sagar BID TP Last administered on 01/09/18at 21:50; Start 07/14 at 09:00 Albuterol Sulfate (Ventolin) 2.5 mg 1X ONCE NEB Last administered on at 06:06; Start 01/07/18 at 06:00; Stop 01/07/18 at 06:01; Status DC Clonazepam (KlonoPIN) 0.5 mg HS PO Last administered on 01/08/18at 20:16; Start 01/07/18 at 21:00; Stop 01/09/18 at 19:21; Status DC Potassium Chloride (Klor-Con) 40 meq 1X ONCE PO Last administered on at 19:32; Start 01/07/18 at 20:00; Stop 01/07/18 at 20:01; Status DC Duloxetine HCl (Cymbalta) 60 mg DAILY PO Last administered on 01/09/18at 08:09; Start 01/09/18 at 09:00 Bupropion HCl (Wellbutrin Xl) 150 mg DAILY PO Last administered on 01/09/18at 08 :10; Start 01/09/18 at 09:00 Haloperidol Lactate (Haldol) 1 mg PRN DAILY PRN IM AGITATION; Start 01/08/18 at 16:45 Furosemide (Lasix) 40 mg BID@0600,1400 PO ; Start 01/10/18 at 06:00 Potassium Chloride (Klor-Con) 20 meq DAILYWBKFT PO ; Start 01/10/18 at 08:00 Active Scripts Active Reported Zyprexa (Olanzapine) 5 Mg Tablet 5 Mg PO PRN Q24HRS PRN Zyprexa (Olanzapine) 5 Mg Tablet 5 Mg PO DAILY Klonopin (Clonazepam) 0.5 Mg Tablet 0.5 Mg PO Q12HR Klonopin (Clonazepam) 0.5 Mg Tablet 0.5 Mg PO BID Digoxin 125 Mcg Tablet 125 Mcg PO DAILY Haldol Decanoate 100 (Haloperidol Decanoate) 100 Mg/1 Ml Ampul 1 Mg IM PRN DAILY PRN Cymbalta (Duloxetine Hcl) 60 Mg Capsule.dr 60 Mg PO DAILY Cymbalta (Duloxetine Hcl) 30 Mg Capsule.dr 30 Mg PO DAILY Buspirone Hcl 10 Mg Tablet 10 Mg PO TID@0900,1300,1700 Culturelle (Lactobacillus Rhamnosus Gg) 1 Each Capsule 1 Cap PO BID Vitamin B-12 (Cyanocobalamin (Vitamin B-12)) 1,000 Mcg Tablet 1,000 Mcg PO DAILY LAST DOSE GIVEN: DATE: TIME: NEXT DOSE DUE: DATE: TIME: Namenda (Memantine Hcl) 10 Mg Tablet 10 Mg PO BID LAST DOSE GIVEN: DATE: TIME: NEXT DOSE DUE: DATE: TIME: Analgesic [place] (Methyl Salicylate/Menthol) 28 Gm Oint...g. 1 Sagar TP PRN QID PRN LAST DOSE GIVEN: DATE: TIME: NEXT DOSE DUE: DATE: TIME: Milk Of Magnesia (Magnesium Hydroxide) 400 Mg/5 Ml Oral.susp 2,400 Mg PO PRN DAILY PRN LAST DOSE GIVEN: DATE: TIME: NEXT DOSE DUE: DATE: TIME: Mag-Al Plus Xs Suspension (Mag Hydrox/Al Hydrox/Simeth) 30 Ml Oral.susp 15 Ml PO PRN AFTMEALHC PRN LAST DOSE GIVEN: DATE: TIME: NEXT DOSE DUE: DATE: TIME: Vitamin D3 (Cholecalciferol (Vitamin D3)) 50,000 Unit Capsule 50,000 Unit PO QTH LAST DOSE GIVEN: DATE: TIME: NEXT DOSE DUE: DATE: TIME: Abilify (Aripiprazole) 5 Mg Tablet 5 Mg PO DAILY LAST DOSE GIVEN: DATE: TIME: NEXT DOSE DUE: DATE: TIME: Tylenol (Acetaminophen) 325 Mg Tablet 650 Mg PO PRN Q6HRS PRN LAST DOSE GIVEN: DATE: TIME: NEXT DOSE DUE: DATE: TIME: Donepezil Hcl 10 Mg Tablet 10 Mg PO QHS LAST DOSE GIVEN: DATE: TIME: NEXT DOSE DUE: DATE: TIME: Mirtazapine 15 Mg Tablet 15 Mg PO QHS LAST DOSE GIVEN: DATE: TIME: NEXT DOSE DUE: DATE: TIME: I have reviewed the current psychotropics carefully including drug interactions. Risk benefit ratio favors no change other than as noted in my dictated progress note. Diagnosis: Problems: (1) Altered mental status (2) Anxiety disorder (3) Impulse control disorder (4) Dementia, vascular, with delusions (5) Dementia in Alzheimer's disease with depression (6) Dementia in Alzheimer's disease with delusions (7) Dementia, vascular, with depression MARICARMEN GONCALVES MD Jan 09, 2018 22:25
--- NOTE | 2018-01-10 01:15 | PN ---
DATE: 01/08/2018 PSYCHIATRIC PROGRESS NOTE This is a late entry for 01/08/2018, covers elements not covered in my initial note. SUBJECTIVE: I met with the patient in the evening, has staffed at a treatment team meeting with the entire team in the morning. The patient is sleeping about 7 hours, compliant with medications. REVIEW OF SYSTEMS: Positive for some tiredness. No CV, , pulmonary, eye system symptoms on review. MENTAL STATUS EXAM: Oriented to himself, situation. Speech moderate latency, often responses monosyllabic. Abstraction fair, computation impaired, language function intact. Mood and affect somewhat depressed, withdrawn. LABORATORY DATA: Reviewed. IMPRESSION: Major depressive disorder, recurrent; major neurocognitive disorder, Alzheimer, vascular with delusion, depression. PLAN: Reduce the Cymbalta from 90 mg a day to 60 mg a day and augment with Wellbutrin-XL 150 mg in the morning in place of the Abilify 5 mg a day. Continue Aricept and the Klonopin is being tapered. Maintain Namenda 10 mg b.i.d., Zyprexa at current dosage, but we may reduce the b.i.d. dosage. MARICARMEN GONCALVES MD DR: DANGELO/bernardo JOB#: [id number] / [id number]
--- NOTE | 2018-01-10 04:30 | PN ---
DATE: 01/07/2018 PSYCHIATRIC PROGRESS NOTE This is a late entry of 01/07/2018, covers elements not covered in my initial note. SUBJECTIVE: I met with the patient in the evening. He is still withdrawn, isolative, has a wet cough. We will do a speech eval. Somewhat sedated. We will taper and stop the Klonopin. He remains on 2 liter oxygen, sats of 94%. Compliant with medications. O2 sats were 74% on room air. REVIEW OF SYSTEMS: Positive for the cough. No CV, , GI, eye system symptoms on review, does complain of tiredness. MENTAL STATUS EXAM: Oriented to himself and situation. Speech has some latency, coherent, often responses monosyllabic. Abstraction fair, computation impaired, language function intact, attention span short. Mood and affect somewhat withdrawn, depressed. LABORATORY DATA: Reviewed. IMPRESSION: Major depressive disorder, recurrent; major neurocognitive disorder, early Alzheimer, vascular with depression, delusions. Rest unchanged. PLAN: Continue psychotropics from initial note. Taper and stop the Klonopin. Rest unchanged. MAN Charlie GONCALVES MD DR: DANGELO/bernardo JOB#: [id number] / [id number]
[2018-01-10 06:29] VITALS: BP 100/61
[2018-01-10] MEDS: FUROSEMIDE 40 MG TABLET PO SCH ×2 (06:41→14:09)
[2018-01-10] MEDS: CYANOCOBALAMIN (VITAMIN B-12) 1,000 MCG TABLET. PO SCH (07:54)
[2018-01-10] MEDS: buPROPion XL 150 MG TAB.ER.24H PO SCH (07:54)
[2018-01-10] MEDS: LACTOBACILLUS RHAMNOSUS GG 1 CAPSULE. PO SCH ×2 (07:54→20:13)
[2018-01-10] MEDS: DIGOXIN 125 MCG TABLET PO SCH (07:54)
[2018-01-10] MEDS: busPIRone 10 MG TABLET. PO SCH ×3 (07:55→16:53)
[2018-01-10] MEDS: MEMANTINE 10 MG TABLET. PO SCH ×2 (07:55→20:13)
[2018-01-10] MEDS: DULoxetine HCL 30 MG CAPSULE.DR PO SCH (07:55)
[2018-01-10] MEDS: POTASSIUM CHLORIDE 20 MEQ TABLET.ER. PO SCH (07:57)
[2018-01-10] MEDS: NYSTATIN TOPICAL POWDER 15GM BOTTLE. TP SCH ×2 (07:57→20:13)
[2018-01-10 16:10] VITALS: BP 112/82
[2018-01-10] MEDS: DONEPEZIL HCL 10 MG TABLET PO SCH (20:13)
[2018-01-10] MEDS: MIRTAZAPINE 15 MG TABLET PO SCH (20:13)
--- NOTE | 2018-01-10 22:27 | PDOC ---
Exam Note: Jayy Note: Please also refer to the separate dictated note~for this date of service dictated separately.~Patient seen individually. Discussed the patient with Nursing staff reviewed the chart.~Reviewed interim history and current functioning. Reviewed vital signs,~Labs/ Radiology~and current medications noted below. Continue current treatment with the changes noted in the dictated addendum note Assessment: Vital Signs: Vital Signs Date Time Temp Pulse Resp B/P (MAP) Pulse Ox O2 Delivery O2 Flow Rate FiO2 01/10/18 16:10 97.8 99 24 112/82 (92) 94 Room Air 01/10/18 06:29 2.0 I&O Intake and Output 01/10/18 07:01 Intake Total 720 ml Balance 720 ml Intake Oral 720 ml Current Medications: Meds: Current Medications Furosemide (Lasix) 40 mg 1X ONCE IVP Last administered on 01/06/18at 04:52; Start 01/06/18 at 05:00; Stop 01/06/18 at 05:01; Status DC Furosemide (Lasix) 40 mg DAILY06 PO Last administered on 01/09/18at 06:33; Start 01/06/18 at 06:00; Stop 01/09/18 at 10:29; Status DC Clonazepam (KlonoPIN) 0.5 mg BID PO Last administered on 01/07/18at 08:43; Start 01/06/18 at 09:00; Stop 01/07/18 at 18:29; Status DC Clonazepam (KlonoPIN) 0.5 mg Q12HR PO ; Start 01/06/18 at 09:00; Status UNV Aripiprazole (Abilify) 5 mg DAILY PO Last administered on 01/08/18at 08:19; Start 01/06/18 at 09:00; Stop 01/08/18 at 10:45; Status DC Buspirone HCl (Buspar) 10 mg TIDPC PO Last administered on 01/10/18at 16:53; Start 01/06/18 at 08:30 Donepezil HCl (Aricept) 10 mg QHS PO Last administered on 01/10/18at 20:13; Start 01/06/18 at 21:00 Non-Formulary Medication (Duloxetine Hcl (Cymbalta)) 30 mg DAILY PO ; Start 07/14 at 09:00; Status UNV Duloxetine HCl (Cymbalta) 90 mg DAILY PO Last administered on 01/08/18at 08:19; Start 01/06/18 at 09:00; Stop 01/08/18 at 10:45; Status DC Haloperidol Decanoate (Haldol Decanoate Im Extended Release) 1 mg PRN DAILY PRN IM AGITATION; Start 01/08/18 at 07:30; Stop 01/08/18 at 16:35; Status DC Memantine (Namenda) 10 mg BID PO Last administered on 01/10/18at 20:13; Start at 09:00 Mirtazapine (Remeron) 15 mg QHS PO Last administered on 01/10/18at 20:13; Start 01/06/18 at 21:00 Olanzapine (ZyPREXA) 5 mg DAILY PO Last administered on 01/09/18at 08:06; Start 01/06/18 at 09:00; Stop 01/09/18 at 19:21; Status DC Olanzapine (ZyPREXA) 5 mg PRN Q24HRS PRN PO AGITATION Last administered on 01/10at 16:54; Start 01/06/18 at 09:00 Acetaminophen (Tylenol) 650 mg PRN Q6HRS PRN PO PAIN / TEMP Last administered on 01/09/18at 21:51; Start 01/06/18 at 06:30 Vitamin D (Vitamin D3) 50,000 unit QTH PO Last administered on 01/08/18at 18:14 ; Start 01/08/18 at 16:00 Cyanocobalamin (Vitamin B-12) 1,000 mcg DAILY PO Last administered on at 07:54; Start 01/06/18 at 09:00 Al Hydroxide/Mg Hydroxide (Mylanta Plus Xs) 15 ml PRN AFTMEALHC PRN PO DYSPEPSIA; Start 01/06/18 at 06:30 Magnesium Hydroxide (Milk Of Magnesia) 2,400 mg PRN DAILY PRN PO CONSTIPATION; Start 01/06/18 at 06:30 Multi-Ingredient Ointment (Analgesic [place]) 1 sagar PRN QID PRN TP MUSCLE PAIN; Start 01/06/18 at 06:30 Digoxin (Lanoxin) 125 mcg DAILY PO Last administered on 01/10/18at 07:54; Start 01/06/18 at 09:00 Lactobacillus Rhamnosus (Culturelle) 1 cap BID PO Last administered on at 20:13; Start 01/06/18 at 09:00 Nystatin (Nystop) 1 sagar BID TP Last administered on 01/10/18at 20:13; Start 07/14 at 09:00 Albuterol Sulfate (Ventolin) 2.5 mg 1X ONCE NEB Last administered on at 06:06; Start 01/07/18 at 06:00; Stop 01/07/18 at 06:01; Status DC Clonazepam (KlonoPIN) 0.5 mg HS PO Last administered on 01/08/18at 20:16; Start 01/07/18 at 21:00; Stop 01/09/18 at 19:21; Status DC Potassium Chloride (Klor-Con) 40 meq 1X ONCE PO Last administered on at 19:32; Start 01/07/18 at 20:00; Stop 01/07/18 at 20:01; Status DC Duloxetine HCl (Cymbalta) 60 mg DAILY PO Last administered on 01/10/18at 07:55; Start 01/09/18 at 09:00 Bupropion HCl (Wellbutrin Xl) 150 mg DAILY PO Last administered on 01/10/18at 07 :54; Start 01/09/18 at 09:00 Haloperidol Lactate (Haldol) 1 mg PRN DAILY PRN IM AGITATION; Start 01/08/18 at 16:45 Furosemide (Lasix) 40 mg BID@0600,1400 PO Last administered on 01/10/18at 14:09 ; Start 01/10/18 at 06:00 Potassium Chloride (Klor-Con) 20 meq DAILYWBKFT PO Last administered on at 07:57; Start 01/10/18 at 08:00 Active Scripts Active Reported Zyprexa (Olanzapine) 5 Mg Tablet 5 Mg PO PRN Q24HRS PRN Zyprexa (Olanzapine) 5 Mg Tablet 5 Mg PO DAILY Klonopin (Clonazepam) 0.5 Mg Tablet 0.5 Mg PO Q12HR Klonopin (Clonazepam) 0.5 Mg Tablet 0.5 Mg PO BID Digoxin 125 Mcg Tablet 125 Mcg PO DAILY Haldol Decanoate 100 (Haloperidol Decanoate) 100 Mg/1 Ml Ampul 1 Mg IM PRN DAILY PRN Cymbalta (Duloxetine Hcl) 60 Mg Capsule.dr 60 Mg PO DAILY Cymbalta (Duloxetine Hcl) 30 Mg Capsule.dr 30 Mg PO DAILY Buspirone Hcl 10 Mg Tablet 10 Mg PO TID@0900,1300,1700 Culturelle (Lactobacillus Rhamnosus Gg) 1 Each Capsule 1 Cap PO BID Vitamin B-12 (Cyanocobalamin (Vitamin B-12)) 1,000 Mcg Tablet 1,000 Mcg PO DAILY LAST DOSE GIVEN: DATE: TIME: NEXT DOSE DUE: DATE: TIME: Namenda (Memantine Hcl) 10 Mg Tablet 10 Mg PO BID LAST DOSE GIVEN: DATE: TIME: NEXT DOSE DUE: DATE: TIME: Analgesic [place] (Methyl Salicylate/Menthol) 28 Gm Oint...g. 1 [place]agar TP PRN QID PRN LAST DOSE GIVEN: DATE: TIME: NEXT DOSE DUE: DATE: TIME: Milk Of Magnesia (Magnesium Hydroxide) 400 Mg/5 Ml Oral.susp 2,400 Mg PO PRN DAILY PRN LAST DOSE GIVEN: DATE: TIME: NEXT DOSE DUE: DATE: TIME: Mag-Al Plus Xs Suspension (Mag Hydrox/Al Hydrox/Simeth) 30 Ml Oral.susp 15 Ml PO PRN AFTMEALHC PRN LAST DOSE GIVEN: DATE: TIME: NEXT DOSE DUE: DATE: TIME: Vitamin D3 (Cholecalciferol (Vitamin D3)) 50,000 Unit Capsule 50,000 Unit PO QTH LAST DOSE GIVEN: DATE: TIME: NEXT DOSE DUE: DATE: TIME: Abilify (Aripiprazole) 5 Mg Tablet 5 Mg PO DAILY LAST DOSE GIVEN: DATE: TIME: NEXT DOSE DUE: DATE: TIME: Tylenol (Acetaminophen) 325 Mg Tablet 650 Mg PO PRN Q6HRS PRN LAST DOSE GIVEN: DATE: TIME: NEXT DOSE DUE: DATE: TIME: Donepezil Hcl 10 Mg Tablet 10 Mg PO QHS LAST DOSE GIVEN: DATE: TIME: NEXT DOSE DUE: DATE: TIME: Mirtazapine 15 Mg Tablet 15 Mg PO QHS LAST DOSE GIVEN: DATE: TIME: NEXT DOSE DUE: DATE: TIME: I have reviewed the current psychotropics carefully including drug interactions. Risk benefit ratio favors no change other than as noted in my dictated progress note. Diagnosis: Problems: (1) Altered mental status (2) Anxiety disorder (3) Impulse control disorder (4) Dementia, vascular, with delusions (5) Dementia in Alzheimer's disease with depression (6) Dementia in Alzheimer's disease with delusions (7) Dementia, vascular, with depression MARICARMEN GONCALVES MD Jan 10, 2018 22:27
[2018-01-11] MEDS: FUROSEMIDE 40 MG TABLET PO SCH ×2 (05:57→14:06)
[2018-01-11 06:07] VITALS: BP 109/70
[2018-01-11] MEDS: MEMANTINE 10 MG TABLET. PO SCH ×2 (08:02→19:39)
[2018-01-11] MEDS: busPIRone 10 MG TABLET. PO SCH ×3 (08:02→17:32)
[2018-01-11] MEDS: LACTOBACILLUS RHAMNOSUS GG 1 CAPSULE. PO SCH ×2 (08:02→19:38)
[2018-01-11] MEDS: DULoxetine HCL 30 MG CAPSULE.DR PO SCH (08:02)
[2018-01-11] MEDS: CYANOCOBALAMIN (VITAMIN B-12) 1,000 MCG TABLET. PO SCH (08:02)
[2018-01-11] MEDS: POTASSIUM CHLORIDE 20 MEQ TABLET.ER. PO SCH (08:02)
[2018-01-11] MEDS: buPROPion XL 150 MG TAB.ER.24H PO SCH (08:02)
[2018-01-11] MEDS: DIGOXIN 125 MCG TABLET PO SCH (08:02)
[2018-01-11] MEDS: NYSTATIN TOPICAL POWDER 15GM BOTTLE. TP SCH ×2 (08:03→21:00)
[2018-01-11 15:46] VITALS: BP 109/75
[2018-01-11] MEDS: DONEPEZIL HCL 10 MG TABLET PO SCH (19:38)
[2018-01-11] MEDS: MIRTAZAPINE 15 MG TABLET PO SCH (19:38)
--- NOTE | 2018-01-11 20:59 | PDOC ---
Exam Note: Jayy Note: Please also refer to the separate dictated note~for this date of service dictated separately.~Patient seen individually. Discussed the patient with Nursing staff reviewed the chart.~Reviewed interim history and current functioning. Reviewed vital signs,~Labs/ Radiology~and current medications noted below. Continue current treatment with the changes noted in the dictated addendum note Assessment: Vital Signs: Vital Signs Date Time Temp Pulse Resp B/P (MAP) Pulse Ox O2 Delivery O2 Flow Rate FiO2 01/11/18 15:46 97.2 94 20 109/75 (86) 96 01/10/18 22:58 Nasal Cannula 2.0 I&O Intake and Output 01/11/18 07:01 Intake Total 365 ml Balance 365 ml Intake Oral 365 ml # Bowel Movements 2 Current Medications: Meds: Current Medications Furosemide (Lasix) 40 mg 1X ONCE IVP Last administered on 01/06/18at 04:52; Start 01/06/18 at 05:00; Stop 01/06/18 at 05:01; Status DC Furosemide (Lasix) 40 mg DAILY06 PO Last administered on 01/09/18at 06:33; Start 01/06/18 at 06:00; Stop 01/09/18 at 10:29; Status DC Clonazepam (KlonoPIN) 0.5 mg BID PO Last administered on 01/07/18at 08:43; Start 01/06/18 at 09:00; Stop 01/07/18 at 18:29; Status DC Clonazepam (KlonoPIN) 0.5 mg Q12HR PO ; Start 01/06/18 at 09:00; Status UNV Aripiprazole (Abilify) 5 mg DAILY PO Last administered on 01/08/18at 08:19; Start 01/06/18 at 09:00; Stop 01/08/18 at 10:45; Status DC Buspirone HCl (Buspar) 10 mg TIDPC PO Last administered on 01/11/18at 17:32; Start 01/06/18 at 08:30 Donepezil HCl (Aricept) 10 mg QHS PO Last administered on 01/11/18at 19:38; Start 01/06/18 at 21:00 Non-Formulary Medication (Duloxetine Hcl (Cymbalta)) 30 mg DAILY PO ; Start 07/14 at 09:00; Status UNV Duloxetine HCl (Cymbalta) 90 mg DAILY PO Last administered on 01/08/18at 08:19; Start 01/06/18 at 09:00; Stop 01/08/18 at 10:45; Status DC Haloperidol Decanoate (Haldol Decanoate Im Extended Release) 1 mg PRN DAILY PRN IM AGITATION; Start 01/08/18 at 07:30; Stop 01/08/18 at 16:35; Status DC Memantine (Namenda) 10 mg BID PO Last administered on 01/11/18at 19:39; Start at 09:00 Mirtazapine (Remeron) 15 mg QHS PO Last administered on 01/11/18at 19:38; Start 01/06/18 at 21:00 Olanzapine (ZyPREXA) 5 mg DAILY PO Last administered on 01/09/18at 08:06; Start 01/06/18 at 09:00; Stop 01/09/18 at 19:21; Status DC Olanzapine (ZyPREXA) 5 mg PRN Q24HRS PRN PO AGITATION Last administered on 01/10at 16:54; Start 01/06/18 at 09:00 Acetaminophen (Tylenol) 650 mg PRN Q6HRS PRN PO PAIN / TEMP Last administered on 01/09/18at 21:51; Start 01/06/18 at 06:30 Vitamin D (Vitamin D3) 50,000 unit QTH PO Last administered on 01/08/18at 18:14 ; Start 01/08/18 at 16:00 Cyanocobalamin (Vitamin B-12) 1,000 mcg DAILY PO Last administered on at 08:02; Start 01/06/18 at 09:00 Al Hydroxide/Mg Hydroxide (Mylanta Plus Xs) 15 ml PRN AFTMEALHC PRN PO DYSPEPSIA; Start 01/06/18 at 06:30 Magnesium Hydroxide (Milk Of Magnesia) 2,400 mg PRN DAILY PRN PO CONSTIPATION; Start 01/06/18 at 06:30 Multi-Ingredient Ointment (Analgesic [place]) 1 sagar PRN QID PRN TP MUSCLE PAIN; Start 01/06/18 at 06:30 Digoxin (Lanoxin) 125 mcg DAILY PO Last administered on 01/11/18at 08:02; Start 01/06/18 at 09:00 Lactobacillus Rhamnosus (Culturelle) 1 cap BID PO Last administered on at 19:38; Start 01/06/18 at 09:00 Nystatin (Nystop) 1 sagar BID TP Last administered on 01/11/18at 08:03; Start 07/14 at 09:00 Albuterol Sulfate (Ventolin) 2.5 mg 1X ONCE NEB Last administered on at 06:06; Start 01/07/18 at 06:00; Stop 01/07/18 at 06:01; Status DC Clonazepam (KlonoPIN) 0.5 mg HS PO Last administered on 01/08/18at 20:16; Start 01/07/18 at 21:00; Stop 01/09/18 at 19:21; Status DC Potassium Chloride (Klor-Con) 40 meq 1X ONCE PO Last administered on at 19:32; Start 01/07/18 at 20:00; Stop 01/07/18 at 20:01; Status DC Duloxetine HCl (Cymbalta) 60 mg DAILY PO Last administered on 01/11/18at 08:02; Start 01/09/18 at 09:00 Bupropion HCl (Wellbutrin Xl) 150 mg DAILY PO Last administered on 01/11/18at 08 :02; Start 01/09/18 at 09:00 Haloperidol Lactate (Haldol) 1 mg PRN DAILY PRN IM AGITATION; Start 01/08/18 at 16:45 Furosemide (Lasix) 40 mg BID@0600,1400 PO Last administered on 01/11/18at 14:06 ; Start 01/10/18 at 06:00 Potassium Chloride (Klor-Con) 20 meq DAILYWBKFT PO Last administered on at 08:02; Start 01/10/18 at 08:00 Active Scripts Active Reported Zyprexa (Olanzapine) 5 Mg Tablet 5 Mg PO PRN Q24HRS PRN Zyprexa (Olanzapine) 5 Mg Tablet 5 Mg PO DAILY Klonopin (Clonazepam) 0.5 Mg Tablet 0.5 Mg PO Q12HR Klonopin (Clonazepam) 0.5 Mg Tablet 0.5 Mg PO BID Digoxin 125 Mcg Tablet 125 Mcg PO DAILY Haldol Decanoate 100 (Haloperidol Decanoate) 100 Mg/1 Ml Ampul 1 Mg IM PRN DAILY PRN Cymbalta (Duloxetine Hcl) 60 Mg Capsule.dr 60 Mg PO DAILY Cymbalta (Duloxetine Hcl) 30 Mg Capsule.dr 30 Mg PO DAILY Buspirone Hcl 10 Mg Tablet 10 Mg PO TID@0900,1300,1700 Culturelle (Lactobacillus Rhamnosus Gg) 1 Each Capsule 1 Cap PO BID Vitamin B-12 (Cyanocobalamin (Vitamin B-12)) 1,000 Mcg Tablet 1,000 Mcg PO DAILY LAST DOSE GIVEN: DATE: TIME: NEXT DOSE DUE: DATE: TIME: Namenda (Memantine Hcl) 10 Mg Tablet 10 Mg PO BID LAST DOSE GIVEN: DATE: TIME: NEXT DOSE DUE: DATE: TIME: Analgesic [place] (Methyl Salicylate/Menthol) 28 Gm Oint...g. 1 [place] TP PRN QID PRN LAST DOSE GIVEN: DATE: TIME: NEXT DOSE DUE: DATE: TIME: Milk Of Magnesia (Magnesium Hydroxide) 400 Mg/5 Ml Oral.susp 2,400 Mg PO PRN DAILY PRN LAST DOSE GIVEN: DATE: TIME: NEXT DOSE DUE: DATE: TIME: Mag-Al Plus Xs Suspension (Mag Hydrox/Al Hydrox/Simeth) 30 Ml Oral.susp 15 Ml PO PRN AFTMEALHC PRN LAST DOSE GIVEN: DATE: TIME: NEXT DOSE DUE: DATE: TIME: Vitamin D3 (Cholecalciferol (Vitamin D3)) 50,000 Unit Capsule 50,000 Unit PO QTH LAST DOSE GIVEN: DATE: TIME: NEXT DOSE DUE: DATE: TIME: Abilify (Aripiprazole) 5 Mg Tablet 5 Mg PO DAILY LAST DOSE GIVEN: DATE: TIME: NEXT DOSE DUE: DATE: TIME: Tylenol (Acetaminophen) 325 Mg Tablet 650 Mg PO PRN Q6HRS PRN LAST DOSE GIVEN: DATE: TIME: NEXT DOSE DUE: DATE: TIME: Donepezil Hcl 10 Mg Tablet 10 Mg PO QHS LAST DOSE GIVEN: DATE: TIME: NEXT DOSE DUE: DATE: TIME: Mirtazapine 15 Mg Tablet 15 Mg PO QHS LAST DOSE GIVEN: DATE: TIME: NEXT DOSE DUE: DATE: TIME: I have reviewed the current psychotropics carefully including drug interactions. Risk benefit ratio favors no change other than as noted in my dictated progress note. Diagnosis: Problems: (1) Altered mental status (2) Anxiety disorder (3) Impulse control disorder (4) Dementia, vascular, with delusions (5) Dementia in Alzheimer's disease with depression (6) Dementia in Alzheimer's disease with delusions (7) Dementia, vascular, with depression MARICARMEN GONCALVES MD Jan 11, 2018 20:59
--- NOTE | 2018-01-12 02:31 | PN ---
DATE: 01/09/2018 PSYCHIATRIC PROGRESS NOTE This late entry 01/09/2018, covers elements not covered in my initial note. ' SUBJECTIVE: Met with the patient in the evening. The patient has been wandering, mistook another patient for his son ____ showed some aspiration and speech recommendation is for n.p.o. The DPOA has advised to continue his feedings despite dysphagia at least for now. REVIEW OF SYSTEMS: No CV, , pulmonary, eye system symptoms on review. Denies active suicidal ideation. Memory impaired. Reliability poor. MENTAL STATUS EXAM: Oriented to himself. Insight, judgment, recent memory is impaired. Language function is intact. Attention span short. Mood and affect remains withdrawn, depressed, anxious. LABORATORY DATA: Reviewed. IMPRESSION: Unchanged from initial note. PLAN: Stop the Zyprexa 5 mg q. 12 hours, has no clear psychotic symptoms are noted and this could be worsening his dysphagia and discontinue the Klonopin as well. Continue rest unchanged. MAN Charlie GONCALVES MD DR: DANGELO/bernardo JOB#: [id number] / [id number]
[2018-01-12] MEDS: FUROSEMIDE 40 MG TABLET PO SCH ×2 (04:24→13:51)
[2018-01-12 06:21] VITALS: BP 103/59
[2018-01-12] MEDS: CYANOCOBALAMIN (VITAMIN B-12) 1,000 MCG TABLET. PO SCH (07:56)
[2018-01-12] MEDS: POTASSIUM CHLORIDE 20 MEQ TABLET.ER. PO SCH (07:56)
[2018-01-12] MEDS: buPROPion XL 150 MG TAB.ER.24H PO SCH (07:56)
[2018-01-12] MEDS: busPIRone 10 MG TABLET. PO SCH ×3 (07:57→17:38)
[2018-01-12] MEDS: DULoxetine HCL 30 MG CAPSULE.DR PO SCH (07:57)
[2018-01-12] MEDS: LACTOBACILLUS RHAMNOSUS GG 1 CAPSULE. PO SCH ×2 (07:57→20:06)
[2018-01-12] MEDS: MEMANTINE 10 MG TABLET. PO SCH ×2 (07:57→20:06)
[2018-01-12] MEDS: DIGOXIN 125 MCG TABLET PO SCH (07:57)
[2018-01-12] MEDS: NYSTATIN TOPICAL POWDER 15GM BOTTLE. TP SCH ×2 (08:08→20:08)
--- NOTE | 2018-01-12 13:41 | PN ---
DATE: 01/11/2018 This late entry, 01/11/2018, covers elements not covered in my initial note of 01/11/2018. SUBJECTIVE: I met with the patient in the evening. The patient has had no drooling, ambulating much better, up and about the hallways himself. REVIEW OF SYSTEMS: No CV, , pulmonary, eye system symptoms on review. He is incontinent at times. Reliability somewhat poor with the review of systems. MENTAL STATUS EXAM: Oriented to himself and situation. Speech has some latency, coherent. Abstraction fair, computation impaired, language function intact. Mood is somewhat anxious, dysphoric. Affect is mood congruent. No suicidal or homicidal ideation. Short-term memory is impaired. LABORATORY DATA: Reviewed. IMPRESSION: Unchanged from initial note, major depressive disorder, recurrent; anxiety disorder, unspecified; major neurocognitive disorder, Alzheimer, vascular with delusion, depression. PLAN: Keep the patient off Klonopin and schedule Zyprexa. Maintain rest unchanged per initial notes. Swallowing is much improved. MAN Charlie GONCALVES MD DR: DANGELO/bernardo JOB#: [id number] / [id number]
--- NOTE | 2018-01-12 14:28 | PN ---
DATE: 01/10/2018 PSYCHIATRIC PROGRESS NOTE This late entry 01/10/2018, covers the elements not covered in my initial note 01/10/2018. SUBJECTIVE: I met with the patient in the evening. The patient remains confused, wandering, disorganized, compliant with medications. He continues to have some sedation, but is more wake up and about. Swallowing is somewhat better since we have discontinued the scheduled Klonopin and Zyprexa. REVIEW OF SYSTEMS: No CV, , pulmonary, eye, ENT system symptoms on review. MENTAL STATUS EXAM: Oriented to himself and situation. Speech has some latency, coherent. Abstraction fair, computation impaired, language function intact, attention span short. Mood is somewhat anxious, dysphoric. No suicidal or homicidal ideation. The patient makes vague suicidal statements when he is frustrated, more as a coping mechanism and I addressed this with him at some length. LABORATORY DATA: Reviewed. IMPRESSION: Major depressive disorder, recurrent; major neurocognitive disorder, Alzheimer, vascular with depression, delusion, behavioral disturbance. PLAN: Continue BuSpar, Cymbalta, Aricept along with Namenda, Wellbutrin and the Zyprexa is p.r.n. Klonopin and scheduled Zyprexa have been discontinued, and we will see how he does with the swallowing and n.p.o. status without the benzodiazepines. MAN Charlie GNOCALVES MD DR: DANGELO/bernardo JOB#: [id number] / [id number]
[2018-01-12 16:15] VITALS: BP 97/70
[2018-01-12] MEDS: MIRTAZAPINE 15 MG TABLET PO SCH (20:06)
[2018-01-12] MEDS: DONEPEZIL HCL 10 MG TABLET PO SCH (20:06)
--- NOTE | 2018-01-12 21:00 | PDOC ---
Exam Note: Jayy Note: Please also refer to the separate dictated note~for this date of service dictated separately.~Patient seen individually. Discussed the patient with Nursing staff reviewed the chart.~Reviewed interim history and current functioning. Reviewed vital signs,~Labs/ Radiology~and current medications noted below. Continue current treatment with the changes noted in the dictated addendum note Assessment: Vital Signs: Vital Signs Date Time Temp Pulse Resp B/P (MAP) Pulse Ox O2 Delivery O2 Flow Rate FiO2 01/12/18 16:15 97.3 88 20 97/70 (79) 97 Room Air 01/10/18 22:58 2.0 I&O Intake and Output 01/12/18 07:01 Intake Total 485 ml Balance 485 ml Intake Oral 485 ml Current Medications: Meds: Current Medications Furosemide (Lasix) 40 mg 1X ONCE IVP Last administered on 01/06/18at 04:52; Start 01/06/18 at 05:00; Stop 01/06/18 at 05:01; Status DC Furosemide (Lasix) 40 mg DAILY06 PO Last administered on 01/09/18at 06:33; Start 01/06/18 at 06:00; Stop 01/09/18 at 10:29; Status DC Clonazepam (KlonoPIN) 0.5 mg BID PO Last administered on 01/07/18at 08:43; Start 01/06/18 at 09:00; Stop 01/07/18 at 18:29; Status DC Clonazepam (KlonoPIN) 0.5 mg Q12HR PO ; Start 01/06/18 at 09:00; Status UNV Aripiprazole (Abilify) 5 mg DAILY PO Last administered on 01/08/18at 08:19; Start 01/06/18 at 09:00; Stop 01/08/18 at 10:45; Status DC Buspirone HCl (Buspar) 10 mg TIDPC PO Last administered on 01/12/18at 17:38; Start 01/06/18 at 08:30 Donepezil HCl (Aricept) 10 mg QHS PO Last administered on 01/12/18at 20:06; Start 01/06/18 at 21:00 Non-Formulary Medication (Duloxetine Hcl (Cymbalta)) 30 mg DAILY PO ; Start 07/14 at 09:00; Status UNV Duloxetine HCl (Cymbalta) 90 mg DAILY PO Last administered on 01/08/18at 08:19; Start 01/06/18 at 09:00; Stop 01/08/18 at 10:45; Status DC Haloperidol Decanoate (Haldol Decanoate Im Extended Release) 1 mg PRN DAILY PRN IM AGITATION; Start 01/08/18 at 07:30; Stop 01/08/18 at 16:35; Status DC Memantine (Namenda) 10 mg BID PO Last administered on 01/12/18at 20:06; Start at 09:00 Mirtazapine (Remeron) 15 mg QHS PO Last administered on 01/12/18at 20:06; Start 01/06/18 at 21:00 Olanzapine (ZyPREXA) 5 mg DAILY PO Last administered on 01/09/18at 08:06; Start 01/06/18 at 09:00; Stop 01/09/18 at 19:21; Status DC Olanzapine (ZyPREXA) 5 mg PRN Q24HRS PRN PO AGITATION Last administered on 01/10at 16:54; Start 01/06/18 at 09:00 Acetaminophen (Tylenol) 650 mg PRN Q6HRS PRN PO PAIN / TEMP Last administered on 01/09/18at 21:51; Start 01/06/18 at 06:30 Vitamin D (Vitamin D3) 50,000 unit QTH PO Last administered on 01/08/18at 18:14 ; Start 01/08/18 at 16:00 Cyanocobalamin (Vitamin B-12) 1,000 mcg DAILY PO Last administered on at 07:56; Start 01/06/18 at 09:00 Al Hydroxide/Mg Hydroxide (Mylanta Plus Xs) 15 ml PRN AFTMEALHC PRN PO DYSPEPSIA; Start 01/06/18 at 06:30 Magnesium Hydroxide (Milk Of Magnesia) 2,400 mg PRN DAILY PRN PO CONSTIPATION; Start 01/06/18 at 06:30 Multi-Ingredient Ointment (Analgesic [place]) 1 sagar PRN QID PRN TP MUSCLE PAIN; Start 01/06/18 at 06:30 Digoxin (Lanoxin) 125 mcg DAILY PO Last administered on 01/12/18at 07:57; Start 01/06/18 at 09:00 Lactobacillus Rhamnosus (Culturelle) 1 cap BID PO Last administered on at 20:06; Start 01/06/18 at 09:00 Nystatin (Nystop) 1 sagar BID TP Last administered on 01/12/18at 20:08; Start 07/14 at 09:00 Albuterol Sulfate (Ventolin) 2.5 mg 1X ONCE NEB Last administered on at 06:06; Start 01/07/18 at 06:00; Stop 01/07/18 at 06:01; Status DC Clonazepam (KlonoPIN) 0.5 mg HS PO Last administered on 01/08/18at 20:16; Start 01/07/18 at 21:00; Stop 01/09/18 at 19:21; Status DC Potassium Chloride (Klor-Con) 40 meq 1X ONCE PO Last administered on at 19:32; Start 01/07/18 at 20:00; Stop 01/07/18 at 20:01; Status DC Duloxetine HCl (Cymbalta) 60 mg DAILY PO Last administered on 01/12/18at 07:57; Start 01/09/18 at 09:00 Bupropion HCl (Wellbutrin Xl) 150 mg DAILY PO Last administered on 01/12/18at 07 :56; Start 01/09/18 at 09:00 Haloperidol Lactate (Haldol) 1 mg PRN DAILY PRN IM AGITATION; Start 01/08/18 at 16:45 Furosemide (Lasix) 40 mg BID@0600,1400 PO Last administered on 01/12/18at 13:51 ; Start 01/10/18 at 06:00 Potassium Chloride (Klor-Con) 20 meq DAILYWBKFT PO Last administered on at 07:56; Start 01/10/18 at 08:00 Active Scripts Active Reported Zyprexa (Olanzapine) 5 Mg Tablet 5 Mg PO PRN Q24HRS PRN Zyprexa (Olanzapine) 5 Mg Tablet 5 Mg PO DAILY Klonopin (Clonazepam) 0.5 Mg Tablet 0.5 Mg PO Q12HR Klonopin (Clonazepam) 0.5 Mg Tablet 0.5 Mg PO BID Digoxin 125 Mcg Tablet 125 Mcg PO DAILY Haldol Decanoate 100 (Haloperidol Decanoate) 100 Mg/1 Ml Ampul 1 Mg IM PRN DAILY PRN Cymbalta (Duloxetine Hcl) 60 Mg Capsule.dr 60 Mg PO DAILY Cymbalta (Duloxetine Hcl) 30 Mg Capsule.dr 30 Mg PO DAILY Buspirone Hcl 10 Mg Tablet 10 Mg PO TID@0900,1300,1700 Culturelle (Lactobacillus Rhamnosus Gg) 1 Each Capsule 1 Cap PO BID Vitamin B-12 (Cyanocobalamin (Vitamin B-12)) 1,000 Mcg Tablet 1,000 Mcg PO DAILY LAST DOSE GIVEN: DATE: TIME: NEXT DOSE DUE: DATE: TIME: Namenda (Memantine Hcl) 10 Mg Tablet 10 Mg PO BID LAST DOSE GIVEN: DATE: TIME: NEXT DOSE DUE: DATE: TIME: Analgesic [place] (Methyl Salicylate/Menthol) 28 Gm Oint...g. 1 [place] TP PRN QID PRN LAST DOSE GIVEN: DATE: TIME: NEXT DOSE DUE: DATE: TIME: Milk Of Magnesia (Magnesium Hydroxide) 400 Mg/5 Ml Oral.susp 2,400 Mg PO PRN DAILY PRN LAST DOSE GIVEN: DATE: TIME: NEXT DOSE DUE: DATE: TIME: Mag-Al Plus Xs Suspension (Mag Hydrox/Al Hydrox/Simeth) 30 Ml Oral.susp 15 Ml PO PRN AFTMEALHC PRN LAST DOSE GIVEN: DATE: TIME: NEXT DOSE DUE: DATE: TIME: Vitamin D3 (Cholecalciferol (Vitamin D3)) 50,000 Unit Capsule 50,000 Unit PO QTH LAST DOSE GIVEN: DATE: TIME: NEXT DOSE DUE: DATE: TIME: Abilify (Aripiprazole) 5 Mg Tablet 5 Mg PO DAILY LAST DOSE GIVEN: DATE: TIME: NEXT DOSE DUE: DATE: TIME: Tylenol (Acetaminophen) 325 Mg Tablet 650 Mg PO PRN Q6HRS PRN LAST DOSE GIVEN: DATE: TIME: NEXT DOSE DUE: DATE: TIME: Donepezil Hcl 10 Mg Tablet 10 Mg PO QHS LAST DOSE GIVEN: DATE: TIME: NEXT DOSE DUE: DATE: TIME: Mirtazapine 15 Mg Tablet 15 Mg PO QHS LAST DOSE GIVEN: DATE: TIME: NEXT DOSE DUE: DATE: TIME: I have reviewed the current psychotropics carefully including drug interactions. Risk benefit ratio favors no change other than as noted in my dictated progress note. Diagnosis: Problems: (1) Altered mental status (2) Anxiety disorder (3) Impulse control disorder (4) Dementia, vascular, with delusions (5) Dementia in Alzheimer's disease with depression (6) Dementia in Alzheimer's disease with delusions (7) Dementia, vascular, with depression MARICARMEN GONCALVES MD Jan 12, 2018 21:00
[2018-01-13 06:07] VITALS: BP 110/71
[2018-01-13] MEDS: FUROSEMIDE 40 MG TABLET PO SCH ×2 (06:13→12:19)
[2018-01-13] MEDS: LACTOBACILLUS RHAMNOSUS GG 1 CAPSULE. PO SCH ×2 (08:09→19:34)
[2018-01-13] MEDS: buPROPion XL 150 MG TAB.ER.24H PO SCH (08:09)
[2018-01-13] MEDS: POTASSIUM CHLORIDE 20 MEQ TABLET.ER. PO SCH (08:09)
[2018-01-13] MEDS: CYANOCOBALAMIN (VITAMIN B-12) 1,000 MCG TABLET. PO SCH (08:09)
[2018-01-13] MEDS: busPIRone 10 MG TABLET. PO SCH ×3 (08:09→16:23)
[2018-01-13] MEDS: DULoxetine HCL 30 MG CAPSULE.DR PO SCH (08:09)
[2018-01-13] MEDS: MEMANTINE 10 MG TABLET. PO SCH ×2 (08:09→19:36)
[2018-01-13] MEDS: DIGOXIN 125 MCG TABLET PO SCH (08:10)
[2018-01-13] MEDS: NYSTATIN TOPICAL POWDER 15GM BOTTLE. TP SCH (08:13)
[2018-01-13 15:51] VITALS: BP 98/73
[2018-01-13] MEDS: DONEPEZIL HCL 10 MG TABLET PO SCH (19:35)
[2018-01-13] MEDS: MIRTAZAPINE 15 MG TABLET PO SCH (19:36)
--- NOTE | 2018-01-13 20:59 | PN ---
DATE: 01/12/2018 PSYCHIATRIC PROGRESS NOTE This is a late entry 01/12/2018, covers elements not covered in my initial note 01/12/2018. SUBJECTIVE: I met with the patient in the evening. The patient slept 7-1/4 hours. He is less delusional, more awake, oriented, ambulating up and down the hallway. He denies suicidal ideation. Since his Zyprexa and Klonopin were discontinued he is much more awake and we will repeat swallow exam to see how that is compared to how it was when he was on the Klonopin. REVIEW OF SYSTEMS: No CV, , pulmonary, eye, ENT system symptoms on review. MENTAL STATUS EXAM: Oriented to himself and situation. Speech coherent, has some latency. Abstraction fair, computation impaired, language function intact, attention span short. Mood and affect still somewhat dysphoric, anxious, but improved. No active suicidal ideation. I discussed the patient's propensity to voice suicidal ideation when he is frustrated or otherwise feels inadequately attended to and how this distracts from the communication. He was able to understand this and process this. IMPRESSION: Unchanged from initial note. PLAN: Unchanged from initial note. Repeat the speech/swallow exam. MARICARMEN GONCALVES MD DR: DANGELO/bernardo JOB#: [id number] / [id number]
--- NOTE | 2018-01-13 21:00 | PDOC ---
Exam Note: Jayy Note: Please also refer to the separate dictated note~for this date of service dictated separately.~Patient seen individually. Discussed the patient with Nursing staff reviewed the chart.~Reviewed interim history and current functioning. Reviewed vital signs,~Labs/ Radiology~and current medications noted below. Continue current treatment with the changes noted in the dictated addendum note Assessment: Vital Signs: Vital Signs Date Time Temp Pulse Resp B/P (MAP) Pulse Ox O2 Delivery O2 Flow Rate FiO2 01/13/18 15:51 97.3 102 17 98/73 (81) 96 01/12/18 16:15 Room Air 01/10/18 22:58 2.0 I&O Intake and Output 01/13/18 07:00 Intake Total 720 ml Balance 720 ml Intake Oral 720 ml Current Medications: Meds: Current Medications Furosemide (Lasix) 40 mg 1X ONCE IVP Last administered on 01/06/18at 04:52; Start 01/06/18 at 05:00; Stop 01/06/18 at 05:01; Status DC Furosemide (Lasix) 40 mg DAILY06 PO Last administered on 01/09/18at 06:33; Start 01/06/18 at 06:00; Stop 01/09/18 at 10:29; Status DC Clonazepam (KlonoPIN) 0.5 mg BID PO Last administered on 01/07/18at 08:43; Start 01/06/18 at 09:00; Stop 01/07/18 at 18:29; Status DC Clonazepam (KlonoPIN) 0.5 mg Q12HR PO ; Start 01/06/18 at 09:00; Status UNV Aripiprazole (Abilify) 5 mg DAILY PO Last administered on 01/08/18at 08:19; Start 01/06/18 at 09:00; Stop 01/08/18 at 10:45; Status DC Buspirone HCl (Buspar) 10 mg TIDPC PO Last administered on 01/13/18at 16:23; Start 01/06/18 at 08:30 Donepezil HCl (Aricept) 10 mg QHS PO Last administered on 01/13/18at 19:35; Start 01/06/18 at 21:00 Non-Formulary Medication (Duloxetine Hcl (Cymbalta)) 30 mg DAILY PO ; Start 07/14 at 09:00; Status UNV Duloxetine HCl (Cymbalta) 90 mg DAILY PO Last administered on 01/08/18at 08:19; Start 01/06/18 at 09:00; Stop 01/08/18 at 10:45; Status DC Haloperidol Decanoate (Haldol Decanoate Im Extended Release) 1 mg PRN DAILY PRN IM AGITATION; Start 01/08/18 at 07:30; Stop 01/08/18 at 16:35; Status DC Memantine (Namenda) 10 mg BID PO Last administered on 01/13/18at 19:36; Start at 09:00 Mirtazapine (Remeron) 15 mg QHS PO Last administered on 01/13/18at 19:36; Start 01/06/18 at 21:00 Olanzapine (ZyPREXA) 5 mg DAILY PO Last administered on 01/09/18at 08:06; Start 01/06/18 at 09:00; Stop 01/09/18 at 19:21; Status DC Olanzapine (ZyPREXA) 5 mg PRN Q24HRS PRN PO AGITATION Last administered on 01/10at 16:54; Start 01/06/18 at 09:00 Acetaminophen (Tylenol) 650 mg PRN Q6HRS PRN PO PAIN / TEMP Last administered on 01/09/18at 21:51; Start 01/06/18 at 06:30 Vitamin D (Vitamin D3) 50,000 unit QTH PO Last administered on 01/08/18at 18:14 ; Start 01/08/18 at 16:00 Cyanocobalamin (Vitamin B-12) 1,000 mcg DAILY PO Last administered on at 08:09; Start 01/06/18 at 09:00 Al Hydroxide/Mg Hydroxide (Mylanta Plus Xs) 15 ml PRN AFTMEALHC PRN PO DYSPEPSIA; Start 01/06/18 at 06:30 Magnesium Hydroxide (Milk Of Magnesia) 2,400 mg PRN DAILY PRN PO CONSTIPATION; Start 01/06/18 at 06:30 Multi-Ingredient Ointment (Analgesic [place]) 1 sagar PRN QID PRN TP MUSCLE PAIN; Start 01/06/18 at 06:30 Digoxin (Lanoxin) 125 mcg DAILY PO Last administered on 01/13/18at 08:10; Start 01/06/18 at 09:00 Lactobacillus Rhamnosus (Culturelle) 1 cap BID PO Last administered on at 19:34; Start 01/06/18 at 09:00 Nystatin (Nystop) 1 sagar BID TP Last administered on 01/13/18at 08:13; Start 07/14 at 09:00 Albuterol Sulfate (Ventolin) 2.5 mg 1X ONCE NEB Last administered on at 06:06; Start 01/07/18 at 06:00; Stop 01/07/18 at 06:01; Status DC Clonazepam (KlonoPIN) 0.5 mg HS PO Last administered on 01/08/18at 20:16; Start 01/07/18 at 21:00; Stop 01/09/18 at 19:21; Status DC Potassium Chloride (Klor-Con) 40 meq 1X ONCE PO Last administered on at 19:32; Start 01/07/18 at 20:00; Stop 01/07/18 at 20:01; Status DC Duloxetine HCl (Cymbalta) 60 mg DAILY PO Last administered on 01/13/18at 08:09; Start 01/09/18 at 09:00 Bupropion HCl (Wellbutrin Xl) 150 mg DAILY PO Last administered on 01/13/18at 08 :09; Start 01/09/18 at 09:00 Haloperidol Lactate (Haldol) 1 mg PRN DAILY PRN IM AGITATION; Start 01/08/18 at 16:45 Furosemide (Lasix) 40 mg BID@0600,1400 PO Last administered on 01/13/18at 12:19 ; Start 01/10/18 at 06:00 Potassium Chloride (Klor-Con) 20 meq DAILYWBKFT PO Last administered on at 08:09; Start 01/10/18 at 08:00 Active Scripts Active Reported Zyprexa (Olanzapine) 5 Mg Tablet 5 Mg PO PRN Q24HRS PRN Zyprexa (Olanzapine) 5 Mg Tablet 5 Mg PO DAILY Klonopin (Clonazepam) 0.5 Mg Tablet 0.5 Mg PO Q12HR Klonopin (Clonazepam) 0.5 Mg Tablet 0.5 Mg PO BID Digoxin 125 Mcg Tablet 125 Mcg PO DAILY Haldol Decanoate 100 (Haloperidol Decanoate) 100 Mg/1 Ml Ampul 1 Mg IM PRN DAILY PRN Cymbalta (Duloxetine Hcl) 60 Mg Capsule.dr 60 Mg PO DAILY Cymbalta (Duloxetine Hcl) 30 Mg Capsule.dr 30 Mg PO DAILY Buspirone Hcl 10 Mg Tablet 10 Mg PO TID@0900,1300,1700 Culturelle (Lactobacillus Rhamnosus Gg) 1 Each Capsule 1 Cap PO BID Vitamin B-12 (Cyanocobalamin (Vitamin B-12)) 1,000 Mcg Tablet 1,000 Mcg PO DAILY LAST DOSE GIVEN: DATE: TIME: NEXT DOSE DUE: DATE: TIME: Namenda (Memantine Hcl) 10 Mg Tablet 10 Mg PO BID LAST DOSE GIVEN: DATE: TIME: NEXT DOSE DUE: DATE: TIME: Analgesic [place] (Methyl Salicylate/Menthol) 28 Gm Oint...g. 1 Sagar TP PRN QID PRN LAST DOSE GIVEN: DATE: TIME: NEXT DOSE DUE: DATE: TIME: Milk Of Magnesia (Magnesium Hydroxide) 400 Mg/5 Ml Oral.susp 2,400 Mg PO PRN DAILY PRN LAST DOSE GIVEN: DATE: TIME: NEXT DOSE DUE: DATE: TIME: Mag-Al Plus Xs Suspension (Mag Hydrox/Al Hydrox/Simeth) 30 Ml Oral.susp 15 Ml PO PRN AFTMEALHC PRN LAST DOSE GIVEN: DATE: TIME: NEXT DOSE DUE: DATE: TIME: Vitamin D3 (Cholecalciferol (Vitamin D3)) 50,000 Unit Capsule 50,000 Unit PO QTH LAST DOSE GIVEN: DATE: TIME: NEXT DOSE DUE: DATE: TIME: Abilify (Aripiprazole) 5 Mg Tablet 5 Mg PO DAILY LAST DOSE GIVEN: DATE: TIME: NEXT DOSE DUE: DATE: TIME: Tylenol (Acetaminophen) 325 Mg Tablet 650 Mg PO PRN Q6HRS PRN LAST DOSE GIVEN: DATE: TIME: NEXT DOSE DUE: DATE: TIME: Donepezil Hcl 10 Mg Tablet 10 Mg PO QHS LAST DOSE GIVEN: DATE: TIME: NEXT DOSE DUE: DATE: TIME: Mirtazapine 15 Mg Tablet 15 Mg PO QHS LAST DOSE GIVEN: DATE: TIME: NEXT DOSE DUE: DATE: TIME: I have reviewed the current psychotropics carefully including drug interactions. Risk benefit ratio favors no change other than as noted in my dictated progress note. Diagnosis: Problems: (1) Altered mental status (2) Anxiety disorder (3) Impulse control disorder (4) Dementia, vascular, with delusions (5) Dementia in Alzheimer's disease with depression (6) Dementia in Alzheimer's disease with delusions (7) Dementia, vascular, with depression MARICARMEN GONCALVES MD Jan 13, 2018 21:00
[2018-01-14] MEDS ORDERED: POTA20TA4 PO (01:43)
[2018-01-14] MEDS ORDERED: FURO40TA4 PO (01:44)
[2018-01-14] MEDS ORDERED: NYST60PO TP (01:46)
[2018-01-14] MEDS ORDERED: NYST15PO9 TP (01:46)
[2018-01-14] MEDS ORDERED: BUPR150T15 PO (01:48)
[2018-01-14] MEDS: NYSTATIN TOPICAL POWDER 15GM BOTTLE. TP SCH (04:10)
[2018-01-14 06:01] VITALS: BP 99/75
[2018-01-14 07:50] VITALS: BP 100/80
[2018-01-14] MEDS: POTASSIUM CHLORIDE 20 MEQ TABLET.ER. PO SCH (07:54)
[2018-01-14] MEDS: FUROSEMIDE 40 MG TABLET PO SCH (07:54)
[2018-01-14] MEDS: MEMANTINE 10 MG TABLET. PO SCH (07:54)
[2018-01-14] MEDS: busPIRone 10 MG TABLET. PO SCH (07:54)
[2018-01-14] MEDS: DULoxetine HCL 30 MG CAPSULE.DR PO SCH (07:55)
[2018-01-14] MEDS: LACTOBACILLUS RHAMNOSUS GG 1 CAPSULE. PO SCH (07:55)
[2018-01-14] MEDS: buPROPion XL 150 MG TAB.ER.24H PO SCH (07:55)
[2018-01-14] MEDS: CYANOCOBALAMIN (VITAMIN B-12) 1,000 MCG TABLET. PO SCH (07:55)
[2018-01-14 07:56] VITALS: BP 100/80
[2018-01-14] MEDS: DIGOXIN 125 MCG TABLET PO SCH (07:56)
--- NOTE | 2018-01-14 13:37 | PN ---
DATE: 01/13/2018 This is a late entry 01/13/2018, covers elements not covered in my initial note. SUBJECTIVE: I met with the patient in the evening. The patient slept 6-1/2 hours previous evening, at times gets somewhat anxious, laid himself on the floor, complained of being tired. He has had no further aspiration and we will have a repeat swallow study to see if this is resolved with the dysphagia and aspiration since we discontinued the Zyprexa and scheduled Klonopin. REVIEW OF SYSTEMS: No CV, , pulmonary, eye system symptoms on review. MENTAL STATUS EXAM: Oriented to himself and situation. Speech moderate latency, often responses monosyllabic. Abstraction fair, computation impaired, language function intact, attention span short. Mood and affect still somewhat dysphoric, but improved. No suicidal ideation. LABORATORY DATA: Reviewed. 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 Rest unchanged. PLAN: Continue psychotropics from initial note including Cymbalta 60 mg a day, BuSpar 10 mg 3 times a day, Aricept 10 mg a day, Zyprexa p.r.n., Wellbutrin-XL 150 mg daily, Namenda 10 mg b.i.d. Possible transition back to senior care on 01/14/2018. MAN Charlie GONCALVES MD DR: DANGELO/bernardo JOB#: [id number] / [id number]
--- NOTE | 2018-01-14 18:11 | PDOC ---
Exam Note: Jayy Note: Please also refer to the separate dictated note~for this date of service dictated separately.~Patient seen individually. Discussed the patient with Nursing staff reviewed the chart.~Reviewed interim history and current functioning. Reviewed vital signs,~Labs/ Radiology~and current medications noted below. Continue current treatment with the changes noted in the dictated addendum note Assessment: Vital Signs: Vital Signs Date Time Temp Pulse Resp B/P (MAP) Pulse Ox O2 Delivery O2 Flow Rate FiO2 01/14/18 07:56 101 100/80 01/14/18 07:50 Room Air 01/14/18 06:01 97.5 16 97 01/10/18 22:58 2.0 I&O Intake and Output 01/14/18 07:00 Intake Total 360 ml Balance 360 ml Intake Oral 360 ml # Voids 2 Current Medications: Meds: Current Medications Furosemide (Lasix) 40 mg 1X ONCE IVP Last administered on 01/06/18at 04:52; Start 01/06/18 at 05:00; Stop 01/06/18 at 05:01; Status DC Furosemide (Lasix) 40 mg DAILY06 PO Last administered on 01/09/18at 06:33; Start 01/06/18 at 06:00; Stop 01/09/18 at 10:29; Status DC Clonazepam (KlonoPIN) 0.5 mg BID PO Last administered on 01/07/18at 08:43; Start 01/06/18 at 09:00; Stop 01/07/18 at 18:29; Status DC Clonazepam (KlonoPIN) 0.5 mg Q12HR PO ; Start 01/06/18 at 09:00; Status UNV Aripiprazole (Abilify) 5 mg DAILY PO Last administered on 01/08/18at 08:19; Start 01/06/18 at 09:00; Stop 01/08/18 at 10:45; Status DC Buspirone HCl (Buspar) 10 mg TIDPC PO Last administered on 01/14/18at 07:54; Start 01/06/18 at 08:30; Stop 01/14/18 at 10:50; Status DC Donepezil HCl (Aricept) 10 mg QHS PO Last administered on 01/13/18at 19:35; Start 01/06/18 at 21:00; Stop 01/14/18 at 10:50; Status DC Non-Formulary Medication (Duloxetine Hcl (Cymbalta)) 30 mg DAILY PO ; Start 07/14 at 09:00; Status UNV Duloxetine HCl (Cymbalta) 90 mg DAILY PO Last administered on 01/08/18at 08:19; Start 01/06/18 at 09:00; Stop 01/08/18 at 10:45; Status DC Haloperidol Decanoate (Haldol Decanoate Im Extended Release) 1 mg PRN DAILY PRN IM AGITATION; Start 01/08/18 at 07:30; Stop 01/08/18 at 16:35; Status DC Memantine (Namenda) 10 mg BID PO Last administered on 01/14/18at 07:54; Start at 09:00; Stop 01/14/18 at 10:50; Status DC Mirtazapine (Remeron) 15 mg QHS PO Last administered on 01/13/18at 19:36; Start 01/06/18 at 21:00; Stop 01/14/18 at 10:50; Status DC Olanzapine (ZyPREXA) 5 mg DAILY PO Last administered on 01/09/18at 08:06; Start 01/06/18 at 09:00; Stop 01/09/18 at 19:21; Status DC Olanzapine (ZyPREXA) 5 mg PRN Q24HRS PRN PO AGITATION Last administered on 01/10at 16:54; Start 01/06/18 at 09:00; Stop 01/14/18 at 10:50; Status DC Acetaminophen (Tylenol) 650 mg PRN Q6HRS PRN PO PAIN / TEMP Last administered on 01/09/18at 21:51; Start 01/06/18 at 06:30; Stop 01/14/18 at 10:50; Status DC Vitamin D (Vitamin D3) 50,000 unit QTH PO Last administered on 01/08/18at 18:14 ; Start 01/08/18 at 16:00; Stop 01/14/18 at 10:50; Status DC Cyanocobalamin (Vitamin B-12) 1,000 mcg DAILY PO Last administered on at 07:55; Start 01/06/18 at 09:00; Stop 01/14/18 at 10:50; Status DC Al Hydroxide/Mg Hydroxide (Mylanta Plus Xs) 15 ml PRN AFTMEALHC PRN PO DYSPEPSIA; Start 01/06/18 at 06:30; Stop 01/14/18 at 10:50; Status DC Magnesium Hydroxide (Milk Of Magnesia) 2,400 mg PRN DAILY PRN PO CONSTIPATION; Start 01/06/18 at 06:30; Stop 01/14/18 at 10:50; Status DC Multi-Ingredient Ointment (Analgesic [place]) 1 sagar PRN QID PRN TP MUSCLE PAIN; Start 01/06/18 at 06:30; Stop 01/14/18 at 10:50; Status DC Digoxin (Lanoxin) 125 mcg DAILY PO Last administered on 01/14/18at 07:56; Start 01/06/18 at 09:00; Stop 01/14/18 at 10:50; Status DC Lactobacillus Rhamnosus (Culturelle) 1 cap BID PO Last administered on at 07:55; Start 01/06/18 at 09:00; Stop 01/14/18 at 10:50; Status DC Nystatin (Nystop) 1 sagar BID TP Last administered on 01/14/18at 04:10; Start 07/14 at 09:00; Stop 01/14/18 at 10:50; Status DC Albuterol Sulfate (Ventolin) 2.5 mg 1X ONCE NEB Last administered on at 06:06; Start 01/07/18 at 06:00; Stop 01/07/18 at 06:01; Status DC Clonazepam (KlonoPIN) 0.5 mg HS PO Last administered on 01/08/18at 20:16; Start 01/07/18 at 21:00; Stop 01/09/18 at 19:21; Status DC Potassium Chloride (Klor-Con) 40 meq 1X ONCE PO Last administered on at 19:32; Start 01/07/18 at 20:00; Stop 01/07/18 at 20:01; Status DC Duloxetine HCl (Cymbalta) 60 mg DAILY PO Last administered on 01/14/18at 07:55; Start 01/09/18 at 09:00; Stop 01/14/18 at 10:50; Status DC Bupropion HCl (Wellbutrin Xl) 150 mg DAILY PO Last administered on 01/14/18at 07 :55; Start 01/09/18 at 09:00; Stop 01/14/18 at 10:50; Status DC Haloperidol Lactate (Haldol) 1 mg PRN DAILY PRN IM AGITATION; Start 01/08/18 at 16:45; Stop 01/14/18 at 10:50; Status DC Furosemide (Lasix) 40 mg BID@0600,1400 PO Last administered on 01/14/18at 07:54 ; Start 01/10/18 at 06:00; Stop 01/14/18 at 10:50; Status DC Potassium Chloride (Klor-Con) 20 meq DAILYWBKFT PO Last administered on at 07:54; Start 01/10/18 at 08:00; Stop 01/14/18 at 10:50; Status DC Active Scripts Active Reported Wellbutrin Xl (Bupropion Hcl) 150 Mg Tab.er.24h 150 Mg PO DAILY Nystatin 15 Gm Powder 1 Sagar TP BID Furosemide 40 Mg Tablet 40 Mg PO BID@0600,1400 Klor-Con M20 (Potassium Chloride) 20 Meq Tab.er.prt 20 Meq PO DAILYWBKFT Zyprexa (Olanzapine) 5 Mg Tablet 5 Mg PO PRN Q24HRS PRN Digoxin 125 Mcg Tablet 125 Mcg PO DAILY Haldol Decanoate 100 (Haloperidol Decanoate) 100 Mg/1 Ml Ampul 1 Mg IM PRN DAILY PRN Cymbalta (Duloxetine Hcl) 60 Mg Capsule.dr 60 Mg PO DAILY Buspirone Hcl 10 Mg Tablet 10 Mg PO TIDPC Culturelle (Lactobacillus Rhamnosus Gg) 1 Each Capsule 1 Cap PO BID Vitamin B-12 (Cyanocobalamin (Vitamin B-12)) 1,000 Mcg Tablet 1,000 Mcg PO DAILY LAST DOSE GIVEN: DATE: TIME: NEXT DOSE DUE: DATE: TIME: Namenda (Memantine Hcl) 10 Mg Tablet 10 Mg PO BID LAST DOSE GIVEN: DATE: TIME: NEXT DOSE DUE: DATE: TIME: Analgesic [place] (Methyl Salicylate/Menthol) 28 Gm Oint...g. 1 Sagar TP PRN QID PRN LAST DOSE GIVEN: DATE: TIME: NEXT DOSE DUE: DATE: TIME: Milk Of Magnesia (Magnesium Hydroxide) 400 Mg/5 Ml Oral.susp 2,400 Mg PO PRN DAILY PRN LAST DOSE GIVEN: DATE: TIME: NEXT DOSE DUE: DATE: TIME: Mag-Al Plus Xs Suspension (Mag Hydrox/Al Hydrox/Simeth) 30 Ml Oral.susp 15 Ml PO PRN AFTMEALHC PRN LAST DOSE GIVEN: DATE: TIME: NEXT DOSE DUE: DATE: TIME: Vitamin D3 (Cholecalciferol (Vitamin D3)) 50,000 Unit Capsule 50,000 Unit PO QTH LAST DOSE GIVEN: DATE: TIME: NEXT DOSE DUE: DATE: TIME: Tylenol (Acetaminophen) 325 Mg Tablet 650 Mg PO PRN Q6HRS PRN LAST DOSE GIVEN: DATE: TIME: NEXT DOSE DUE: DATE: TIME: Donepezil Hcl 10 Mg Tablet 10 Mg PO QHS LAST DOSE GIVEN: DATE: TIME: NEXT DOSE DUE: DATE: TIME: Mirtazapine 15 Mg Tablet 15 Mg PO QHS LAST DOSE GIVEN: DATE: TIME: NEXT DOSE DUE: DATE: TIME: I have reviewed the current psychotropics carefully including drug interactions. Risk benefit ratio favors no change other than as noted in my dictated progress note. Diagnosis: Problems: (1) Major depressive disorder, recurrent episode (2) Anxiety disorder (3) Impulse control disorder (4) Dementia in Alzheimer's disease with depression (5) Dementia in Alzheimer's disease with delusions MARICARMEN GONCALVES MD Jan 14, 2018 18:11
--- NOTE | 2018-01-14 22:31 | DS ---
DATE OF DISCHARGE: 01/14/2018 This note covers the elements not covered in my initial note, 01/14/2018. REASON FOR ADMISSION: Please refer to the admission history for details. Briefly, the patient is an 82-year-old male referred back to us from [facility] by his primary care physician/psychiatrist on account of increased agitation, attempting to elope multiple times. This happened after the patient was moved to the memory care unit on 01/02/2018. On the memory care unit, he was agitated, depressed, making repeated statements of "I want to ." He was banging his head on oneill, refusing medications, and meals, having failed outpatient psychiatric interventions, referred for inpatient psychiatric stabilization. SIGNIFICANT FINDINGS AND CLINICAL COURSE: Following admission, the patient was seen daily individually by myself from a psychiatric standpoint, medical followup per Dr. Chester/Dr. Clark. He is extremely sedated, confused, having difficulty with speech and swallowing. Swallow study showed aspiration. He was placed n.p.o., but then the Klonopin and scheduled Depakote were discontinued and the swallowing appeared to resolve and even though he was not ambulating initially on admission, he was starting to ambulate entirely on his own and quite steady on his feet. Gradually mood appeared to improve. REVIEW OF SYSTEMS: Prior to discharge, 01/14/2018, no CV, , pulmonary, eye, ENT system symptoms on review. MENTAL STATUS EXAM: Oriented to himself and situation. Speech moderate latency, often responses monosyllabic. Abstraction fair, computation impaired, language function intact. Attention span short. Short term memory is impaired, remote is better. During the individual visit, we processed at length appropriate ways for the patient to express frustration without resorting to making suicidal statements and he was able to comprehend and practice this. CONDITION AT DISCHARGE: Improved. FINAL DIAGNOSES: Major depressive disorder, recurrent with psychotic features, in partial remission; major neurocognitive disorder, early Alzheimer, vascular with delusion, depression later in partial remission; anxiety disorder, unspecified; impulse control disorder, unspecified. Rest unchanged from admission. DISCHARGE MEDICATIONS: Please refer to the MRAD. DISCHARGE INSTRUCTIONS: Outpatient psychiatric and medical followup at the [facility]. The patient was discharged on hospice care with cardiac ejection fraction of 15%. MAN Charlie GONCALVES MD DR: Brigette JOB#: [id number] / [id number]
== END 2018-01-14 10:40 | disposition hospice, home (50) | DRG 885 ==
LOC: ER 02:14 → GEROPSY 05:55
PROVIDERS: ADMIT Psychiatry & Neurology Psychiatry; ATTEND Psychiatry & Neurology Psychiatry
DX: F33.3 Major depressive disorder, recurrent, severe with psychotic symptoms (principal); F02.81 Dementia in other diseases classified elsewhere, unspecified severity, with behavioral disturbance; F01.51 Vascular dementia, unspecified severity, with behavioral disturbance; R45.851 Suicidal ideations; G30.9 Alzheimer's disease, unspecified; E78.5 Hyperlipidemia, unspecified; F41.9 Anxiety disorder, unspecified; F63.9 Impulse disorder, unspecified; I11.0 Hypertensive heart disease with heart failure; I50.9 Heart failure, unspecified; I25.10 Atherosclerotic heart disease of native coronary artery without angina pectoris; R13.10 Dysphagia, unspecified; Z66 Do not resuscitate; Z79.899 Other long term (current) drug therapy
CPT/HCPCS: 36415; 70450; 71045; 74230; 80048; 80053; 80061; 80076; 80162; 80307; 81001; 82306; 82553; 82607; 83036; 83540; 83550; 83735; 83880; 84436; 84443; 84480; 84484; 85025; 85610; 85651; 86592; 93005; 93306; 94640; 96374; J1940; J7613; 92610; 92611; 97110; 97116; 97530; 97535; 99285-25; G0479